=== PATIENT | male | born 1955 | race Caucasian/White ===

== ENCOUNTER 2016-08-23 03:50 | Inpatient (IN) | payer OTHER ==
[~2016-08-23] VITALS: Ht 185.4 cm; Wt 102.2 kg
[2016-08-23] VITALS (23 sets, daily range): BP systolic 112–143; BP diastolic 51–90; PULSE 54–140; RESP 12–24; TEMP 95–101; O2SAT 99–100
[2016-08-23] MEDS ORDERED: MIDAZOLAM HCL 5 MG/ML VIAL (1 ML) ONE ×2 (03:56→17:01)
[2016-08-23] MEDS ORDERED: PROPOFOL 500 MG/50 ML INJ 50 ML ONE (03:59)
--- NOTE | 2016-08-23 04:17 | PD ---
HPI Chief Complaint: intracranial hemorrhage Time Seen by Provider: 03:59 Travel History International Travel<30 days: No Contact w/Intl Traveler<30days: No History of Present Illness HPI The patient is a 60 year old male who presents to the [facility] emergency department with a history of being accepted in transfer from [facility] after being diagnosed with a subarachnoid hemorrhage worse on the right compared to the left with intraventricular hemorrhage extension. The patient was accepted in transfer by the neurosurgeon on-call, Dr. Robbins. The patient was intubated at that facility when he became unresponsive. The patient was noted to be tachycardic with a heart rate in the 130s, blood pressure initially 220/120. According to the record, the patient had a history of recently standing up after tying his shoes and having a headache associated with neck pain. He had been being seen by a local chiropractor and been treating the pain with tramadol, ibuprofen, and Flexeril. This evening he developed a decreased level of consciousness and was difficult to awaken according to his . She was concerned that he may have taken some extra pain medication, therefore Narcan was given in 3 separate doses at that facility, however the patient had no response. The patient was noted after intubation to have the subarachnoid hemorrhage and was transferred to this facility for definitive care by the neurosurgeon. The patient was placed on propofol for sedation on the ventilator. The patient was started on a Cardene drip. The patient was noted en route to this facility to have decorticate posturing. The patient on arrival is noted to have tachycardia with a pulse in the 150s to 160s. The patient is unable to provide any further history as he is intubated. [facility] Past Medical History Narrative Medical The patient's past medical history is obtained from reviewing the other records and reveals a history of hypertension, hyperlipidemia, recent headache, recent neck pain. Past Surgical History Narrative Surgical The patient's past surgical history is unable to be obtained. Social History Alcohol Use: No Tobacco Use: No Substance Use: No Allergies-Medications Comments No known drug allergies. Narrative Medication The patient has been taking Flexeril, tramadol, ibuprofen, enalapril, lovastatin. Review of Systems ROS Limitations: Intubated Physical Exam Narrative General: The patient is a well-developed well-nourished male, intubated on arrival, diaphoretic. Head and Neck exam: Head is normocephalic atraumatic. Eyes: Extraocular motion testing is unable to be accomplished in this patient who is sedated on a ventilator. Pupils are equal round and reactive to light at 3 mm. Nose: Midline septum with pink mucous membranes Mouth: Dentition unremarkable. Moist mucus membranes. Posterior oropharynx is not erythematous. No tonsillar hypertrophy. Uvula midline. Airway patent. Neck: No palpable lymphadenopathy. No nuchal rigidity. No thyromegaly. Cardiovascular: Sinus tachycardia in the 150s to low 160s without murmurs, gallops, or rubs. No pulse deficit to the extremities and simultaneous auscultation and palpation of his radial arteries. Lungs: Clear to auscultation bilaterally. No wheezes, rhonchi, or rales. The patient is intubated and on a ventilator. Abdomen: Soft, without tenderness to palpation in all 4 quadrants of the abdomen. No guarding, rebound, or rigidity. Extremities: No clubbing, cyanosis, or edema. 2+ pulses in all 4 extremities. The patient has fasciculations noted of his musculature of his extremities. Neurologic Exam: Formal neurologic testing is unable to be accomplished as the patient is sedated on a ventilator, however the patient is noted to have decorticate posturing. Skin Exam: No rash noted. Intact skin that is warm and diaphoretic. Data Data Orders Midazolam Inj (Versed Inj) (08/23/16 03:56) Propofol 500 Mg/50 Ml Inj (Diprivan 500 (08/23/16 03:59) Admit Order (Ed Use Only) (08/23/16 03:59) Nicardipine Inj (Cardene Inj) (08/23/16 04:05) [facility] Medical Decision Making Medical Screen Exam Complete: Yes Emergency Medical Condition: Yes Medical Record Reviewed: Yes Differential Diagnosis Subarachnoid hemorrhage related to aneurysm, versus trauma Narrative Course During the course of the patients emergency department visit,the patient had IV access assess and IV drips assessed. A call was placed out to the neurosurgeon on-call that except that the patient in transfer, Dr. Robbins. He reported back that he planned on placing a ventriculostomy emergently. He requested that the patient be transferred Immediately to the [facility]. The patient was initially provided Versed 2.5 mg IV in 2 separate doses for sedation while the patient was placed on infusion pumps from this facility for the Cardene that he was previously placed on, as well as a propofol. The patients laboratory studies were reviewed from the other facility and remarkable for a sodium of 142 potassium 4.1, chloride 102, CO2 22, glucose 139 , anion gap 18, BUN 30, creatinine 0.7, calcium 9.4, albumin 3.7, magnesium 1.9 , serum osmolality 283, BNP is 17, troponin I 0.019, lipase 1:15, AST 148, ALT 228, alkaline phosphatase 90, ammonia 13, total bilirubin 1.0, lactic acid 1.8. White count is 11.1, hemoglobin is 17.5, platelets 406 with neutrophils 67.3, lymphocytes 19.1. PT 10.4, INR 0.99, PTT 28.8. Urinalysis shows small blood, protein 100, urobilinogen 2 Radiology studies were reviewed and remarkable for a subarachnoid hemorrhage noted on CT that is worse on the right side of the brain compared to the left with intraventricular extension. The patients results were discussed with the patient, including the plan of care. I explained that further testing and/ or monitoring is indicated based on the patients history, examination, and/ or laboratory findings. Therefore, I recommended admission for additional evaluation. The patient expressed understanding and was agreeable with this plan. The patient was admitted to the hospital in critical condition and sent to a bed under the care of Dr. Robbins. Diagnosis Primary Impression: Subarachnoid hemorrhage Admitting Information Admitting Physician Requests: Admit Mindy Contreras MD Aug 23, 2016 04:17
--- NOTE | 2016-08-23 05:05 | HHI.HP ---
HPI Service Critical Care Medicine Primary Care Physician Unknown Admission Diagnosis Intracranial hemorrhage Diagnosis: Travel History International Travel<30 Days: No Contact w/Intl Traveler <30 Da: No History of Present Illness 60 year old male who presents to the [facility] in transfer from [facility] after being diagnosed with a subarachnoid hemorrhage with intraventricular hemorrhage extension. The patient was intubated at that facility when he became unresponsive. The patient was noted to be tachycardic with a heart rate in the 130s, blood pressure initially 220/120. According to the record, the patient had a history of recently standing up after tying his shoes and having a headache associated with neck pain. He had been being seen by a local chiropractor and been treating the pain with tramadol, ibuprofen, and Flexeril. This evening he developed a decreased level of consciousness and was difficult to awaken according to his . She was concerned that he may have taken some extra pain medication, therefore Narcan was given in 3 separate doses at that facility, however the patient had no response. The patient was noted after intubation to have the subarachnoid hemorrhage and was transferred to this facility for higher level of care. The patient was placed on propofol for sedation on the ventilator. The patient was started on a Cardene drip. EVD was emergently placed by neurosurgeon. Review of Systems ROS Unable to obtain patient is comatose and intubated Past Family Social History Allergies: Coded Allergies: No Known Allergies (Unverified , 08/23/16) Past Medical History Hypertension Hyperlipidemia New onset of recent headaches and neck pain Past Surgical History Unobtainable Family History Unobtainable Social History Unobtainable Physical Exam Vital Signs Vital Signs Date Time Temp Pulse Resp B/P Pulse Ox O2 Delivery O2 Flow Rate FiO2 08/23/16 04:31 99 50 08/23/16 04:20 100 100 08/23/16 04:00 100 50 Physical Exam GENERAL: Well-nourished, well-developed patient. Sedated and intubated SKIN: Warm and dry. HEAD: Normocephalic. EYES: No scleral icterus. No injection or drainage. NECK: Supple, trachea midline. No JVD or lymphadenopathy. CARDIOVASCULAR: Regular rate and rhythm without murmurs, gallops, or rubs. RESPIRATORY: Breath sounds equal bilaterally. No accessory muscle use. GASTROINTESTINAL: Abdomen soft, non-tender, nondistended. MUSCULOSKELETAL: No cyanosis, or edema. BACK: Nontender without obvious deformity. No CVA tenderness. EXTREMITIES: No clubbing cyanosis or edema. Extends on all 4 extremities painful stimuli Assessment and Plan Assessment and Plan Respiratory failure - Intubated for an airway protection - Mechanical ventilation - Vent bundle - No SBT's until neurologically stable and improved Subarachnoid hemorrhage - Marshall and Galeas grade 5 - Modified Andersen grade 4 - Strict blood pressure control - Nimodipine and Pravachol - TCD's daily starting day 2 - Cerebral angiogram - EVD - Management per neurosurgery Obstructive hydrocephalus - Due to above - EVD in place Hypertension - Nicardipine drip - SBP less than 140 until aneurysm secured Dyslipidemia - Pravachol for now for vasospasm prevention as well DVT GI prophylaxis - Teds SCDs - No pharmacological DVT prophylaxis due to subarachnoid bleed - Pepcid Critical Care: The total critical care time was 35 minutes. Time to perform other separately billable procedures was not included in the critical care time. Dannie Greenberg MD Aug 23, 2016 05:05
[2016-08-23] MEDS ORDERED: ONDANSETRON HCL 4 MG/2 ML VIAL IV PRN (05:30)
[2016-08-23] MEDS ORDERED: METOCLOPRAMIDE HCL 10 MG/2 ML VIAL IV PRN (05:30)
[2016-08-23] MEDS ORDERED: MAGNESIUM HYDROXIDE SUSP 30 ML CUP PO PRN (05:30)
[2016-08-23] MEDS ORDERED: SENNOSIDES 8.6 MG TAB PO PRN (05:30)
[2016-08-23] MEDS ORDERED: SODIUM CHLORIDE 0.9% FLUSH 10 ML FLUSH PRN (05:30)
[2016-08-23] MEDS ORDERED: MORPHINE SULFATE 4 MG/ML INJ IV PRN (05:30)
[2016-08-23] MEDS ORDERED: CHLORHEXIDINE GLUCONATE 2 % 1 PACK (2 CLOTHS) TOP PRN (05:30)
[2016-08-23] MEDS ORDERED: LACTULOSE SYRUP 20 GM/30 ML CUP PO PRN (05:30)
[2016-08-23] MEDS ORDERED: BISACODYL 10 MG SUPP RECTAL PRN (05:30)
[2016-08-23] MEDS ORDERED: RESP: ALBUTEROL 2.5 MG/IPRATROPIUM 0.5 MG NEB (PRN) INH (05:30)
[2016-08-23] MEDS ORDERED: MISCELLANEOUS NURSING INFORMATION XX SCH (05:30)
[2016-08-23] MEDS ORDERED: PROCHLORPERAZINE 25 MG SUPP RECTAL PRN (05:30)
--- NOTE | 2016-08-23 06:00 | RADRPT ---
EXAM DATE/TIME: 08/23/2016 05:32 [facility] COMPARISON: No previous studies available for comparison. INDICATIONS : Short of breath. MEDICAL HISTORY : None. SURGICAL HISTORY : None. ENCOUNTER: Initial ACUITY: 1 day PAIN SCORE: 0/10 LOCATION: Bilateral chest FINDINGS: A single view of the chest demonstrates the lungs to be symmetrically aerated without evidence of mas s, infiltrate or effusion. The cardiomediastinal contours are unremarkable. Osseous structures are intact. CONCLUSION: Normal examination. Larry Carroll MD on August 23, 2016 at 5:58 Board Certified Radiologist. This report was verified electronically.
[2016-08-23 06:06] LABS: BLOOD GAS BASE EXCESS 1.9 mmol/L (-2-2); BLOOD GAS CARBOXYHEMOGLOBIN 0.8 % (0-4); BLOOD GAS HCO3 25 mmol/L (22-26); BLOOD GAS METHEMOGLOBIN 0.9 % (0-2); BLOOD GAS O2 HGB SATURATION 98 % (90-100); BLOOD GAS OXYGEN CONTENT 25.2 Vol % (12.0-20.0); BLOOD GAS PCO2 36 mmHg (38-42); BLOOD GAS PO2 237 mmHg (61-120); CRITICAL VALUE NO; OXYGEN DEVICE VENT; TEMP CORR TO 98.6
[2016-08-23 06:07] LABS: DRAW SITE LT RADIAL; FIO2 50 %; NUMBER OF ARTERIAL PUNCTURES 1; STAT NO; ULNAR PULSE PRESENT; VENT SETTINGS 12/500 5 PEEP
--- NOTE | 2016-08-23 06:09 | PD.CONS ---
History of Present Illness Service Neurosurgery Consult Requested By Facilities Clerk Reason for Consult Intracranial-intraventricular hemorrhage Primary Care Physician Jaime Barajas MD Diagnoses: History of Present Illness 60-year-old male who according to his developed acute onset of severe back pain and headache on approximately 08/11/16 while on a fishing trip. The headache has persisted since then along with nausea and occasional emesis. He has not sought any medical treatment since initial onset. He did not go to work since the initial onset due to these persistent symptoms. He has not been eating well. His states that after he went to sleep last night, at approximately 1:30 or 2 AM she noticed snoring respirations and found him initially unresponsive. He was able to be aroused by EMS and ambulated briefly prior to being placed in the ambulance. He was taken to [facility] for initial evaluation and in the emergency room was noted to be unresponsive with extensor posturing. He was intubated and placed on nicardipine drip for hypertension. No seizure activity reported. Review of Systems Review of systems cannot be obtained from the patient. According to the patient's , other than the above-noted symptoms, he has been in good health without any significant medical symptoms or health related complaints. Past Family Social History Allergies: Coded Allergies: No Known Allergies (Unverified , 08/23/16) Past Medical History Hypertension Hypercholesterolemia No cardiac or pulmonary or gastrointestinal disease Past Surgical History No major surgeries reported Reported Medications He takes enalapril for hypertension Family History Negative for cardiac disease, neurologic disorders, aneurysm. His father of cancer in his mother following a stroke. Social History No history of smoking. No significant alcohol use Physical Exam Vital Signs Vital Signs Date Time Temp Pulse Resp B/P Pulse Ox O2 Delivery O2 Flow Rate FiO2 08/23/16 05:00 101.0 140 24 143/90 99 08/23/16 05:00 99 Mechanical Ventilator 50 08/23/16 05:00 140 08/23/16 05:00 50 08/23/16 04:31 99 50 08/23/16 04:20 100 100 08/23/16 04:00 100 50 Physical Exam GENERAL: This is a well-nourished, well-developed patient, intubated and sedated on propofol SKIN: No rashes, ecchymoses or lesions. Cool and dry. HEAD: Atraumatic. Normocephalic. EYES: Sclerae clear and nonicteric ENT: No facial edema or ecchymosis. Intubated. No obvious oropharyngeal lesions. NECK: Trachea midline. No JVD or lymphadenopathy. Supple CARDIOVASCULAR: Regular rate and rhythm without murmurs, gallops, or rubs. RESPIRATORY: Clear to auscultation. Breath sounds equal bilaterally. No wheezes , rales, or rhonchi. GASTROINTESTINAL: Abdomen soft, , nondistended. No hepato-splenomegaly MUSCULOSKELETAL: Extremities without clubbing, cyanosis, or edema. No joint effusion, or edema noted. Posterior tibial pulses are 2+ bilateral. NEUROLOGICAL: No eye opening spontaneous, to voice, or deep pain. Does not follow commands. No response to voice Pupils 3 mm and reactive No spontaneous extraocular movements minimal oculocephalic responses-mildly disconjugate Mild bilateral corneal response Postoperative cough response was endotracheal suctioning Positive spontaneous respirations No facial grimacing to deep pain Extensor posturing in the right there is a left upper extremity and lower extremities to deep pain Does not localize to deep pain. No purposeful movements Imaging 08/23/2016 CT scan head [facility] images are reviewed by the undersigned. Study reveals a moderate focal area of parenchymal hemorrhage starting at the region of the right clinoid extending to the anterior to mid medial temporal lobe with significant intraventricular hemorrhage primarily in the right lateral ventricle extending into the fourth ventricle. Moderate dilation of the left lateral ventricle. There appears to be diminished cortical markings and sanchez-white interface. Assessment and Plan Assessment and Plan Impression: 1. Right temporal intracranial hemorrhage with interventricular extension. 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 2. Hypertension Recommendations: Findings were discussed at length with the patient's in the surgical intensive care unit shortly after the patient's arrival. He has been maintained on nicardipine drip for control of hypertension. Maintain systolic blood pressure 110-140 range Continuing ventilatory support with sedation as needed for control of airway, respirations and agitation I recommended placement of ventriculostomy catheter. The procedure, risks, possible complications, indications have all been fully discussed and consents obtained from the patient's . Nimodipine initiated for vasospasm prophylaxis. CT angiogram of the head and neck requested. Ulcer prophylaxis Non- chemical DVT prophylaxis Discussed with junior systems engineer Speedy Robbins MD Aug 23, 2016 06:09
--- NOTE | 2016-08-23 06:14 | PD.OP ---
Operative Report Date of Surgery: Aug 23, 2016 Preoperative Diagnosis: (1) Intracranial hemorrhage (2) Intraventricular hemorrhage Right temporal intracranial hemorrhage with intraventricular hemorrhage with obstructive hydrocephalus Postoperative Diagnosis: (1) Intracranial hemorrhage (2) Intraventricular hemorrhage Right temporal intracranial hemorrhage with intraventricular hemorrhage with obstructive hydrocephalus Procedure: Left frontal twist drill for ventriculostomy placement Anesthesia: Intravenous sedation 1% Xylocaine local anesthetic Surgeon: Speedy Robbins Stick Puller(s): None Operation and Findings: The procedure was performed in the surgical intensive care unit. The procedure, risks, and possible complications were fully explained prior to the procedure and consent obtained and witnessed. The catheter was placed on the left side due to extensive hemorrhage within the right lateral ventricle with dilation of the left lateral ventricle Appropriate timeout procedure was performed with all personnel present and in agreement The patient was placed in supine position with the head and neck in neutral position and the head of the bed elevated approximately 20. The left frontal region was shaved with clippers and sterilely prepped and draped. One percent Xylocaine without epinephrine was used for local infiltration over the small incision site which was made approximately 9-10 cm above the left supraorbital rim, approximately 3-1/2 to 4 cm lateral to the midline, in the mid pupillary line just anterior to the coronal suture. The hand drill was used to make a single twist drill opening in the cranium and the dura was perforated with the trocar. The Codman Bactiseal ventriculostomy catheter was advanced to a depth of 6-7 cm intracranial in a single pass with good return of spinal fluid. Opening pressure was 42 centimeter water The catheter was tunneled to the posterior frontal region with a trocar and secured to the skin with 3-0 nylon suture which was also used to close the small incision. A sterile bactericidal dressing was applied The catheter was connected to the drainage reservoir, and there was good drainage of fluid. The patient's neurologic exam remained stable following the procedure No specimen was sent There was no significant bleeding Speedy Robbins MD Aug 23, 2016 06:14
[2016-08-23 06:15] LABS: AUTOMATED NEUTROPHIL # 17.1 TH/MM3 (1.8-7.7); BASOPHIL # 0.1 TH/MM3 (0-0.2); BASOPHIL % 0.6 % (0.0-2.0); EOSINOPHIL # 0.1 TH/MM3 (0-0.4); EOSINOPHIL % 0.4 % (0.0-4.0); HEMATOCRIT 52.6 % (39.0-51.0); HEMO FLAGS DIFF FINAL; LYMPH % 3.3 % (9.0-44.0); LYMPHOCYTE # 0.6 TH/MM3 (1.0-4.8); MEAN CELL VOLUME 82.8 FL (80.0-100.0); MEAN CORPUSCULAR HEMOGLOBIN 27.7 PG (27.0-34.0); MEAN CORPUSCULAR HGB CONC 33.4 % (32.0-36.0); MONO % 7.1 % (0.0-8.0); NEUT % 88.6 % (16.0-70.0); PLATELET COUNT 338 TH/MM3 (150-450); RED BLOOD COUNT 6.35 MIL/MM3 (4.50-5.90); RED CELL DISTRIBUTION WIDTH 14.6 % (11.6-17.2); WHITE BLOOD COUNT 19.3 TH/MM3 (4.0-11.0)
[2016-08-23 06:26] LABS: PROTHROMBIN TIME - PATIENT 10.7 SEC (9.8-11.6)
[2016-08-23 06:41] LABS: ALT (GPT) 209 U/L (12-78)
--- NOTE | 2016-08-23 06:41 | PD.PROCEDR ---
Procedure Note Procedure Centerline A time-out was completed verifying correct patient, procedure, site, positioning , and special equipment if applicable. The patient was placed in a dependent position appropriate for central line placement based on the vein to be cannulated. The patients right shoulder was prepped and draped in sterile fashion. 1% Lidocaine was used to anesthetize the surrounding skin area. A triple lumen 9-Arabic Cordis catheter was introduced into the the right subclavian vein using the Seldinger technique. The catheter was threaded smoothly over the guide wire and appropriate blood return was obtained. Each lumen of the catheter was evacuated of air and flushed with sterile saline. The catheter was then sutured in place to the skin and a sterile dressing applied. Perfusion to the extremity distal to the point of catheter insertion was checked and found to be adequate. Estimated Blood Loss: 1ml The patient tolerated the procedure well and there were no complications. Dannie Greenberg MD Aug 23, 2016 06:41
--- NOTE | 2016-08-23 06:42 | PD.PROCEDR ---
Procedure Note Procedure Arterial line A time-out was completed verifying correct patient, procedure, site, positioning , and special equipment if applicable. Allens test was performed to ensure adequate perfusion. The patients right wrist was prepped and draped in sterile fashion. 1% Lidocaine was used to anesthetize the area. A 18G Arrow arterial line was introduced into the radial artery. The catheter was threaded over the guide wire and the needle was removed with appropriate pulsatile blood return. The catheter was then sutured in place to the skin and a sterile dressing applied. Perfusion to the extremity distal to the point of catheter insertion was checked and found to be adequate. Estimated Blood Loss: 1ml The patient tolerated the procedure well and there were no complications. Dannie Greenberg MD Aug 23, 2016 06:42
[2016-08-23 06:54] LABS: ALKALINE PHOSPHATASE 81 U/L (45-117); ANION GAP 10 MEQ/L (5-15); AST (GOT) 121 U/L (15-37); BICARBONATE 25.3 MEQ/L (21.0-32.0); BLOOD UREA NITROGEN 24 MG/DL (7-18); CHLORIDE 102 MEQ/L (98-107); GLOMERULAR FILTRATION RATE 96 ML/MIN (>89); MAGNESIUM 1.9 MG/DL (1.5-2.5); POTASSIUM 4.5 MEQ/L (3.5-5.1); SODIUM (NA) 137 MEQ/L (136-145); TOTAL BILIRUBIN ADULT 0.7 MG/DL (0.2-1.0)
--- NOTE | 2016-08-23 07:06 | RADRPT ---
EXAM DATE/TIME: 08/23/2016 06:25 [facility] COMPARISON: CHEST SINGLE AP, August 23, 2016, 5:32. INDICATIONS : Short of breath. CVL placement. MEDICAL HISTORY : None. SURGICAL HISTORY : None. ENCOUNTER: Subsequent ACUITY: 2 days PAIN SCORE: 0/10 LOCATION: Bilateral chest FINDINGS: The ET tube is well placed. There is a right subclavian line in place with the tip overlying the SVC. A pneumothorax is not seen. The heart size is normal. The lungs are clear. CONCLUSION: Right subclavian line in good position. Chan Lobo MD on August 23, 2016 at 7:03 Board Certified Radiologist. This report was verified electronically.
--- NOTE | 2016-08-23 07:45 | RADRPT ---
EXAM DATE/TIME: 08/23/2016 07:21 [facility] COMPARISON: No previous studies available for comparison. INDICATIONS : Aneurysm RADIATION DOSE: 39.63 CTDIvol (mGy) MEDICAL HISTORY : Non-responsive. SURGICAL HISTORY : Non-responsive. ENCOUNTER: Initial ACUITY: 1 day PAIN SCALE: Non-responsive LOCATION: cranial TECHNIQUE: Multiple contiguous axial images were obtained of the head. Using automated exposure control and adj ustment of the mA and/or kV according to patient size, radiation dose was kept as low as reasonably a chievable to obtain optimal diagnostic quality images. FINDINGS: CEREBRUM: A prior CT examination is not available for comparison. The patient has intraventricular hemorrhage s een in the lateral ventricles being more prominent on the right, third ventricle and fourth ventricle . The ventricles appear dilated. There is subarachnoid hemorrhage seen around the vini, midbrain, and medulla. There is a 1 cm focal area of increased density in the right suprasellar region which could be related to an aneurysm in this region versus focal hemorrhage. There is a ventriculostomy tube in place from the left frontal approach with the tip extending into the left lateral ventricle and towa rds the third ventricle. The basal cisterns are quite narrow. The sulci are completely effaced. POSTERIOR FOSSA: Again noted is the fourth ventricle and subarachnoid hemorrhage. The cerebellum and brainstem are oth erwise intact. The 4th ventricle is midline. EXTRACRANIAL: The visualized portion of the orbits is intact. There is mucosal thickening at the right sphenoid sin us. The frontal sinuses are hypoplastic. SKULL: The calvaria is intact. No evidence of skull fracture. CONCLUSION: 1. Interventricular and subarachnoid hemorrhage. The most concerning region for a source is the right suprasellar region. The patient is scheduled for a CTA. 2. Dilatation of the ventricles and effacement of the sulci and basal cisterns. 3. Left ventriculostomy tube in good position. Chan Lobo MD on August 23, 2016 at 7:38 Board Certified Radiologist. This report was verified electronically.
[2016-08-23] MEDS ORDERED: IOHEXOL 350 MG/ML 10 ML VIAL (for RAD DIAG) IV ONE ×2 (07:51→19:56)
--- NOTE | 2016-08-23 08:18 | RADRPT ---
EXAM DATE/TIME: 08/23/2016 07:21 [facility] COMPARISON: No previous studies available for comparison. INDICATIONS : Aneurysm IV CONTRAST: 100 cc Omnipaque 350 (iohexol) IV RADIATION DOSE: 28.24 CTDIvol (mGy) MEDICAL HISTORY : Non-responsive. SURGICAL HISTORY : Non-responsive. ENCOUNTER: Initial ACUITY: 1 day PAIN SCALE: Non-responsive LOCATION: cranial Elevated flow velocities and ICA/CCA ratios have been found to correlate with increased degrees of vessel stenosis, calculated as percentage of diameter relative to a normal segment of distal ICA/CCA. TECHNIQUE: Volumetric scanning was performed using a multirow detector CT scanner. The data was post processed with a variety of visualization algorithms including full-volume maximum intensity projection, multip lanar sliding thin-slab reformation, curved-planar reformation, and surface-rendering techniques. Us ing automated exposure control and adjustment of the mA and/or kV according to patient size, radiatio n dose was kept as low as reasonably achievable to obtain optimal diagnostic quality images. FINDINGS: AORTIC ARCH: There is a three-vessel origin of the great vessels from the aorta. No evidence of ostial narrowing. RIGHT CAROTID: The common carotid artery is intact. The carotid bulb has a normal configuration without ulceration o r narrowing. The internal carotid artery lumen is smooth without stenosis. The external carotid christiano ry is intact. LEFT CAROTID: The common carotid artery is intact. The carotid bulb has a normal configuration without ulceration or narrowing. The internal carotid artery lumen is smooth without stenosis. The external carotid ar alex is intact. VERTEBRALS: The vertebral arteries have a symmetric diameter. No stenotic lesions are seen. CONCLUSION: 1. Negative CTA of the carotids. CT angiography of the brain is pending. Ozzy Marcelo MD on August 23, 2016 at 8:14 Board Certified Radiologist. This report was verified electronically.
--- NOTE | 2016-08-23 08:30 | RADRPT ---
EXAM DATE/TIME: 08/23/2016 07:21 [facility] COMPARISON: No previous studies available for comparison. INDICATIONS : Aneurysm IV CONTRAST: 100 cc Omnipaque 350 (iohexol) IV ; Cumulative dose for multiple exams. RADIATION DOSE: 28.24 CTDIvol (mGy) ; Combined studies MEDICAL HISTORY : Non-responsive. SURGICAL HISTORY : Non-responsive. ENCOUNTER: Initial ACUITY: 1 day PAIN SCALE: Non-responsive LOCATION: cranial TECHNIQUE: Volumetric scanning was performed using a multi-row detector CT scanner. The data was post processed with a variety of visualization algorithms including full volume maximum intensity projection, multi -planar sliding thin slab reformation, curved planar reformation, and surface rendering techniques. Using automated exposure control and adjustment of the mA and/or kV according to patient size, radiat ion dose was kept as low as reasonably achievable to obtain optimal diagnostic quality images. FINDINGS: The distal internal carotid arteries are widely patent. The examination demonstrates a 4 point #4.5 mm aneurysm arising from the supraclinoid carotid on the right. This appears to arise at the origin of the right P-comm. The examination also demonstrates a small outpouching arising from the proximal right anterior cerebr al just distal to the A-comm. This is possibly a vessel loop. This area should be assessed at the los e of cerebral angiography. The remainder of the intraorbital cerebral circulation appears adequate in caliber. Both vertebral arteries are patent. The left vertebral somewhat smaller than the right. The basilar i s widely patent. The posterior circulation is unremarkable in appearance. CONCLUSION: 1. There is a 4.9 x 4.5 mm aneurysm arising from the right supraclinoid carotid which appears to be a t the base of the right P-comm. There is considerable hemorrhage immediately adjacent to this. 2. There is a small outpouching of the proximal right anterior cerebral this is just distal to the an terior communicating. This measures approximately 1.5 mm in maximum dimension. This may represent a s mall vessel loop however this could also represent a small aneurysm as well. Assessment of this area with dedicated cerebral angiography at the time of the evaluation of the patient's right P-comm would be warranted. Ozzy Marcelo MD on August 23, 2016 at 8:17 Board Certified Radiologist. This report was verified electronically.
[2016-08-23] MEDS: SODIUM CHLOR 0.9% 1000 ML INJ 1,000 ML IV SCH ×2 (08:36→17:15)
[2016-08-23] MEDS: SODIUM CHLORIDE 0.9% FLUSH 10 ML FLUSH SCH ×2 (08:43→21:00)
[2016-08-23] MEDS: FAMOTIDINE 20 MG/2 ML VIAL IV PUSH SCH ×2 (08:44→23:15)
[2016-08-23] MEDS: DOCUSATE SODIUM 50 MG/SENNA 8.6 MG TAB PO SCH ×2 (08:44→23:15)
[2016-08-23] MEDS: niMODipine 30 MG CAP PO SCH ×4 (08:45→23:10)
[2016-08-23] MEDS: PROPOFOL 1000 MG/100 ML INJ 100 ML IV SCH ×4 (09:31→23:10)
[2016-08-23] MEDS: ACETAMINOPHEN 325 MG TAB PO PRN ×2 (10:18→17:30)
--- NOTE | 2016-08-23 10:37 | HHI.NSPN ---
(Boogie Lawler) History Chief Complaint: Unable to obtain due to mental status, sedation & intubation ( Boogie Lawler) Interval History 08/22: 60-year-old male who according to his developed acute onset of severe back pain and headache on approximately 08/11/16 while on a fishing trip. The headache has persisted since then along with nausea and occasional emesis. He has not sought any medical treatment since initial onset. He did not go to work since the initial onset due to these persistent symptoms. He has not been eating well. His states that after he went to sleep last night, at approximately 1:30 or 2 AM she noticed snoring respirations and found him initially unresponsive. He was able to be aroused by EMS and ambulated briefly prior to being placed in the ambulance. He was taken to [facility] for initial evaluation and in the emergency room was noted to be unresponsive with extensor posturing. He was intubated and placed on nicardipine drip for hypertension. No seizure activity reported. 08/23: Patient remains intubated and sedated this morning. 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 He is withdrawing with the RUE to noxious stimuli with questionable extension of both feet, but no response with the LUE per Nursing. He is maintaining his SBP without the nicardipine drip. Nursing also reports that temp has been up to 101.3 degrees. (Boogie Lawler) System Review Comments Unable to obtain ROS due to mental status, sedation & intubation (Boogie Lawler) Exam Results Vital Signs Date Time Temp Pulse Resp B/P Pulse Ox O2 Delivery O2 Flow Rate FiO2 08/23/16 08:00 110 08/23/16 07:50 100 100 08/23/16 07:00 100.9 20 112/69 08/23/16 07:00 Mechanical Ventilator (Boogie Lawler) Physical Examination GENERAL: This is a well-nourished, well-developed patient, intubated and sedated on propofol, normotensive w/o intervention. INTEGUMENTARY: Warm, dry & pink, no evident lesions or rashes. HEENT: Normocephalic, atraumatic. PERRL 3mm brisk bilaterally. MMM & pink, orally intubated, OGT in place. NECK: No JVD, trachea midline. CARDIOVASCULAR: S1S2 w/regular rate but fast w/o M/G/R, cap refill < 2 sec, radial & pedal pulses 2+ bilaterally, no pedal edema. Monitor is sinus tachycardia w/o any ectopy noted. RESPIRATORY: CTAB w/o W/R/R, equal excursion, non-laboured, orally intubated & mechnically ventilated. GASTROINTESTINAL: Abdomen soft, nontender, bowel sounds not appreciated, OGT clamped. MUSCULOSKELETAL: Normal extremities w/o any evident deformity, discolouration or clubbing noted. NEUROLOGICAL: Intubated & sedated, GCS 6T (E1 V1T M4) No eye opening, PERRL 3 mm brisk bilaterally Unable to assess sensation due to mental status RUE with probable withdrawal to peripheral & central noxious stimuli, extension of bilateral feet to peripheral noxious stimuli, no response noted to LUE No facial grimacing to noxious stimuli Ventriculostomy at 5 with bloody drainage, ICP was 4 (Boogie Lawler) Lab, Micro, Other Results Allergies Coded Allergies Type Severity Reaction Last Updated Verified No Known Allergies 08/23/16 No Recent Impressions Head CT 08/23/16 0636 Signed Impressions: Service Date/Time: Tuesday, August 23, 2016 07:21 - CONCLUSION: 1. Interventricular and subarachnoid hemorrhage. The most concerning region for a source is the right suprasellar region. The patient is scheduled for a CTA. 2. Dilatation of the ventricles and effacement of the sulci and basal cisterns. 3. Left ventriculostomy tube in good position. Chan Lobo MD Neck CTA 08/23/16 0000 Signed Impressions: Service Date/Time: Tuesday, August 23, 2016 07:21 - CONCLUSION: 1. Negative CTA of the carotids. CT angiography of the brain is pending. Ozzy Marcelo MD Head CTA 08/23/16 0000 Signed Impressions: Service Date/Time: Tuesday, August 23, 2016 07:21 - CONCLUSION: 1. There is a 4.9 x 4.5 mm aneurysm arising from the right supraclinoid carotid which appears to be at the base of the right P-comm. There is considerable hemorrhage immediately adjacent to this. 2. There is a small outpouching of the proximal right anterior cerebral this is just distal to the anterior communicating. This measures approximately 1.5 mm in maximum dimension. This may represent a small vessel loop however this could also represent a small aneurysm as well. Assessment of this area with dedicated cerebral angiography at the time of the evaluation of the patient's right P-comm would be warranted. Ozzy Marcelo MD Chest X-Ray 08/23/16 0000 Signed Impressions: Service Date/Time: Tuesday, August 23, 2016 06:25 - CONCLUSION: Right subclavian line in good position. Chan Lobo MD Chest X-Ray 08/23/16 0000 Signed Impressions: Service Date/Time: Tuesday, August 23, 2016 05:32 - CONCLUSION: Normal examination. Larry Carroll MD //////// 05:59 17:59 05:59 17:59 05:59 17:59 Output Total 1500 ml Balance -1500 ml Output Urine Total 1500 ml Laboratory Tests Test 08/23/16 08/23/16 05:50 05:59 Blood Gas Puncture Site LT RADIAL Blood Gas Patient Temperature 98.6 Blood Gas HCO3 25 mmol/L Blood Gas Base Excess 1.9 mmol/L Blood Gas Oxygen Saturation 98 % Arterial Blood pH 7.46 Arterial Blood Partial 36 mmHg Pressure CO2 Arterial Blood Partial 237 mmHg Pressure O2 Arterial Blood Oxygen Content 25.2 Vol % Arterial Blood 0.8 % Carboxyhemoglobin Arterial Blood Methemoglobin 0.9 % Blood Gas Hemoglobin 18.0 G/DL Oxygen Delivery Device VENT Blood Gas Ventilator Setting 12/500 5 PEEP Blood Gas Inspired Oxygen 50 % White Blood Count 19.3 TH/MM3 Red Blood Count 6.35 MIL/MM3 Hemoglobin 17.6 GM/DL Hematocrit 52.6 % Mean Corpuscular Volume 82.8 FL Mean Corpuscular Hemoglobin 27.7 PG Mean Corpuscular Hemoglobin 33.4 % Concent Red Cell Distribution Width 14.6 % Platelet Count 338 TH/MM3 Mean Platelet Volume 8.6 FL Neutrophils (%) (Auto) 88.6 % Lymphocytes (%) (Auto) 3.3 % Monocytes (%) (Auto) 7.1 % Eosinophils (%) (Auto) 0.4 % Basophils (%) (Auto) 0.6 % Neutrophils # (Auto) 17.1 TH/MM3 Lymphocytes # (Auto) 0.6 TH/MM3 Monocytes # (Auto) 1.4 TH/MM3 Eosinophils # (Auto) 0.1 TH/MM3 Basophils # (Auto) 0.1 TH/MM3 CBC Comment DIFF FINAL Differential Comment Prothrombin Time 10.7 SEC Prothromb Time International 1.0 RATIO Ratio Sodium Level 137 MEQ/L Potassium Level 4.5 MEQ/L Chloride Level 102 MEQ/L Carbon Dioxide Level 25.3 MEQ/L Anion Gap 10 MEQ/L Blood Urea Nitrogen 24 MG/DL Creatinine 0.82 MG/DL Estimat Glomerular Filtration 96 ML/MIN Rate Random Glucose 146 MG/DL Calcium Level 8.9 MG/DL Phosphorus Level 2.4 MG/DL Magnesium Level 1.9 MG/DL Total Bilirubin 0.7 MG/DL Aspartate Amino Transf 121 U/L (AST/SGOT) Alanine Aminotransferase 209 U/L (ALT/SGPT) Alkaline Phosphatase 81 U/L Troponin I 0.52 NG/ML Total Protein 7.2 GM/DL Albumin 2.9 GM/DL Vital Signs Date Time Temp Pulse Resp B/P Pulse Ox O2 Delivery O2 Flow Rate FiO2 08/23/16 08:00 110 08/23/16 07:50 100 100 08/23/16 07:50 100 50 08/23/16 07:00 100.9 120 20 112/69 99 08/23/16 07:00 99 Mechanical Ventilator 50 08/23/16 06:00 110 08/23/16 05:00 101.0 140 24 143/90 99 08/23/16 05:00 99 Mechanical Ventilator 50 08/23/16 05:00 140 08/23/16 05:00 50 08/23/16 04:31 99 50 08/23/16 04:20 100 100 08/23/16 04:00 100 50 (Boogie Lawler) Medical Decision Making Impression and Plan Impression: 1. Right temporal intracranial hemorrhage with interventricular extension 2. 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 Hypertension 4. Small outpouching proximal right anterior cerebral artery 1.5 mm max, small vessel loop vs small aneurysm Sedated, normotensive w/o intervention Plan: Patient to go to IR for coiling of right supraclinoid carotid aneurysm this afternoon Maintain systolic blood pressure 110-140 range, nicardipine drip PRN for control of hypertension. Continuing ventilatory support with sedation as needed for control of airway, respirations and agitation Monitor ICP & ventriculostomy catheter Nimodipine for vasospasm prophylaxis Ulcer prophylaxis Non- chemical DVT prophylaxis (Boogie Lawler) Attending Statement The patient is examined this evening following endovascular coiling of the proximal internal carotid artery aneurysm. Patient reported to have significant increased ICP to approximately 60 mm water pressure with bright red blood from the ventriculostomy following the endovascular procedure. A follow-up CT scan of the head was performed which did reveal some new blood. However the aneurysm was felt to have good control from the coiling procedure. The patient subsequently is back in the intensive care unit. His ICPs are fluctuating from approximately 10 to 40s range. Discussed with the special delivery worker. He responded well with mannitol. May have early vasospasm. Plan to proceed back to the radiology suite a CT angiogram this evening to assess for stenosis versus further hemorrhage or CVA/ischemic changes which would contribute to his increased ICPs. Continuing systolic blood pressure in the 160s range pending the CT angiogram results. (Speedy Robbins MD) Boogie Lawler Aug 23, 2016 10:37 Speedy Robbins MD Aug 23, 2016 18:35
[2016-08-23] MEDS: niCARdipine INJ 25 MG in SODIUM CHLOR 0.9% 250 ML INJ 250 ML IV SCH ×2 (12:52→20:01)
[2016-08-23] MEDS ORDERED: SUGAMMADEX SODIUM 200 MG/2 ML VIAL IV PUSH ONE ×2 (12:59)
[2016-08-23] MEDS ORDERED: VERAPAMIL HCL 5 MG/2 ML VIAL ONE (14:02)
[2016-08-23] MEDS ORDERED: IODIXANOL 320 MG/ML 50 ML VIAL (for RAD SPEC) ONE (16:00)
[2016-08-23] MEDS ORDERED: ceFAZolin 2 GM PREMIX 50 ML ONE (16:07)
--- NOTE | 2016-08-23 16:38 | PD.RAD ---
Post Procedure Progress Note Pre Procedure Diagnosis: (1) Intracranial hemorrhage (2) Intracranial aneurysm Post Procedure Diagnosis: (1) Intracranial hemorrhage (2) Intracranial aneurysm Procedure Date: Aug 23, 2016 Supervising Radiologist: Chai Yuan JR Proceduralist/Assist: Cristofer Mars RT(R), Madhuri Wahl RT(R) Anesthesia: General Plan of Activity Patient to Unit: PACU Patient Condition: Fair See PACS Report for procedural detail/treatment Vascular-Arterial Procedure Procedure 1 Procedure Site: Cerebral Procedure(s): Angiogram, Embolization Access Access Site(s): Right Femoral Artery Closure Site(s): Right vascular closure device Findings: Approx 4mm supraclinoid ICA aneurysm with successful coil embolization. Angioseal closure device utilized in right groin access. Jr. Kwabena,Chai Chin MD Aug 23, 2016 16:38
[2016-08-23] MEDS ORDERED: PROTAMINE SULFATE 50 MG/5 ML VIAL ONE (16:42)
[2016-08-23] MEDS ORDERED: LABETALOL HCL 100 MG/20 ML VIAL ONE (17:10)
[2016-08-23] MEDS: LABETALOL HCL 100 MG/20 ML VIAL IV PUSH PRN (17:25)
[2016-08-23 17:36] LABS: BLOOD GAS BASE EXCESS 1.7 mmol/L (-2-2); BLOOD GAS CARBOXYHEMOGLOBIN 0.8 % (0-4); BLOOD GAS HCO3 25 mmol/L (22-26); BLOOD GAS METHEMOGLOBIN 0.9 % (0-2); BLOOD GAS O2 HGB SATURATION 98 % (90-100); BLOOD GAS OXYGEN CONTENT 23.6 Vol % (12.0-20.0); BLOOD GAS PCO2 37 mmHg (38-42); BLOOD GAS PO2 216 mmHg (61-120); BLOOD GAS TOTAL HGB 16.9 G/DL (12.0-16.0); CRITICAL VALUE YES; OXYGEN DEVICE VENTILATOR; TEMP CORR TO 98.6
--- NOTE | 2016-08-23 17:36 | RADRPT ---
EXAM DATE/TIME: 08/23/2016 14:18 [facility] COMPARISON: No previous studies available for comparison. INDICATIONS : Patient with intracranial aneurysm and acute intracranial hemorrhage in need of angiogram with interv entions. MEDICAL HISTORY : Hypertension Hyperlipidemia New onset of recent headaches and neck pain SURGICAL HISTORY : Unobtainable ENCOUNTER: Initial ACUITY: 1 day PAIN SCORE: Nonresponsive. FLUORO TIME: 36.9 minutes IMAGE SERIES: 9 ACCESS SITE: Right Femoral artery CONTRAST: 63 cc Visipaque (iodixanol) DEVICE(S): 1.) Posterior communicating artery 4mm X 10cm embolic coil(s) Codman 2.) Posterior communicating artery 3mm X 6cm embolic coil(s) Codman 3.) Posterior communicating artery 2.5mm X 3.5cm embolic coil(s) Codman 4.) Right common femoral artery 6FR Angio-Seal Anesthesia and pain control was provided by the Anesthesia department. PROCEDURE : 1. Ultrasound-guided puncture of the access site. 2. Angiography of the access site prior to closure device. 3. Conscious sedation with continuous EKG and Oximetry monitoring. 4. Percutaneous closure of the access site. 5. Angiography of the right internal carotid artery 6. coil embolization of a right supraclinoid ICA aneurysm The risks, benefits and alternatives to the procedure were explained to the patient's via teleph one and verbal consent was obtained. The site was prepped in sterile fashion. Full sterile techniqu e was used, including cap, mask, sterile gloves and gown and a large sterile sheet. Hand hygiene and 2% chlorhexidine and/or betadine/alcohol prep was utilized per protocol for cutaneous antisepsis. T he skin and subcutaneous tissues were infiltrated with local anesthetic solution. With ultrasound and fluoroscopic guidance the right common femoral artery was punctured and a vascula r sheath was placed. Angiography of the common femoral artery was performed for evaluation prior to percutaneous closure device placement. The right internal carotid artery was selected and a 3-D spin angiogram was performed. No aneurysm se en involving the anterior cerebral circulation on the right. There is a saccular aneurysm supraclinoi d in nature measuring approximately 4.5 mm in diameter. It has a narrow neck. It is mildly lobulated. A 7 Romanian sheath was placed in the groin. Through this a neuron guide catheter was positioned in th e right ICA at the level the skull base. A Prowler plus microcatheter and agility wire were utilized to select the aneurysm. A combination of complex extra soft coils were utilized to fill the aneurysm. A followup angiogram shows no residual flow within the aneurysm. No extravasation to suggest hemorrh age. An angiogram of the right groin access site performed. Angio-Seal closure device utilized. Hemostasis was obtained with the prescribed medicated closure device. Conscious sedation was perform ed with the prescribed dosages and duration as above in the presence of an independent trained radiol ogy nurse to assist in the monitoring of the patient. EKG and oximetry remained stable throughout th e procedure. CONCLUSION: 1. Successful coil embolization of a 4.5 mm saccular aneurysm involving the supraclinoid ICA on the r ight. 2. No aneurysm seen involving the right anterior cerebral artery. Chai Yuan Jr., MD on August 23, 2016 at 17:24 Board Certified Radiologist. This report was verified electronically.
[2016-08-23 17:37] LABS: DRAW SITE ART LINE; FIO2 50 %; STAT YES; VENT SETTINGS AC/12/500/+5
[2016-08-23] MEDS ORDERED: ROCURONIUM INJ 50 MG/5 ML VIAL ONE (17:37)
--- NOTE | 2016-08-23 17:38 | RADRPT ---
EXAM DATE/TIME: 08/23/2016 16:37 [facility] COMPARISON: CT BRAIN W/O CONTRAST, August 23, 2016, 7:21. INDICATIONS : Post Aneurysm coiling,increase pressures RADIATION DOSE: 56.37 CTDIvol (mGy) MEDICAL HISTORY : Aneurysm, intracranial. SURGICAL HISTORY : coiling ENCOUNTER: Initial ACUITY: 1 day PAIN SCALE: Non-responsive LOCATION: cranial TECHNIQUE: Multiple contiguous axial images were obtained of the head. Using automated exposure control and adj ustment of the mA and/or kV according to patient size, radiation dose was kept as low as reasonably a chievable to obtain optimal diagnostic quality images. FINDINGS: There has been interval coil embolization placement involve the middle cranial fossa on the right. Ag ain seen is intraventricular hemorrhage throughout all ventricles as well as a small area of intrapar enchymal hemorrhage within the medial right temporal lobe. The intraparenchymal hemorrhage is slightl y larger from the prior study. A ventriculostomy is in place on the left. No dilatation of the ventri cles observed. CONCLUSION: Interval coil embolization of an intracranial aneurysm. Overall the hemorrhage is relatively stable. There is a minimal increase in size of the intraparenchymal component within the medial right tempora l lobe. Chai Yuan Jr., MD on August 23, 2016 at 17:34 Board Certified Radiologist. This report was verified electronically.
[2016-08-23] MEDS ORDERED: SODIUM CHLORIDE 23.4% INJ 240 MEQ in SYRINGE/BAG 1 EA IV ONE (17:45)
[2016-08-23] MEDS ORDERED: MANNITOL INJ 500 ML IV ONE (17:45)
[2016-08-23] MEDS ORDERED: ROCURONIUM INJ 100 MG/10 ML VIAL IV ONE (17:45)
[2016-08-23] MEDS ORDERED: MIDAZOLAM HCL 2 MG/2 ML VIAL IV PUSH ONE (17:45)
--- NOTE | 2016-08-23 19:31 | RADRPT ---
EXAM DATE/TIME: 08/23/2016 19:04 [facility] COMPARISON: CT BRAIN W/O CONTRAST, August 23, 2016, 16:37. INDICATIONS : Post aneurysm coiling now severely elevated icp. RADIATION DOSE: 56.35 CTDIvol (mGy) MEDICAL HISTORY : Aneurysm, intracranial. SURGICAL HISTORY : Coiling ENCOUNTER: Initial ACUITY: 1 day PAIN SCALE: Non-responsive LOCATION: cranial TECHNIQUE: Multiple contiguous axial images were obtained of the head. Using automated exposure control and adj ustment of the mA and/or kV according to patient size, radiation dose was kept as low as reasonably a chievable to obtain optimal diagnostic quality images. FINDINGS: The overall appearance of the brain has not significantly changed. Intraventricular hemorrhage greate r in the right lateral ventricle which is somewhat dilated but not significantly changed. Right to le ft midline shift of 1.2 cm. Left frontal ventriculostomy catheter is unchanged. Status post coiling i n the right middle cranial fossa. Adjacent hemorrhage is unchanged. Diffuse subarachnoid hemorrhage t hroughout the basilar cisterns. CONCLUSION: Stable CT brain. Intraventricular hemorrhage with dilatation of the right lateral ventricle and right to left midline shift of 1.2 cm, not significantly changed. Fred Elizabeth MD on August 23, 2016 at 19:25 Board Certified Radiologist. This report was verified electronically.
--- NOTE | 2016-08-23 21:14 | RADRPT ---
EXAM DATE/TIME: 08/23/2016 19:04 [facility] COMPARISON: ANGIOGRAM, CEREBRAL WO ARCH, August 23, 2016, 14:18. INDICATIONS : Post coiling now evaluate severely elevated icp. IV CONTRAST: 60 cc Omnipaque 350 (iohexol) IV RADIATION DOSE: 18.03 CTDIvol (mGy) MEDICAL HISTORY : Aneurysm, intracranial. SURGICAL HISTORY : Coiling ENCOUNTER: Initial ACUITY: 1 day PAIN SCALE: Non-responsive LOCATION: CTA head TECHNIQUE: Volumetric scanning was performed using a multi-row detector CT scanner. The data was post processed with a variety of visualization algorithms including full volume maximum intensity projection, multi -planar sliding thin slab reformation, curved planar reformation, and surface rendering techniques. Using automated exposure control and adjustment of the mA and/or kV according to patient size, radiat ion dose was kept as low as reasonably achievable to obtain optimal diagnostic quality images. FINDINGS: Patient is status post coiling of the right supraclinoid ICA. Coils are present with some streak keith fact. There is prominent artifact and questionable tiny residual aneurysm. There is some mild vasospa sm in the middle cerebral artery on the right and to a lesser degree involving the anterior, left mid dle cerebral artery and posterior cerebral arteries. No flow limiting vasospasm seen. CONCLUSION: 1. Mild vasospasm but not flow limiting. 2. Status post coiling of the right supraclinoid internal carotid artery with significant artifact an d questionable but unlikely residual aneurysm. Fred Elizabeth MD on August 23, 2016 at 21:06 Board Certified Radiologist. This report was verified electronically.
[2016-08-23] MEDS: PRAVASTATIN SOD 40 MG TAB PO SCH (23:15)
[2016-08-24] VITALS (23 sets, daily range): BP systolic 125–164; BP diastolic 54–62; PULSE 67–98; RESP 13–33; TEMP 97–98.9; O2SAT 92–100
[2016-08-24] MEDS: niCARdipine INJ 25 MG in SODIUM CHLOR 0.9% 250 ML INJ 250 ML IV SCH ×2 (01:13→21:06)
[2016-08-24] MEDS: PROPOFOL 1000 MG/100 ML INJ 100 ML IV SCH ×6 (02:41→21:06)
[2016-08-24] MEDS: SODIUM CHLOR 0.9% 1000 ML INJ 1,000 ML IV SCH ×3 (03:43→23:14)
[2016-08-24] MEDS: CHLORHEXIDINE GLUCONATE 2 % 1 PACK (2 CLOTHS) TOP SCH (04:00)
[2016-08-24] MEDS: niMODipine 30 MG CAP PO SCH ×6 (04:14→20:14)
--- NOTE | 2016-08-24 05:53 | RADRPT ---
EXAM DATE/TIME: 08/24/2016 04:22 [facility] COMPARISON: No previous studies available for comparison. INDICATIONS : Shortness of breath. MEDICAL HISTORY : None. SURGICAL HISTORY : None. ENCOUNTER: Subsequent ACUITY: 2 days PAIN SCORE: Non-responsive. LOCATION: Bilateral chest FINDINGS: A single view of the chest demonstrates increased density behind the heart with some indistinctness o f left hemidiaphragm raises possibility of left lower lobe infiltrate. The endotracheal tube, nasogas tric tube and right subclavian central line are all stable The cardiomediastinal contours are unrema rkable. Osseous structures are intact. CONCLUSION: Questionable developing infiltrate left lung base. Tubes and catheters in good position Larry Carroll MD on August 24, 2016 at 5:51 Board Certified Radiologist. This report was verified electronically.
[2016-08-24 06:00] LABS: AUTOMATED NEUTROPHIL # 10.6 TH/MM3 (1.8-7.7); BASOPHIL % 0.2 % (0.0-2.0); EOSINOPHIL % 0.4 % (0.0-4.0); HEMATOCRIT 42.8 % (39.0-51.0); HEMO FLAGS DIFF FINAL; LYMPH % 6.1 % (9.0-44.0); LYMPHOCYTE # 0.8 TH/MM3 (1.0-4.8); MEAN CELL VOLUME 84.2 FL (80.0-100.0); MEAN CORPUSCULAR HEMOGLOBIN 28.2 PG (27.0-34.0); MEAN CORPUSCULAR HGB CONC 33.5 % (32.0-36.0); MONO % 7.2 % (0.0-8.0); NEUT % 86.1 % (16.0-70.0); PLATELET COUNT 272 TH/MM3 (150-450); RED BLOOD COUNT 5.09 MIL/MM3 (4.50-5.90); RED CELL DISTRIBUTION WIDTH 14.8 % (11.6-17.2); WHITE BLOOD COUNT 12.3 TH/MM3 (4.0-11.0)
[2016-08-24 06:10] LABS: APTT (PATIENT) 32.1 SEC (24.3-30.1); PROTHROMBIN TIME - PATIENT 10.9 SEC (9.8-11.6)
[2016-08-24 06:30] LABS: ALKALINE PHOSPHATASE 53 U/L (45-117); ALT (GPT) 123 U/L (12-78); ANION GAP 9 MEQ/L (5-15); AST (GOT) 57 U/L (15-37); BICARBONATE 27.2 MEQ/L (21.0-32.0); BLOOD UREA NITROGEN 23 MG/DL (7-18); CHLORIDE 115 MEQ/L (98-107); GLOMERULAR FILTRATION RATE 178 ML/MIN (>89); MAGNESIUM 2.2 MG/DL (1.5-2.5); POTASSIUM 4.1 MEQ/L (3.5-5.1); SODIUM (NA) 151 MEQ/L (136-145); TOTAL BILIRUBIN ADULT 0.4 MG/DL (0.2-1.0)
[2016-08-24] MEDS: MIDAZOLAM 100 MG/NS 100 ML DRIP Premix IV SCH (06:33)
[2016-08-24] MEDS ORDERED: SODIUM CHLORID 0.9% 500 ML INJ 500 ML IV ONE (06:45)
[2016-08-24] MEDS: 3% SALINE INJ 500 ML IV SCH ×2 (07:12→18:51)
[2016-08-24] MEDS: SODIUM CHLORIDE 0.9% FLUSH 10 ML FLUSH SCH ×2 (07:41→20:15)
[2016-08-24] MEDS: DOCUSATE SODIUM 50 MG/SENNA 8.6 MG TAB PO SCH ×2 (08:42→20:15)
[2016-08-24] MEDS: FAMOTIDINE 20 MG/2 ML VIAL IV PUSH SCH ×2 (08:42→20:14)
--- NOTE | 2016-08-24 09:26 | HHI.NSPN ---
(Boogie Lawler) History Chief Complaint: Unable to obtain due to mental status, sedation & intubation (Boogie Lawler) Interval History 08/22: 60-year-old male who according to his developed acute onset of severe back pain and headache on approximately 08/11/16 while on a fishing trip. The headache has persisted since then along with nausea and occasional emesis. He has not sought any medical treatment since initial onset. He did not go to work since the initial onset due to these persistent symptoms. He has not been eating well. His states that after he went to sleep last night, at approximately 1:30 or 2 AM she noticed snoring respirations and found him initially unresponsive. He was able to be aroused by EMS and ambulated briefly prior to being placed in the ambulance. He was taken to [facility] for initial evaluation and in the emergency room was noted to be unresponsive with extensor posturing. He was intubated and placed on nicardipine drip for hypertension. No seizure activity reported. 08/23: Patient remains intubated and sedated this morning. 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 He is withdrawing with the RUE to noxious stimuli with questionable extension of both feet, but no response with the LUE per Nursing. He is maintaining his SBP without the nicardipine drip. Nursing also reports that temp has been up to 101.3 degrees. 08/24: Patient is intubated and sedated. Nursing reports that he is having neurogenic temperatures. Yesterday morning the patient had a CTA which demonstrated an aneurysm. That afternoon the patient went for coiling and had an increase in his ICP into the 60s. He immediately went for a CT scan and was given mannitol and 3% sodium with improvement in his ICP. He went again in the evening for another CTA. Nursing reports that the patient is not responding to any noxious stimuli. His ICP had just been checked and was 11. (Boogie Lawler) System Review Comments Unable to obtain due to mental status, sedation & intubation (Boogie Lawler) Exam Results Vital Signs Date Time Temp Pulse Resp B/P Pulse Ox O2 Delivery O2 Flow Rate FiO2 08/24/16 07:37 100 40 08/24/16 07:00 Mechanical Ventilator 08/24/16 07:00 97.8 68 14 134/54 Intake and Output 08/23/16 08/23/16 08/24/16 08:00 16:00 00:00 Intake Total 1406 ml 1747 ml Output Total 1500 ml 763 ml 2405 ml Balance -1500 ml 643 ml -658 ml (Boogie Lawler) Physical Examination GENERAL: This is a well-nourished, well-developed patient, intubated and sedated on propofol & midazolam. INTEGUMENTARY: Warm, dry & pink, no evident lesions or rashes. HEENT: Normocephalic, atraumatic. PERRL 3mm brisk bilaterally. MMM & pink, orally intubated, OGT in place. NECK: No JVD, trachea midline. CARDIOVASCULAR: S1S2 w/RRR w/o M/G/R, cap refill < 2 sec, radial & pedal pulses 2+ bilaterally, no pedal edema. Monitor is sinus rhythm w/o any ectopy noted. RESPIRATORY: CTAB w/o W/R/R, equal excursion, non-laboured, orally intubated & mechnically ventilated. GASTROINTESTINAL: Abdomen soft, nontender, bowel sounds not appreciated, OGT clamped. MUSCULOSKELETAL: Normal extremities w/o any evident deformity, discolouration or clubbing noted. NEUROLOGICAL: Intubated & sedated, GCS 3T (E1 V1T M1) No eye opening, PERRL 3 mm slightly sluggish bilaterally Unable to assess sensation due to mental status No extremity response to noxious stimuli No facial grimacing to noxious stimuli Ventriculostomy at 5 with reddish drainage, ICP was 11 (Boogie Lawler) Lab, Micro, Other Results Allergies Coded Allergies Type Severity Reaction Last Updated Verified No Known Allergies 08/23/16 No Recent Impressions Chest X-Ray 08/24/16 0000 Signed Impressions: Service Date/Time: Wednesday, August 24, 2016 04:22 - CONCLUSION: Questionable developing infiltrate left lung base. Tubes and catheters in good position Larry Carroll MD Head CT 08/23/16 0636 Signed Impressions: Service Date/Time: Tuesday, August 23, 2016 07:21 - CONCLUSION: 1. Interventricular and subarachnoid hemorrhage. The most concerning region for a source is the right suprasellar region. The patient is scheduled for a CTA. 2. Dilatation of the ventricles and effacement of the sulci and basal cisterns. 3. Left ventriculostomy tube in good position. Chan Lobo MD Neck CTA 08/23/16 0000 Signed Impressions: Service Date/Time: Tuesday, August 23, 2016 07:21 - CONCLUSION: 1. Negative CTA of the carotids. CT angiography of the brain is pending. Ozzy Marcelo MD Head CTA 08/23/16 0000 Signed Impressions: Service Date/Time: Tuesday, August 23, 2016 19:04 - CONCLUSION: 1. Mild vasospasm but not flow limiting. 2. Status post coiling of the right supraclinoid internal carotid artery with significant artifact and questionable but unlikely residual aneurysm. Fred Elizabeth MD Head CTA 08/23/16 0000 Signed Impressions: Service Date/Time: Tuesday, August 23, 2016 07:21 - CONCLUSION: 1. There is a 4.9 x 4.5 mm aneurysm arising from the right supraclinoid carotid which appears to be at the base of the right P-comm. There is considerable hemorrhage immediately adjacent to this. 2. There is a small outpouching of the proximal right anterior cerebral this is just distal to the anterior communicating. This measures approximately 1.5 mm in maximum dimension. This may represent a small vessel loop however this could also represent a small aneurysm as well. Assessment of this area with dedicated cerebral angiography at the time of the evaluation of the patient's right P-comm would be warranted. Ozzy Marcelo MD Head CT 08/23/16 0000 Signed Impressions: Service Date/Time: Tuesday, August 23, 2016 19:04 - CONCLUSION: Stable CT brain. Intraventricular hemorrhage with dilatation of the right lateral ventricle and right to left midline shift of 1.2 cm, not significantly changed. Fred Elizabeth MD Head CT 08/23/16 0000 Signed Impressions: Service Date/Time: Tuesday, August 23, 2016 16:37 - CONCLUSION: Interval coil embolization of an intracranial aneurysm. Overall the hemorrhage is relatively stable. There is a minimal increase in size of the intraparenchymal component within the medial right temporal lobe. Chai Yuan Jr., MD Chest X-Ray 08/23/16 0000 Signed Impressions: Service Date/Time: Tuesday, August 23, 2016 06:25 - CONCLUSION: Right subclavian line in good position. Chan Lobo MD Chest X-Ray 08/23/16 Signed Impressions: Service Date/Time: Tuesday, August 23, 2016 05:32 - CONCLUSION: Normal examination. Larry Carroll MD Cerebral Arteriogram 08/23/16 Signed Impressions: Service Date/Time: Tuesday, August 23, 2016 14:18 - CONCLUSION: 1. Successful coil embolization of a 4.5 mm saccular aneurysm involving the supraclinoid ICA on the right. 2. No aneurysm seen involving the right anterior cerebral artery. Chai Yuan Jr., MD 08/22/176/5/176/6/176/6/176/7/ 06:00 18:00 06:00 18:00 06:00 18:00 Intake Total 1406 ml 3908 ml Output Total 1500 ml 763 ml 3770 ml Balance -1500 ml 643 ml 138 ml Intake IV Total 806 ml 3443 ml Lipid 465 ml Other 600 ml Output Urine Total 1500 ml 675 ml 3100 ml Gastric Drainage Total 600 ml Drainage Total 88 ml 70 ml # Bowel Movements 0 Laboratory Tests Test 08/23/16 08/23/16 08/23/16 08/23/16 05:50 05:59 11:30 16:48 Blood Gas Puncture Site LT RADIAL ART LINE Blood Gas Patient Temperature 98.6 98.6 Blood Gas HCO3 25 mmol/L 25 mmol/L Blood Gas Base Excess 1.9 mmol/L 1.7 mmol/L Blood Gas Oxygen Saturation 98 % 98 % Arterial Blood pH 7.46 7.46 Arterial Blood Partial 36 mmHg 37 mmHg Pressure CO2 Arterial Blood Partial 237 mmHg 216 mmHg Pressure O2 Arterial Blood Oxygen Content 25.2 Vol % 23.6 Vol % Arterial Blood 0.8 % 0.8 % Carboxyhemoglobin Arterial Blood Methemoglobin 0.9 % 0.9 % Blood Gas Hemoglobin 18.0 G/DL 16.9 G/DL Oxygen Delivery Device VENT VENTILATOR Blood Gas Ventilator Setting 12/500 5 PEEP AC/12/500/+5 Blood Gas Inspired Oxygen 50 % 50 % White Blood Count 19.3 TH/MM3 Red Blood Count 6.35 MIL/MM3 Hemoglobin 17.6 GM/DL Hematocrit 52.6 % Mean Corpuscular Volume 82.8 FL Mean Corpuscular Hemoglobin 27.7 PG Mean Corpuscular Hemoglobin 33.4 % Concent Red Cell Distribution Width 14.6 % Platelet Count 338 TH/MM3 Mean Platelet Volume 8.6 FL Neutrophils (%) (Auto) 88.6 % Lymphocytes (%) (Auto) 3.3 % Monocytes (%) (Auto) 7.1 % Eosinophils (%) (Auto) 0.4 % Basophils (%) (Auto) 0.6 % Neutrophils # (Auto) 17.1 TH/MM3 Lymphocytes # (Auto) 0.6 TH/MM3 Monocytes # (Auto) 1.4 TH/MM3 Eosinophils # (Auto) 0.1 TH/MM3 Basophils # (Auto) 0.1 TH/MM3 CBC Comment DIFF FINAL Differential Comment Prothrombin Time 10.7 SEC Prothromb Time International 1.0 RATIO Ratio Sodium Level 137 MEQ/L Potassium Level 4.5 MEQ/L Chloride Level 102 MEQ/L Carbon Dioxide Level 25.3 MEQ/L Anion Gap 10 MEQ/L Blood Urea Nitrogen 24 MG/DL Creatinine 0.82 MG/DL Estimat Glomerular Filtration 96 ML/MIN Rate Random Glucose 146 MG/DL Calcium Level 8.9 MG/DL Phosphorus Level 2.4 MG/DL Magnesium Level 1.9 MG/DL Total Bilirubin 0.7 MG/DL Aspartate Amino Transf 121 U/L (AST/SGOT) Alanine Aminotransferase 209 U/L (ALT/SGPT) Alkaline Phosphatase 81 U/L Troponin I 0.52 NG/ML 0.77 NG/ML Total Protein 7.2 GM/DL Albumin 2.9 GM/DL Test 08/23/16 08/23/16 08/24/16 18:00 23:35 04:45 Sodium Level 138 MEQ/L 148 MEQ/L 151 MEQ/L Troponin I 0.49 NG/ML White Blood Count 12.3 TH/MM3 Red Blood Count 5.09 MIL/MM3 Hemoglobin 14.4 GM/DL Hematocrit 42.8 % Mean Corpuscular Volume 84.2 FL Mean Corpuscular Hemoglobin 28.2 PG Mean Corpuscular Hemoglobin 33.5 % Concent Red Cell Distribution Width 14.8 % Platelet Count 272 TH/MM3 Mean Platelet Volume 8.4 FL Neutrophils (%) (Auto) 86.1 % Lymphocytes (%) (Auto) 6.1 % Monocytes (%) (Auto) 7.2 % Eosinophils (%) (Auto) 0.4 % Basophils (%) (Auto) 0.2 % Neutrophils # (Auto) 10.6 TH/MM3 Lymphocytes # (Auto) 0.8 TH/MM3 Monocytes # (Auto) 0.9 TH/MM3 Eosinophils # (Auto) 0.0 TH/MM3 Basophils # (Auto) 0.0 TH/MM3 CBC Comment DIFF FINAL Differential Comment Prothrombin Time 10.9 SEC Prothromb Time International 1.0 RATIO Ratio Activated Partial 32.1 SEC Thromboplast Time Potassium Level 4.1 MEQ/L Chloride Level 115 MEQ/L Carbon Dioxide Level 27.2 MEQ/L Anion Gap 9 MEQ/L Blood Urea Nitrogen 23 MG/DL Creatinine 0.48 MG/DL Estimat Glomerular Filtration 178 ML/MIN Rate Random Glucose 99 MG/DL Calcium Level 8.0 MG/DL Phosphorus Level 3.0 MG/DL Magnesium Level 2.2 MG/DL Total Bilirubin 0.4 MG/DL Aspartate Amino Transf 57 U/L (AST/SGOT) Alanine Aminotransferase 123 U/L (ALT/SGPT) Alkaline Phosphatase 53 U/L Total Protein 5.8 GM/DL Albumin 2.2 GM/DL Vital Signs Date Time Temp Pulse Resp B/P Pulse Ox O2 Delivery O2 Flow Rate FiO2 08/24/16 07:37 100 40 08/24/16 07:00 100 Mechanical Ventilator 50 08/24/16 07:00 97.8 68 14 134/54 100 08/24/16 06:00 68 08/24/16 04:15 100 50 08/24/16 04:00 50 08/24/16 04:00 73 08/24/16 03:00 97.0 77 13 149/60 100 08/24/16 02:00 71 08/24/16 00:12 100 50 08/24/16 00:00 50 08/24/16 00:00 71 08/23/16 23:00 97.6 70 13 129/53 100 08/23/16 22:00 70 08/23/16 20:00 50 08/23/16 20:00 54 08/23/16 19:59 100 50 08/23/16 19:27 100 50 08/23/16 19:00 100 Mechanical Ventilator 50 08/23/16 19:00 95.0 54 12 123/51 100 08/23/16 18:28 98.5 56 12 143/55 100 Automatic Cuff 08/23/16 18:00 56 08/23/16 18:00 50 08/23/16 17:00 100 100 08/23/16 16:40 100 50 08/23/16 14:00 100 100 08/23/16 12:01 100 50 08/23/16 12:00 85 08/23/16 11:00 100.2 85 16 130/60 100 08/23/16 10:00 94 08/23/16 08:00 110 08/23/16 07:50 100 100 08/23/16 07:50 100 50 08/23/16 07:00 100.9 120 20 112/69 99 08/23/16 07:00 99 Mechanical Ventilator 50 08/23/16 06:00 110 08/23/16 05:00 101.0 140 24 143/90 99 08/23/16 05:00 99 Mechanical Ventilator 50 08/23/16 05:00 140 08/23/16 05:00 50 08/23/16 04:31 99 50 08/23/16 04:20 100 100 08/23/16 04:00 100 50 (Boogie Lawler) Medical Decision Making Impression and Plan Impression: 1. Right temporal intracranial hemorrhage with interventricular extension 2. 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 Hypertension 4. Small outpouching proximal right anterior cerebral artery 1.5 mm max, small vessel loop vs small aneurysm Sedated, normotensive w/o intervention Plan: Patient to go to IR for coiling of right supraclinoid carotid aneurysm this afternoon Maintain systolic blood pressure 110-140 range, nicardipine drip PRN for control of hypertension. Continuing ventilatory support with sedation as needed for control of airway, respirations and agitation Monitor ICP & ventriculostomy catheter Nimodipine for vasospasm prophylaxis Ulcer prophylaxis Non- chemical DVT prophylaxis (Boogie Lawler) Impression and Plan Impression: No overall change in neurologic exam following endovascular coiling of proximal carotid artery aneurysm on 08/23/16. Due to some fluctuation in ICPs and question of new hemorrhage following the coiling procedure on 08/23/16, follow-up CT angiogram obtained today which reveals mostly mild spasm in the MCA and ALONDRA distributions with no definite residual aneurysm. ICPs remain in the low teens. A ventriculostomy remains in place. Plan: Discussed with camp dining room attendant again today. Continue nimodipine, pressors as needed to maintain systolic blood pressure 130- 170 range. Continue ventriculostomy Hypertonic saline as needed for maintenance of serum sodium 145-155 range. Non-chemical DVT prophylaxis Ulcer prophylaxis Continuing ventilatory support (Speedy Robbins MD) Boogie Lawler Aug 24, 2016 09:26 Speedy Robbins MD Aug 24, 2016 18:09
--- NOTE | 2016-08-24 09:47 | RADRPT ---
EXAM DATE/TIME: 08/24/2016 07:16 [facility] COMPARISON: CTA BRAIN W 3D RECON, August 23, 2016, 7:21. CTA BRAIN W 3D RECON, August 23, 2016, 19:04. CT BRAIN W/O CONTRAST, August 23, 2016, 16:37. INDICATIONS : Subarachnoid hemorrhage. MEDICAL HISTORY : Subarachnoid hemorrhage. Tachycardia. SURGICAL HISTORY : None. ENCOUNTER: Initial ACUITY: 1 day PAIN SCORE: Nonresponsive. LOCATION: Bilateral cranial CONCLUSION: There is no acoustical window for transcranial Doppler. Barry Marcelo MD FACR on August 24, 2016 at 9:43 Board Certified Radiologist. This report was verified electronically.
--- NOTE | 2016-08-24 11:09 | HHI.CCPN ---
Subjective Remarks/Hospital Course 60 year old male who presents to the [facility] in transfer from [facility] after being diagnosed with a subarachnoid hemorrhage with intraventricular hemorrhage extension. The patient was intubated at that facility when he became unresponsive. The patient was noted to be tachycardic with a heart rate in the 130s, blood pressure initially 220/120. According to the record, the patient had a history of recently standing up after tying his shoes and having a headache associated with neck pain. He had been being seen by a local chiropractor and been treating the pain with tramadol, ibuprofen, and Flexeril. This evening he developed a decreased level of consciousness and was difficult to awaken according to his . She was concerned that he may have taken some extra pain medication, therefore Narcan was given in 3 separate doses at that facility, however the patient had no response. The patient was noted after intubation to have the subarachnoid hemorrhage and was transferred to this facility for higher level of care. The patient was placed on propofol for sedation on the ventilator. The patient was started on a Cardene drip. EVD was emergently placed by neurosurgeon. 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 He immediately went for a CT scan and was given mannitol and 3% sodium with improvement in his ICP. Repeat CT was essentially unchanged 08/24/16: Today patient is sedated with Versed and propofol. Flaccid on all 4 extremities no withdrawal to pain. Pupils are equal sluggishly reactive positive corneals positive cough. Unable to to TCD. Clinical suspicion of vasospasm high. Will repeat CT angiogram stat. Discussed with Dr. Andrez Marcelo and Dr. Robbins Objective Vital Signs Date Time Temp Pulse Resp B/P Pulse Ox O2 Delivery O2 Flow Rate FiO2 08/24/16 10:34 100 40 08/24/16 10:00 69 08/24/16 07:00 Mechanical Ventilator 08/24/16 07:00 97.8 14 134/54 Intake and Output 08/23/16 08/23/16 08/24/16 08:00 16:00 00:00 Intake Total 1406 ml 1747 ml Output Total 1500 ml 763 ml 2405 ml Balance -1500 ml 643 ml -658 ml Result Diagram: 08/24/16 0445 08/24/16 0445 Other Results Laboratory Tests Test 08/23/16 16:48 Blood Gas Puncture Site ART LINE Blood Gas Patient Temperature 98.6 Blood Gas HCO3 25 mmol/L (22-26) Blood Gas Base Excess 1.7 mmol/L (-2-2) Blood Gas Oxygen Saturation 98 % (90-100) Arterial Blood pH 7.46 (7.380-7.420) Arterial Blood Partial 37 mmHg (38-42) Pressure CO2 Arterial Blood Partial 216 mmHg Pressure O2 (61-120) Arterial Blood Oxygen Content 23.6 Vol % (12.0-20.0) Arterial Blood 0.8 % (0-4) Carboxyhemoglobin Arterial Blood Methemoglobin 0.9 % (0-2) Blood Gas Hemoglobin 16.9 G/DL (12.0-16.0) Oxygen Delivery Device VENTILATOR Blood Gas Ventilator Setting AC/12/500/+5 Blood Gas Inspired Oxygen 50 % Objective Remarks Versed 10 Propofol 50 GENERAL: Well-nourished, well-developed patient. Sedated and intubated SKIN: Warm and dry. HEAD: Normocephalic. EYES: No scleral icterus. No injection or drainage. NECK: Supple, trachea midline. No JVD or lymphadenopathy. CARDIOVASCULAR: Regular rate and rhythm without murmurs, gallops, or rubs. RESPIRATORY: Breath sounds equal bilaterally. No accessory muscle use. GASTROINTESTINAL: Abdomen soft, non-tender, nondistended. MUSCULOSKELETAL: No cyanosis, or edema. BACK: Nontender without obvious deformity. No CVA tenderness. EXTREMITIES: No clubbing cyanosis or edema. Extends on all 4 extremities painful stimuli NEURO: SHEY sluggish reaction, positive corneal reflex positive cough. No withdrawal to deep pain in all 4 EXT A/P Assessment and Plan Neuro: Aneurysmal Subarachnoid hemorrhage Acute encephalopathy Obstructive hydrocephalus - Marshall and Galeas grade 5, Modified Andersen grade 4 - S/P supraclinoid ICA aneurysm coil embolization. Had elevated ICP and increasing bloody CSF drainage post procedure but repeat CT of the head did not show any acute changes - CTA repeat at 2100 yesterday, s/p aneurysm coiling with questionable residual aneurysm - Target SBP<140 until aneurysms are confirmed secured by repeat CT angiogram today - Nimodipine and Pravachol - TCD's-no window. Repeat CT angiogram today, with possible treatment by IR if significant vasospasm - Keep Mag>2 na >145 - EVD, Management per neurosurgery. ICP 8-10 RESP Respiratory failure, acute - Intubated for an airway protection - Mechanical ventilation - Vent bundle - No SBT's until neurologically stable and improved CVS Hypertension Dyslipidemia - Nicardipine drip - SBP less than 140 until aneurysm secured (until repeat CTA confirms this) - Nimotop 60 mg po Q4 - Pravachol for now for vasospasm prevention as well GI: - Nothing by mouth except meds - IV Protonix /Endo: - Electrolyte replacement per protocol - IV hydration - Monitor renal function closely ID: - Monitor for infection closely - Fever now downtrending, yesterday fever most likely neurogenic DVT GI prophylaxis - Teds SCDs - No pharmacological DVT prophylaxis due to subarachnoid bleed - Pepcid Critical Care: The total critical care time was 82 minutes. Time to perform other separately billable procedures was not included in the critical care time. D/W Dr. Robbins and Harish Barnes MD Aug 24, 2016 11:09
[2016-08-24] MEDS ORDERED: POTASSIUM CHLOR 20 MEQ PREMIX 100 ML IV PRN ×2 (11:45)
[2016-08-24] MEDS ORDERED: POTASSIUM CHLOR 40 MEQ PREMIX 100 ML IV PRN (11:45)
[2016-08-24] MEDS ORDERED: MAGNESIUM SULFATE INJ 4 GM in SODIUM CHLORIDE 0.9% INJ 92 ML IV PRN (11:45)
[2016-08-24] MEDS ORDERED: POTASSIUM PHOSPHATE MONOBASIC 500 MG TAB PO PRN (11:45)
[2016-08-24] MEDS ORDERED: MAGNESIUM OXIDE 400 MG TAB PO PRN (11:45)
[2016-08-24] MEDS ORDERED: MAGNESIUM SULFATE INJ 2 GM in SODIUM CHLORIDE 0.9% INJ 96 ML IV PRN (11:45)
[2016-08-24] MEDS ORDERED: POTASSIUM PHOSPHATE MONOBASIC 500 MG TAB PO/TUBE PRN (11:45)
[2016-08-24] MEDS ORDERED: IOHEXOL 350 MG/ML 10 ML VIAL (for RAD DIAG) IV ONE (12:49)
--- NOTE | 2016-08-24 13:24 | RADRPT ---
EXAM DATE/TIME: 08/24/2016 12:06 [facility] COMPARISON: ANGIOGRAM, CEREBRAL WO ARCH, August 23, 2016, 14:18. CT BRAIN W/O CONTRAST, August 23, 2016, 19:04. INDICATIONS : Post aneurysm coiling,evaluate for vasospasm. IV CONTRAST: 50 cc Omnipaque 350 (iohexol) IV RADIATION DOSE: 17.46 CTDIvol (mGy) MEDICAL HISTORY : Aneurysm, intracranial. SURGICAL HISTORY : Coiling ENCOUNTER: Initial ACUITY: 1 day PAIN SCALE: Non-responsive LOCATION: CTA HEAD TECHNIQUE: Volumetric scanning was performed using a multi-row detector CT scanner. The data was post processed with a variety of visualization algorithms including full volume maximum intensity projection, multi -planar sliding thin slab reformation, curved planar reformation, and surface rendering techniques. Using automated exposure control and adjustment of the mA and/or kV according to patient size, radiat ion dose was kept as low as reasonably achievable to obtain optimal diagnostic quality images. FINDINGS: Both distal internal carotid arteries are widely patent. Vertebral arteries are patent. The basilar i s patent. The examination demonstrates streak artifact from the patient's coils in a right P-comm aneurysm. The re is a small amount of contrast seen above the coil mass however, the patient's distal supraclinoid carotid above the aneurysm has fusiform dilation within it. This is the abnormality which was concern ing for residual aneurysm on the patient's previous examination. No definite residual aneurysm is not ed. There is some mild vasospasm in the M1 segment of the right middle cerebral. This is secondary to the right M1 being stretched across the anterior aspect of the patient's 3 cm intraparenchymal hemat lisseth. There is some mild vasospasm evident in the A1 segment on the right as well. The distal left carotid, the left middle cerebral and anterior cerebral circulation is widely patent. The basilar is small but widely patent. The posterior cerebrals are widely patent. This is similar in appearance to the patient's immediate postoperative CTA. The left middle cerebral CONCLUSION: 1. No definite residual aneurysm is seen. The abnormality on the previous CTA is fusiform dilation of the patient's distal internal carotid above the aneurysm. This is most apparent on the patient's int raoperative angiography during the coiling. 2. There is a mild vasospasm in the right M1 segment as it is stretched across the patient's intrapar enchymal hematoma. This is similar in appearance to the patient's postoperative CT angiogram. There i s a mild vasospasm in the A1 segment on the right as well. The remainder of the intracranial circulat ion appears widely patent. Ozzy Marcelo MD on August 24, 2016 at 13:06 Board Certified Radiologist. This report was verified electronically.
[2016-08-24 14:44] LABS: MAGNESIUM 2.1 MG/DL (1.5-2.5)
[2016-08-24] MEDS ORDERED: levETIRAcetam 1000 MG INJ 100 ML IV ONE (15:15)
[2016-08-24] MEDS ORDERED: LORazepam 2 MG/ML VIAL IV PUSH ONE ×2 (15:15→19:30)
--- NOTE | 2016-08-24 16:44 | MG ---
cc: INDIRA BURROWS Lab No: [id number] Date: 08/24/16 Age: 60 Sex: M Race: TECHNIQUE 17 channel EEG. REFERRING PHYSICIAN Dr. Giles DESCRIPTION The background rhythm reveals generalized slowing and theta and delta frequencies 3-5 Hz amplitude is about 20-30 microvolts. Occasional muscle artifact is seen. There are no epileptiform discharges present. No lateralizing features identified. Photic stimulation was done with no significant driving response. INTERPRETATION Abnormal study consistent with a diffuse encephalopathy but no epileptiform discharges are seen. MD MICHAEL Becerril/RUDI /4:24 PM /4:34 PM
[2016-08-24] MEDS: SODIUM PHOSPHATE INJ 30 MMOL in SODIUM CHLOR 0.9% 250 ML INJ 240 ML IV PRN (17:17)
[2016-08-24] MEDS: levETIRAcetam 1000 MG INJ 100 ML IV SCH (20:15)
[2016-08-24] MEDS: PRAVASTATIN SOD 40 MG TAB PO SCH (20:15)
[2016-08-24] MEDS: hydrALAZINE HCL 20 MG/ML VIAL IV PUSH PRN (20:44)
[2016-08-24] MEDS: ACETAMINOPHEN 325 MG TAB PO PRN (21:11)
[2016-08-24] MEDS: LABETALOL HCL 100 MG/20 ML VIAL IV PUSH PRN ×2 (21:29→22:30)
[2016-08-24] MEDS: MIDAZOLAM HCL 2 MG/2 ML VIAL IV PRN (22:52)
[2016-08-25] VITALS (19 sets, daily range): BP systolic 122–148; BP diastolic 56–67; PULSE 72–96; RESP 21–37; TEMP 97.4–99.7; O2SAT 92–97
[2016-08-25] MEDS: niCARdipine INJ 25 MG in SODIUM CHLOR 0.9% 250 ML INJ 250 ML IV SCH (00:59)
[2016-08-25] MEDS: niMODipine 30 MG CAP PO SCH ×7 (00:59→23:24)
[2016-08-25] MEDS: PROPOFOL 1000 MG/100 ML INJ 100 ML IV SCH ×3 (02:12→23:24)
[2016-08-25] MEDS: SODIUM PHOSPHATE INJ 30 MMOL in SODIUM CHLOR 0.9% 250 ML INJ 240 ML IV PRN (03:27)
[2016-08-25] MEDS: CHLORHEXIDINE GLUCONATE 2 % 1 PACK (2 CLOTHS) TOP SCH (04:00)
[2016-08-25] MEDS: 3% SALINE INJ 500 ML IV SCH (06:02)
[2016-08-25 06:14] LABS: HEMATOCRIT 43.7 % (39.0-51.0); MEAN CELL VOLUME 85.1 FL (80.0-100.0); MEAN CORPUSCULAR HEMOGLOBIN 27.7 PG (27.0-34.0); MEAN CORPUSCULAR HGB CONC 32.5 % (32.0-36.0); PLATELET COUNT 265 TH/MM3 (150-450); RED BLOOD COUNT 5.14 MIL/MM3 (4.50-5.90); RED CELL DISTRIBUTION WIDTH 15.4 % (11.6-17.2); REVIEW FLAG FINAL; WHITE BLOOD COUNT 20.2 TH/MM3 (4.0-11.0)
[2016-08-25 06:54] LABS: BICARBONATE 23.8 MEQ/L (21.0-32.0); POTASSIUM 3.2 MEQ/L (3.5-5.1)
[2016-08-25 07:29] LABS: BACTERIA, URINE RARE /hpf; BLOOD, URINE NEG (NEG); COMMENT (UR) CATH-CULTURE IND; CULTURE IF INDICATED CATH CULTURE IND; GLUCOSE,URINE NEG (NEG); KETONE, URINE NEG (NEG); MUCUS URINE MANY /lpf (OCC); NITRITE,URINE NEG (NEG); PH, URINE 5.5 (5.0-8.5); SQUAMOUS EPITHELIAL CELL URINE 1 /hpf (0-5); URINE COLOR YELLOW (YELLW/STRAW)
--- NOTE | 2016-08-25 08:12 | HHI.CCPN ---
Subjective Remarks/Hospital Course 60 year old male who presents to the [facility] in transfer from [facility] after being diagnosed with a subarachnoid hemorrhage with intraventricular hemorrhage extension. The patient was intubated at that facility when he became unresponsive. The patient was noted to be tachycardic with a heart rate in the 130s, blood pressure initially 220/120. According to the record, the patient had a history of recently standing up after tying his shoes and having a headache associated with neck pain. He had been being seen by a local chiropractor and been treating the pain with tramadol, ibuprofen, and Flexeril. This evening he developed a decreased level of consciousness and was difficult to awaken according to his . She was concerned that he may have taken some extra pain medication, therefore Narcan was given in 3 separate doses at that facility, however the patient had no response. The patient was noted after intubation to have the subarachnoid hemorrhage and was transferred to this facility for higher level of care. The patient was placed on propofol for sedation on the ventilator. The patient was started on a Cardene drip. EVD was emergently placed by neurosurgeon. 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 He immediately went for a CT scan and was given mannitol and 3% sodium with improvement in his ICP. Repeat CT was essentially unchanged 08/24/16: Today patient is sedated with Versed and propofol. Flaccid on all 4 extremities no withdrawal to pain. Pupils are equal sluggishly reactive positive corneal positive cough. Unable to to TCD. Clinical suspicion of vasospasm high. Will repeat CT angiogram stat. Discussed with Dr. Andrez Marcelo and Dr. Robbins 08/25/16: Repeat CT angiogram of the head did not show any significant vasospasm yesterday. Spiking fever overnight white count increased to 20.2 from 12.3. CXR developing left infiltrate. Very slight withdrawal of all 4 extremities to deep pain Objective Vital Signs Date Time Temp Pulse Resp B/P Pulse Ox O2 Delivery O2 Flow Rate FiO2 08/25/16 07:40 96 60 08/25/16 07:00 Mechanical Ventilator 08/25/16 06:00 82 08/25/16 04:00 97.4 33 144/67 Intake and Output 08/24/16 08/24/16 08/25/16 08:00 16:00 00:00 Intake Total 2161 ml 1380 ml 1923 ml Output Total 1365 ml 880 ml 878 ml Balance 796 ml 500 ml 1045 ml Result Diagram: 08/25/16 0415 08/25/16 0415 Objective Remarks Propofol 50 3% saline on hold GENERAL: Well-nourished, well-developed patient. Sedated and intubated SKIN: Warm and dry. HEAD: Normocephalic. EYES: No scleral icterus. No injection or drainage. NECK: Supple, trachea midline. No JVD or lymphadenopathy. CARDIOVASCULAR: Regular rate and rhythm without murmurs, gallops, or rubs. RESPIRATORY: Breath sounds equal bilaterally. Coarse breath sounds and rhonchi at bilateral bases GASTROINTESTINAL: Abdomen soft, non-tender, nondistended. MUSCULOSKELETAL: No cyanosis, or edema. BACK: Nontender without obvious deformity. No CVA tenderness. EXTREMITIES: No clubbing cyanosis or edema. Extends on all 4 extremities painful stimuli NEURO: SHEY 2mm ? sluggish reaction, positive corneal reflex positive cough. Very slight withdrawal to deep pain in all 4 EXT A/P Assessment and Plan Neuro: Aneurysmal Subarachnoid hemorrhage Acute encephalopathy Obstructive hydrocephalus - Marshall and Galeas grade 5, Modified Andersen grade 4 - S/P supraclinoid ICA aneurysm coil embolization. - Post procedure had elevated ICP and increasing bloody CSF drainage, but repeat CT of the head did not show any acute changes - CTA repeat yesterday, no significant vasospasm. Cannot do TCD, unable to get good window (cannot penetrate skull) - Target SBP<[address] Robbins - Nimodipine and Pravachol - Keep Mag>2 na >145 - EEG to rule out subclinical seizures 08/24-prelim neg negative - Loade with keppra, continue maintenance - EVD, Management per neurosurgery. ICP 8-10 - Hold 3% as Na is 156 RESP Respiratory failure, acute Aspiration pneuma - Intubated for an airway protection - Mechanical ventilation - Vent bundle - No SBT's until neurologically stable and improved - Zosyn started today 08/25 CVS Hypertension Dyslipidemia - Nicardipine drip as needed - SBP less than 140, will increase to <160 to prevent vasospasm - Nimotop 60 mg po Q4 - Pravachol for now for vasospasm prevention as well GI: - Nothing by mouth except meds - IV Protonix - Start tube feeds with Jevity - Bowel regimen /Endo: - Electrolyte replacement per protocol - IV hydration - Monitor renal function closely ID: Aspiration pneumonia Sepsis - Repeat chest x-ray send sputum blood and urine culture - Zosyn 4.5 g IV every 6 hours, vancomycin 1.25 g IV 1 DVT GI prophylaxis - Teds SCDs - No pharmacological DVT prophylaxis due to subarachnoid bleed - Pepcid Critical Care: The total critical care time was 52 minutes. Time to perform other separately billable procedures was not included in the critical care time. D/W Harish Zambrano MD Aug 25, 2016 08:12
[2016-08-25] MEDS: SODIUM CHLORIDE 0.9% FLUSH 10 ML FLUSH SCH ×2 (09:00→20:03)
[2016-08-25] MEDS ORDERED: VANCOMYCIN INJ 1,250 MG in SODIUM CHLOR 0.9% 250 ML INJ 250 ML IV ONE (09:00)
--- NOTE | 2016-08-25 09:22 | RADRPT ---
EXAM DATE/TIME: 08/25/2016 08:10 [place] COMPARISON: CHEST SINGLE AP, August 24, 2016, 4:22. INDICATIONS : Respiratory disease. MEDICAL HISTORY : Aneurysm, intracranial. SURGICAL HISTORY : Coiling. ENCOUNTER: Subsequent ACUITY: 2 days PAIN SCORE: Non-responsive. LOCATION: Bilateral chest FINDINGS: A single portable semierect view of the chest shows worsening consolidation involving the left upper lobe and lower lobe. The right lung is clear. Heart is at the upper limits of normal in terms of size . Tip of the endotracheal tube 5 cm cephalad to the arian. Nasogastric tube is coiled in the stomach . CONCLUSION: Worsening infiltrate within the left lung. Chai Yuan Jr., MD on August 25, 2016 at 9:18 Board Certified Radiologist. This report was verified electronically.
[2016-08-25] MEDS: FAMOTIDINE 20 MG/2 ML VIAL IV PUSH SCH ×2 (09:34→20:04)
[2016-08-25] MEDS: DOCUSATE SODIUM 50 MG/SENNA 8.6 MG TAB PO SCH ×2 (09:34→20:04)
[2016-08-25] MEDS: levETIRAcetam 1000 MG INJ 100 ML IV SCH ×2 (09:34→20:03)
[2016-08-25] MEDS: PIPERACIL-TAZO 4.5 GM PREMIX 100 ML IV SCH ×3 (09:34→20:03)
[2016-08-25] MEDS: SODIUM CHLOR 0.9% 1000 ML INJ 1,000 ML IV SCH ×2 (09:35→17:33)
[2016-08-25] MEDS: LABETALOL HCL 100 MG/20 ML VIAL IV PUSH PRN (09:39)
[2016-08-25] MEDS: POTASSIUM CHLOR 40 MEQ PREMIX 100 ML IV PRN ×2 (09:54→09:55)
--- NOTE | 2016-08-25 10:40 | HHI.NSPN ---
(Boogie LawlerRod MACHUCAP) History Chief Complaint: Unable to obtain due to mental status, sedation & intubation (Boogie Lawler) Interval History 08/22: 60-year-old male who according to his developed acute onset of severe back pain and headache on approximately 08/11/16 while on a fishing trip. The headache has persisted since then along with nausea and occasional emesis. He has not sought any medical treatment since initial onset. He did not go to work since the initial onset due to these persistent symptoms. He has not been eating well. His states that after he went to sleep last night, at approximately 1:30 or 2 AM she noticed snoring respirations and found him initially unresponsive. He was able to be aroused by EMS and ambulated briefly prior to being placed in the ambulance. He was taken to [facility] for initial evaluation and in the emergency room was noted to be unresponsive with extensor posturing. He was intubated and placed on nicardipine drip for hypertension. No seizure activity reported. 08/23: Patient remains intubated and sedated this morning. 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 He is withdrawing with the RUE to noxious stimuli with questionable extension of both feet, but no response with the LUE per Nursing. He is maintaining his SBP without the nicardipine drip. Nursing also reports that temp has been up to 101.3 degrees. 08/24: Patient is intubated and sedated. Nursing reports that he is having neurogenic temperatures. Yesterday morning the patient had a CTA which demonstrated an aneurysm. That afternoon the patient went for coiling and had an increase in his ICP into the 60s. He immediately went for a CT scan and was given mannitol and 3% sodium with improvement in his ICP. He went again in the evening for another CTA. Nursing reports that the patient is not responding to any noxious stimuli. His ICP had just been checked and was 11. 08/25: Patient is intubated and on max sedation. Nursing reports that when his sedation was weaned down earlier he became extremely agitated, his BP went up and his ICP reached 20. His propofol was maxed and his ICP started coming down. He was also given labetalol for his BP. He did withdraw the BLE to noxious stimuli but did nothing with the BUE for Nursing and had a cough reflex. Nursing stated that in report she was told the patient withdrew all extremities to noxious stimuli yesterday. During the night his temperature dropped to 94 and later spiked to 103. He went for a repeat CTA yesterday afternoon w/o any residual aneurysm seen. He did have mild vasospasms in the right M1 segment and right A1 segment. His CXR today demonstrated left-sided infiltrates. (Boogie Lawler) System Review Comments Unable to obtain due to mental status, sedation & intubation (Boogie Lawler) Exam Results Vital Signs Date Time Temp Pulse Resp B/P Pulse Ox O2 Delivery O2 Flow Rate FiO2 08/25/16 08:00 93 08/25/16 08:00 99.7 24 147/64 97 08/25/16 08:00 60 08/25/16 07:00 Mechanical Ventilator Intake and Output 08/24/16 08/24/16 08/25/16 08:00 16:00 00:00 Intake Total 2161 ml 1380 ml 1923 ml Output Total 1365 ml 880 ml 878 ml Balance 796 ml 500 ml 1045 ml (Boogie Lawler) Physical Examination GENERAL: Patient remains intubated and sedated. INTEGUMENTARY: Warm, dry & pink, no evident lesions or rashes. HEENT: Normocephalic, atraumatic. PERRL 3mm brisk bilaterally. MMM & pink, orally intubated, OGT in place. NECK: No JVD, trachea midline. CARDIOVASCULAR: S1S2 w/RRR w/o M/G/R, cap refill < 2 sec, radial & pedal pulses 2+ bilaterally, no pedal edema. Monitor is sinus rhythm w/o any ectopy noted. RESPIRATORY: Breath sounds clear on right but decreased & slightly coarse on left, equal excursion, non-laboured, orally intubated & mechnically ventilated. GASTROINTESTINAL: Abdomen soft, nontender, bowel sounds not appreciated, OGT clamped. MUSCULOSKELETAL: Normal extremities w/o any evident deformity, discolouration or clubbing noted. NEUROLOGICAL: Intubated & sedated, GCS 3T (E1 V1T M1) No eye opening, PERRL 3 mm slightly sluggish bilaterally Unable to assess sensation due to mental status No extremity response to noxious stimuli No facial grimacing to noxious stimuli Cough reflex intact Ventriculostomy at 5 with reddish drainage, ICP was 5 earlier but had been up to 20 (Boogie Lawler) Lab, Micro, Other Results Allergies Coded Allergies Type Severity Reaction Last Updated Verified No Known Allergies 08/23/16 No Recent Impressions Chest X-Ray 08/25/16 0000 Signed Impressions: Service Date/Time: August 08:10 - CONCLUSION: Worsening infiltrate within the left lung. Chai Yuan Jr., MD Transcranial Doppler Study Complete 08/24/16 0600 Signed Impressions: Service Date/Time: Wednesday, August 24, 2016 07:16 - CONCLUSION: There is no acoustical window for transcranial Doppler. Barry Marcelo MD FACR Head CTA 08/24/16 0000 Signed Impressions: Service Date/Time: Wednesday, August 24, 2016 12:06 - CONCLUSION: 1. No definite residual aneurysm is seen. The abnormality on the previous CTA is fusiform dilation of the patient's distal internal carotid above the aneurysm. This is most apparent on the patient's intraoperative angiography during the coiling. 2. There is a mild vasospasm in the right M1 segment as it is stretched across the patient's intraparenchymal hematoma. This is similar in appearance to the patient's postoperative CT angiogram. There is a mild vasospasm in the A1 segment on the right as well. The remainder of the intracranial circulation appears widely patent. Ozzy Marcelo MD Chest X-Ray 08/24/16 0000 Signed Impressions: Service Date/Time: Wednesday, August 24, 2016 04:22 - CONCLUSION: Questionable developing infiltrate left lung base. Tubes and catheters in good position Larry Carroll MD Head CT 08/23/16 0636 Signed Impressions: Service Date/Time: Tuesday, August 23, 2016 07:21 - CONCLUSION: 1. Interventricular and subarachnoid hemorrhage. The most concerning region for a source is the right suprasellar region. The patient is scheduled for a CTA. 2. Dilatation of the ventricles and effacement of the sulci and basal cisterns. 3. Left ventriculostomy tube in good position. Chan Lobo MD Neck CTA 08/23/16 Signed Impressions: Service Date/Time: Tuesday, August 23, 2016 07:21 - CONCLUSION: 1. Negative CTA of the carotids. CT angiography of the brain is pending. Ozzy Marcelo MD Head CTA 08/23/16 Signed Impressions: Service Date/Time: Tuesday, August 23, 2016 19:04 - CONCLUSION: 1. Mild vasospasm but not flow limiting. 2. Status post coiling of the right supraclinoid internal carotid artery with significant artifact and questionable but unlikely residual aneurysm. Fred Elizabeth MD Head CTA 08/23/16 Signed Impressions: Service Date/Time: Tuesday, August 23, 2016 07:21 - CONCLUSION: 1. There is a 4.9 x 4.5 mm aneurysm arising from the right supraclinoid carotid which appears to be at the base of the right P-comm. There is considerable hemorrhage immediately adjacent to this. 2. There is a small outpouching of the proximal right anterior cerebral this is just distal to the anterior communicating. This measures approximately 1.5 mm in maximum dimension. This may represent a small vessel loop however this could also represent a small aneurysm as well. Assessment of this area with dedicated cerebral angiography at the time of the evaluation of the patient's right P-comm would be warranted. Ozzy Marcelo MD Head CT 08/23/16 Signed Impressions: Service Date/Time: Tuesday, August 23, 2016 19:04 - CONCLUSION: Stable CT brain. Intraventricular hemorrhage with dilatation of the right lateral ventricle and right to left midline shift of 1.2 cm, not significantly changed. Fred Elizabeth MD Head CT 08/23/16 Signed Impressions: Service Date/Time: Tuesday, August 23, 2016 16:37 - CONCLUSION: Interval coil embolization of an intracranial aneurysm. Overall the hemorrhage is relatively stable. There is a minimal increase in size of the intraparenchymal component within the medial right temporal lobe. Chai Yuan Jr., MD Chest X-Ray 08/23/16 Signed Impressions: Service Date/Time: Tuesday, August 23, 2016 06:25 - CONCLUSION: Right subclavian line in good position. Chan Lobo MD Chest X-Ray 08/23/16 0000 Signed Impressions: Service Date/Time: Tuesday, August 23, 2016 05:32 - CONCLUSION: Normal examination. Larry Carroll MD Cerebral Arteriogram 08/23/16 0000 Signed Impressions: Service Date/Time: Tuesday, August 23, 2016 14:18 - CONCLUSION: 1. Successful coil embolization of a 4.5 mm saccular aneurysm involving the supraclinoid ICA on the right. 2. No aneurysm seen involving the right anterior cerebral artery. Chai Yuan Jr., MD ///// 06:00 18:00 06:00 18:00 06:00 18:00 Intake Total 1406 ml 3908 ml 1380 ml 3377 ml Output Total 1500 ml 763 ml 3770 ml 880 ml 1381 ml Balance -1500 ml 643 ml 138 ml 500 ml 1996 ml Intake IV Total 806 ml 3443 ml 1290 ml 3137 ml Lipid 465 ml Other 600 ml 90 ml 240 ml Output Urine Total 1500 ml 675 ml 3100 ml 725 ml 1250 ml Gastric Drainage Total 600 ml 100 ml 10 ml Drainage Total 88 ml 70 ml 55 ml 121 ml # Bowel Movements 0 0 Laboratory Tests Test 08/23/16 08/23/16 08/23/16 08/23/16 05:50 05:59 11:30 16:48 Blood Gas Puncture Site LT RADIAL ART LINE Blood Gas Patient Temperature 98.6 98.6 Blood Gas HCO3 25 mmol/L 25 mmol/L Blood Gas Base Excess 1.9 mmol/L 1.7 mmol/L Blood Gas Oxygen Saturation 98 % 98 % Arterial Blood pH 7.46 7.46 Arterial Blood Partial 36 mmHg 37 mmHg Pressure CO2 Arterial Blood Partial 237 mmHg 216 mmHg Pressure O2 Arterial Blood Oxygen Content 25.2 Vol % 23.6 Vol % Arterial Blood 0.8 % 0.8 % Carboxyhemoglobin Arterial Blood Methemoglobin 0.9 % 0.9 % Blood Gas Hemoglobin 18.0 G/DL 16.9 G/DL Oxygen Delivery Device VENT VENTILATOR Blood Gas Ventilator Setting 12/500 5 PEEP AC/12/500/+5 Blood Gas Inspired Oxygen 50 % 50 % White Blood Count 19.3 TH/MM3 Red Blood Count 6.35 MIL/MM3 Hemoglobin 17.6 GM/DL Hematocrit 52.6 % Mean Corpuscular Volume 82.8 FL Mean Corpuscular Hemoglobin 27.7 PG Mean Corpuscular Hemoglobin 33.4 % Concent Red Cell Distribution Width 14.6 % Platelet Count 338 TH/MM3 Mean Platelet Volume 8.6 FL Neutrophils (%) (Auto) 88.6 % Lymphocytes (%) (Auto) 3.3 % Monocytes (%) (Auto) 7.1 % Eosinophils (%) (Auto) 0.4 % Basophils (%) (Auto) 0.6 % Neutrophils # (Auto) 17.1 TH/MM3 Lymphocytes # (Auto) 0.6 TH/MM3 Monocytes # (Auto) 1.4 TH/MM3 Eosinophils # (Auto) 0.1 TH/MM3 Basophils # (Auto) 0.1 TH/MM3 CBC Comment DIFF FINAL Differential Comment Prothrombin Time 10.7 SEC Prothromb Time International 1.0 RATIO Ratio Sodium Level 137 MEQ/L Potassium Level 4.5 MEQ/L Chloride Level 102 MEQ/L Carbon Dioxide Level 25.3 MEQ/L Anion Gap 10 MEQ/L Blood Urea Nitrogen 24 MG/DL Creatinine 0.82 MG/DL Estimat Glomerular Filtration 96 ML/MIN Rate Random Glucose 146 MG/DL Calcium Level 8.9 MG/DL Phosphorus Level 2.4 MG/DL Magnesium Level 1.9 MG/DL Total Bilirubin 0.7 MG/DL Aspartate Amino Transf 121 U/L (AST/SGOT) Alanine Aminotransferase 209 U/L (ALT/SGPT) Alkaline Phosphatase 81 U/L Troponin I 0.52 NG/ML 0.77 NG/ML Total Protein 7.2 GM/DL Albumin 2.9 GM/DL Test 08/23/16 08/23/16 08/24/16 08/24/16 18:00 23:35 04:45 13:54 Sodium Level 138 MEQ/L 148 MEQ/L 151 MEQ/L 151 MEQ/L Troponin I 0.49 NG/ML White Blood Count 12.3 TH/MM3 Red Blood Count 5.09 MIL/MM3 Hemoglobin 14.4 GM/DL Hematocrit 42.8 % Mean Corpuscular Volume 84.2 FL Mean Corpuscular Hemoglobin 28.2 PG Mean Corpuscular Hemoglobin 33.5 % Concent Red Cell Distribution Width 14.8 % Platelet Count 272 TH/MM3 Mean Platelet Volume 8.4 FL Neutrophils (%) (Auto) 86.1 % Lymphocytes (%) (Auto) 6.1 % Monocytes (%) (Auto) 7.2 % Eosinophils (%) (Auto) 0.4 % Basophils (%) (Auto) 0.2 % Neutrophils # (Auto) 10.6 TH/MM3 Lymphocytes # (Auto) 0.8 TH/MM3 Monocytes # (Auto) 0.9 TH/MM3 Eosinophils # (Auto) 0.0 TH/MM3 Basophils # (Auto) 0.0 TH/MM3 CBC Comment DIFF FINAL Differential Comment Prothrombin Time 10.9 SEC Prothromb Time International 1.0 RATIO Ratio Activated Partial 32.1 SEC Thromboplast Time Potassium Level 4.1 MEQ/L Chloride Level 115 MEQ/L Carbon Dioxide Level 27.2 MEQ/L Anion Gap 9 MEQ/L Blood Urea Nitrogen 23 MG/DL Creatinine 0.48 MG/DL Estimat Glomerular Filtration 178 ML/MIN Rate Random Glucose 99 MG/DL Calcium Level 8.0 MG/DL Phosphorus Level 3.0 MG/DL 2.3 MG/DL Magnesium Level 2.2 MG/DL 2.1 MG/DL Total Bilirubin 0.4 MG/DL Aspartate Amino Transf 57 U/L (AST/SGOT) Alanine Aminotransferase 123 U/L (ALT/SGPT) Alkaline Phosphatase 53 U/L Total Protein 5.8 GM/DL Albumin 2.2 GM/DL Test 08/24/16 08/25/16 08/25/16 08/25/16 23:00 01:00 04:15 07:00 Nasal Screen MRSA (PCR) MRSA NOT DETECTED Sodium Level 155 MEQ/L 156 MEQ/L Phosphorus Level 2.0 MG/DL White Blood Count 20.2 TH/MM3 Red Blood Count 5.14 MIL/MM3 Hemoglobin 14.2 GM/DL Hematocrit 43.7 % Mean Corpuscular Volume 85.1 FL Mean Corpuscular Hemoglobin 27.7 PG Mean Corpuscular Hemoglobin 32.5 % Concent Red Cell Distribution Width 15.4 % Platelet Count 265 TH/MM3 Mean Platelet Volume 8.6 FL Potassium Level 3.2 MEQ/L Chloride Level 121 MEQ/L Carbon Dioxide Level 23.8 MEQ/L Anion Gap 11 MEQ/L Blood Urea Nitrogen 28 MG/DL Creatinine 0.51 MG/DL Estimat Glomerular Filtration 166 ML/MIN Rate Random Glucose 78 MG/DL Calcium Level 7.6 MG/DL Urine Color YELLOW Urine Turbidity HAZY Urine pH 5.5 Urine Specific [place] 1.030 Urine Protein TRACE mg/dL Urine Glucose (UA) NEG mg/dL Urine Ketones NEG mg/dL Urine Occult Blood NEG Urine Nitrite NEG Urine Bilirubin NEG Urine Urobilinogen LESS THAN 2.0 MG/DL Urine Leukocyte Esterase NEG Urine RBC 3 /hpf Urine WBC 5 /hpf Urine Squamous Epithelial 1 /hpf Cells Urine Bacteria RARE /hpf Urine Mucus MANY /lpf Microscopic Urinalysis Comment CATH-CULTURE IND Vital Signs Date Time Temp Pulse Resp B/P Pulse Ox O2 Delivery O2 Flow Rate FiO2 08/25/16 08:00 93 08/25/16 08:00 99.7 93 24 147/64 97 08/25/16 08:00 60 08/25/16 07:40 96 60 08/25/16 07:00 95 Mechanical Ventilator 60 08/25/16 06:00 82 08/25/16 04:01 94 60 08/25/16 04:00 97.4 75 33 144/67 95 08/25/16 04:00 60 08/25/16 04:00 75 08/25/16 02:00 72 08/25/16 00:25 96 60 08/25/16 00:00 88 08/25/16 00:00 98.2 88 37 144/60 96 08/25/16 00:00 60 08/24/16 22:00 96 08/24/16 20:30 96 Mechanical Ventilator 60 08/24/16 20:06 92 60 08/24/16 20:00 98.9 98 33 164/62 96 08/24/16 20:00 98 08/24/16 20:00 60 08/24/16 19:00 96 Mechanical Ventilator 40 08/24/16 18:00 84 08/24/16 17:04 96 40 08/24/16 16:00 85 08/24/16 16:00 50 08/24/16 15:00 98.4 74 20 140/55 97 08/24/16 14:00 72 08/24/16 12:00 50 08/24/16 12:00 70 08/24/16 12:00 100 100 08/24/16 11:00 98.2 73 13 125/54 100 08/24/16 10:34 100 40 08/24/16 10:00 69 08/24/16 08:00 50 08/24/16 08:00 67 08/24/16 07:37 100 40 08/24/16 07:00 100 Mechanical Ventilator 50 08/24/16 07:00 97.8 68 14 134/54 100 08/24/16 06:00 68 08/24/16 04:15 100 50 08/24/16 04:00 50 08/24/16 04:00 73 08/24/16 03:00 97.0 77 13 149/60 100 08/24/16 02:00 71 08/24/16 00:12 100 50 08/24/16 00:00 50 08/24/16 00:00 71 08/23/16 23:00 97.6 70 13 129/53 100 08/23/16 22:00 70 08/23/16 20:00 50 08/23/16 20:00 54 08/23/16 19:59 100 50 08/23/16 19:27 100 50 08/23/16 19:00 100 Mechanical Ventilator 50 08/23/16 19:00 95.0 54 12 123/51 100 08/23/16 18:28 98.5 56 12 143/55 100 Automatic Cuff 08/23/16 18:00 56 08/23/16 18:00 50 08/23/16 17:00 100 100 08/23/16 16:40 100 50 08/23/16 14:00 100 100 08/23/16 12:01 100 50 08/23/16 12:00 85 08/23/16 11:00 100.2 85 16 130/60 100 08/23/16 10:00 94 08/23/16 08:00 110 08/23/16 07:50 100 100 08/23/16 07:50 100 50 08/23/16 07:00 100.9 120 20 112/69 99 08/23/16 07:00 99 Mechanical Ventilator 50 08/23/16 06:00 110 08/23/16 05:00 101.0 140 24 143/90 99 08/23/16 05:00 99 Mechanical Ventilator 50 08/23/16 05:00 140 08/23/16 05:00 50 08/23/16 04:31 99 50 08/23/16 04:20 100 100 08/23/16 04:00 100 50 (Boogie Lawler) Medical Decision Making Impression and Plan Impression: 1. Right temporal intracranial hemorrhage with interventricular extension 2. 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 Hypertension 4. Small outpouching proximal right anterior cerebral artery 1.5 mm max, small vessel loop vs small aneurysm Sedated, no response to noxious stimuli, cough reflex intact, becomes agitated w /increase in BP & ICP when sedation weaned CTA w/o any residual aneurysm seen, mild vasospasms in the right M1 segment and right A1 segment CXR demonstrated left-sided infiltrates Plan: Maintain systolic blood pressure 110-140 range, nicardipine drip PRN for control of hypertension. Continuing ventilatory support with sedation as needed for control of airway, respirations and agitation Monitor ICP & ventriculostomy catheter Nimodipine for vasospasm prophylaxis Ulcer prophylaxis Non- chemical DVT prophylaxis (Boogie Lawler) Attending Statement I have personally seen and examined the patient on the date of this note. Pertinent documentation and study results have been reviewed by the undersigned. I have personally developed the treatment plan and performed medical decision making. Discussed with nursing staff Maintain blood pressure 120-160 range. ICP satisfactory Plan follow-up CT scan had early next week Continue nimodipine (Speedy Robbins MD) Boogie Lawler Aug 25, 2016 10:40 Speedy Robbins MD Aug 25, 2016 17:51
[2016-08-25 18:34] LABS: POTASSIUM 3.7 MEQ/L (3.5-5.1)
[2016-08-25] MEDS: POTASSIUM PHOSPHATE INJ 30 MMOL in SODIUM CHLOR 0.9% 250 ML INJ 250 ML IV PRN (20:03)
[2016-08-25] MEDS: PRAVASTATIN SOD 40 MG TAB PO SCH (20:04)
[2016-08-25] MEDS: MIDAZOLAM HCL 2 MG/2 ML VIAL IV PRN (22:00)
[2016-08-25 22:41] LABS: BLOOD GAS BASE EXCESS -2.5 mmol/L (-2-2); BLOOD GAS CARBOXYHEMOGLOBIN 0.8 % (0-4); BLOOD GAS HCO3 22 mmol/L (22-26); BLOOD GAS METHEMOGLOBIN 0.9 % (0-2); BLOOD GAS O2 HGB SATURATION 88 % (90-100); BLOOD GAS OXYGEN CONTENT 18.3 Vol % (12.0-20.0); BLOOD GAS PCO2 37 mmHg (38-42); BLOOD GAS PO2 59 mmHg (61-120); BLOOD GAS TOTAL HGB 14.8 G/DL (12.0-16.0); TEMP CORR TO 98.6
[2016-08-25 22:45] LABS: CRITICAL VALUE YES; OXYGEN DEVICE VENTILATOR
[2016-08-25 22:46] LABS: DRAW SITE ART LINE; FIO2 75 %; STAT NO; VENT SETTINGS AC16/600/8PEEP
[2016-08-25] MEDS ORDERED: guaiFENesin SOLUTION 200 MG/10 ML CUP PO PRN (23:00)
--- NOTE | 2016-08-25 23:33 | RADRPT ---
EXAM DATE/TIME: 08/25/2016 22:59 [facility] COMPARISON: No previous studies available for comparison. INDICATIONS : Evaluate for respiratory failure. MEDICAL HISTORY : Aneurysm, intracranial. SURGICAL HISTORY : Coiling. ENCOUNTER: Subsequent ACUITY: 3 days PAIN SCORE: Non-responsive. LOCATION: chest FINDINGS: Persistent extensive consolidation again noted in the left mid and lower lung, not significantly fu ged. There is mild perihilar consolidation on the right, also similar to before. No large effusion se en. No pneumothorax. Heart size stable, upper limits of normal. Endotracheal tube tip is approximately 5 cm above the arian. Nasogastric tube courses into the stoma ch. There is a right subclavian central venous catheter again noted with tip in the superior vena cav a. CONCLUSION: No significant change. Left greater than right consolidation persists. Chan Benítez MD on August 25, 2016 at 23:30 Board Certified Radiologist. This report was verified electronically.
[2016-08-26] VITALS (19 sets, daily range): BP systolic 114–165; BP diastolic 50–81; PULSE 72–95; RESP 18–26; TEMP 97.6–100; O2SAT 95–99
[2016-08-26] MEDS: PIPERACIL-TAZO 4.5 GM PREMIX 100 ML IV SCH ×4 (02:25→20:37)
[2016-08-26] MEDS: PROPOFOL 1000 MG/100 ML INJ 100 ML IV SCH ×7 (02:25→22:53)
[2016-08-26] MEDS: CHLORHEXIDINE GLUCONATE 2 % 1 PACK (2 CLOTHS) TOP SCH (04:00)
[2016-08-26 04:05] LABS: AUTOMATED NEUTROPHIL # 19.1 TH/MM3 (1.8-7.7); BASOPHIL % 0.2 % (0.0-2.0); EOSINOPHIL # 0.2 TH/MM3 (0-0.4); EOSINOPHIL % 0.9 % (0.0-4.0); HEMATOCRIT 41.6 % (39.0-51.0); HEMO FLAGS DIFF FINAL; LYMPH % 4.8 % (9.0-44.0); MEAN CELL VOLUME 84.9 FL (80.0-100.0); MEAN CORPUSCULAR HEMOGLOBIN 27.5 PG (27.0-34.0); MEAN CORPUSCULAR HGB CONC 32.4 % (32.0-36.0); MONO % 2.9 % (0.0-8.0); NEUT % 91.2 % (16.0-70.0); PLATELET COUNT 258 TH/MM3 (150-450); RED BLOOD COUNT 4.91 MIL/MM3 (4.50-5.90); RED CELL DISTRIBUTION WIDTH 15.1 % (11.6-17.2)
[2016-08-26] MEDS: MIDAZOLAM HCL 2 MG/2 ML VIAL IV PRN (04:26)
[2016-08-26] MEDS: niMODipine 30 MG CAP PO SCH ×6 (04:32→23:44)
[2016-08-26 04:37] LABS: ALKALINE PHOSPHATASE 68 U/L (45-117); ALT (GPT) 71 U/L (12-78); ANION GAP 8 MEQ/L (5-15); AST (GOT) 29 U/L (15-37); BICARBONATE 27.1 MEQ/L (21.0-32.0); BLOOD UREA NITROGEN 32 MG/DL (7-18); CHLORIDE 121 MEQ/L (98-107); GLOMERULAR FILTRATION RATE 149 ML/MIN (>89); MAGNESIUM 2.1 MG/DL (1.5-2.5); POTASSIUM 3.5 MEQ/L (3.5-5.1); TOTAL BILIRUBIN ADULT 0.4 MG/DL (0.2-1.0)
[2016-08-26 04:46] LABS: SODIUM (NA) 156 MEQ/L (136-145)
--- NOTE | 2016-08-26 04:50 | RADRPT ---
EXAM DATE/TIME: 08/26/2016 03:54 [facility] COMPARISON: No previous studies available for comparison. INDICATIONS : Evaluate after respiratory failure. MEDICAL HISTORY : Aneurysm, intracranial. SURGICAL HISTORY : coiling ENCOUNTER: Subsequent ACUITY: 3 days PAIN SCORE: Non-responsive. LOCATION: Bilateral chest FINDINGS: Mid lung and basilar consolidation on the left and perihilar consolidation on the right not significa ntly changed. Heart size stable, upper limits of normal. Endotracheal tube tip unchanged, about 5 cm above the arian. There is a nasogastric tube coiled in t he stomach and a right subclavian central venous catheter with tip in the superior vena cava. CONCLUSION: No change. Chan Benítez MD on August 26, 2016 at 4:48 Board Certified Radiologist. This report was verified electronically.
[2016-08-26] MEDS: SODIUM CHLOR 0.9% 1000 ML INJ 1,000 ML IV SCH ×3 (05:43→21:16)
[2016-08-26] MEDS: LABETALOL HCL 100 MG/20 ML VIAL IV PUSH PRN (07:33)
[2016-08-26] MEDS: SODIUM CHLORIDE 0.9% FLUSH 10 ML FLUSH SCH ×2 (09:00→21:15)
--- NOTE | 2016-08-26 09:00 | HHI.CCPN ---
Subjective Remarks/Hospital Course 60 year old male who presents to the [facility] in transfer from [facility] after being diagnosed with a subarachnoid hemorrhage with intraventricular hemorrhage extension. The patient was intubated at that facility when he became unresponsive. The patient was noted to be tachycardic with a heart rate in the 130s, blood pressure initially 220/120. According to the record, the patient had a history of recently standing up after tying his shoes and having a headache associated with neck pain. He had been being seen by a local chiropractor and been treating the pain with tramadol, ibuprofen, and Flexeril. This evening he developed a decreased level of consciousness and was difficult to awaken according to his . She was concerned that he may have taken some extra pain medication, therefore Narcan was given in 3 separate doses at that facility, however the patient had no response. The patient was noted after intubation to have the subarachnoid hemorrhage and was transferred to this facility for higher level of care. The patient was placed on propofol for sedation on the ventilator. The patient was started on a Cardene drip. EVD was emergently placed by neurosurgeon. 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 He immediately went for a CT scan and was given mannitol and 3% sodium with improvement in his ICP. Repeat CT was essentially unchanged 08/24/16: Today patient is sedated with Versed and propofol. Flaccid on all 4 extremities no withdrawal to pain. Pupils are equal sluggishly reactive positive corneal positive cough. Unable to to TCD. Clinical suspicion of vasospasm high. Will repeat CT angiogram stat. Discussed with Dr. Andrez Marcelo and Dr. Robbins 08/25/16: Repeat CT angiogram of the head did not show any significant vasospasm yesterday. Spiking fever overnight white count increased to 20.2 from 12.3. CXR developing left infiltrate. Very slight withdrawal of all 4 extremities to deep pain 08/26/16: Continues to have high FiO2 requirement Now Fio2 95% and PEEP 10. WBC 21 ,000. Neuro exam unchanged. Unable to get TCD window, will cancel. CXR bilateral infiltrates, L >R Objective Vital Signs Date Time Temp Pulse Resp B/P Pulse Ox O2 Delivery O2 Flow Rate FiO2 08/26/16 06:00 74 08/26/16 04:45 99 95 08/26/16 04:00 97.6 23 150/62 08/25/16 19:00 Mechanical Ventilator Intake and Output 08/25/16 08/25/16 08/26/16 08:00 16:00 00:00 Intake Total 1454 ml 1565 ml 1571 ml Output Total 503 ml 645 ml 817 ml Balance 951 ml 920 ml 754 ml Result Diagram: 08/26/16 0345 08/26/16 0345 Other Results Laboratory Tests Test 08/25/16 22:28 Blood Gas Puncture Site ART LINE Blood Gas Patient Temperature 98.6 Blood Gas HCO3 22 mmol/L (22-26) Blood Gas Base Excess -2.5 mmol/L (-2-2) Blood Gas Oxygen Saturation 88 % (90-100) Arterial Blood pH 7.38 (7.380-7.420) Arterial Blood Partial 37 mmHg (38-42) Pressure CO2 Arterial Blood Partial 59 mmHg Pressure O2 (61-120) Arterial Blood Oxygen Content 18.3 Vol % (12.0-20.0) Arterial Blood 0.8 % (0-4) Carboxyhemoglobin Arterial Blood Methemoglobin 0.9 % (0-2) Blood Gas Hemoglobin 14.8 G/DL (12.0-16.0) Oxygen Delivery Device VENTILATOR Blood Gas Ventilator Setting AC16/600/8PEEP Blood Gas Inspired Oxygen 75 % Objective Remarks Propofol 50 3% saline on hold, Na 156 GENERAL: Well-nourished, well-developed patient. Sedated and intubated SKIN: Warm and dry. HEAD: Normocephalic. EYES: No scleral icterus. No injection or drainage. NECK: Supple, trachea midline. No JVD or lymphadenopathy. CARDIOVASCULAR: Regular rate and rhythm without murmurs, gallops, or rubs. RESPIRATORY: Breath sounds equal bilaterally. Coarse breath sounds and rhonchi at bilateral bases, predominantly L base GASTROINTESTINAL: Abdomen soft, non-tender, nondistended. MUSCULOSKELETAL: No cyanosis, or edema. BACK: Nontender without obvious deformity. No CVA tenderness. EXTREMITIES: No clubbing cyanosis or edema. Extends on all 4 extremities painful stimuli NEURO: SHEY 3mm ? sluggish reaction, positive corneal reflex positive cough. Very slight withdrawal to deep pain in all 4 EXT A/P Assessment and Plan Neuro: Aneurysmal Subarachnoid hemorrhage Acute encephalopathy Obstructive hydrocephalus - Marshall and Galeas grade 5, Modified Andersen grade 4 - S/P supraclinoid ICA aneurysm coil embolization. - Post procedure had elevated ICP and increasing bloody CSF drainage, but repeat CT of the head did not show any acute changes - CTA repeat 08/24, no significant vasospasm. Cannot do TCD, unable to get good window (cannot penetrate skull) - Target SBP 160-180 to prevent vasospasm (aneurysm is well secured). Okd by Dr. Robbins - Nimodipine and Pravachol - Keep Mag>2 na >145 - EEG to rule out subclinical seizures 08/24-diffuse encephalopathyis - Continue Keppra - EVD, Management per neurosurgery. - Hold 3% as Na is 156 - Propofol for sedation and ventilator synchrony, ICP control RESP Acute hypoxemic respiratory failure ARDS Aspiration pneuma - Intubated for an airway protection, now with severe hypoxemia ARDS - Low tidal volume ventilation with PEEP 12 - Vent bundle. DuoNeb q6 and PRN - No SBT's until neurologically stable and hypoxia improved - Zosyn started 08/25, along with Vanc. Add Azithromycin for atypical coverage CVS Hypertension Dyslipidemia - Nicardipine drip as needed - SBP [id number] to prevent vasospasm - Nimotop 60 mg po Q4 - Pravachol for vasospasm prevention as well GI: - Tube feeds with Jevity - IV Protonix - Bowel regimen /Endo: - Electrolyte replacement per protocol - IV hydration - Monitor renal function closely ID: Aspiration pneumonia Severe sepsis - F/U sputum blood and urine culture - Zosyn 4.5 g IV every 6 hours, vancomycin PTD. Add azithromycin DVT GI prophylaxis - Teds SCDs - No pharmacological DVT prophylaxis due to subarachnoid bleed - Pepcid Critical Care: The total critical care time was 45 minutes. Time to perform other separately billable procedures was not included in the critical care time. D/W Harish Zambrano MD Aug 26, 2016 09:00
[2016-08-26] MEDS: FAMOTIDINE 20 MG/2 ML VIAL IV PUSH SCH ×2 (09:04→20:37)
[2016-08-26] MEDS: levETIRAcetam 1000 MG INJ 100 ML IV SCH ×2 (09:04→20:37)
[2016-08-26] MEDS: DOCUSATE SODIUM 50 MG/SENNA 8.6 MG TAB PO SCH ×2 (09:05→20:37)
[2016-08-26] MEDS ORDERED: niCARdipine INJ 25 MG in SODIUM CHLOR 0.9% 250 ML INJ 250 ML IV SCH (09:30)
[2016-08-26] MEDS ORDERED: Vancomycin Consult Pharmacy 1 EA OTHER SCH (09:30)
[2016-08-26] MEDS ORDERED: ROCURONIUM INJ 50 MG/5 ML VIAL ONE (09:51)
[2016-08-26] MEDS: AZITHROMYCIN INJ 500 MG in SODIUM CHLOR 0.9% 250 ML INJ 250 ML IV SCH (10:02)
[2016-08-26] MEDS ORDERED: NOREPINEPHRINE-DEXTROSE DRIP 250 ML IV ONE (10:47)
[2016-08-26] MEDS: MIDAZOLAM 100 MG/NS 100 ML DRIP Premix IV SCH (10:57)
[2016-08-26] MEDS: fentaNYL 2,500 MCG/NS 250 ML IV SCH (10:57)
[2016-08-26] MEDS ORDERED: ROCURONIUM INJ 50 MG/5 ML VIAL IV PUSH ONE (11:00)
[2016-08-26] MEDS: VANCOMYCIN INJ 1,500 MG in SODIUM CHLORID 0.9% 500 ML INJ 500 ML IV SCH (12:51)
[2016-08-26] MEDS: RESP: ALBUTEROL 2.5 MG/IPRATROPIUM 0.5 MG NEB (SCH) NEB ×3 (12:57→21:01)
[2016-08-26] MEDS: NOREPINEPHRINE INJ 4 MG in SODIUM CHLOR 0.9% 250 ML INJ 250 ML IV SCH ×3 (13:44→22:24)
[2016-08-26] MEDS: POTASSIUM CHLORIDE 25 MEQ EFFERVESCENT TAB PO PRN (14:47)
[2016-08-26] MEDS: ACETAMINOPHEN 325 MG TAB PO PRN (18:34)
[2016-08-26 18:36] LABS: POTASSIUM 3.7 MEQ/L (3.5-5.1)
[2016-08-26] MEDS ORDERED: METOPROLOL TARTRATE 5 MG/5 ML VIAL IV ONE (19:00)
[2016-08-26] MEDS: PRAVASTATIN SOD 40 MG TAB PO SCH (20:37)
[2016-08-27] VITALS (19 sets, daily range): BP systolic 161–186; BP diastolic 73–83; PULSE 70–95; RESP 18–21; TEMP 99–100.1; O2SAT 93–100
[2016-08-27] MEDS: VANCOMYCIN INJ 1,500 MG in SODIUM CHLORID 0.9% 500 ML INJ 500 ML IV SCH ×2 (00:09→11:20)
[2016-08-27] MEDS: PIPERACIL-TAZO 4.5 GM PREMIX 100 ML IV SCH ×4 (02:08→20:21)
[2016-08-27] MEDS: NOREPINEPHRINE INJ 4 MG in SODIUM CHLOR 0.9% 250 ML INJ 250 ML IV SCH ×2 (02:09→05:34)
[2016-08-27] MEDS: 3% SALINE INJ 500 ML IV SCH ×2 (02:09→20:53)
[2016-08-27] MEDS: PROPOFOL 1000 MG/100 ML INJ 100 ML IV SCH ×7 (02:47→21:48)
[2016-08-27] MEDS: niMODipine 30 MG CAP PO SCH ×5 (03:03→19:33)
[2016-08-27] MEDS: CHLORHEXIDINE GLUCONATE 2 % 1 PACK (2 CLOTHS) TOP SCH (03:46)
[2016-08-27] MEDS: RESP: ALBUTEROL 2.5 MG/IPRATROPIUM 0.5 MG NEB (SCH) NEB ×4 (03:58→20:33)
--- NOTE | 2016-08-27 05:45 | RADRPT ---
EXAM DATE/TIME: 08/27/2016 04:22 [facility] COMPARISON: CHEST SINGLE AP, August 26, 2016, 3:54. INDICATIONS : Respiratory failure. Followup pulmonary infiltrates.. MEDICAL HISTORY : Aneurysm, intracranial. SURGICAL HISTORY : Coiling ENCOUNTER: Subsequent ACUITY: 1 week PAIN SCORE: Non-responsive. LOCATION: Bilateral FINDINGS: 2 AP semierect views of the chest were obtained and again demonstrate the endotracheal tube in place with the tip approximately 4 cm above the arian. A nasogastric tube is again seen coursing through t he esophagus into the stomach. The right subclavian central venous line remains in place. The perihil ar and bibasilar infiltrates are less distinct and more diffuse in appearance. The heart size remains enlarged. There is no evidence of effusion. The patient is mildly rotated to the left. There are mul tiple overlying electrocardiogram leads. CONCLUSION: 1. Apparent mild improvement in pulmonary infiltrates which remain greater on the left than the right . 2. Mild cardiomegaly. Jesus Vee MD on August 27, 2016 at 5:42 Board Certified Radiologist. This report was verified electronically.
[2016-08-27] MEDS: ACETAMINOPHEN 325 MG TAB PO PRN ×2 (05:59→15:57)
[2016-08-27 06:16] LABS: AUTOMATED NEUTROPHIL # 9.3 TH/MM3 (1.8-7.7); BASOPHIL # 0.1 TH/MM3 (0-0.2); BASOPHIL % 0.5 % (0.0-2.0); EOSINOPHIL # 0.4 TH/MM3 (0-0.4); EOSINOPHIL % 3.2 % (0.0-4.0); HEMATOCRIT 41.7 % (39.0-51.0); LYMPH % 8.9 % (9.0-44.0); MEAN CELL VOLUME 85.3 FL (80.0-100.0); MEAN CORPUSCULAR HEMOGLOBIN 27.2 PG (27.0-34.0); MEAN CORPUSCULAR HGB CONC 31.9 % (32.0-36.0); MONO % 4.3 % (0.0-8.0); NEUT % 83.1 % (16.0-70.0); PLATELET COUNT 261 TH/MM3 (150-450); RED BLOOD COUNT 4.89 MIL/MM3 (4.50-5.90); RED CELL DISTRIBUTION WIDTH 15.4 % (11.6-17.2); WHITE BLOOD COUNT 11.2 TH/MM3 (4.0-11.0)
[2016-08-27 06:27] LABS: HEMO FLAGS AUTO DIFF
[2016-08-27 06:47] LABS: BICARBONATE 24.8 MEQ/L (21.0-32.0); POTASSIUM 3.3 MEQ/L (3.5-5.1)
--- NOTE | 2016-08-27 07:54 | HHI.NSPN ---
(Fred Ponce) History Chief Complaint: ruptured aneurysm with intraventricular hemorrhage status post coiling (Fred Ponce) Interval History 08/22: 60-year-old male who according to his developed acute onset of severe back pain and headache on approximately 08/11/16 while on a fishing trip. The headache has persisted since then along with nausea and occasional emesis. He has not sought any medical treatment since initial onset. He did not go to work since the initial onset due to these persistent symptoms. He has not been eating well. His states that after he went to sleep last night, at approximately 1:30 or 2 AM she noticed snoring respirations and found him initially unresponsive. He was able to be aroused by EMS and ambulated briefly prior to being placed in the ambulance. He was taken to [facility] for initial evaluation and in the emergency room was noted to be unresponsive with extensor posturing. He was intubated and placed on nicardipine drip for hypertension. No seizure activity reported. 08/23: Patient remains intubated and sedated this morning. 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 He is withdrawing with the RUE to noxious stimuli with questionable extension of both feet, but no response with the LUE per Nursing. He is maintaining his SBP without the nicardipine drip. Nursing also reports that temp has been up to 101.3 degrees. 08/24: Patient is intubated and sedated. Nursing reports that he is having neurogenic temperatures. Yesterday morning the patient had a CTA which demonstrated an aneurysm. That afternoon the patient went for coiling and had an increase in his ICP into the 60s. He immediately went for a CT scan and was given mannitol and 3% sodium with improvement in his ICP. He went again in the evening for another CTA. Nursing reports that the patient is not responding to any noxious stimuli. His ICP had just been checked and was 11. 08/25: Patient is intubated and on max sedation. Nursing reports that when his sedation was weaned down earlier he became extremely agitated, his BP went up and his ICP reached 20. His propofol was maxed and his ICP started coming down. He was also given labetalol for his BP. He did withdraw the BLE to noxious stimuli but did nothing with the BUE for Nursing and had a cough reflex. Nursing stated that in report she was told the patient withdrew all extremities to noxious stimuli yesterday. During the night his temperature dropped to 94 and later spiked to 103. He went for a repeat CTA yesterday afternoon w/o any residual aneurysm seen. He did have mild vasospasms in the right M1 segment and right A1 segment. His CXR today demonstrated left-sided infiltrates. 08/27: Patient sedated on Diprivan and fentanyl drips. Versed on hold. Patient opening eyes or following commands. Ventriculostomy at 5 cm a water ICP R8. Pupils are 2 mm bilaterally. Patient is intubated on a vent setting. (Fred Ponce) System Review Comments Not able to obtain given clinical condition. (Fred Ponce) Exam Results Vital Signs Date Time Temp Pulse Resp B/P Pulse Ox O2 Delivery O2 Flow Rate FiO2 08/27/16 06:00 78 08/27/16 04:23 94 45 08/27/16 04:00 99.2 21 174/79 08/26/16 19:00 Mechanical Ventilator Intake and Output 08/26/16 08/26/16 08/27/16 08:00 16:00 00:00 Intake Total 1356 ml 2289 ml 2102 ml Output Total 556 ml 687 ml 1164 ml Balance 800 ml 1602 ml 938 ml (Fred Ponce) Physical Examination General: Patient remains in critical care sedated and intubated in no acute distress Eyes: Pupils are 2 mm bilaterally and minimally reactive. Non-icteric sclera. Resp: CTA bilaterally. Intubated. Volume control rate 18. FiO2 45%. PEEP 10 Heart: Normal sinus rhythm. No murmurs. Patient on the left side drip to keep systolic blood pressure between 160-180. Abd: Soft diminished bs. Skin: No cyanosis or erythema. Muscle: Sedated. not following for muscle testing. Neuro: Patient sedated on Diprivan and fentanyl drips. Percocet on hold. Sodium chloride 3%. Ventriculostomy drain at 5 cm of water ICPs 8. Pupils are 2 mm bilaterally with minimal reaction bilaterally. (Fred Ponce) Lab, Micro, Other Results Last Impressions Chest X-Ray 08/27/16599 Signed Impressions: Service Date/Time: Saturday, August 27, 2016 04:22 - CONCLUSION: 1. Apparent mild improvement in pulmonary infiltrates which remain greater on the left than the right. 2. Mild cardiomegaly. Jesus Vee MD Transcranial Doppler Study Complete 08/24/16599 Signed Impressions: Service Date/Time: Wednesday, August 24, 2016 07:16 - CONCLUSION: There is no acoustical window for transcranial Doppler. Barry Marcelo MD FACR Head CTA 08/24/16 Signed Impressions: Service Date/Time: Wednesday, August 24, 2016 12:06 - CONCLUSION: 1. No definite residual aneurysm is seen. The abnormality on the previous CTA is fusiform dilation of the patient's distal internal carotid above the aneurysm. This is most apparent on the patient's intraoperative angiography during the coiling. 2. There is a mild vasospasm in the right M1 segment as it is stretched across the patient's intraparenchymal hematoma. This is similar in appearance to the patient's postoperative CT angiogram. There is a mild vasospasm in the A1 segment on the right as well. The remainder of the intracranial circulation appears widely patent. Ozzy Marcelo MD Head CT 08/23/1636 Signed Impressions: Service Date/Time: Tuesday, August 23, 2016 07:21 - CONCLUSION: 1. Interventricular and subarachnoid hemorrhage. The most concerning region for a source is the right suprasellar region. The patient is scheduled for a CTA. 2. Dilatation of the ventricles and effacement of the sulci and basal cisterns. 3. Left ventriculostomy tube in good position. Chan Lobo MD Neck CTA 08/23/16 Signed Impressions: Service Date/Time: Tuesday, August 23, 2016 07:21 - CONCLUSION: 1. Negative CTA of the carotids. CT angiography of the brain is pending. Ozzy Marcelo MD Cerebral Arteriogram 08/23/16 Signed Impressions: Service Date/Time: Tuesday, August 23, 2016 14:18 - CONCLUSION: 1. Successful coil embolization of a 4.5 mm saccular aneurysm involving the supraclinoid ICA on the right. 2. No aneurysm seen involving the right anterior cerebral artery. Chai Yuan Jr., MD Laboratory Tests Test 08/26/16 08/26/16 08/27/16 17:45 23:30 05:51 Sodium Level 153 MEQ/L 158 MEQ/L Potassium Level 3.7 MEQ/L Magnesium Level 2.0 MG/DL White Blood Count 11.2 TH/MM3 Red Blood Count 4.89 MIL/MM3 Hemoglobin 13.3 GM/DL Hematocrit 41.7 % Mean Corpuscular Volume 85.3 FL Mean Corpuscular Hemoglobin 27.2 PG Mean Corpuscular Hemoglobin 31.9 % Concent Red Cell Distribution Width 15.4 % Platelet Count 261 TH/MM3 Mean Platelet Volume 8.0 FL Neutrophils (%) (Auto) 83.1 % Lymphocytes (%) (Auto) 8.9 % Monocytes (%) (Auto) 4.3 % Eosinophils (%) (Auto) 3.2 % Basophils (%) (Auto) 0.5 % Neutrophils # (Auto) 9.3 TH/MM3 Lymphocytes # (Auto) 1.0 TH/MM3 Monocytes # (Auto) 0.5 TH/MM3 Eosinophils # (Auto) 0.4 TH/MM3 Basophils # (Auto) 0.1 TH/MM3 CBC Comment AUTO DIFF 08/26/16 08/26/16 08/27/16 15:00 23:00 07:00 Intake Total 2289 ml 2102 ml 2503 ml Output Total 687 ml 1164 ml 1697 ml Balance 1602 ml 938 ml 806 ml Intake IV Total 1817 ml 1841 ml 2077 ml Tube Feeding 372 ml 201 ml 206 ml Other 100 ml 60 ml 220 ml Output Urine Total 625 ml 1100 ml 1625 ml Drainage Total 62 ml 64 ml 72 ml # Bowel Movements 0 0 0 (Fred Ponce) Medical Decision Making Impression and Plan A: 1. Right temporal intracranial hemorrhage with interventricular extension 2. 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 Hypertension 4. Small outpouching proximal right anterior cerebral artery 1.5 mm max, small vessel loop vs small aneurysm Sedated, no response to noxious stimuli, cough reflex intact, becomes agitated w /increase in BP & ICP when sedation weaned CTA w/o any residual aneurysm seen, mild vasospasms in the right M1 segment and right A1 segment CXR demonstrated left-sided infiltrates Plan: Continue to monitor neuro exam. Continue with critical care. Continue with ICP control and management. Patient on vasospasm prophylaxis. (Fred Ponce) Attending Statement The exam, history, and the medical decision-making described in the above note were completed with the assistance of the mid-level provider. I reviewed and agree with the findings presented. I attest that I had a [id number] encounter with the patient on the same day, and personally performed and documented my assessment and findings in the medical record. ICPs normal with ventriculostomy draining well. Maintaining systolic blood pressure greater than 160 for vasospasm prophylaxis. Does not tolerate sedation weaning due to increasing blood pressure and ICPs. We'll continue with current management with ICP control measures and vasospasm prophylaxis. Updated at bedside. ( Emil Gamez MD) Fred Ponce Aug 27, 2016 07:54 Emil Gamez MD Aug 27, 2016 11:05
[2016-08-27] MEDS: FAMOTIDINE 20 MG/2 ML VIAL IV PUSH SCH ×2 (09:00→20:21)
--- NOTE | 2016-08-27 09:01 | HHI.CCPN ---
Subjective Remarks/Hospital Course 60 year old male who presents to the [facility] in transfer from [facility] after being diagnosed with a subarachnoid hemorrhage with intraventricular hemorrhage extension. The patient was intubated at that facility when he became unresponsive. The patient was noted to be tachycardic with a heart rate in the 130s, blood pressure initially 220/120. According to the record, the patient had a history of recently standing up after tying his shoes and having a headache associated with neck pain. He had been being seen by a local chiropractor and been treating the pain with tramadol, ibuprofen, and Flexeril. This evening he developed a decreased level of consciousness and was difficult to awaken according to his . She was concerned that he may have taken some extra pain medication, therefore Narcan was given in 3 separate doses at that facility, however the patient had no response. The patient was noted after intubation to have the subarachnoid hemorrhage and was transferred to this facility for higher level of care. The patient was placed on propofol for sedation on the ventilator. The patient was started on a Cardene drip. EVD was emergently placed by neurosurgeon. 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 He immediately went for a CT scan and was given mannitol and 3% sodium with improvement in his ICP. Repeat CT was essentially unchanged 08/24/16: Today patient is sedated with Versed and propofol. Flaccid on all 4 extremities no withdrawal to pain. Pupils are equal sluggishly reactive positive corneal positive cough. Unable to to TCD. Clinical suspicion of vasospasm high. Will repeat CT angiogram stat. Discussed with Dr. Andrez Marcelo and Dr. Robbins 08/25/16: Repeat CT angiogram of the head did not show any significant vasospasm yesterday. Spiking fever overnight white count increased to 20.2 from 12.3. CXR developing left infiltrate. Very slight withdrawal of all 4 extremities to deep pain 08/26/16: Continues to have high FiO2 requirement Now Fio2 95% and PEEP 10. WBC 21 ,000. Neuro exam unchanged. Unable to get TCD window, will cancel. CXR bilateral infiltrates, L >R 08/27 remains unresponsive, stat EEG ordered to rule out subclinical seizure Objective Vital Signs Date Time Temp Pulse Resp B/P Pulse Ox O2 Delivery O2 Flow Rate FiO2 08/27/16 07:51 96 Mechanical Ventilator 45 08/27/16 06:00 78 08/27/16 04:00 99.2 21 174/79 Intake and Output 08/26/16 08/26/16 08/27/16 08:00 16:00 00:00 Intake Total 1356 ml 2289 ml 2102 ml Output Total 556 ml 687 ml 1164 ml Balance 800 ml 1602 ml 938 ml Result Diagram: 08/27/1651 08/27/16 0551 Objective Remarks Propofol 50 3% saline on hold, Na 156 GENERAL: Well-nourished, well-developed patient. Sedated and intubated SKIN: Warm and dry. HEAD: Normocephalic. EYES: No scleral icterus. No injection or drainage. NECK: Supple, trachea midline. No JVD or lymphadenopathy. CARDIOVASCULAR: Regular rate and rhythm without murmurs, gallops, or rubs. RESPIRATORY: Breath sounds equal bilaterally. Coarse breath sounds and rhonchi at bilateral bases, predominantly L base GASTROINTESTINAL: Abdomen soft, non-tender, nondistended. MUSCULOSKELETAL: No cyanosis, or edema. BACK: Nontender without obvious deformity. No CVA tenderness. EXTREMITIES: No clubbing cyanosis or edema. Extends on all 4 extremities painful stimuli NEURO: SHEY 3mm ? sluggish reaction, positive corneal reflex positive cough. Very slight withdrawal to deep pain in all 4 EXT A/P Assessment and Plan Neuro: Aneurysmal Subarachnoid hemorrhage Acute encephalopathy Obstructive hydrocephalus - Marshall and Galeas grade 5, Modified Andersen grade 4 - S/P supraclinoid ICA aneurysm coil embolization. - CTA repeat 08/24, no significant vasospasm. No temporal window for TCD's - Target SBP 160-180 to prevent vasospasm (aneurysm is well secured). Okd by Dr. Robbins - Nimodipine and Pravachol - Keep Mag>2 na >145 - EEG to rule out subclinical seizures 08/24-diffuse encephalopathy - Continue Keppra - EVD, Management per neurosurgery. - Continue to Hold 3% as Na is 158 - Propofol for sedation and ventilator synchrony, ICP control RESP Acute hypoxemic respiratory failure ARDS Aspiration pneumonia - Intubated for an airway protection, now with severe hypoxemia ARDS - Low tidal volume ventilation with PEEP 12 - Vent bundle. DuoNeb q6 and PRN - No SBT's until neurologically stable and hypoxia improved - Zosyn started 08/25, along with Vanc. Add Azithromycin for atypical coverage CVS Hypertension Dyslipidemia - Nicardipine drip as needed - SBP [id number] to prevent vasospasm - Nimotop 60 mg po Q4 - Pravachol for vasospasm prevention as well GI: - Tube feeds with Jevity - IV Protonix - Bowel regimen /Endo: - Electrolyte replacement per protocol - IV hydration - Monitor renal function closely - Strict I's and O's ID: Aspiration pneumonia Severe sepsis - F/U sputum blood and urine culture - Zosyn 4.5 g IV every 6 hours, vancomycin PTD. Add azithromycin DVT GI prophylaxis - Teds SCDs - No pharmacological DVT prophylaxis due to subarachnoid bleed - Pepcid Critical Care: The total critical care time was 35 minutes. Time to perform other separately billable procedures was not included in the critical care time. D/W Dannie Walter MD Aug 27, 2016 09:01
[2016-08-27] MEDS: levETIRAcetam 1000 MG INJ 100 ML IV SCH ×2 (10:04→20:21)
[2016-08-27] MEDS: SODIUM CHLORIDE 0.9% FLUSH 10 ML FLUSH SCH ×2 (10:04→20:21)
[2016-08-27] MEDS: DOCUSATE SODIUM 50 MG/SENNA 8.6 MG TAB PO SCH ×2 (10:04→20:21)
[2016-08-27] MEDS: AZITHROMYCIN INJ 500 MG in SODIUM CHLOR 0.9% 250 ML INJ 250 ML IV SCH (10:05)
[2016-08-27 10:45] LABS: BANDS 12 % (0-6); EOSINOPHILS 1 % (0-4); NEUTROPHIL # MANUAL DIFF 9.4 TH/MM3 (1.8-7.7); POLYS (SEG NEUTROPHILS) 72 % (16-70); WBC DIFF SAMPLE 100
[2016-08-27 10:46] LABS: PLATELET ESTIMATE SMEAR NORMAL (NORMAL); PLATELET MORPHOLOGY NORMAL (NORMAL); SCAN/DIFF FINAL DIFF MANUAL
[2016-08-27] MEDS ORDERED: PHENYLEPHRINE HCL 10 MG/ML VIAL ONE (10:50)
[2016-08-27] MEDS ORDERED: TERBUTALINE INJ 1 MG/ML AMP SQ PRN (11:00)
[2016-08-27] MEDS: SODIUM CHLOR 0.9% 1000 ML INJ 1,000 ML IV SCH (11:21)
[2016-08-27] MEDS ORDERED: PHENYLEPHRINE INJ 40 MG in DEXTROSE 5% IN WATE 500 ML INJ 496 ML IV SCH ×2 (12:00)
[2016-08-27 12:19] LABS: SODIUM (NA) 157 MEQ/L (136-145)
[2016-08-27 12:52] LABS: BLOOD UREA NITROGEN 23 MG/DL (7-18); GLOMERULAR FILTRATION RATE 178 ML/MIN (>89)
[2016-08-27 12:53] LABS: ALKALINE PHOSPHATASE 91 U/L (45-117); ALT (GPT) 99 U/L (12-78); ANION GAP 12 MEQ/L (5-15); AST (GOT) 70 U/L (15-37); BICARBONATE 22.4 MEQ/L (21.0-32.0); CHLORIDE 123 MEQ/L (98-107); POTASSIUM 3.1 MEQ/L (3.5-5.1); TOTAL BILIRUBIN ADULT 0.5 MG/DL (0.2-1.0)
[2016-08-27] MEDS: fentaNYL 2,500 MCG/NS 250 ML IV SCH (16:05)
--- NOTE | 2016-08-27 17:42 | MG ---
cc: INDIRA BURROWS Lab No: [id number] Date: 08/27/16 Age: 60 Sex: M Race: REFERRING PHYSICIAN Dr. Greenberg TECHNIQUE 17 channel EEG. DESCRIPTION The background rhythm reveals generalized slowing predominantly in the delta frequency at 3-4 Hz. At times there is a slightly more rapid rhythm in the theta range at about 5 Hz. The amplitude is generally low. There are bursts of slightly higher amplitude activity but it still remains slow. The maximal amplitude is 20 microvolts, minimal amplitude 2 microvolts in a burst suppression type pattern. There are no lateralizing features. There are no epileptiform features. Photic stimulation results in no significant driving response. INTERPRETATION Markedly abnormal EEG with generalized slowing in the delta range predominantly but also a mild burst suppression type pattern suggestive of a very severe encephalopathy. No epileptiform features are seen. MD MICHAEL Becerril/RUDI /4:10 PM /5:37 PM
[2016-08-27 18:59] LABS: POTASSIUM 3.6 MEQ/L (3.5-5.1)
[2016-08-27] MEDS: PRAVASTATIN SOD 40 MG TAB PO SCH (20:21)
[2016-08-27] MEDS: hydrALAZINE HCL 20 MG/ML VIAL IV PUSH PRN (23:29)
[2016-08-28] VITALS (20 sets, daily range): BP systolic 149–182; BP diastolic 66–82; PULSE 66–90; RESP 19–21; TEMP 98.2–99.5; O2SAT 94–100
[2016-08-28] MEDS ORDERED: MIDAZOLAM HCL 2 MG/2 ML VIAL IV PUSH ONE
[2016-08-28] MEDS: VANCOMYCIN INJ 1,500 MG in SODIUM CHLORID 0.9% 500 ML INJ 500 ML IV SCH ×3 (00:07→20:10)
[2016-08-28] MEDS: niMODipine 30 MG CAP PO SCH ×7 (00:07→23:25)
[2016-08-28] MEDS: PROPOFOL 1000 MG/100 ML INJ 100 ML IV SCH ×4 (00:07→20:10)
[2016-08-28 00:34] LABS: BLOOD GAS BASE EXCESS 1.1 mmol/L (-2-2); BLOOD GAS CARBOXYHEMOGLOBIN 0.9 % (0-4); BLOOD GAS HCO3 25 mmol/L (22-26); BLOOD GAS METHEMOGLOBIN 0.9 % (0-2); BLOOD GAS O2 HGB SATURATION 96 % (90-100); BLOOD GAS OXYGEN CONTENT 19.1 Vol % (12.0-20.0); BLOOD GAS PCO2 41 mmHg (38-42); BLOOD GAS PO2 103 mmHg (61-120); CRITICAL VALUE NO; OXYGEN DEVICE VENTILATOR; TEMP CORR TO 98.6
[2016-08-28 00:35] LABS: DRAW SITE ART LINE; FIO2 45 %; STAT YES; VENT SETTINGS AC/18/600/PEEP10
[2016-08-28] MEDS ORDERED: PHARMACY ORDERED LAB ONE (00:45)
[2016-08-28 01:15] LABS: VANCOMYCIN TROUGH 5.8 MCG/ML (5.0-10.0)
[2016-08-28] MEDS: SODIUM CHLOR 0.9% 1000 ML INJ 1,000 ML IV SCH ×4 (02:07→23:38)
[2016-08-28] MEDS: PIPERACIL-TAZO 4.5 GM PREMIX 100 ML IV SCH ×4 (02:28→20:10)
[2016-08-28] MEDS: fentaNYL 2,500 MCG/NS 250 ML IV SCH ×2 (02:33→23:25)
[2016-08-28] MEDS: ACETAMINOPHEN 325 MG TAB PO PRN ×2 (02:33→09:57)
[2016-08-28] MEDS: RESP: ALBUTEROL 2.5 MG/IPRATROPIUM 0.5 MG NEB (SCH) NEB ×4 (03:24→21:46)
[2016-08-28] MEDS: CHLORHEXIDINE GLUCONATE 2 % 1 PACK (2 CLOTHS) TOP SCH (04:00)
--- NOTE | 2016-08-28 04:09 | RADRPT ---
EXAM DATE/TIME: 08/28/2016 03:00 [facility] COMPARISON: CHEST SINGLE AP, August 27, 2016, 4:22. INDICATIONS : Evaluate after respiratory failure. The patient remains intubated and is being followed for pulmonary infiltrates. MEDICAL HISTORY : Aneurysm, intracranial. SURGICAL HISTORY : None. Coiling ENCOUNTER: Subsequent ACUITY: 1 week PAIN SCORE: Non-responsive. LOCATION: Bilateral chest FINDINGS: A single AP semierect view of the chest was obtained. The patient remains mildly rotated to the left. The endotracheal tube remains in place with the tip approximately 5 cm above the arian. A nasogastr ic tube is again seen coursing through the esophagus with the tip in the stomach. Hazy perihilar and bibasilar infiltrates remain left greater than right. There is no definite effusion. CONCLUSION: 1. No significant change in the bilateral pulmonary opacities left greater than right. 2. Mild cardiomegaly. Jesus Vee MD on August 28, 2016 at 4:06 Board Certified Radiologist. This report was verified electronically.
[2016-08-28 04:35] LABS: AUTOMATED NEUTROPHIL # 5.6 TH/MM3 (1.8-7.7); BASOPHIL % 0.6 % (0.0-2.0); EOSINOPHIL # 0.4 TH/MM3 (0-0.4); EOSINOPHIL % 5.5 % (0.0-4.0); HEMATOCRIT 37.8 % (39.0-51.0); LYMPH % 16.4 % (9.0-44.0); LYMPHOCYTE # 1.3 TH/MM3 (1.0-4.8); MEAN CELL VOLUME 83.7 FL (80.0-100.0); MEAN CORPUSCULAR HGB CONC 33.4 % (32.0-36.0); MONO % 3.9 % (0.0-8.0); NEUT % 73.6 % (16.0-70.0); PLATELET COUNT 257 TH/MM3 (150-450); RED BLOOD COUNT 4.51 MIL/MM3 (4.50-5.90); RED CELL DISTRIBUTION WIDTH 14.8 % (11.6-17.2); WHITE BLOOD COUNT 7.6 TH/MM3 (4.0-11.0)
[2016-08-28 04:36] LABS: HEMO FLAGS AUTO DIFF
[2016-08-28 05:09] LABS: ALKALINE PHOSPHATASE 89 U/L (45-117); ALT (GPT) 106 U/L (12-78); ANION GAP 7 MEQ/L (5-15); AST (GOT) 87 U/L (15-37); BLOOD UREA NITROGEN 22 MG/DL (7-18); CHLORIDE 125 MEQ/L (98-107); GLOMERULAR FILTRATION RATE 197 ML/MIN (>89); MAGNESIUM 2.1 MG/DL (1.5-2.5); POTASSIUM 3.4 MEQ/L (3.5-5.1); TOTAL BILIRUBIN ADULT 0.4 MG/DL (0.2-1.0)
[2016-08-28 05:14] LABS: BLOOD GAS BASE EXCESS 0.5 mmol/L (-2-2); BLOOD GAS CARBOXYHEMOGLOBIN 1.1 % (0-4); BLOOD GAS HCO3 24 mmol/L (22-26); BLOOD GAS METHEMOGLOBIN 0.8 % (0-2); BLOOD GAS O2 HGB SATURATION 96 % (90-100); BLOOD GAS PCO2 35 mmHg (38-42); BLOOD GAS PO2 86 mmHg (61-120); BLOOD GAS TOTAL HGB 13.4 G/DL (12.0-16.0); TEMP CORR TO 98.6
[2016-08-28 05:15] LABS: CRITICAL VALUE NO; DRAW SITE ART LINE; FIO2 45 %; OXYGEN DEVICE VENTILATOR; STAT NO; VENT SETTINGS AC/19/600/PEEP 8
[2016-08-28 05:18] LABS: SODIUM (NA) 158 MEQ/L (136-145)
[2016-08-28] MEDS: DOCUSATE SODIUM 50 MG/SENNA 8.6 MG TAB PO SCH ×2 (08:20→20:10)
[2016-08-28] MEDS: levETIRAcetam 1000 MG INJ 100 ML IV SCH ×2 (08:20→20:10)
[2016-08-28] MEDS: SODIUM CHLORIDE 0.9% FLUSH 10 ML FLUSH SCH ×2 (08:20→20:11)
[2016-08-28] MEDS: FAMOTIDINE 20 MG/2 ML VIAL IV PUSH SCH ×2 (08:20→20:10)
--- NOTE | 2016-08-28 08:22 | HHI.NSPN ---
(Fred Ponce) History Chief Complaint: ruptured aneurysm with intraventricular hemorrhage status post coiling (Fred Ponce) Interval History 08/22: 60-year-old male who according to his developed acute onset of severe back pain and headache on approximately 08/11/16 while on a fishing trip. The headache has persisted since then along with nausea and occasional emesis. He has not sought any medical treatment since initial onset. He did not go to work since the initial onset due to these persistent symptoms. He has not been eating well. His states that after he went to sleep last night, at approximately 1:30 or 2 AM she noticed snoring respirations and found him initially unresponsive. He was able to be aroused by EMS and ambulated briefly prior to being placed in the ambulance. He was taken to [facility] for initial evaluation and in the emergency room was noted to be unresponsive with extensor posturing. He was intubated and placed on nicardipine drip for hypertension. No seizure activity reported. 08/23: Patient remains intubated and sedated this morning. 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 He is withdrawing with the RUE to noxious stimuli with questionable extension of both feet, but no response with the LUE per Nursing. He is maintaining his SBP without the nicardipine drip. Nursing also reports that temp has been up to 101.3 degrees. 08/24: Patient is intubated and sedated. Nursing reports that he is having neurogenic temperatures. Yesterday morning the patient had a CTA which demonstrated an aneurysm. That afternoon the patient went for coiling and had an increase in his ICP into the 60s. He immediately went for a CT scan and was given mannitol and 3% sodium with improvement in his ICP. He went again in the evening for another CTA. Nursing reports that the patient is not responding to any noxious stimuli. His ICP had just been checked and was 11. 08/25: Patient is intubated and on max sedation. Nursing reports that when his sedation was weaned down earlier he became extremely agitated, his BP went up and his ICP reached 20. His propofol was maxed and his ICP started coming down. He was also given labetalol for his BP. He did withdraw the BLE to noxious stimuli but did nothing with the BUE for Nursing and had a cough reflex. Nursing stated that in report she was told the patient withdrew all extremities to noxious stimuli yesterday. During the night his temperature dropped to 94 and later spiked to 103. He went for a repeat CTA yesterday afternoon w/o any residual aneurysm seen. He did have mild vasospasms in the right M1 segment and right A1 segment. His CXR today demonstrated left-sided infiltrates. 08/27: Patient sedated on Diprivan and fentanyl drips. Versed on hold. Patient opening eyes or following commands. Ventriculostomy at 5 cm a water ICP R8. Pupils are 2 mm bilaterally. Patient is intubated on a vent setting. 08/28: Patient sedated on Diprivan and fentanyl drips. Not opening eyes or following commands. Ventriculostomy at 5 cm water bloody CSF drainage. ICP 4. (Fred Ponce) System Review Comments Not able to obtain given clinical condition. (Fred Ponce) Exam Results Vital Signs Date Time Temp Pulse Resp B/P Pulse Ox O2 Delivery O2 Flow Rate FiO2 08/28/16 06:00 66 08/28/16 04:23 99 45 08/28/16 04:00 99.1 19 182/82 08/27/16 19:00 Mechanical Ventilator Intake and Output 08/27/16 08/27/16 08/28/16 08:00 16:00 00:00 Intake Total 2503 ml 2668 ml 2762 ml Output Total 1697 ml 1206 ml 2175 ml Balance 806 ml 1462 ml 587 ml (Fred Ponce) Physical Examination General: Patient remains in critical care sedated and intubated in no acute distress Eyes: Pupils are 2 mm bilaterally and minimally reactive. Non-icteric sclera. Resp: CTA bilaterally. Intubated. Volume control rate 19. FiO2 45%. PEEP 8 Heart: Normal sinus rhythm. No murmurs. Abd: Soft diminished bs. Skin: No cyanosis or erythema. SCD bilaterally. Muscle: Sedated. not following for muscle testing. Neuro: Patient sedated on Diprivan and fentanyl drips. 3% Sodium chloride. Ventriculostomy drain at 5 cm of water ICPs 4. Pupils are 2 mm bilaterally with minimal reaction bilaterally. (Fred Ponce) Lab, Micro, Other Results Last Impressions Chest X-Ray 08/28/16 0600 Signed Impressions: Service Date/Time: Sunday, August 28, 2016 03:00 - CONCLUSION: 1. No significant change in the bilateral pulmonary opacities left greater than right. 2. Mild cardiomegaly. Jesus Vee MD Transcranial Doppler Study Complete 08/24/16 06 Signed Impressions: Service Date/Time: Wednesday, August 24, 2016 07:16 - CONCLUSION: There is no acoustical window for transcranial Doppler. Barry Marcelo MD FACR Head CTA 08/24/16 0000 Signed Impressions: Service Date/Time: Wednesday, August 24, 2016 12:06 - CONCLUSION: 1. No definite residual aneurysm is seen. The abnormality on the previous CTA is fusiform dilation of the patient's distal internal carotid above the aneurysm. This is most apparent on the patient's intraoperative angiography during the coiling. 2. There is a mild vasospasm in the right M1 segment as it is stretched across the patient's intraparenchymal hematoma. This is similar in appearance to the patient's postoperative CT angiogram. There is a mild vasospasm in the A1 segment on the right as well. The remainder of the intracranial circulation appears widely patent. Ozzy Marcelo MD Head CT 08/23/16 0636 Signed Impressions: Service Date/Time: Tuesday, August 23, 2016 07:21 - CONCLUSION: 1. Interventricular and subarachnoid hemorrhage. The most concerning region for a source is the right suprasellar region. The patient is scheduled for a CTA. 2. Dilatation of the ventricles and effacement of the sulci and basal cisterns. 3. Left ventriculostomy tube in good position. Chan Lobo MD Neck CTA 08/23/16 0000 Signed Impressions: Service Date/Time: Tuesday, August 23, 2016 07:21 - CONCLUSION: 1. Negative CTA of the carotids. CT angiography of the brain is pending. Ozzy Marcelo MD Cerebral Arteriogram 08/23/16 0000 Signed Impressions: Service Date/Time: Tuesday, August 23, 2016 14:18 - CONCLUSION: 1. Successful coil embolization of a 4.5 mm saccular aneurysm involving the supraclinoid ICA on the right. 2. No aneurysm seen involving the right anterior cerebral artery. Chai Yuan Jr., MD Laboratory Tests Test 08/27/16 08/27/16 08/28/16 08/28/16 11:27 18:16 00:21 00:30 Sodium Level 157 MEQ/L 158 MEQ/L 158 MEQ/L Potassium Level 3.1 MEQ/L 3.6 MEQ/L Chloride Level 123 MEQ/L Carbon Dioxide Level 22.4 MEQ/L Anion Gap 12 MEQ/L Blood Urea Nitrogen 23 MG/DL Creatinine 0.48 MG/DL Estimat Glomerular Filtration 178 ML/MIN Rate Random Glucose 175 MG/DL Calcium Level 7.8 MG/DL Magnesium Level 2.0 MG/DL Total Bilirubin 0.5 MG/DL Aspartate Amino Transf 70 U/L (AST/SGOT) Alanine Aminotransferase 99 U/L (ALT/SGPT) Alkaline Phosphatase 91 U/L Total Protein 6.1 GM/DL Albumin 1.6 GM/DL Blood Gas Puncture Site ART LINE Blood Gas Patient Temperature 98.6 Blood Gas HCO3 25 mmol/L Blood Gas Base Excess 1.1 mmol/L Blood Gas Oxygen Saturation 96 % Arterial Blood pH 7.41 Arterial Blood Partial 41 mmHg Pressure CO2 Arterial Blood Partial 103 mmHg Pressure O2 Arterial Blood Oxygen Content 19.1 Vol % Arterial Blood 0.9 % Carboxyhemoglobin Arterial Blood Methemoglobin 0.9 % Blood Gas Hemoglobin 14.0 G/DL Oxygen Delivery Device VENTILATOR Blood Gas Ventilator Setting AC/18/600/PEEP10 Blood Gas Inspired Oxygen 45 % Vancomycin Level Trough 5.8 MCG/ML Test 08/28/16 08/28/16 04:24 04:52 White Blood Count 7.6 TH/MM3 Red Blood Count 4.51 MIL/MM3 Hemoglobin 12.6 GM/DL Hematocrit 37.8 % Mean Corpuscular Volume 83.7 FL Mean Corpuscular Hemoglobin 28.0 PG Mean Corpuscular Hemoglobin 33.4 % Concent Red Cell Distribution Width 14.8 % Platelet Count 257 TH/MM3 Mean Platelet Volume 7.8 FL Neutrophils (%) (Auto) 73.6 % Lymphocytes (%) (Auto) 16.4 % Monocytes (%) (Auto) 3.9 % Eosinophils (%) (Auto) 5.5 % Basophils (%) (Auto) 0.6 % Neutrophils # (Auto) 5.6 TH/MM3 Lymphocytes # (Auto) 1.3 TH/MM3 Monocytes # (Auto) 0.3 TH/MM3 Eosinophils # (Auto) 0.4 TH/MM3 Basophils # (Auto) 0.0 TH/MM3 CBC Comment AUTO DIFF Sodium Level 158 MEQ/L Potassium Level 3.4 MEQ/L Chloride Level 125 MEQ/L Carbon Dioxide Level 26.0 MEQ/L Anion Gap 7 MEQ/L Blood Urea Nitrogen 22 MG/DL Creatinine 0.44 MG/DL Estimat Glomerular Filtration 197 ML/MIN Rate Random Glucose 113 MG/DL Calcium Level 7.9 MG/DL Phosphorus Level 2.0 MG/DL Magnesium Level 2.1 MG/DL Total Bilirubin 0.4 MG/DL Aspartate Amino Transf 87 U/L (AST/SGOT) Alanine Aminotransferase 106 U/L (ALT/SGPT) Alkaline Phosphatase 89 U/L Total Protein 5.3 GM/DL Albumin 1.4 GM/DL Blood Gas Puncture Site ART LINE Blood Gas Patient Temperature 98.6 Blood Gas HCO3 24 mmol/L Blood Gas Base Excess 0.5 mmol/L Blood Gas Oxygen Saturation 96 % Arterial Blood pH 7.45 Arterial Blood Partial 35 mmHg Pressure CO2 Arterial Blood Partial 86 mmHg Pressure O2 Arterial Blood Oxygen Content 18.0 Vol % Arterial Blood 1.1 % Carboxyhemoglobin Arterial Blood Methemoglobin 0.8 % Blood Gas Hemoglobin 13.4 G/DL Oxygen Delivery Device VENTILATOR Blood Gas Ventilator Setting AC/19/600/PEEP 8 Blood Gas Inspired Oxygen 45 % 08/27/16 08/27/16 08/28/16 15:00 23:00 07:00 Intake Total 2668 ml 2762 ml 2418 ml Output Total 1206 ml 2175 ml 1493 ml Balance 1462 ml 587 ml 925 ml Intake IV Total 2147 ml 2104 ml 1840 ml Tube Feeding 421 ml 538 ml 358 ml Other 100 ml 120 ml 220 ml Output Urine Total 1150 ml 2100 ml 1425 ml Drainage Total 56 ml 75 ml 68 ml # Bowel Movements 0 0 0 (Fred Ponce) Medical Decision Making Impression and Plan A: 1. Right temporal intracranial hemorrhage with interventricular extension 2. 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 Hypertension 4. Small outpouching proximal right anterior cerebral artery 1.5 mm max, small vessel loop vs small aneurysm Sedated, no response to noxious stimuli, cough reflex intact, becomes agitated w /increase in BP & ICP when sedation weaned CTA w/o any residual aneurysm seen, mild vasospasms in the right M1 segment and right A1 segment CXR demonstrated left-sided infiltrates Plan: Continue to monitor neuro exam. Continue with critical care. Continue with ICP control and management. Patient on vasospasm prophylaxis. (Fred Ponce) Attending Statement The exam, history, and the medical decision-making described in the above note were completed with the assistance of the mid-level provider. I reviewed and agree with the findings presented. I attest that I had a [id number] encounter with the patient on the same day, and personally performed and documented my assessment and findings in the medical record. ICPs controlled and ventriculostomy draining with current measures. Maintain high systolic blood pressure for vasospasm prophylaxis treatment. Follow-up CT angiogram of the brain to rule out vasospasm. Discussed with cigarette vendor Dr. Greenberg. (Emil Gamez MD) Fred Ponce Aug 28, 2016 08:22 Emil Gamez MD Aug 28, 2016 11:56
[2016-08-28] MEDS: POTASSIUM PHOSPHATE INJ 30 MMOL in SODIUM CHLOR 0.9% 250 ML INJ 250 ML IV PRN (08:46)
[2016-08-28 09:56] LABS: BANDS 13 % (0-6); EOSINOPHILS 9 % (0-4); NEUTROPHIL # MANUAL DIFF 5.3 TH/MM3 (1.8-7.7); POLYS (SEG NEUTROPHILS) 57 % (16-70); WBC DIFF SAMPLE 100
[2016-08-28 09:57] LABS: PLATELET ESTIMATE SMEAR NORMAL (NORMAL); PLATELET MORPHOLOGY NORMAL (NORMAL); SCAN/DIFF FINAL DIFF MANUAL
[2016-08-28] MEDS: AZITHROMYCIN INJ 500 MG in SODIUM CHLOR 0.9% 250 ML INJ 250 ML IV SCH (10:00)
--- NOTE | 2016-08-28 10:02 | HHI.CCPN ---
Subjective Remarks/Hospital Course 60 year old male who presents to the [facility] in transfer from [facility] after being diagnosed with a subarachnoid hemorrhage with intraventricular hemorrhage extension. The patient was intubated at that facility when he became unresponsive. The patient was noted to be tachycardic with a heart rate in the 130s, blood pressure initially 220/120. According to the record, the patient had a history of recently standing up after tying his shoes and having a headache associated with neck pain. He had been being seen by a local chiropractor and been treating the pain with tramadol, ibuprofen, and Flexeril. This evening he developed a decreased level of consciousness and was difficult to awaken according to his . She was concerned that he may have taken some extra pain medication, therefore Narcan was given in 3 separate doses at that facility, however the patient had no response. The patient was noted after intubation to have the subarachnoid hemorrhage and was transferred to this facility for higher level of care. The patient was placed on propofol for sedation on the ventilator. The patient was started on a Cardene drip. EVD was emergently placed by neurosurgeon. 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 He immediately went for a CT scan and was given mannitol and 3% sodium with improvement in his ICP. Repeat CT was essentially unchanged 08/24/16: Today patient is sedated with Versed and propofol. Flaccid on all 4 extremities no withdrawal to pain. Pupils are equal sluggishly reactive positive corneal positive cough. Unable to to TCD. Clinical suspicion of vasospasm high. Will repeat CT angiogram stat. Discussed with Dr. Andrez Marcelo and Dr. Robbins 08/25/16: Repeat CT angiogram of the head did not show any significant vasospasm yesterday. Spiking fever overnight white count increased to 20.2 from 12.3. CXR developing left infiltrate. Very slight withdrawal of all 4 extremities to deep pain 08/26/16: Continues to have high FiO2 requirement Now Fio2 95% and PEEP 10. WBC 21 ,000. Neuro exam unchanged. Unable to get TCD window, will cancel. CXR bilateral infiltrates, L >R 08/27 remains unresponsive, stat EEG ordered to rule out subclinical seizure 08/28 episode of high ICPs last night with vent setting change and retention of CO2 Objective Vital Signs Date Time Temp Pulse Resp B/P Pulse Ox O2 Delivery O2 Flow Rate FiO2 08/28/16 09:41 95 45 08/28/16 08:00 67 08/28/16 08:00 99.5 19 167/66 08/28/16 07:00 Mechanical Ventilator Intake and Output 08/27/16 08/27/16 08/28/16 08:00 16:00 00:00 Intake Total 2503 ml 2668 ml 2762 ml Output Total 1697 ml 1206 ml 2175 ml Balance 806 ml 1462 ml 587 ml Result Diagram: 08/28/16 0424 08/28/16 0424 Other Results Laboratory Tests Test 08/28/16 08/28/16 00:21 04:52 Blood Gas Puncture Site ART LINE ART LINE Blood Gas Patient Temperature 98.6 98.6 Blood Gas HCO3 25 mmol/L 24 mmol/L (22-26) (22-26) Blood Gas Base Excess 1.1 mmol/L 0.5 mmol/L (-2-2) (-2-2) Blood Gas Oxygen Saturation 96 % (90-100) 96 % (90-100) Arterial Blood pH 7.41 7.45 (7.380-7.420) (7.380-7.420) Arterial Blood Partial 41 mmHg (38-42) 35 mmHg (38-42) Pressure CO2 Arterial Blood Partial 103 mmHg 86 mmHg Pressure O2 (61-120) (61-120) Arterial Blood Oxygen Content 19.1 Vol % 18.0 Vol % (12.0-20.0) (12.0-20.0) Arterial Blood 0.9 % (0-4) 1.1 % (0-4) Carboxyhemoglobin Arterial Blood Methemoglobin 0.9 % (0-2) 0.8 % (0-2) Blood Gas Hemoglobin 14.0 G/DL 13.4 G/DL (12.0-16.0) (12.0-16.0) Oxygen Delivery Device VENTILATOR VENTILATOR Blood Gas Ventilator Setting AC/18/600/PEEP10 AC/19/600/PEEP 8 Blood Gas Inspired Oxygen 45 % 45 % Objective Remarks Propofol 50 3% saline on hold, Na 156 GENERAL: Well-nourished, well-developed patient. Sedated and intubated SKIN: Warm and dry. HEAD: Normocephalic. EYES: No scleral icterus. No injection or drainage. NECK: Supple, trachea midline. No JVD or lymphadenopathy. CARDIOVASCULAR: Regular rate and rhythm without murmurs, gallops, or rubs. RESPIRATORY: Breath sounds equal bilaterally. Coarse breath sounds and rhonchi at bilateral bases, predominantly L base GASTROINTESTINAL: Abdomen soft, non-tender, nondistended. MUSCULOSKELETAL: No cyanosis, or edema. BACK: Nontender without obvious deformity. No CVA tenderness. EXTREMITIES: No clubbing cyanosis or edema. Extends on all 4 extremities painful stimuli NEURO: SHEY 3mm ? sluggish reaction, positive corneal reflex positive cough. Very slight withdrawal to deep pain in all 4 EXT A/P Assessment and Plan Neuro: Aneurysmal Subarachnoid hemorrhage Acute encephalopathy Obstructive hydrocephalus - Marshall and Galeas grade 5, Modified Andersen grade 4 - S/P supraclinoid ICA aneurysm coil embolization. - CTA repeat 08/24, no significant vasospasm. No temporal window for TCD's - Target SBP 160-180 to prevent vasospasm (aneurysm is well secured). Okd by Dr. Robbins - Nimodipine and Pravachol - Keep Mag>2 na >145 - EEG to rule out subclinical seizures 08/24-diffuse encephalopathy - Continue Keppra - EVD, Management per neurosurgery. - Continue to Hold 3% as Na is 158 - Propofol for sedation and ventilator synchrony, ICP control - High ICPs last night with a bent change in CO2 retention, will check CT head for possible vasospasm RESP Acute hypoxemic respiratory failure ARDS Aspiration pneumonia - Intubated for an airway protection, now with severe hypoxemia ARDS - Low tidal volume ventilation with PEEP 12 - Vent bundle. DuoNeb q6 and PRN - No SBT's until neurologically stable and hypoxia improved - Zosyn started 08/25, along with Vanc. Add Azithromycin for atypical coverage CVS Hypertension Dyslipidemia - Nicardipine drip as needed - SBP [id number] to prevent vasospasm - Nimotop decreased to 30 due to significant hypotension mg po Q4 - Pravachol for vasospasm prevention as well GI: - Tube feeds with Jevity - IV Protonix - Bowel regimen /Endo: - Electrolyte replacement per protocol - IV hydration - Monitor renal function closely - Strict I's and O's ID: Aspiration pneumonia Severe sepsis - F/U sputum blood and urine culture - Zosyn 4.5 g IV every 6 hours, vancomycin PTD. Add azithromycin DVT GI prophylaxis - Teds SCDs - Start subcutaneous heparin, more than 72 hours after ICH, aneurysm secured now - Pepcid Critical Care: Critical Care: The total critical care time was 35 minutes. Time to perform other separately billable procedures was not included in the critical care time. Dannie Greenberg MD Aug 28, 2016 10:01
[2016-08-28] MEDS ORDERED: MAGNESIUM HYDROXIDE SUSP 30 ML CUP PO ONE (12:15)
[2016-08-28] MEDS ORDERED: MAGNESIUM CITRATE SOLN 300 ML BTL PO ONE (12:15)
[2016-08-28] MEDS: HEPARIN SODIUM - SQ 10,000 UNITS/ML VIAL SQ SCH ×2 (14:00→21:29)
[2016-08-28] MEDS: PRAVASTATIN SOD 40 MG TAB PO SCH (20:10)
[2016-08-28] MEDS: 3% SALINE INJ 500 ML IV SCH (23:26)
[2016-08-29] VITALS (19 sets, daily range): BP systolic 163–194; BP diastolic 76–101; PULSE 67–92; RESP 19–22; TEMP 98.5–100.3; O2SAT 97–100
[2016-08-29] MEDS: PROPOFOL 1000 MG/100 ML INJ 100 ML IV SCH ×5 (02:25→23:40)
[2016-08-29] MEDS: PIPERACIL-TAZO 4.5 GM PREMIX 100 ML IV SCH ×4 (02:25→19:49)
[2016-08-29] MEDS: MIDAZOLAM HCL 2 MG/2 ML VIAL IV PRN ×2 (02:32→04:22)
[2016-08-29] MEDS: VANCOMYCIN INJ 1,500 MG in SODIUM CHLORID 0.9% 500 ML INJ 500 ML IV SCH (03:14)
[2016-08-29] MEDS: niMODipine 30 MG CAP PO SCH ×6 (03:14→23:40)
[2016-08-29] MEDS: CHLORHEXIDINE GLUCONATE 2 % 1 PACK (2 CLOTHS) TOP SCH (03:14)
[2016-08-29] MEDS: ACETAMINOPHEN 325 MG TAB PO PRN ×2 (03:15→14:56)
[2016-08-29] MEDS: RESP: ALBUTEROL 2.5 MG/IPRATROPIUM 0.5 MG NEB (SCH) NEB ×4 (03:28→20:57)
[2016-08-29] MEDS: hydrALAZINE HCL 20 MG/ML VIAL IV PUSH PRN (03:36)
[2016-08-29 03:47] LABS: AUTOMATED NEUTROPHIL # 5.1 TH/MM3 (1.8-7.7); BASOPHIL % 0.4 % (0.0-2.0); EOSINOPHIL # 0.4 TH/MM3 (0-0.4); EOSINOPHIL % 6.2 % (0.0-4.0); HEMATOCRIT 38.1 % (39.0-51.0); LYMPH % 13.7 % (9.0-44.0); LYMPHOCYTE # 0.9 TH/MM3 (1.0-4.8); MEAN CELL VOLUME 84.2 FL (80.0-100.0); MEAN CORPUSCULAR HEMOGLOBIN 27.7 PG (27.0-34.0); MEAN CORPUSCULAR HGB CONC 32.9 % (32.0-36.0); NEUT % 72.7 % (16.0-70.0); PLATELET COUNT 259 TH/MM3 (150-450); RED BLOOD COUNT 4.53 MIL/MM3 (4.50-5.90); RED CELL DISTRIBUTION WIDTH 15.3 % (11.6-17.2); WHITE BLOOD COUNT 6.9 TH/MM3 (4.0-11.0)
[2016-08-29 03:51] LABS: HEMO FLAGS AUTO DIFF
--- NOTE | 2016-08-29 04:12 | RADRPT ---
EXAM DATE/TIME: 08/29/2016 03:19 [facility] COMPARISON: CHEST SINGLE AP, August 28, 2016, 3:00. INDICATIONS : Short of breath. MEDICAL HISTORY : Aneurysm, intracranial. SURGICAL HISTORY : None. ENCOUNTER: Subsequent ACUITY: 1 week PAIN SCORE: 0/10 LOCATION: Bilateral chest FINDINGS: Lines and tubes are present not significantly changed. There is worsening mixed interstitial and alve olar process in the left lung with no change in perivascular haziness on the right. Underlying pulmon bertram edema and/or pneumonia should be entertained. The rest of the examination has not significantly c hanged. CONCLUSION: Worsening parenchymal process on the left. Jhonny Briceño MD on August 29, 2016 at 4:09 Board Certified Radiologist. This report was verified electronically.
[2016-08-29 04:20] LABS: ALKALINE PHOSPHATASE 84 U/L (45-117); ALT (GPT) 104 U/L (12-78); ANION GAP 8 MEQ/L (5-15); AST (GOT) 73 U/L (15-37); BICARBONATE 25.6 MEQ/L (21.0-32.0); BLOOD UREA NITROGEN 21 MG/DL (7-18); CHLORIDE 122 MEQ/L (98-107); GLOMERULAR FILTRATION RATE 178 ML/MIN (>89); MAGNESIUM 2.1 MG/DL (1.5-2.5); POTASSIUM 4.1 MEQ/L (3.5-5.1); TOTAL BILIRUBIN ADULT 0.4 MG/DL (0.2-1.0)
[2016-08-29 04:24] LABS: SODIUM (NA) 156 MEQ/L (136-145)
[2016-08-29 04:35] LABS: BLOOD GAS CARBOXYHEMOGLOBIN 0.9 % (0-4); BLOOD GAS HCO3 23 mmol/L (22-26); BLOOD GAS METHEMOGLOBIN 0.9 % (0-2); BLOOD GAS O2 HGB SATURATION 95 % (90-100); BLOOD GAS OXYGEN CONTENT 17.8 Vol % (12.0-20.0); BLOOD GAS PCO2 37 mmHg (38-42); BLOOD GAS PO2 89 mmHg (61-120); BLOOD GAS TOTAL HGB 13.2 G/DL (12.0-16.0); CRITICAL VALUE NO; OXYGEN DEVICE VENTILATOR; TEMP CORR TO 98.6
[2016-08-29 04:36] LABS: FIO2 45 %; VENT SETTINGS AC19/600/+8
[2016-08-29 04:37] LABS: DRAW SITE ALINE; STAT NO; ULNAR PULSE PRESENT
[2016-08-29 04:56] LABS: BANDS 5 % (0-6); EOSINOPHILS 7 % (0-4); MYELOCYTES 1 % (0-0); NEUTROPHIL # MANUAL DIFF 5.1 TH/MM3 (1.8-7.7); POLYS (SEG NEUTROPHILS) 68 % (16-70); WBC DIFF SAMPLE 100
[2016-08-29 04:57] LABS: PLATELET ESTIMATE SMEAR NORMAL (NORMAL); PLATELET MORPHOLOGY NORMAL (NORMAL); SCAN/DIFF FINAL DIFF MANUAL
[2016-08-29] MEDS ORDERED: LIDOCAINE HCL 2% 100 MG/5 ML SYRINGE ONE ×2 (04:59→06:48)
[2016-08-29] MEDS ORDERED: ATROPINE SULFATE 1 MG/10 ML SYRINGE ONE ×2 (04:59→06:48)
[2016-08-29] MEDS ORDERED: EPINEPHrine HCL (1:10,000) 1 MG/10 ML SYRINGE ONE ×2 (04:59→06:48)
[2016-08-29] MEDS ORDERED: MIDAZOLAM HCL 5 MG/ML VIAL (1 ML) ONE (05:00)
[2016-08-29] MEDS ORDERED: MIDAZOLAM HCL 2 MG/2 ML VIAL IV PUSH ONE (05:00)
[2016-08-29] MEDS: MIDAZOLAM 100 MG/NS 100 ML DRIP Premix IV SCH ×3 (05:21→23:40)
[2016-08-29] MEDS: HEPARIN SODIUM - SQ 10,000 UNITS/ML VIAL SQ SCH ×3 (06:00→23:06)
[2016-08-29] MEDS ORDERED: ROCURONIUM INJ 50 MG/5 ML VIAL IV ONE (06:45)
--- NOTE | 2016-08-29 06:59 | HHI.CCPN ---
Subjective Remarks/Hospital Course 60 year old male who presents to the [facility] in transfer from [facility] after being diagnosed with a subarachnoid hemorrhage with intraventricular hemorrhage extension. The patient was intubated at that facility when he became unresponsive. The patient was noted to be tachycardic with a heart rate in the 130s, blood pressure initially 220/120. According to the record, the patient had a history of recently standing up after tying his shoes and having a headache associated with neck pain. He had been being seen by a local chiropractor and been treating the pain with tramadol, ibuprofen, and Flexeril. This evening he developed a decreased level of consciousness and was difficult to awaken according to his . She was concerned that he may have taken some extra pain medication, therefore Narcan was given in 3 separate doses at that facility, however the patient had no response. The patient was noted after intubation to have the subarachnoid hemorrhage and was transferred to this facility for higher level of care. The patient was placed on propofol for sedation on the ventilator. The patient was started on a Cardene drip. EVD was emergently placed by neurosurgeon. 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 He immediately went for a CT scan and was given mannitol and 3% sodium with improvement in his ICP. Repeat CT was essentially unchanged 08/24/16: Today patient is sedated with Versed and propofol. Flaccid on all 4 extremities no withdrawal to pain. Pupils are equal sluggishly reactive positive corneal positive cough. Unable to to TCD. Clinical suspicion of vasospasm high. Will repeat CT angiogram stat. Discussed with Dr. Andrez Marcelo and Dr. Robbins 08/25/16: Repeat CT angiogram of the head did not show any significant vasospasm yesterday. Spiking fever overnight white count increased to 20.2 from 12.3. CXR developing left infiltrate. Very slight withdrawal of all 4 extremities to deep pain 08/26: Continues to have high FiO2 requirement Now Fio2 95% and PEEP 10. WBC 21, 000. Neuro exam unchanged. Unable to get TCD window, will cancel. CXR bilateral infiltrates, L >R 08/27: Remains unresponsive, stat EEG ordered to rule out subclinical seizure 08/28: Episode of high ICPs last night with vent setting change and retention of CO2 08/29: High ICP up to 27 today, responded to Versed bolus and infusion started. CTA ordered STAT-mild stable vasospasm. Optimized on hyperosmolar therapy. Objective Vital Signs Date Time Temp Pulse Resp B/P Pulse Ox O2 Delivery O2 Flow Rate FiO2 08/29/16 04:33 99 45 08/29/16 02:00 68 08/29/16 00:00 99.4 19 180/83 08/28/16 19:00 Mechanical Ventilator Intake and Output 08/28/16 08/28/16 08/29/16 08:00 16:00 00:00 Intake Total 2418 ml 2777 ml 2373 ml Output Total 1493 ml 1920 ml 1469 ml Balance 925 ml 857 ml 904 ml Result Diagram: 08/29/16 0322 08/29/16 0322 Other Results Laboratory Tests Test 08/29/16 04:28 Blood Gas Puncture Site DEEPA Blood Gas Patient Temperature 98.6 Blood Gas HCO3 23 mmol/L (22-26) Blood Gas Base Excess -1.0 mmol/L (-2-2) Blood Gas Oxygen Saturation 95 % (90-100) Arterial Blood pH 7.41 (7.380-7.420) Arterial Blood Partial 37 mmHg (38-42) Pressure CO2 Arterial Blood Partial 89 mmHg Pressure O2 (61-120) Arterial Blood Oxygen Content 17.8 Vol % (12.0-20.0) Arterial Blood 0.9 % (0-4) Carboxyhemoglobin Arterial Blood Methemoglobin 0.9 % (0-2) Blood Gas Hemoglobin 13.2 G/DL (12.0-16.0) Oxygen Delivery Device VENTILATOR Blood Gas Ventilator Setting AC19/600/+8 Blood Gas Inspired Oxygen 45 % Objective Remarks Propofol 50 Versed gtt Fentanyl 3% saline on hold, Na 156 GENERAL: Well-nourished, well-developed patient. Sedated and intubated SKIN: Warm and dry. HEAD: Normocephalic. EVD in place ICP now 11-12, 139 ml drained in 24 hours EYES: No scleral icterus. No injection or drainage. NECK: Supple, trachea midline. No JVD or lymphadenopathy. CARDIOVASCULAR: Regular rate and rhythm without murmurs, gallops, or rubs. RESPIRATORY: Breath sounds equal bilaterally. Coarse breath sounds and rhonchi at bilateral bases, predominantly L base GASTROINTESTINAL: Abdomen soft, non-tender, nondistended. MUSCULOSKELETAL: No cyanosis, or edema. BACK: Nontender without obvious deformity. No CVA tenderness. EXTREMITIES: No clubbing cyanosis or edema. Extends on all 4 extremities painful stimuli NEURO: SHEY 3mm ? sluggish reaction, otherwise neuro exam limited by administration of neuromuscular paralysis A/P Assessment and Plan Neuro: Aneurysmal Subarachnoid hemorrhage Intracranial hypertension Acute encephalopathy Obstructive hydrocephalus - Stat CTA to rule out Vasospasm, ICP went upt to 27 overnight-stable mild vasospasm - Ct head today 08/29: Improving intra-axial subarachnoid and intraventricular hemorrhage, improving ventricular size - Marshall and Galeas grade 5, Modified Andersen grade 4 - S/P supraclinoid ICA aneurysm coil embolization. - Target SBP 160-180 to prevent vasospasm (aneurysm is well secured). Okd by Dr. Robbins - Nimodipine and Pravachol - Keep Mag>2 na >145 - EEG to rule out subclinical seizures 08/24-diffuse encephalopathy, EEG 08/27 severe encephalopathy, burst suppression pattern - Continue Keppra - EVD, Management per neurosurgery. - Continue to Hold 3% as Na is 156 - Propofol for sedation and ventilator synchrony, ICP control, Versed bolus and infusion added - Neuromuscular paralysis as needed RESP Acute hypoxemic respiratory failure ARDS Aspiration pneumonia - Intubated for an airway protection, now with severe hypoxemia ARDS - Low tidal volume ventilation with PEEP 8 - Vent bundle. DuoNeb q6 and PRN - No SBT's until neurologically stable and hypoxia improved - Zosyn started 08/25, along with Vanc. Azithromycin for atypical coverage. DC vanc today 08/29 CVS Hypertension Dyslipidemia - Levophed to keep SBP 160-180 - SBP [id number] to prevent vasospasm - Nimotop decreased to 30 due to significant hypotension mg po Q4 - Pravachol for vasospasm prevention as well GI: - Tube feeds with Jevity - IV Protonix - Bowel regimen - Additional Mag citrate 300 ml x1, and increase lactulose to 30 ml q6 /Endo: - Electrolyte replacement per protocol - IV hydration - Monitor renal function closely - Strict I's and O's ID: Aspiration pneumonia Severe sepsis - F/U sputum blood and urine culture - Zosyn 4.5 g IV every 6 hours, vancomycin PTD-DC 08/29. azithromycin DVT GI prophylaxis - Teds SCDs - Started on subcutaneous heparin, more than 72 hours after ICH, aneurysm secured now - Pepcid Critical Care: Critical Care: The total critical care time was 35 minutes. Time to perform other separately billable procedures was not included in the critical care time. Harish Giles MD Aug 29, 2016 06:58
[2016-08-29] MEDS ORDERED: IOHEXOL 350 MG/ML 10 ML VIAL (for RAD DIAG) IV ONE (07:46)
--- NOTE | 2016-08-29 07:58 | RADRPT ---
EXAM DATE/TIME: 08/29/2016 07:18 [facility] COMPARISON: CTA BRAIN W 3D RECON, August 24, 2016, 12:06. CT BRAIN W/O CONTRAST, August 23, 2016, 19:04. INDICATIONS : Vasospasm,subarachnoid bleed RADIATION DOSE: 45.37 CTDIvol (mGy) MEDICAL HISTORY : Hypertension. SURGICAL HISTORY : None. ENCOUNTER: Initial ACUITY: 1 week PAIN SCALE: Non-responsive LOCATION: cranial TECHNIQUE: Multiple contiguous axial images were obtained of the head. Using automated exposure control and adjustment of the mA and/or kV according to patient size, radiation dose was kept as low as reasonably achievable to obtain optimal diagnostic quality images. FINDINGS: Patient is status post coiling of right P-comm aneurysm. There is a left frontal ventriculostomy cath eter in stable position. Overall, there is minimally improved adjacent intra-axial hemorrhage in the right temporal lobe and minimally improved intraventricular hemorrhage. The ventricles are smaller in size on the current exam. There is minimally improved subfalcine right to left shift. There is impro sarah subarachnoid blood products in the basilar cisterns. Martins-white matter differentiation appears ma intained. No evidence for intercurrent hemorrhage. Remainder of the exam is stable. CONCLUSION: 1. Status post left frontal ventriculostomy and right P-comm aneurysm coiling with improving intra-ax ial, subarachnoid, and intraventricular blood products. Decreasing ventricular size with slightly imp roved subfalcine herniation. No intercurrent hemorrhage. Vipin Gibbs MD on August 29, 2016 at 7:43 Board Certified Radiologist. This report was verified electronically.
--- NOTE | 2016-08-29 08:20 | RADRPT ---
EXAM DATE/TIME: 08/29/2016 07:18 [facility] COMPARISON: CTA BRAIN W 3D RECON, August 23, 2016, 7:21. CTA BRAIN W 3D RECON, August 23, 2016, 19:04. CTA BRAIN W 3D RECON, August 24, 2016, 12:06. INDICATIONS : Vasospasm, subarachnoid hemorrhage IV CONTRAST: 75 cc Omnipaque 350 (iohexol) IV RADIATION DOSE: 27.19 CTDIvol (mGy) MEDICAL HISTORY : Hypertension. SURGICAL HISTORY : None. ENCOUNTER: Initial ACUITY: 1 week PAIN SCALE: Non-responsive LOCATION: cranial TECHNIQUE: Volumetric scanning was performed using a multi-row detector CT scanner. The data was post processed with a variety of visualization algorithms including full volume maximum intensity projection, multi -planar sliding thin slab reformation, curved planar reformation, and surface rendering techniques. Using automated exposure control and adjustment of the mA and/or kV according to patient size, radiat ion dose was kept as low as reasonably achievable to obtain optimal diagnostic quality images. FINDINGS: Patient is status post right P-comm aneurysm coiling with associated streak artifact which limits dar luation. Again, the small region of contrast enhancement seen in the axial view adjacent to the coil mass corresponds to an ectatic distal supraclinoid carotid artery. A definitive residual aneurysm lum en is not noted. There is redemonstration of mild vasospasm in the M1 and A1 segments. No evidence fo r interval change involving the left distal carotid, ALONDRA or MCA branches. 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 Basilar artery is small in caliber similar to immediate post intervention CTA exam. There is slight change in caliber in comparison to the baseline CTA exam. The distal vertebral arteries are patent. CONCLUSION: 1. Stable CTA examination status post right P-comm aneurysm coiling with no definite residual aneurys m, as above. 2. Stable mild vasospasm of the right M1 and A1 segments. 3. Stable probable mild basilar vasospasm. 4. Otherwise, patent intracranial circulation with no interval change. Vipin Gibbs MD on August 29, 2016 at 7:57 Board Certified Radiologist. This report was verified electronically.
[2016-08-29] MEDS: SODIUM CHLORIDE 0.9% FLUSH 10 ML FLUSH SCH ×2 (08:38→19:50)
[2016-08-29] MEDS: DOCUSATE SODIUM 50 MG/SENNA 8.6 MG TAB PO SCH ×2 (08:39→19:49)
[2016-08-29] MEDS: FAMOTIDINE 20 MG/2 ML VIAL IV PUSH SCH ×2 (08:39→19:49)
[2016-08-29] MEDS: levETIRAcetam 1000 MG INJ 100 ML IV SCH ×2 (08:39→19:48)
--- NOTE | 2016-08-29 09:25 | HHI.NSPN ---
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 The headache has persisted since then along with nausea and occasional emesis. He has not sought any medical treatment since initial onset. He did not go to work since the initial onset due to these persistent symptoms. He has not been eating well. His states that after he went to sleep last night, at approximately 1:30 or 2 AM she noticed snoring respirations and found him initially unresponsive. He was able to be aroused by EMS and ambulated briefly prior to being placed in the ambulance. He was taken to [facility] for initial evaluation and in the emergency room was noted to be unresponsive with extensor posturing. He was intubated and placed on nicardipine drip for hypertension. No seizure activity reported. 08/23: Patient remains intubated and sedated this morning. 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 He is withdrawing with the RUE to noxious stimuli with questionable extension of both feet, but no response with the LUE per Nursing. He is maintaining his SBP without the nicardipine drip. Nursing also reports that temp has been up to 101.3 degrees. 08/24: Patient is intubated and sedated. Nursing reports that he is having neurogenic temperatures. Yesterday morning the patient had a CTA which demonstrated an aneurysm. That afternoon the patient went for coiling and had an increase in his ICP into the 60s. He immediately went for a CT scan and was given mannitol and 3% sodium with improvement in his ICP. He went again in the evening for another CTA. Nursing reports that the patient is not responding to any noxious stimuli. His ICP had just been checked and was 11. 08/25: Patient is intubated and on max sedation. Nursing reports that when his sedation was weaned down earlier he became extremely agitated, his BP went up and his ICP reached 20. His propofol was maxed and his ICP started coming down. He was also given labetalol for his BP. He did withdraw the BLE to noxious stimuli but did nothing with the BUE for Nursing and had a cough reflex. Nursing stated that in report she was told the patient withdrew all extremities to noxious stimuli yesterday. During the night his temperature dropped to 94 and later spiked to 103. He went for a repeat CTA yesterday afternoon w/o any residual aneurysm seen. He did have mild vasospasms in the right M1 segment and right A1 segment. His CXR today demonstrated left-sided infiltrates. 08/27: Patient sedated on Diprivan and fentanyl drips. Versed on hold. Patient opening eyes or following commands. Ventriculostomy at 5 cm a water ICP R8. Pupils are 2 mm bilaterally. Patient is intubated on a vent setting. 08/28: Patient sedated on Diprivan and fentanyl drips. Not opening eyes or following commands. Ventriculostomy at 5 cm water bloody CSF drainage. ICP 4. 08/29: Patient remains sedated. Nursing reports that he is having sustained elevated ICPs up to 25 and this morning was given rocuronium due to his ICP. The ICP did come down to 17 when seen. The patient did have repeat imaging this morning which demonstrated mild vasospasm but was improving otherwise. He is on Nimotop for ICP control and a Levophed drip for blood pressure control. Due to a sodium of 156 this morning the 3% saline is being held. (Boogie Lawler ) System Review Comments Unable to obtain due to patient's mental status, intubation & sedation (Boogie Lawler) Exam Results Vital Signs Date Time Temp Pulse Resp B/P Pulse Ox O2 Delivery O2 Flow Rate FiO2 08/29/16 07:44 100 100 08/29/16 04:00 92 08/29/16 04:00 100.3 19 163/81 08/28/16 19:00 Mechanical Ventilator Intake and Output 08/28/16 08/28/16 08/29/16 08:00 16:00 00:00 Intake Total 2418 ml 2777 ml 2373 ml Output Total 1493 ml 1920 ml 1469 ml Balance 925 ml 857 ml 904 ml (Boogie Lawler) Physical Examination General: Patient intubated, sedated & paralysed at present. HEENT: Normocephalic, atraumatic. PERRL 2 mm bilaterally but minimally reactive. Orally intubated, OGT. Ventriculostomy insertion site w/o any evident drainage, erythema or streaking. Respiratory: CTAB w/o W/R/R, equal excursion, non-laboured, orally intubated and mechanically intubated. Cardiovascular: S1S2 w/questionable S3S4, no murmur or rub, regular, radial & pedal pulses 2+ bilaterally, cap refill < 2 sec. Monitor is SR w/o any ectopy noted. On Levophed for blood pressure support. Gastrointestinal: Abdomen soft, bowel sounds not appreciated. Integumentary: No cyanosis or erythema. SCD bilaterally. Musculoskeletal: Extremities normal, no evident deformity or clubbing. Neuro: Patient remains intubated & sedated, currently paralysed. GCS 3T. Unable to assess motor strength/response or sensation. Ventriculostomy drain at 5 cm of water w/ICP 17 when seen, bloody drainage in system. PERRL 2 mm with minimal reaction bilaterally. On Nimotop for ICP control. (Boogie Lawler ) Lab, Micro, Other Results Allergies Coded Allergies Type Severity Reaction Last Updated Verified No Known Allergies 08/23/16 No Recent Impressions Chest X-Ray 08/29/16 0600 Signed Impressions: Service Date/Time: Monday, August 29, 2016 03:19 - CONCLUSION: Worsening parenchymal process on the left. Jhonny Briceño MD Head CTA 08/29/16 0000 Signed Impressions: Service Date/Time: Monday, August 29, 2016 07:18 - CONCLUSION: 1. Stable CTA examination status post right P-comm aneurysm coiling with no definite residual aneurysm, as above. 2. Stable mild vasospasm of the right M1 and A1 segments. 3. Stable probable mild basilar vasospasm. 4. Otherwise, patent intracranial circulation with no interval change. Vipin Gibbs MD Head CT 08/29/16 0000 Signed Impressions: Service Date/Time: Monday, August 29, 2016 07:18 - CONCLUSION: 1. Status post left frontal ventriculostomy and right P-comm aneurysm coiling with improving intra-axial, subarachnoid, and intraventricular blood products. Decreasing ventricular size with slightly improved subfalcine herniation. No intercurrent hemorrhage. Vipin Gibbs MD Chest X-Ray 08/28/16599 Signed Impressions: Service Date/Time: Sunday, August 28, 2016 03:00 - CONCLUSION: 1. No significant change in the bilateral pulmonary opacities left greater than right. 2. Mild cardiomegaly. Jesus Vee MD Chest X-Ray 08/27/16599 Signed Impressions: Service Date/Time: Saturday, August 27, 2016 04:22 - CONCLUSION: 1. Apparent mild improvement in pulmonary infiltrates which remain greater on the left than the right. 2. Mild cardiomegaly. Jesus Vee MD // 06:00 18:00 06:00 18:00 06:00 18:00 Intake Total 4605 ml 2668 ml 5180 ml 2777 ml 5204 ml Output Total 2861 ml 1206 ml 3668 ml 1920 ml 3334 ml Balance 1744 ml 1462 ml 1512 ml 857 ml 1870 ml Intake IV Total 3918 ml 2147 ml 3944 ml 2189 ml 3884 ml Tube Feeding 407 ml 421 ml 896 ml 488 ml 700 ml Other 280 ml 100 ml 340 ml 100 ml 620 ml Output Urine Total 2725 ml 1150 ml 3525 ml 1850 ml 3200 ml Drainage Total 136 ml 56 ml 143 ml 70 ml 134 ml # Bowel Movements 0 0 0 0 0 Laboratory Tests Test 08/26/16 08/26/16 08/27/16 08/27/16 17:45 23:30 05:51 11:27 Sodium Level 153 MEQ/L 158 MEQ/L 158 MEQ/L 157 MEQ/L Potassium Level 3.7 MEQ/L 3.3 MEQ/L 3.1 MEQ/L Magnesium Level 2.0 MG/DL 2.0 MG/DL White Blood Count 11.2 TH/MM3 Red Blood Count 4.89 MIL/MM3 Hemoglobin 13.3 GM/DL Hematocrit 41.7 % Mean Corpuscular Volume 85.3 FL Mean Corpuscular Hemoglobin 27.2 PG Mean Corpuscular Hemoglobin 31.9 % Concent Red Cell Distribution Width 15.4 % Platelet Count 261 TH/MM3 Mean Platelet Volume 8.0 FL Neutrophils (%) (Auto) 83.1 % Lymphocytes (%) (Auto) 8.9 % Monocytes (%) (Auto) 4.3 % Eosinophils (%) (Auto) 3.2 % Basophils (%) (Auto) 0.5 % Neutrophils # (Auto) 9.3 TH/MM3 Lymphocytes # (Auto) 1.0 TH/MM3 Monocytes # (Auto) 0.5 TH/MM3 Eosinophils # (Auto) 0.4 TH/MM3 Basophils # (Auto) 0.1 TH/MM3 CBC Comment AUTO DIFF Differential Total Cells 100 Counted Neutrophils % (Manual) 72 % Band Neutrophils % 12 % Lymphocytes % 10 % Monocytes % 5 % Eosinophils % 1 % Neutrophils # (Manual) 9.4 TH/MM3 Differential Comment FINAL DIFF MANUAL Platelet Estimate NORMAL Platelet Morphology Comment NORMAL Chloride Level 124 MEQ/L 123 MEQ/L Carbon Dioxide Level 24.8 MEQ/L 22.4 MEQ/L Anion Gap 9 MEQ/L 12 MEQ/L Blood Urea Nitrogen 25 MG/DL 23 MG/DL Creatinine 0.53 MG/DL 0.48 MG/DL Estimat Glomerular Filtration 159 ML/MIN 178 ML/MIN Rate Random Glucose 124 MG/DL 175 MG/DL Calcium Level 7.5 MG/DL 7.8 MG/DL Total Bilirubin 0.5 MG/DL Aspartate Amino Transf 70 U/L (AST/SGOT) Alanine Aminotransferase 99 U/L (ALT/SGPT) Alkaline Phosphatase 91 U/L Total Protein 6.1 GM/DL Albumin 1.6 GM/DL Test 08/27/16 08/28/16 08/28/16 08/28/16 18:16 00:21 00:30 04:24 Sodium Level 158 MEQ/L 158 MEQ/L 158 MEQ/L Potassium Level 3.6 MEQ/L 3.4 MEQ/L Blood Gas Puncture Site ART LINE Blood Gas Patient Temperature 98.6 Blood Gas HCO3 25 mmol/L Blood Gas Base Excess 1.1 mmol/L Blood Gas Oxygen Saturation 96 % Arterial Blood pH 7.41 Arterial Blood Partial 41 mmHg Pressure CO2 Arterial Blood Partial 103 mmHg Pressure O2 Arterial Blood Oxygen Content 19.1 Vol % Arterial Blood 0.9 % Carboxyhemoglobin Arterial Blood Methemoglobin 0.9 % Blood Gas Hemoglobin 14.0 G/DL Oxygen Delivery Device VENTILATOR Blood Gas Ventilator Setting AC/18/600/PEEP10 Blood Gas Inspired Oxygen 45 % Vancomycin Level Trough 5.8 MCG/ML White Blood Count 7.6 TH/MM3 Red Blood Count 4.51 MIL/MM3 Hemoglobin 12.6 GM/DL Hematocrit 37.8 % Mean Corpuscular Volume 83.7 FL Mean Corpuscular Hemoglobin 28.0 PG Mean Corpuscular Hemoglobin 33.4 % Concent Red Cell Distribution Width 14.8 % Platelet Count 257 TH/MM3 Mean Platelet Volume 7.8 FL Neutrophils (%) (Auto) 73.6 % Lymphocytes (%) (Auto) 16.4 % Monocytes (%) (Auto) 3.9 % Eosinophils (%) (Auto) 5.5 % Basophils (%) (Auto) 0.6 % Neutrophils # (Auto) 5.6 TH/MM3 Lymphocytes # (Auto) 1.3 TH/MM3 Monocytes # (Auto) 0.3 TH/MM3 Eosinophils # (Auto) 0.4 TH/MM3 Basophils # (Auto) 0.0 TH/MM3 CBC Comment AUTO DIFF Differential Total Cells 100 Counted Neutrophils % (Manual) 57 % Band Neutrophils % 13 % Lymphocytes % 17 % Monocytes % 4 % Eosinophils % 9 % Neutrophils # (Manual) 5.3 TH/MM3 Differential Comment FINAL DIFF MANUAL Platelet Estimate NORMAL Platelet Morphology Comment NORMAL Red Cell Morphology Comment NORMAL Chloride Level 125 MEQ/L Carbon Dioxide Level 26.0 MEQ/L Anion Gap 7 MEQ/L Blood Urea Nitrogen 22 MG/DL Creatinine 0.44 MG/DL Estimat Glomerular Filtration 197 ML/MIN Rate Random Glucose 113 MG/DL Calcium Level 7.9 MG/DL Phosphorus Level 2.0 MG/DL Magnesium Level 2.1 MG/DL Total Bilirubin 0.4 MG/DL Aspartate Amino Transf 87 U/L (AST/SGOT) Alanine Aminotransferase 106 U/L (ALT/SGPT) Alkaline Phosphatase 89 U/L Total Protein 5.3 GM/DL Albumin 1.4 GM/DL Test 08/28/16 08/28/16 08/29/16 08/29/16 04:52 12:28 03:22 04:28 Blood Gas Puncture Site ART LINE DEEPA Blood Gas Patient Temperature 98.6 98.6 Blood Gas HCO3 24 mmol/L 23 mmol/L Blood Gas Base Excess 0.5 mmol/L -1.0 mmol/L Blood Gas Oxygen Saturation 96 % 95 % Arterial Blood pH 7.45 7.41 Arterial Blood Partial 35 mmHg 37 mmHg Pressure CO2 Arterial Blood Partial 86 mmHg 89 mmHg Pressure O2 Arterial Blood Oxygen Content 18.0 Vol % 17.8 Vol % Arterial Blood 1.1 % 0.9 % Carboxyhemoglobin Arterial Blood Methemoglobin 0.8 % 0.9 % Blood Gas Hemoglobin 13.4 G/DL 13.2 G/DL Oxygen Delivery Device VENTILATOR VENTILATOR Blood Gas Ventilator Setting AC/19/600/PEEP AC19/600/+8 8 Blood Gas Inspired Oxygen 45 % 45 % Sodium Level 157 MEQ/L 156 MEQ/L White Blood Count 6.9 TH/MM3 Red Blood Count 4.53 MIL/MM3 Hemoglobin 12.6 GM/DL Hematocrit 38.1 % Mean Corpuscular Volume 84.2 FL Mean Corpuscular Hemoglobin 27.7 PG Mean Corpuscular Hemoglobin 32.9 % Concent Red Cell Distribution Width 15.3 % Platelet Count 259 TH/MM3 Mean Platelet Volume 7.8 FL Neutrophils (%) (Auto) 72.7 % Lymphocytes (%) (Auto) 13.7 % Monocytes (%) (Auto) 7.0 % Eosinophils (%) (Auto) 6.2 % Basophils (%) (Auto) 0.4 % Neutrophils # (Auto) 5.1 TH/MM3 Lymphocytes # (Auto) 0.9 TH/MM3 Monocytes # (Auto) 0.5 TH/MM3 Eosinophils # (Auto) 0.4 TH/MM3 Basophils # (Auto) 0.0 TH/MM3 CBC Comment AUTO DIFF Differential Total Cells 100 Counted Neutrophils % (Manual) 68 % Band Neutrophils % 5 % Lymphocytes % 13 % Monocytes % 6 % Eosinophils % 7 % Neutrophils # (Manual) 5.1 TH/MM3 Myelocytes 1 % Differential Comment FINAL DIFF MANUAL Atypical Lymphocytes % Platelet Estimate NORMAL Platelet Morphology Comment NORMAL Red Cell Morphology Comment NORMAL Potassium Level 4.1 MEQ/L Chloride Level 122 MEQ/L Carbon Dioxide Level 25.6 MEQ/L Anion Gap 8 MEQ/L Blood Urea Nitrogen 21 MG/DL Creatinine 0.48 MG/DL Estimat Glomerular Filtration 178 ML/MIN Rate Random Glucose 118 MG/DL Calcium Level 7.7 MG/DL Phosphorus Level 2.6 MG/DL Magnesium Level 2.1 MG/DL Total Bilirubin 0.4 MG/DL Aspartate Amino Transf 73 U/L (AST/SGOT) Alanine Aminotransferase 104 U/L (ALT/SGPT) Alkaline Phosphatase 84 U/L Total Protein 5.4 GM/DL Albumin 1.4 GM/DL Vital Signs Date Time Temp Pulse Resp B/P Pulse Ox O2 Delivery O2 Flow Rate FiO2 08/29/16 07:44 100 100 08/29/16 04:33 99 45 08/29/16 04:00 92 08/29/16 04:00 100.3 92 19 163/81 100 08/29/16 04:00 45 08/29/16 02:00 68 08/29/16 00:17 100 45 08/29/16 00:00 73 08/29/16 00:00 45 08/29/16 00:00 99.4 73 19 180/83 100 08/28/16 22:00 70 08/28/16 21:47 99 45 08/28/16 20:33 97 45 08/28/16 20:00 45 08/28/16 20:00 79 08/28/16 20:00 99.5 79 19 149/69 97 08/28/16 19:00 97 Mechanical Ventilator 45 08/28/16 18:00 90 08/28/16 17:00 94 45 08/28/16 16:00 45 08/28/16 16:00 98.9 72 19 172/77 100 08/28/16 16:00 78 08/28/16 14:00 90 08/28/16 13:55 100 45 08/28/16 13:55 100 45 08/28/16 12:00 45 08/28/16 12:00 98.4 68 19 162/77 100 08/28/16 12:00 68 08/28/16 10:00 77 08/28/16 09:41 95 45 08/28/16 08:00 45 08/28/16 08:00 67 08/28/16 08:00 99.5 83 19 167/66 96 08/28/16 07:00 100 Mechanical Ventilator 45 08/28/16 06:00 66 08/28/16 04:23 99 45 08/28/16 04:00 99.1 74 19 182/82 96 08/28/16 04:00 74 08/28/16 04:00 45 08/28/16 02:00 81 08/28/16 00:43 100 45 08/28/16 00:30 100 45 08/28/16 00:00 45 08/28/16 00:00 98.2 86 21 171/79 100 08/28/16 00:00 86 08/27/16 23:55 100 45 08/27/16 22:00 81 08/27/16 20:26 100 45 08/27/16 20:00 95 08/27/16 20:00 100.1 95 18 186/76 100 08/27/16 20:00 45 08/27/16 19:00 100 Mechanical Ventilator 45 08/27/16 18:00 71 08/27/16 16:25 98 45 08/27/16 16:00 99.7 72 18 161/80 97 08/27/16 16:00 45 08/27/16 16:00 72 08/27/16 14:00 71 08/27/16 12:45 94 45 08/27/16 12:00 77 08/27/16 12:00 99.3 77 18 179/73 94 08/27/16 12:00 45 08/27/16 10:00 70 08/27/16 08:57 99 40 08/27/16 08:00 71 08/27/16 08:00 45 08/27/16 08:00 99.0 71 18 174/83 96 08/27/16 07:51 96 Mechanical Ventilator 45 08/27/16 06:00 78 08/27/16 04:23 94 45 08/27/16 04:00 99.2 83 21 174/79 93 08/27/16 04:00 45 08/27/16 04:00 83 08/27/16 02:00 79 08/27/16 01:35 95 45 08/27/16 00:00 77 08/27/16 00:00 99.0 77 18 166/83 99 08/27/16 00:00 50 08/26/16 22:59 95 50 08/26/16 22:00 76 08/26/16 21:01 96 55 08/26/16 20:00 55 08/26/16 20:00 77 08/26/16 20:00 99.0 77 20 165/81 96 08/26/16 19:00 95 Mechanical Ventilator 55 08/26/16 18:07 99 55 08/26/16 18:00 72 08/26/16 16:00 99.6 72 21 157/68 97 08/26/16 16:00 72 08/26/16 16:00 55 08/26/16 14:00 78 08/26/16 12:44 99 65 08/26/16 12:00 99.3 77 18 151/75 98 08/26/16 12:00 65 08/26/16 12:00 77 08/26/16 10:00 72 (Boogie Lawler) Medical Decision Making Impression and Plan Impression: 1. Right temporal intracranial hemorrhage with interventricular extension 2. 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 Hypertension 4. Small outpouching proximal right anterior cerebral artery 1.5 mm max, small vessel loop vs small aneurysm Sedated & paralysed, no response CT & CTA demonstrates improving intra-axial, subarachnoid & intraventricular blood products, decreasing ventricular size w/improvement in subfalcine herniation with mild right M1 and A1 segment vasospasms and probable mild basilar vasospasm ICPs elevated, 17 when seen, up to 25 during night Sodium 156 this morning Plan: Maintain systolic blood pressure 110-140 range, nicardipine drip PRN for control of hypertension. Maintain sodium between 145 and 155 Continuing ventilatory support with sedation as needed for control of airway, respirations and agitation Monitor ICP & ventriculostomy catheter Nimodipine for vasospasm prophylaxis, consider increasing dose Ulcer prophylaxis Non- chemical DVT prophylaxis (Boogie Lawler) Attending Statement I have personally seen and examined the patient on the date of this note. Pertinent documentation and study results have been reviewed by the undersigned. I have personally developed the treatment plan and performed medical decision making. Agree with findings, exam, and treatment plan as noted above. CT and CTA images for today reviewed: Agree with radiology interpretation: Continuing ventriculostomy. Continue ICP monitoring. Controlled hypertension to systolic 180s. Discussed with medical policy specialist today (Speedy Robbins MD) Boogie Lawler Aug 29, 2016 09:25 Speedy Robbins MD Aug 29, 2016 18:47
[2016-08-29] MEDS: AZITHROMYCIN INJ 500 MG in SODIUM CHLOR 0.9% 250 ML INJ 250 ML IV SCH (10:00)
[2016-08-29] MEDS ORDERED: MAGNESIUM CITRATE SOLN 300 ML BTL PO ONE (10:00)
[2016-08-29 10:32] LABS: BLOOD GAS BASE EXCESS -0.8 mmol/L (-2-2); BLOOD GAS HCO3 23 mmol/L (22-26); BLOOD GAS METHEMOGLOBIN 0.8 % (0-2); BLOOD GAS O2 HGB SATURATION 95 % (90-100); BLOOD GAS PCO2 33 mmHg (38-42); BLOOD GAS PO2 85 mmHg (61-120); BLOOD GAS TOTAL HGB 13.4 G/DL (12.0-16.0); TEMP CORR TO 98.6
[2016-08-29 10:33] LABS: CRITICAL VALUE YES; DRAW SITE ALINE; OXYGEN DEVICE VENT; STAT NO
[2016-08-29] MEDS ORDERED: PHARMACY ORDERED LAB ONE (11:45)
[2016-08-29] MEDS: LACTULOSE SYRUP 20 GM/30 ML CUP PO SCH ×3 (12:44→19:49)
[2016-08-29 13:43] LABS: VANCOMYCIN TROUGH 13.9 MCG/ML (5.0-10.0)
[2016-08-29] MEDS: SODIUM CHLOR 0.9% 1000 ML INJ 1,000 ML IV SCH (13:43)
[2016-08-29] MEDS: fentaNYL 2,500 MCG/NS 250 ML IV SCH ×2 (14:55→16:27)
[2016-08-29] MEDS: PRAVASTATIN SOD 40 MG TAB PO SCH (19:49)
[2016-08-29] MEDS: LABETALOL HCL 100 MG/20 ML VIAL IV PUSH PRN (20:02)
[2016-08-29 20:29] LABS: BLOOD GAS BASE EXCESS -2.1 mmol/L (-2-2); BLOOD GAS HCO3 22 mmol/L (22-26); BLOOD GAS METHEMOGLOBIN 0.8 % (0-2); BLOOD GAS O2 HGB SATURATION 95 % (90-100); BLOOD GAS OXYGEN CONTENT 18.7 Vol % (12.0-20.0); BLOOD GAS PCO2 36 mmHg (38-42); BLOOD GAS PO2 88 mmHg (61-120); CRITICAL VALUE NO; OXYGEN DEVICE VENTILATOR; TEMP CORR TO 98.6
[2016-08-29 20:30] LABS: DRAW SITE ART LINE; FIO2 40 %; STAT NO; VENT SETTINGS AC/20/650/PEEP 5
[2016-08-29] MEDS ORDERED: SODIUM CHLORIDE 23.4% INJ 120 MEQ in SYRINGE/BAG 1 EA IV ONE (21:00)
[2016-08-30] VITALS (19 sets, daily range): BP systolic 160–181; BP diastolic 86–109; PULSE 68–90; RESP 22; TEMP 97.8–100.7; O2SAT 96–100
[2016-08-30] MEDS: 3% SALINE INJ 500 ML IV SCH ×2 (00:14→13:42)
[2016-08-30] MEDS: RESP: ALBUTEROL 2.5 MG/IPRATROPIUM 0.5 MG NEB (SCH) NEB ×4 (03:33→20:43)
[2016-08-30] MEDS: LABETALOL HCL 100 MG/20 ML VIAL IV PUSH PRN ×3 (03:44→09:17)
[2016-08-30] MEDS: niMODipine 30 MG CAP PO SCH ×5 (03:56→21:05)
[2016-08-30] MEDS: PROPOFOL 1000 MG/100 ML INJ 100 ML IV SCH ×4 (03:56→21:07)
[2016-08-30] MEDS: fentaNYL 2,500 MCG/NS 250 ML IV SCH ×3 (03:56→21:07)
[2016-08-30] MEDS: CHLORHEXIDINE GLUCONATE 2 % 1 PACK (2 CLOTHS) TOP SCH (04:00)
[2016-08-30] MEDS: PIPERACIL-TAZO 4.5 GM PREMIX 100 ML IV SCH ×4 (04:01→21:06)
[2016-08-30] MEDS: SODIUM CHLOR 0.9% 1000 ML INJ 1,000 ML IV SCH ×2 (04:01→10:56)
[2016-08-30 05:24] LABS: AUTOMATED NEUTROPHIL # 8.5 TH/MM3 (1.8-7.7); BASOPHIL % 0.4 % (0.0-2.0); EOSINOPHIL # 0.4 TH/MM3 (0-0.4); EOSINOPHIL % 3.5 % (0.0-4.0); HEMATOCRIT 41.9 % (39.0-51.0); LYMPH % 7.4 % (9.0-44.0); LYMPHOCYTE # 0.8 TH/MM3 (1.0-4.8); MEAN CELL VOLUME 84.4 FL (80.0-100.0); MEAN CORPUSCULAR HEMOGLOBIN 27.5 PG (27.0-34.0); MEAN CORPUSCULAR HGB CONC 32.5 % (32.0-36.0); MONO % 7.3 % (0.0-8.0); NEUT % 81.4 % (16.0-70.0); PLATELET COUNT 261 TH/MM3 (150-450); RED BLOOD COUNT 4.96 MIL/MM3 (4.50-5.90); RED CELL DISTRIBUTION WIDTH 15.4 % (11.6-17.2); WHITE BLOOD COUNT 10.5 TH/MM3 (4.0-11.0)
[2016-08-30 05:29] LABS: HEMO FLAGS AUTO DIFF
[2016-08-30 05:42] LABS: ALKALINE PHOSPHATASE 96 U/L (45-117); ALT (GPT) 118 U/L (12-78); ANION GAP 11 MEQ/L (5-15); AST (GOT) 74 U/L (15-37); BICARBONATE 20.2 MEQ/L (21.0-32.0); BLOOD UREA NITROGEN 18 MG/DL (7-18); CHLORIDE 117 MEQ/L (98-107); GLOMERULAR FILTRATION RATE 257 ML/MIN (>89); MAGNESIUM 3.1 MG/DL (1.5-2.5); POTASSIUM 3.9 MEQ/L (3.5-5.1); SODIUM (NA) 148 MEQ/L (136-145); TOTAL BILIRUBIN ADULT 0.4 MG/DL (0.2-1.0)
[2016-08-30] MEDS ORDERED: SODIUM CHLORIDE 23.4% INJ 120 MEQ in SYRINGE/BAG 1 EA IV ONE (06:00)
[2016-08-30] MEDS: HEPARIN SODIUM - SQ 10,000 UNITS/ML VIAL SQ SCH ×2 (06:41→15:53)
[2016-08-30 07:18] LABS: BANDS 22 % (0-6); EOSINOPHILS 3 % (0-4); METAMYELOCYTES 1 % (0-1); NEUTROPHIL # MANUAL DIFF 8.3 TH/MM3 (1.8-7.7); PLATELET ESTIMATE SMEAR NORMAL (NORMAL); PLATELET MORPHOLOGY NORMAL (NORMAL); POLYS (SEG NEUTROPHILS) 56 % (16-70); SCAN/DIFF FINAL DIFF MANUAL; WBC DIFF SAMPLE 100
[2016-08-30] MEDS: LACTULOSE SYRUP 20 GM/30 ML CUP PO SCH ×4 (09:00→21:00)
[2016-08-30] MEDS: DOCUSATE SODIUM 50 MG/SENNA 8.6 MG TAB PO SCH ×2 (09:00→21:00)
--- NOTE | 2016-08-30 09:20 | RADRPT ---
EXAM DATE/TIME: 08/30/2016 08:36 [facility] COMPARISON: CHEST SINGLE AP, August 29, 2016, 3:19. INDICATIONS : Evaluate for respiratory disease on vent. MEDICAL HISTORY : Hypertension. SURGICAL HISTORY : None. ENCOUNTER: Subsequent ACUITY: 1 month PAIN SCORE: Non-responsive. LOCATION: Bilateral chest FINDINGS: Significant bilateral airspace disease is still evident and has not significantly improved. Support devices are in stable position. Heart is mildly enlarged. CONCLUSION: Persistent bilateral airspace disease without significant improvement. Stable position of support devices. Axel Catalan MD on August 30, 2016 at 9:11 Board Certified Radiologist. This report was verified electronically.
[2016-08-30] MEDS: MIDAZOLAM 100 MG/NS 100 ML DRIP Premix IV SCH ×2 (10:49→21:07)
[2016-08-30] MEDS: levETIRAcetam 1000 MG INJ 100 ML IV SCH ×2 (10:49→21:06)
[2016-08-30] MEDS: AZITHROMYCIN INJ 500 MG in SODIUM CHLOR 0.9% 250 ML INJ 250 ML IV SCH (10:50)
[2016-08-30] MEDS: SODIUM CHLORIDE 0.9% FLUSH 10 ML FLUSH SCH ×2 (10:50→21:05)
[2016-08-30] MEDS: FAMOTIDINE 20 MG/2 ML VIAL IV PUSH SCH ×2 (10:50→21:06)
--- NOTE | 2016-08-30 12:22 | HHI.CCPN ---
Subjective Remarks/Hospital Course 60 year old male who presents to the [facility] in transfer from [facility] after being diagnosed with a subarachnoid hemorrhage with intraventricular hemorrhage extension. The patient was intubated at that facility when he became unresponsive. The patient was noted to be tachycardic with a heart rate in the 130s, blood pressure initially 220/120. According to the record, the patient had a history of recently standing up after tying his shoes and having a headache associated with neck pain. He had been being seen by a local chiropractor and been treating the pain with tramadol, ibuprofen, and Flexeril. This evening he developed a decreased level of consciousness and was difficult to awaken according to his . She was concerned that he may have taken some extra pain medication, therefore Narcan was given in 3 separate doses at that facility, however the patient had no response. The patient was noted after intubation to have the subarachnoid hemorrhage and was transferred to this facility for higher level of care. The patient was placed on propofol for sedation on the ventilator. The patient was started on a Cardene drip. EVD was emergently placed by neurosurgeon. 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 He immediately went for a CT scan and was given mannitol and 3% sodium with improvement in his ICP. Repeat CT was essentially unchanged 08/24/16: Today patient is sedated with Versed and propofol. Flaccid on all 4 extremities no withdrawal to pain. Pupils are equal sluggishly reactive positive corneal positive cough. Unable to to TCD. Clinical suspicion of vasospasm high. Will repeat CT angiogram stat. Discussed with Dr. Andrez Marcelo and Dr. Robbins 08/25/16: Repeat CT angiogram of the head did not show any significant vasospasm yesterday. Spiking fever overnight white count increased to 20.2 from 12.3. CXR developing left infiltrate. Very slight withdrawal of all 4 extremities to deep pain 08/26: Continues to have high FiO2 requirement Now Fio2 95% and PEEP 10. WBC 21, 000. Neuro exam unchanged. Unable to get TCD window, will cancel. CXR bilateral infiltrates, L >R 08/27: Remains unresponsive, stat EEG ordered to rule out subclinical seizure 08/28: Episode of high ICPs last night with vent setting change and retention of CO2 08/29: High ICP up to 27 today, responded to Versed bolus and infusion started. CTA ordered STAT-mild stable vasospasm. Optimized on hyperosmolar therapy. 08/30: Intermittent ICP spike, received 23% saline bolus 1. Otherwise neurologically unchanged. Continues to be heavily sedated for ICP control. Sodium 151. We'll restart 3% saline Objective Vital Signs Date Time Temp Pulse Resp B/P Pulse Ox O2 Delivery O2 Flow Rate FiO2 08/30/16 08:04 100 40 08/30/16 06:00 78 08/30/16 04:00 100.0 22 181/94 08/29/16 19:00 Mechanical Ventilator Intake and Output 08/29/16 08/29/16 08/30/16 08:00 16:00 00:00 Intake Total 2831 ml 1875 ml 2396 ml Output Total 1865 ml 2275 ml 3085 ml Balance 966 ml -400 ml -689 ml Result Diagram: 08/30/16 0445 08/30/16 1108 Other Results Laboratory Tests Test 08/29/16 20:01 Blood Gas Puncture Site ART LINE Blood Gas Patient Temperature 98.6 Blood Gas HCO3 22 mmol/L (22-26) Blood Gas Base Excess -2.1 mmol/L (-2-2) Blood Gas Oxygen Saturation 95 % (90-100) Arterial Blood pH 7.40 (7.380-7.420) Arterial Blood Partial 36 mmHg (38-42) Pressure CO2 Arterial Blood Partial 88 mmHg Pressure O2 (61-120) Arterial Blood Oxygen Content 18.7 Vol % (12.0-20.0) Arterial Blood 1.0 % (0-4) Carboxyhemoglobin Arterial Blood Methemoglobin 0.8 % (0-2) Blood Gas Hemoglobin 14.0 G/DL (12.0-16.0) Oxygen Delivery Device VENTILATOR Blood Gas Liter Flow L/M Blood Gas Ventilator Setting AC/20/650/PEEP 5 Blood Gas Inspired Oxygen 40 % Objective Remarks Propofol 50 Versed gtt Fentanyl 3% saline resume GENERAL: Well-nourished, well-developed patient. Sedated and intubated SKIN: Warm and dry. HEAD: Normocephalic. EVD in place ICP now 10-14, intermittently >20 EYES: No scleral icterus. No injection or drainage. NECK: Supple, trachea midline. No JVD or lymphadenopathy. CARDIOVASCULAR: Regular rate and rhythm without murmurs, gallops, or rubs. RESPIRATORY: Breath sounds equal bilaterally. Coarse breath sounds and rhonchi at bilateral bases, predominantly L base GASTROINTESTINAL: Abdomen soft, non-tender, nondistended. MUSCULOSKELETAL: No cyanosis, or edema. BACK: Nontender without obvious deformity. No CVA tenderness. EXTREMITIES: No clubbing cyanosis or edema. Extends on all 4 extremities painful stimuli NEURO: SHEY 3mm ? sluggish reaction, very slight withdraws to pain A/P Assessment and Plan Neuro: Aneurysmal Subarachnoid hemorrhage Intracranial hypertension Acute encephalopathy Obstructive hydrocephalus - Stat CTA to rule out Vasospasm 08/29 showed stable mild vasospasm - Ct head 08/29: Improving intra-axial subarachnoid and intraventricular hemorrhage, improving ventricular size - Marshall and Galeas grade 5, Modified Andersen grade 4 - S/P supraclinoid ICA aneurysm coil embolization. - Target SBP 160-180 to prevent vasospasm (aneurysm is well secured). Okd by Dr. Robbins - Nimodipine and Pravachol - Keep Mag>2 na >145 - EEG to rule out subclinical seizures 08/24-diffuse encephalopathy, EEG 08/27 severe encephalopathy, burst suppression pattern - Continue Keppra - EVD, Management per neurosurgery. - Continue 3%. Use 23% saline and NM paralysis PRN for ICP control - Propofol Versed and Fentanyl for sedation and ventilator synchrony RESP Acute hypoxemic respiratory failure ARDS Aspiration pneumonia - Intubated for an airway protection, now with severe hypoxemia ARDS - Low tidal volume ventilation with PEEP 8 - Vent bundle. DuoNeb q6 and PRN - No SBT's until neurologically stable and hypoxia improved - Zosyn started 08/25, along with Vanc. Azithromycin for atypical coverage. DCd vanc 08/29 - Most likely need trach and PEG CVS Hypertension Dyslipidemia - Levophed to keep SBP 160-180 - SBP [id number] to prevent vasospasm - Nimotop decreased to 30 due to significant hypotension mg po Q4 - Pravachol for vasospasm prevention as well GI: - Tube feeds with Jevity - IV Protonix - Bowel regimen - Additional Mag citrate 300 ml x1 08/29 lactulose to 30 ml q6 /Endo: - Electrolyte replacement per protocol - IV hydration - Monitor renal function closely - Strict I's and O's ID: Aspiration pneumonia Severe sepsis - Beta strepin sputum 08/25, repeat panculture - Zosyn 4.5 g IV every 6 hours, vancomycin DCd 08/29. azithromycin DVT GI prophylaxis - Teds SCDs - Subcutaneous heparin - Pepcid Critical Care: Critical Care: The total critical care time was 35 minutes. Time to perform other separately billable procedures was not included in the critical care time. Harish Giles MD Aug 30, 2016 12:22
--- NOTE | 2016-08-30 12:25 | HHI.NSPN ---
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 The headache has persisted since then along with nausea and occasional emesis. He has not sought any medical treatment since initial onset. He did not go to work since the initial onset due to these persistent symptoms. He has not been eating well. His states that after he went to sleep last night, at approximately 1:30 or 2 AM she noticed snoring respirations and found him initially unresponsive. He was able to be aroused by EMS and ambulated briefly prior to being placed in the ambulance. He was taken to [facility] for initial evaluation and in the emergency room was noted to be unresponsive with extensor posturing. He was intubated and placed on nicardipine drip for hypertension. No seizure activity reported. 08/23: Patient remains intubated and sedated this morning. 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 He is withdrawing with the RUE to noxious stimuli with questionable extension of both feet, but no response with the LUE per Nursing. He is maintaining his SBP without the nicardipine drip. Nursing also reports that temp has been up to 101.3 degrees. 08/24: Patient is intubated and sedated. Nursing reports that he is having neurogenic temperatures. Yesterday morning the patient had a CTA which demonstrated an aneurysm. That afternoon the patient went for coiling and had an increase in his ICP into the 60s. He immediately went for a CT scan and was given mannitol and 3% sodium with improvement in his ICP. He went again in the evening for another CTA. Nursing reports that the patient is not responding to any noxious stimuli. His ICP had just been checked and was 11. 08/25: Patient is intubated and on max sedation. Nursing reports that when his sedation was weaned down earlier he became extremely agitated, his BP went up and his ICP reached 20. His propofol was maxed and his ICP started coming down. He was also given labetalol for his BP. He did withdraw the BLE to noxious stimuli but did nothing with the BUE for Nursing and had a cough reflex. Nursing stated that in report she was told the patient withdrew all extremities to noxious stimuli yesterday. During the night his temperature dropped to 94 and later spiked to 103. He went for a repeat CTA yesterday afternoon w/o any residual aneurysm seen. He did have mild vasospasms in the right M1 segment and right A1 segment. His CXR today demonstrated left-sided infiltrates. 08/27: Patient sedated on Diprivan and fentanyl drips. Versed on hold. Patient opening eyes or following commands. Ventriculostomy at 5 cm a water ICP R8. Pupils are 2 mm bilaterally. Patient is intubated on a vent setting. 08/28: Patient sedated on Diprivan and fentanyl drips. Not opening eyes or following commands. Ventriculostomy at 5 cm water bloody CSF drainage. ICP 4. 08/29: Patient remains sedated. Nursing reports that he is having sustained elevated ICPs up to 25 and this morning was given rocuronium due to his ICP. The ICP did come down to 17 when seen. The patient did have repeat imaging this morning which demonstrated mild vasospasm but was improving otherwise. He is on Nimotop for ICP control and a Levophed drip for blood pressure control. Due to a sodium of 156 this morning the 3% saline is being held. 08/30: Patient remains sedated due to agitation if weaned down. Nursing reports that his ICP was 4 this morning prior to being seen. (Boogie Lawler) System Review Comments Unable to obtain ROS due to patient's mental status, intubation & sedation. ( Boogie Lawler) Exam Results Vital Signs Date Time Temp Pulse Resp B/P Pulse Ox O2 Delivery O2 Flow Rate FiO2 08/30/16 08:04 100 40 08/30/16 06:00 78 08/30/16 04:00 100.0 22 181/94 08/29/16 19:00 Mechanical Ventilator Intake and Output 6/12/17 6/12/17 6/13/17 08:00 16:00 00:00 Intake Total 2831 ml 1875 ml 2396 ml Output Total 1865 ml 2275 ml 3085 ml Balance 966 ml -400 ml -689 ml (Boogie Lawler) Physical Examination General: Patient intubated & sedated. HEENT: Normocephalic, atraumatic. PERRL 2 mm bilaterally but minimally reactive. Orally intubated, OGT. Ventriculostomy insertion site w/o any evident drainage, erythema or streaking. Respiratory: CTAB w/o W/R/R, equal excursion, non-laboured, orally intubated and mechanically intubated. Cardiovascular: S1S2 w/RRR w/o M/G/R, radial & pedal pulses 2+ bilaterally, cap refill < 2 sec. Monitor is SR w/o any ectopy noted. Gastrointestinal: Abdomen soft, bowel sounds not appreciated, OGT w/enteral feeds. Integumentary: No cyanosis or erythema. SCD bilaterally. Musculoskeletal: Extremities normal, no evident deformity or clubbing. Neuro: Patient remains intubated & sedated, GCS 3T. Unable to assess motor strength/response or sensation. Ventriculostomy drain at 5 cm of water w/ICP 4 when seen, bloody drainage in system. PERRL 2 mm with minimal reaction bilaterally. On Nimotop for ICP control. (Boogie Lawler) Lab, Micro, Other Results Allergies Coded Allergies Type Severity Reaction Last Updated Verified No Known Allergies 08/23/16 No Recent Impressions Chest X-Ray 08/30/16 0600 Signed Impressions: Service Date/Time: Tuesday, August 30, 2016 08:36 - CONCLUSION: Persistent bilateral airspace disease without significant improvement. Stable position of support devices. Axel Catalan MD Chest X-Ray 08/29/16 0600 Signed Impressions: Service Date/Time: Monday, August 29, 2016 03:19 - CONCLUSION: Worsening parenchymal process on the left. Jhonny Briceño MD Head CTA 08/29/16 0000 Signed Impressions: Service Date/Time: Monday, August 29, 2016 07:18 - CONCLUSION: 1. Stable CTA examination status post right P-comm aneurysm coiling with no definite residual aneurysm, as above. 2. Stable mild vasospasm of the right M1 and A1 segments. 3. Stable probable mild basilar vasospasm. 4. Otherwise, patent intracranial circulation with no interval change. Vipin Gibbs MD Head CT 08/29/16 0000 Signed Impressions: Service Date/Time: Monday, August 29, 2016 07:18 - CONCLUSION: 1. Status post left frontal ventriculostomy and right P-comm aneurysm coiling with improving intra-axial, subarachnoid, and intraventricular blood products. Decreasing ventricular size with slightly improved subfalcine herniation. No intercurrent hemorrhage. Vipin Gibbs MD Chest X-Ray 08/28/16 0600 Signed Impressions: Service Date/Time: Sunday, August 28, 2016 03:00 - CONCLUSION: 1. No significant change in the bilateral pulmonary opacities left greater than right. 2. Mild cardiomegaly. Jesus Vee MD ///// 06:00 18:00 06:00 18:00 06:00 18:00 Intake Total 5180 ml 2777 ml 5204 ml 1875 ml 2396 ml Output Total 3668 ml 1920 ml 3334 ml 2275 ml 3085 ml Balance 1512 ml 857 ml 1870 ml -400 ml -689 ml Intake IV Total 3944 ml 2189 ml 3884 ml 1617 ml 1751 ml Tube Feeding 896 ml 488 ml 700 ml 158 ml 545 ml Other 340 ml 100 ml 620 ml 100 ml 100 ml Output Urine Total 3525 ml 1850 ml 3200 ml 2275 ml 3000 ml Drainage Total 143 ml 70 ml 134 ml 85 ml # Bowel Movements 0 0 0 0 0 Laboratory Tests Test 08/27/16 08/28/16 08/28/16 08/28/16 18:16 00:21 00:30 04:24 Sodium Level 158 MEQ/L 158 MEQ/L 158 MEQ/L Potassium Level 3.6 MEQ/L 3.4 MEQ/L Blood Gas Puncture Site ART LINE Blood Gas Patient Temperature 98.6 Blood Gas HCO3 25 mmol/L Blood Gas Base Excess 1.1 mmol/L Blood Gas Oxygen Saturation 96 % Arterial Blood pH 7.41 Arterial Blood Partial 41 mmHg Pressure CO2 Arterial Blood Partial 103 mmHg Pressure O2 Arterial Blood Oxygen Content 19.1 Vol % Arterial Blood 0.9 % Carboxyhemoglobin Arterial Blood Methemoglobin 0.9 % Blood Gas Hemoglobin 14.0 G/DL Oxygen Delivery Device VENTILATOR Blood Gas Ventilator Setting AC/18/600/PEEP10 Blood Gas Inspired Oxygen 45 % Vancomycin Level Trough 5.8 MCG/ML White Blood Count 7.6 TH/MM3 Red Blood Count 4.51 MIL/MM3 Hemoglobin 12.6 GM/DL Hematocrit 37.8 % Mean Corpuscular Volume 83.7 FL Mean Corpuscular Hemoglobin 28.0 PG Mean Corpuscular Hemoglobin 33.4 % Concent Red Cell Distribution Width 14.8 % Platelet Count 257 TH/MM3 Mean Platelet Volume 7.8 FL Neutrophils (%) (Auto) 73.6 % Lymphocytes (%) (Auto) 16.4 % Monocytes (%) (Auto) 3.9 % Eosinophils (%) (Auto) 5.5 % Basophils (%) (Auto) 0.6 % Neutrophils # (Auto) 5.6 TH/MM3 Lymphocytes # (Auto) 1.3 TH/MM3 Monocytes # (Auto) 0.3 TH/MM3 Eosinophils # (Auto) 0.4 TH/MM3 Basophils # (Auto) 0.0 TH/MM3 CBC Comment AUTO DIFF Differential Total Cells 100 Counted Neutrophils % (Manual) 57 % Band Neutrophils % 13 % Lymphocytes % 17 % Monocytes % 4 % Eosinophils % 9 % Neutrophils # (Manual) 5.3 TH/MM3 Differential Comment FINAL DIFF MANUAL Platelet Estimate NORMAL Platelet Morphology Comment NORMAL Red Cell Morphology Comment NORMAL Chloride Level 125 MEQ/L Carbon Dioxide Level 26.0 MEQ/L Anion Gap 7 MEQ/L Blood Urea Nitrogen 22 MG/DL Creatinine 0.44 MG/DL Estimat Glomerular Filtration 197 ML/MIN Rate Random Glucose 113 MG/DL Calcium Level 7.9 MG/DL Phosphorus Level 2.0 MG/DL Magnesium Level 2.1 MG/DL Total Bilirubin 0.4 MG/DL Aspartate Amino Transf 87 U/L (AST/SGOT) Alanine Aminotransferase 106 U/L (ALT/SGPT) Alkaline Phosphatase 89 U/L Total Protein 5.3 GM/DL Albumin 1.4 GM/DL Test 08/28/16 08/28/16 08/29/16 08/29/16 04:52 12:28 03:22 04:28 Blood Gas Puncture Site ART LINE DEEPA Blood Gas Patient Temperature 98.6 98.6 Blood Gas HCO3 24 mmol/L 23 mmol/L Blood Gas Base Excess 0.5 mmol/L -1.0 mmol/L Blood Gas Oxygen Saturation 96 % 95 % Arterial Blood pH 7.45 7.41 Arterial Blood Partial 35 mmHg 37 mmHg Pressure CO2 Arterial Blood Partial 86 mmHg 89 mmHg Pressure O2 Arterial Blood Oxygen Content 18.0 Vol % 17.8 Vol % Arterial Blood 1.1 % 0.9 % Carboxyhemoglobin Arterial Blood Methemoglobin 0.8 % 0.9 % Blood Gas Hemoglobin 13.4 G/DL 13.2 G/DL Oxygen Delivery Device VENTILATOR VENTILATOR Blood Gas Ventilator Setting AC/19/600/PEEP AC19/600/+8 8 Blood Gas Inspired Oxygen 45 % 45 % Sodium Level 157 MEQ/L 156 MEQ/L White Blood Count 6.9 TH/MM3 Red Blood Count 4.53 MIL/MM3 Hemoglobin 12.6 GM/DL Hematocrit 38.1 % Mean Corpuscular Volume 84.2 FL Mean Corpuscular Hemoglobin 27.7 PG Mean Corpuscular Hemoglobin 32.9 % Concent Red Cell Distribution Width 15.3 % Platelet Count 259 TH/MM3 Mean Platelet Volume 7.8 FL Neutrophils (%) (Auto) 72.7 % Lymphocytes (%) (Auto) 13.7 % Monocytes (%) (Auto) 7.0 % Eosinophils (%) (Auto) 6.2 % Basophils (%) (Auto) 0.4 % Neutrophils # (Auto) 5.1 TH/MM3 Lymphocytes # (Auto) 0.9 TH/MM3 Monocytes # (Auto) 0.5 TH/MM3 Eosinophils # (Auto) 0.4 TH/MM3 Basophils # (Auto) 0.0 TH/MM3 CBC Comment AUTO DIFF Differential Total Cells 100 Counted Neutrophils % (Manual) 68 % Band Neutrophils % 5 % Lymphocytes % 13 % Monocytes % 6 % Eosinophils % 7 % Neutrophils # (Manual) 5.1 TH/MM3 Myelocytes 1 % Differential Comment FINAL DIFF MANUAL Atypical Lymphocytes % Platelet Estimate NORMAL Platelet Morphology Comment NORMAL Red Cell Morphology Comment NORMAL Potassium Level 4.1 MEQ/L Chloride Level 122 MEQ/L Carbon Dioxide Level 25.6 MEQ/L Anion Gap 8 MEQ/L Blood Urea Nitrogen 21 MG/DL Creatinine 0.48 MG/DL Estimat Glomerular Filtration 178 ML/MIN Rate Random Glucose 118 MG/DL Calcium Level 7.7 MG/DL Phosphorus Level 2.6 MG/DL Magnesium Level 2.1 MG/DL Total Bilirubin 0.4 MG/DL Aspartate Amino Transf 73 U/L (AST/SGOT) Alanine Aminotransferase 104 U/L (ALT/SGPT) Alkaline Phosphatase 84 U/L Total Protein 5.4 GM/DL Albumin 1.4 GM/DL Test 08/29/16 08/29/16 08/29/16 08/29/16 10:25 12:27 19:40 20:01 Blood Gas Puncture Site DEEPA ART LINE Blood Gas Patient Temperature 98.6 98.6 Blood Gas HCO3 23 mmol/L 22 mmol/L Blood Gas Base Excess -0.8 mmol/L -2.1 mmol/L Blood Gas Oxygen Saturation 95 % 95 % Arterial Blood pH 7.45 7.40 Arterial Blood Partial 33 mmHg 36 mmHg Pressure CO2 Arterial Blood Partial 85 mmHg 88 mmHg Pressure O2 Arterial Blood Oxygen Content 18.0 Vol % 18.7 Vol % Arterial Blood 1.0 % 1.0 % Carboxyhemoglobin Arterial Blood Methemoglobin 0.8 % 0.8 % Blood Gas Hemoglobin 13.4 G/DL 14.0 G/DL Oxygen Delivery Device VENT VENTILATOR Blood Gas Ventilator Setting AC/20/650/PEEP 5 Sodium Level 152 MEQ/L 150 MEQ/L Vancomycin Level Trough 13.9 MCG/ML Blood Gas Liter Flow L/M Blood Gas Inspired Oxygen 40 % Test 08/30/16 08/30/16 08/30/16 02:35 04:45 11:08 Sodium Level 150 MEQ/L 148 MEQ/L 151 MEQ/L White Blood Count 10.5 TH/MM3 Red Blood Count 4.96 MIL/MM3 Hemoglobin 13.6 GM/DL Hematocrit 41.9 % Mean Corpuscular Volume 84.4 FL Mean Corpuscular Hemoglobin 27.5 PG Mean Corpuscular Hemoglobin 32.5 % Concent Red Cell Distribution Width 15.4 % Platelet Count 261 TH/MM3 Mean Platelet Volume 8.2 FL Neutrophils (%) (Auto) 81.4 % Lymphocytes (%) (Auto) 7.4 % Monocytes (%) (Auto) 7.3 % Eosinophils (%) (Auto) 3.5 % Basophils (%) (Auto) 0.4 % Neutrophils # (Auto) 8.5 TH/MM3 Lymphocytes # (Auto) 0.8 TH/MM3 Monocytes # (Auto) 0.8 TH/MM3 Eosinophils # (Auto) 0.4 TH/MM3 Basophils # (Auto) 0.0 TH/MM3 CBC Comment AUTO DIFF Differential Total Cells 100 Counted Neutrophils % (Manual) 56 % Band Neutrophils % 22 % Lymphocytes % 9 % Monocytes % 9 % Eosinophils % 3 % Neutrophils # (Manual) 8.3 TH/MM3 Metamyelocytes 1 % Differential Comment FINAL DIFF MANUAL Platelet Estimate NORMAL Platelet Morphology Comment NORMAL Red Cell Morphology Comment NORMAL Potassium Level 3.9 MEQ/L Chloride Level 117 MEQ/L Carbon Dioxide Level 20.2 MEQ/L Anion Gap 11 MEQ/L Blood Urea Nitrogen 18 MG/DL Creatinine 0.35 MG/DL Estimat Glomerular Filtration 257 ML/MIN Rate Random Glucose 112 MG/DL Calcium Level 8.1 MG/DL Magnesium Level 3.1 MG/DL Total Bilirubin 0.4 MG/DL Aspartate Amino Transf 74 U/L (AST/SGOT) Alanine Aminotransferase 118 U/L (ALT/SGPT) Alkaline Phosphatase 96 U/L Total Protein 6.1 GM/DL Albumin 1.5 GM/DL Vital Signs Date Time Temp Pulse Resp B/P Pulse Ox O2 Delivery O2 Flow Rate FiO2 08/30/16 08:04 100 40 08/30/16 07:58 99 40 08/30/16 06:00 78 08/30/16 04:36 98 40 08/30/16 04:00 78 08/30/16 04:00 45 08/30/16 04:00 100.0 79 22 181/94 98 08/30/16 02:00 83 08/30/16 00:17 96 40 08/30/16 00:00 97.8 78 22 172/86 96 175/105 08/30/16 00:00 45 08/30/16 00:00 78 08/29/16 22:00 79 08/29/16 21:00 45 08/29/16 20:06 98 40 08/29/16 20:00 98.5 82 20 194/101 98 08/29/16 20:00 78 08/29/16 20:00 45 08/29/16 19:00 98 Mechanical Ventilator 45 08/29/16 18:00 67 08/29/16 16:00 75 08/29/16 16:00 45 08/29/16 16:00 98.6 75 20 172/82 99 08/29/16 15:25 99 40 08/29/16 14:00 79 08/29/16 12:11 100 40 08/29/16 12:00 45 08/29/16 12:00 100.2 78 22 167/76 100 08/29/16 12:00 78 08/29/16 10:42 98 40 08/29/16 10:00 80 08/29/16 10:00 98 40 08/29/16 09:22 97 40 08/29/16 08:00 45 08/29/16 08:00 80 08/29/16 08:00 99.3 74 19 164/76 100 08/29/16 07:44 100 100 08/29/16 07:00 98 Mechanical Ventilator 45 08/29/16 04:33 99 45 08/29/16 04:00 92 08/29/16 04:00 100.3 92 19 163/81 100 08/29/16 04:00 45 08/29/16 02:00 68 08/29/16 00:17 100 45 08/29/16 00:00 73 08/29/16 00:00 45 08/29/16 00:00 99.4 73 19 180/83 100 08/28/16 22:00 70 08/28/16 21:47 99 45 08/28/16 20:33 97 45 08/28/16 20:00 45 08/28/16 20:00 79 08/28/16 20:00 99.5 79 19 149/69 97 08/28/16 19:00 97 Mechanical Ventilator 45 08/28/16 18:00 90 08/28/16 17:00 94 45 08/28/16 16:00 45 08/28/16 16:00 98.9 72 19 172/77 100 08/28/16 16:00 78 08/28/16 14:00 90 08/28/16 13:55 100 45 08/28/16 13:55 100 45 08/28/16 12:00 45 08/28/16 12:00 98.4 68 19 162/77 100 08/28/16 12:00 68 08/28/16 10:00 77 08/28/16 09:41 95 45 08/28/16 08:00 45 08/28/16 08:00 67 08/28/16 08:00 99.5 83 19 167/66 96 08/28/16 07:00 100 Mechanical Ventilator 45 08/28/16 06:00 66 08/28/16 04:23 99 45 08/28/16 04:00 99.1 74 19 182/82 96 08/28/16 04:00 74 08/28/16 04:00 45 08/28/16 02:00 81 08/28/16 00:43 100 45 08/28/16 00:30 100 45 08/28/16 00:00 45 08/28/16 00:00 98.2 86 21 171/79 100 08/28/16 00:00 86 08/27/16 23:55 100 45 08/27/16 22:00 81 08/27/16 20:26 100 45 08/27/16 20:00 95 08/27/16 20:00 100.1 95 18 186/76 100 08/27/16 20:00 45 08/27/16 19:00 100 Mechanical Ventilator 45 08/27/16 18:00 71 08/27/16 16:25 98 45 08/27/16 16:00 99.7 72 18 161/80 97 08/27/16 16:00 45 08/27/16 16:00 72 08/27/16 14:00 71 08/27/16 12:45 94 45 (Boogie Lawler) Medical Decision Making Impression and Plan Impression: 1. Right temporal intracranial hemorrhage with interventricular extension 2. 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 Hypertension 4. Small outpouching proximal right anterior cerebral artery 1.5 mm max, small vessel loop vs small aneurysm Patient remains sedated due to agitation, no response to noxious stimuli CT & CTA demonstrates improving intra-axial, subarachnoid & intraventricular blood products, decreasing ventricular size w/improvement in subfalcine herniation with mild right M1 and A1 segment vasospasms and probable mild basilar vasospasm ICPs improved, last ICP was 4 per Nursing Sodium 148 this morning Hypermagnesemia Plan: Maintain systolic blood pressure 110-140 range, nicardipine drip PRN for control of hypertension. Maintain sodium between 145 and 155 Continuing ventilatory support with sedation as needed for control of airway, respirations and agitation Monitor ICP & ventriculostomy catheter Nimodipine for vasospasm prophylaxis, consider increasing dose Ulcer prophylaxis Non- chemical DVT prophylaxis (Boogie Lawler) Attending Statement I have personally seen and examined the patient on 08/30/16. Pertinent documentation and study results have been reviewed by the undersigned. I have personally developed the treatment plan and performed medical decision making. Agree with findings, exam, and treatment plan as noted above. Plan to begin challenging ventriculostomy catheter (Speedy Robbins MD) Boogie Lawler Aug 30, 2016 12:25 Speedy Robbins MD Aug 31, 2016 23:00
[2016-08-30] MEDS: PRAVASTATIN SOD 40 MG TAB PO SCH (21:06)
[2016-08-31] VITALS (22 sets, daily range): BP systolic 149–180; BP diastolic 83–97; PULSE 70–87; RESP 18–22; TEMP 98.7–99.9; O2SAT 98–100
[2016-08-31] MEDS: niMODipine 30 MG CAP PO SCH ×6 (01:54→22:12)
[2016-08-31] MEDS: ACETAMINOPHEN 325 MG TAB PO PRN ×2 (02:05→14:59)
[2016-08-31] MEDS: SODIUM CHLOR 0.9% 1000 ML INJ 1,000 ML IV SCH ×3 (02:45→15:36)
[2016-08-31] MEDS: PROPOFOL 1000 MG/100 ML INJ 100 ML IV SCH ×5 (02:52→23:10)
[2016-08-31] MEDS: PIPERACIL-TAZO 4.5 GM PREMIX 100 ML IV SCH ×4 (02:52→22:12)
[2016-08-31] MEDS ORDERED: SODIUM CHLORIDE 23.4% INJ 120 MEQ in SYRINGE/BAG 1 EA IV ONE ×2 (03:00→15:00)
[2016-08-31] MEDS: RESP: ALBUTEROL 2.5 MG/IPRATROPIUM 0.5 MG NEB (SCH) NEB ×4 (03:48→20:40)
[2016-08-31] MEDS: CHLORHEXIDINE GLUCONATE 2 % 1 PACK (2 CLOTHS) TOP SCH (04:00)
[2016-08-31] MEDS: fentaNYL 2,500 MCG/NS 250 ML IV SCH ×2 (06:39→15:36)
[2016-08-31] MEDS: NOREPINEPHRINE INJ 4 MG in SODIUM CHLOR 0.9% 250 ML INJ 250 ML IV SCH ×2 (06:39→22:12)
[2016-08-31] MEDS: 3% SALINE INJ 500 ML IV SCH ×2 (06:40→15:36)
[2016-08-31] MEDS: MIDAZOLAM 100 MG/NS 100 ML DRIP Premix IV SCH ×2 (06:40→15:36)
[2016-08-31 06:45] LABS: BLOOD GAS BASE EXCESS -1.2 mmol/L (-2-2); BLOOD GAS CARBOXYHEMOGLOBIN 1.3 % (0-4); BLOOD GAS HCO3 22 mmol/L (22-26); BLOOD GAS METHEMOGLOBIN 0.8 % (0-2); BLOOD GAS O2 HGB SATURATION 96 % (90-100); BLOOD GAS OXYGEN CONTENT 18.3 Vol % (12.0-20.0); BLOOD GAS PCO2 28 mmHg (38-42); BLOOD GAS PO2 111 mmHg (61-120); BLOOD GAS TOTAL HGB 13.4 G/DL (12.0-16.0); CRITICAL VALUE NO; DRAW SITE ART LINE; FIO2 40 %; OXYGEN DEVICE VENTILATOR; STAT YES; TEMP CORR TO 98.6; VENT SETTINGS AC/22/650/PEEP5
[2016-08-31] MEDS: SODIUM CHLORIDE 0.9% FLUSH 10 ML FLUSH SCH ×2 (07:57→21:00)
--- NOTE | 2016-08-31 08:05 | PD.PROCEDR ---
Procedure Note Procedure Procedure LEFT AXILLARY ARTERIAL LINE PROCEDURE: REASON FOR PROCEDURE: Invasive hemodynamic monitoring PROCEDURE PERFORMED Left axillary arterial line CONSENT Informed consent for procedure was obtained and time out performed. The risks and benefits of the procedure were discussed to include but limited to bleeding , clot formation, infection, and even . ANESTHESIA Local injection of 1% Lidocaine DESCRIPTION OF THE PROCEDURE The left axillary area was exposed and cleansed with ChloraPrep, times two. Sterile drape was used to cover the patient, with the site exposed, under sterile conditions including cap, face mask, sterile gown, and sterile gloves. On first attempt, the introducer needle was inserted with negative pressure in syringe and arterial flash was obtained. The guide wire was then advanced without any restriction and the needle was removed. Using Seldinger technique the 12 CM single lumen catheter was advanced over the guide wire to a depth of 11 centimeters. The guide wire was removed. Good arterial wave form noted. The arterial line was secured to the skin with two interrupted 2.0 silk sutures. The area was bandaged with sterile see-through dressing. COMPLICATIONS: No apparent complications, blood loss was < 2ml Harish Giles MD Aug 31, 2016 08:05
[2016-08-31 08:43] LABS: BLOOD GAS BASE EXCESS -1.2 mmol/L (-2-2); BLOOD GAS CARBOXYHEMOGLOBIN 1.1 % (0-4); BLOOD GAS HCO3 22 mmol/L (22-26); BLOOD GAS METHEMOGLOBIN 0.7 % (0-2); BLOOD GAS O2 HGB SATURATION 95 % (90-100); BLOOD GAS OXYGEN CONTENT 17.7 Vol % (12.0-20.0); BLOOD GAS PCO2 33 mmHg (38-42); BLOOD GAS PO2 85 mmHg (61-120); BLOOD GAS TOTAL HGB 13.2 G/DL (12.0-16.0); TEMP CORR TO 98.6
[2016-08-31 08:44] LABS: CRITICAL VALUE NO; DRAW SITE ALINE; FIO2 40 %; OXYGEN DEVICE VENT; STAT NO
[2016-08-31] MEDS: FAMOTIDINE 20 MG/2 ML VIAL IV PUSH SCH ×2 (08:56→22:12)
[2016-08-31] MEDS: levETIRAcetam 1000 MG INJ 100 ML IV SCH ×2 (08:57→22:13)
[2016-08-31] MEDS: DOCUSATE SODIUM 50 MG/SENNA 8.6 MG TAB PO SCH ×2 (09:00→22:12)
[2016-08-31] MEDS: LACTULOSE SYRUP 20 GM/30 ML CUP PO SCH ×4 (09:00→22:12)
--- NOTE | 2016-08-31 09:21 | HHI.NSPN ---
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 The headache has persisted since then along with nausea and occasional emesis. He has not sought any medical treatment since initial onset. He did not go to work since the initial onset due to these persistent symptoms. He has not been eating well. His states that after he went to sleep last night, at approximately 1:30 or 2 AM she noticed snoring respirations and found him initially unresponsive. He was able to be aroused by EMS and ambulated briefly prior to being placed in the ambulance. He was taken to [facility] for initial evaluation and in the emergency room was noted to be unresponsive with extensor posturing. He was intubated and placed on nicardipine drip for hypertension. No seizure activity reported. 08/23: Patient remains intubated and sedated this morning. 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 He is withdrawing with the RUE to noxious stimuli with questionable extension of both feet, but no response with the LUE per Nursing. He is maintaining his SBP without the nicardipine drip. Nursing also reports that temp has been up to 101.3 degrees. 08/24: Patient is intubated and sedated. Nursing reports that he is having neurogenic temperatures. Yesterday morning the patient had a CTA which demonstrated an aneurysm. That afternoon the patient went for coiling and had an increase in his ICP into the 60s. He immediately went for a CT scan and was given mannitol and 3% sodium with improvement in his ICP. He went again in the evening for another CTA. Nursing reports that the patient is not responding to any noxious stimuli. His ICP had just been checked and was 11. 08/25: Patient is intubated and on max sedation. Nursing reports that when his sedation was weaned down earlier he became extremely agitated, his BP went up and his ICP reached 20. His propofol was maxed and his ICP started coming down. He was also given labetalol for his BP. He did withdraw the BLE to noxious stimuli but did nothing with the BUE for Nursing and had a cough reflex. Nursing stated that in report she was told the patient withdrew all extremities to noxious stimuli yesterday. During the night his temperature dropped to 94 and later spiked to 103. He went for a repeat CTA yesterday afternoon w/o any residual aneurysm seen. He did have mild vasospasms in the right M1 segment and right A1 segment. His CXR today demonstrated left-sided infiltrates. 08/27: Patient sedated on Diprivan and fentanyl drips. Versed on hold. Patient opening eyes or following commands. Ventriculostomy at 5 cm a water ICP R8. Pupils are 2 mm bilaterally. Patient is intubated on a vent setting. 08/28: Patient sedated on Diprivan and fentanyl drips. Not opening eyes or following commands. Ventriculostomy at 5 cm water bloody CSF drainage. ICP 4. 08/29: Patient remains sedated. Nursing reports that he is having sustained elevated ICPs up to 25 and this morning was given rocuronium due to his ICP. The ICP did come down to 17 when seen. The patient did have repeat imaging this morning which demonstrated mild vasospasm but was improving otherwise. He is on Nimotop for ICP control and a Levophed drip for blood pressure control. Due to a sodium of 156 this morning the 3% saline is being held. 08/30: Patient remains sedated due to agitation if weaned down. Nursing reports that his ICP was 4 this morning prior to being seen. 08/31: Patient remains critical, intubated & sedated. The [employer] reports that the patient's ICP spiked in the 50s earlier after Respiratory Therapy made a vent change. He was given a bolus of 23% saline and his ICP came back down and was running between 4 and 5. (Boogie Lawler) System Review Comments Unable to obtain ROS due to patient's mental status, sedation & intubation. ( Boogie Lawler) Exam Results Vital Signs Date Time Temp Pulse Resp B/P Pulse Ox O2 Delivery O2 Flow Rate FiO2 08/31/16 08:28 100 40 08/31/16 08:00 98.9 81 20 158/91 08/31/16 07:00 Mechanical Ventilator Intake and Output 08/30/16 08/30/16 08/31/16 08:00 16:00 00:00 Intake Total 2936 ml 2030 ml Output Total 1500 ml 2657 ml Balance 1436 ml -627 ml (Boogie Lawler) Physical Examination General: Patient intubated & sedated. HEENT: Normocephalic, atraumatic. PERRL 2 mm bilaterally but minimally reactive. Orally intubated, OGT. Ventriculostomy insertion site w/o any evident drainage, erythema or streaking. Respiratory: CTAB w/o W/R/R, equal excursion, non-laboured, orally intubated and mechanically intubated. Cardiovascular: S1S2 w/RRR w/o M/G/R, radial & pedal pulses 2+ bilaterally, cap refill < 2 sec. Monitor is SR w/o any ectopy noted. Gastrointestinal: Abdomen soft, bowel sounds not appreciated, OGT clamped. Integumentary: No cyanosis or erythema. SCD bilaterally. Musculoskeletal: Extremities normal, no evident deformity or clubbing. Neuro: Patient remains intubated & sedated, GCS 3T. Unable to assess motor strength/response or sensation. Ventriculostomy drain at 5 cm of water w/ICP 4 when seen, bloody drainage in system. PERRL 2 mm with minimal reaction bilaterally. On Nimotop for ICP control. (Boogie Lawler) Lab, Micro, Other Results Allergies Coded Allergies Type Severity Reaction Last Updated Verified No Known Allergies 08/23/16 No Recent Impressions Chest X-Ray 08/30/16 0600 Signed Impressions: Service Date/Time: Tuesday, August 30, 2016 08:36 - CONCLUSION: Persistent bilateral airspace disease without significant improvement. Stable position of support devices. Axel Catalan MD Chest X-Ray 08/29/16 0600 Signed Impressions: Service Date/Time: Monday, August 29, 2016 03:19 - CONCLUSION: Worsening parenchymal process on the left. Jhonny Briceño MD Head CTA 08/29/16 0000 Signed Impressions: Service Date/Time: Monday, August 29, 2016 07:18 - CONCLUSION: 1. Stable CTA examination status post right P-comm aneurysm coiling with no definite residual aneurysm, as above. 2. Stable mild vasospasm of the right M1 and A1 segments. 3. Stable probable mild basilar vasospasm. 4. Otherwise, patent intracranial circulation with no interval change. Vipin Gibbs MD Head CT 08/29/16 0000 Signed Impressions: Service Date/Time: Monday, August 29, 2016 07:18 - CONCLUSION: 1. Status post left frontal ventriculostomy and right P-comm aneurysm coiling with improving intra-axial, subarachnoid, and intraventricular blood products. Decreasing ventricular size with slightly improved subfalcine herniation. No intercurrent hemorrhage. Vipin Gibbs MD //////// 06:00 18:00 06:00 18:00 06:00 18:00 Intake Total 5204 ml 1875 ml 2396 ml 2936 ml 3580 ml Output Total 3334 ml 2275 ml 3085 ml 1500 ml 5078 ml Balance 1870 ml -400 ml -689 ml 1436 ml -1498 ml Intake IV Total 3884 ml 1617 ml 1751 ml 2551 ml 3012 ml Tube Feeding 700 ml 158 ml 545 ml 385 ml 448 ml Tube Irrigant 120 ml Other 620 ml 100 ml 100 ml Output Urine Total 3200 ml 2275 ml 3000 ml 1425 ml 3875 ml Stool Total 1100 ml Drainage Total 134 ml 85 ml 75 ml 103 ml # Bowel Movements 0 0 0 3 Laboratory Tests Test 08/28/16 08/29/16 08/29/16 08/29/16 12:28 03:22 04:28 10:25 Sodium Level 157 MEQ/L 156 MEQ/L White Blood Count 6.9 TH/MM3 Red Blood Count 4.53 MIL/MM3 Hemoglobin 12.6 GM/DL Hematocrit 38.1 % Mean Corpuscular Volume 84.2 FL Mean Corpuscular Hemoglobin 27.7 PG Mean Corpuscular Hemoglobin 32.9 % Concent Red Cell Distribution Width 15.3 % Platelet Count 259 TH/MM3 Mean Platelet Volume 7.8 FL Neutrophils (%) (Auto) 72.7 % Lymphocytes (%) (Auto) 13.7 % Monocytes (%) (Auto) 7.0 % Eosinophils (%) (Auto) 6.2 % Basophils (%) (Auto) 0.4 % Neutrophils # (Auto) 5.1 TH/MM3 Lymphocytes # (Auto) 0.9 TH/MM3 Monocytes # (Auto) 0.5 TH/MM3 Eosinophils # (Auto) 0.4 TH/MM3 Basophils # (Auto) 0.0 TH/MM3 CBC Comment AUTO DIFF Differential Total Cells 100 Counted Neutrophils % (Manual) 68 % Band Neutrophils % 5 % Lymphocytes % 13 % Monocytes % 6 % Eosinophils % 7 % Neutrophils # (Manual) 5.1 TH/MM3 Myelocytes 1 % Differential Comment FINAL DIFF MANUAL Atypical Lymphocytes % Platelet Estimate NORMAL Platelet Morphology Comment NORMAL Red Cell Morphology Comment NORMAL Potassium Level 4.1 MEQ/L Chloride Level 122 MEQ/L Carbon Dioxide Level 25.6 MEQ/L Anion Gap 8 MEQ/L Blood Urea Nitrogen 21 MG/DL Creatinine 0.48 MG/DL Estimat Glomerular Filtration 178 ML/MIN Rate Random Glucose 118 MG/DL Calcium Level 7.7 MG/DL Phosphorus Level 2.6 MG/DL Magnesium Level 2.1 MG/DL Total Bilirubin 0.4 MG/DL Aspartate Amino Transf 73 U/L (AST/SGOT) Alanine Aminotransferase 104 U/L (ALT/SGPT) Alkaline Phosphatase 84 U/L Total Protein 5.4 GM/DL Albumin 1.4 GM/DL Blood Gas Puncture Site [facility] Blood Gas Patient Temperature 98.6 98.6 Blood Gas HCO3 23 mmol/L 23 mmol/L Blood Gas Base Excess -1.0 mmol/L -0.8 mmol/L Blood Gas Oxygen Saturation 95 % 95 % Arterial Blood pH 7.41 7.45 Arterial Blood Partial 37 mmHg 33 mmHg Pressure CO2 Arterial Blood Partial 89 mmHg 85 mmHg Pressure O2 Arterial Blood Oxygen Content 17.8 Vol % 18.0 Vol % Arterial Blood 0.9 % 1.0 % Carboxyhemoglobin Arterial Blood Methemoglobin 0.9 % 0.8 % Blood Gas Hemoglobin 13.2 G/DL 13.4 G/DL Oxygen Delivery Device VENTILATOR VENT Blood Gas Ventilator Setting AC19/600/+8 Blood Gas Inspired Oxygen 45 % Test 08/29/16 08/29/16 08/29/16 08/30/16 12:27 19:40 20:01 02:35 Sodium Level 152 MEQ/L 150 MEQ/L 150 MEQ/L Vancomycin Level Trough 13.9 MCG/ML Blood Gas Puncture Site ART LINE Blood Gas Patient Temperature 98.6 Blood Gas HCO3 22 mmol/L Blood Gas Base Excess -2.1 mmol/L Blood Gas Oxygen Saturation 95 % Arterial Blood pH 7.40 Arterial Blood Partial 36 mmHg Pressure CO2 Arterial Blood Partial 88 mmHg Pressure O2 Arterial Blood Oxygen Content 18.7 Vol % Arterial Blood 1.0 % Carboxyhemoglobin Arterial Blood Methemoglobin 0.8 % Blood Gas Hemoglobin 14.0 G/DL Oxygen Delivery Device VENTILATOR Blood Gas Liter Flow L/M Blood Gas Ventilator Setting AC/20/650/PEEP 5 Blood Gas Inspired Oxygen 40 % Test 08/30/16 08/30/16 08/30/16 08/30/16 04:45 11:08 16:57 23:15 White Blood Count 10.5 TH/MM3 Red Blood Count 4.96 MIL/MM3 Hemoglobin 13.6 GM/DL Hematocrit 41.9 % Mean Corpuscular Volume 84.4 FL Mean Corpuscular Hemoglobin 27.5 PG Mean Corpuscular Hemoglobin 32.5 % Concent Red Cell Distribution Width 15.4 % Platelet Count 261 TH/MM3 Mean Platelet Volume 8.2 FL Neutrophils (%) (Auto) 81.4 % Lymphocytes (%) (Auto) 7.4 % Monocytes (%) (Auto) 7.3 % Eosinophils (%) (Auto) 3.5 % Basophils (%) (Auto) 0.4 % Neutrophils # (Auto) 8.5 TH/MM3 Lymphocytes # (Auto) 0.8 TH/MM3 Monocytes # (Auto) 0.8 TH/MM3 Eosinophils # (Auto) 0.4 TH/MM3 Basophils # (Auto) 0.0 TH/MM3 CBC Comment AUTO DIFF Differential Total Cells 100 Counted Neutrophils % (Manual) 56 % Band Neutrophils % 22 % Lymphocytes % 9 % Monocytes % 9 % Eosinophils % 3 % Neutrophils # (Manual) 8.3 TH/MM3 Metamyelocytes 1 % Differential Comment FINAL DIFF MANUAL Platelet Estimate NORMAL Platelet Morphology Comment NORMAL Red Cell Morphology Comment NORMAL Sodium Level 148 MEQ/L 151 MEQ/L 149 MEQ/L 148 MEQ/L Potassium Level 3.9 MEQ/L Chloride Level 117 MEQ/L Carbon Dioxide Level 20.2 MEQ/L Anion Gap 11 MEQ/L Blood Urea Nitrogen 18 MG/DL Creatinine 0.35 MG/DL Estimat Glomerular Filtration 257 ML/MIN Rate Random Glucose 112 MG/DL Calcium Level 8.1 MG/DL Magnesium Level 3.1 MG/DL Total Bilirubin 0.4 MG/DL Aspartate Amino Transf 74 U/L (AST/SGOT) Alanine Aminotransferase 118 U/L (ALT/SGPT) Alkaline Phosphatase 96 U/L Total Protein 6.1 GM/DL Albumin 1.5 GM/DL Test 08/31/16 08/31/16 08/31/16 04:06 06:33 08:30 Sodium Level 148 MEQ/L Blood Gas Puncture Site ART LINE DEEPA Blood Gas Patient Temperature 98.6 98.6 Blood Gas HCO3 22 mmol/L 22 mmol/L Blood Gas Base Excess -1.2 mmol/L -1.2 mmol/L Blood Gas Oxygen Saturation 96 % 95 % Arterial Blood pH 7.50 7.45 Arterial Blood Partial 28 mmHg 33 mmHg Pressure CO2 Arterial Blood Partial 111 mmHg 85 mmHg Pressure O2 Arterial Blood Oxygen Content 18.3 Vol % 17.7 Vol % Arterial Blood 1.3 % 1.1 % Carboxyhemoglobin Arterial Blood Methemoglobin 0.8 % 0.7 % Blood Gas Hemoglobin 13.4 G/DL 13.2 G/DL Oxygen Delivery Device VENTILATOR VENT Blood Gas Ventilator Setting AC/22/650/PEEP5 AC/20/650/5/40 Blood Gas Inspired Oxygen 40 % 40 % Vital Signs Date Time Temp Pulse Resp B/P Pulse Ox O2 Delivery O2 Flow Rate FiO2 08/31/16 08:28 100 40 08/31/16 08:26 100 40 08/31/16 08:00 98.9 81 20 99 158/91 08/31/16 08:00 40 08/31/16 07:00 100 Mechanical Ventilator 40 08/31/16 06:45 100 40 08/31/16 06:00 77 08/31/16 04:18 98 40 08/31/16 04:00 71 08/31/16 04:00 40 08/31/16 04:00 99.3 71 22 180/88 98 08/31/16 02:00 87 08/31/16 01:49 100 40 08/31/16 01:25 100 40 08/31/16 01:25 100 40 08/31/16 00:00 78 08/31/16 00:00 99.6 78 22 165/88 99 08/31/16 00:00 40 08/30/16 22:00 90 08/30/16 20:43 100 40 08/30/16 20:00 84 08/30/16 20:00 100.0 84 22 176/98 100 Arterial Line 08/30/16 20:00 40 08/30/16 19:00 100 Mechanical Ventilator 40 08/30/16 18:00 76 08/30/16 16:54 99 40 08/30/16 16:00 100.7 76 22 160/88 100 08/30/16 16:00 40 08/30/16 16:00 77 08/30/16 14:00 74 08/30/16 13:00 99 40 08/30/16 12:00 100 Mechanical Ventilator 40 08/30/16 12:00 78 08/30/16 12:00 78 08/30/16 12:00 99.8 78 22 167/94 98 08/30/16 12:00 40 08/30/16 10:00 68 08/30/16 08:04 100 40 08/30/16 08:00 99.9 76 22 178/109 100 08/30/16 08:00 76 08/30/16 08:00 40 08/30/16 07:58 99 40 08/30/16 06:00 78 08/30/16 04:36 98 40 08/30/16 04:00 78 08/30/16 04:00 45 08/30/16 04:00 100.0 79 22 181/94 98 08/30/16 02:00 83 08/30/16 00:17 96 40 08/30/16 00:00 97.8 78 22 172/86 96 175/105 08/30/16 00:00 45 08/30/16 00:00 78 08/29/16 22:00 79 08/29/16 21:00 45 08/29/16 20:06 98 40 08/29/16 20:00 98.5 82 20 194/101 98 08/29/16 20:00 78 08/29/16 20:00 45 08/29/16 19:00 98 Mechanical Ventilator 45 08/29/16 18:00 67 08/29/16 16:00 75 08/29/16 16:00 45 08/29/16 16:00 98.6 75 20 172/82 99 08/29/16 15:25 99 40 08/29/16 14:00 79 08/29/16 12:11 100 40 08/29/16 12:00 45 08/29/16 12:00 100.2 78 22 167/76 100 08/29/16 12:00 78 08/29/16 10:42 98 40 08/29/16 10:00 80 08/29/16 10:00 98 40 08/29/16 09:22 97 40 08/29/16 08:00 45 08/29/16 08:00 80 08/29/16 08:00 99.3 74 19 164/76 100 08/29/16 07:44 100 100 08/29/16 07:00 98 Mechanical Ventilator 45 08/29/16 04:33 99 45 08/29/16 04:00 92 08/29/16 04:00 100.3 92 19 163/81 100 08/29/16 04:00 45 08/29/16 02:00 68 08/29/16 00:17 100 45 08/29/16 00:00 73 08/29/16 00:00 45 08/29/16 00:00 99.4 73 19 180/83 100 08/28/16 22:00 70 08/28/16 21:47 99 45 08/28/16 20:33 97 45 08/28/16 20:00 45 08/28/16 20:00 79 08/28/16 20:00 99.5 79 19 149/69 97 08/28/16 19:00 97 Mechanical Ventilator 45 08/28/16 18:00 90 08/28/16 17:00 94 45 08/28/16 16:00 45 08/28/16 16:00 98.9 72 19 172/77 100 08/28/16 16:00 78 08/28/16 14:00 90 08/28/16 13:55 100 45 08/28/16 13:55 100 45 08/28/16 12:00 45 08/28/16 12:00 98.4 68 19 162/77 100 08/28/16 12:00 68 08/28/16 10:00 77 08/28/16 09:41 95 45 (Boogie Lawler) Medical Decision Making Impression and Plan Impression: 1. Right temporal intracranial hemorrhage with interventricular extension 2. 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 Hypertension 4. Small outpouching proximal right anterior cerebral artery 1.5 mm max, small vessel loop vs small aneurysm Patient remains sedated due to agitation, no response to noxious stimuli CT & CTA demonstrates improving intra-axial, subarachnoid & intraventricular blood products, decreasing ventricular size w/improvement in subfalcine herniation with mild right M1 and A1 segment vasospasms and probable mild basilar vasospasm ICP spiked to 50s w/vent change but responded to 23% saline bolus, last ICP was 4 per Nursing Sodium 148 this morning Hypermagnesemia Plan: Maintain systolic blood pressure 110-140 range, nicardipine drip PRN for control of hypertension. Maintain sodium between 145 and 155 Continuing ventilatory support with sedation as needed for control of airway, respirations and agitation Monitor ICP & ventriculostomy catheter Nimodipine for vasospasm prophylaxis, consider increasing dose Ulcer prophylaxis Non- chemical DVT prophylaxis Critical care management per [employer] Plan is to do trach today (Boogie Lawler) Attending Statement I have personally seen and examined the patient on 08/31/16. Pertinent documentation and study results have been reviewed by the undersigned. I have personally developed the treatment plan and performed medical decision making. The ventriculostomy is not functioning this evening. Prior plans have been to begin catheter wean. Patient's neurologic exam remains stable. Discussed with nursing staff. Plan follow-up CT scan head (Speedy Robbins MD) Boogie Lawler Aug 31, 2016 09:21 Speedy Robbins MD Aug 31, 2016 23:03
[2016-08-31] MEDS: AZITHROMYCIN INJ 500 MG in SODIUM CHLOR 0.9% 250 ML INJ 250 ML IV SCH (10:04)
--- NOTE | 2016-08-31 10:50 | HHI.CCPN ---
Subjective Remarks/Hospital Course 60 year old male who presents to the [facility] in transfer from [facility] after being diagnosed with a subarachnoid hemorrhage with intraventricular hemorrhage extension. The patient was intubated at that facility when he became unresponsive. The patient was noted to be tachycardic with a heart rate in the 130s, blood pressure initially 220/120. According to the record, the patient had a history of recently standing up after tying his shoes and having a headache associated with neck pain. He had been being seen by a local chiropractor and been treating the pain with tramadol, ibuprofen, and Flexeril. This evening he developed a decreased level of consciousness and was difficult to awaken according to his . She was concerned that he may have taken some extra pain medication, therefore Narcan was given in 3 separate doses at that facility, however the patient had no response. The patient was noted after intubation to have the subarachnoid hemorrhage and was transferred to this facility for higher level of care. The patient was placed on propofol for sedation on the ventilator. The patient was started on a Cardene drip. EVD was emergently placed by neurosurgeon. 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 He immediately went for a CT scan and was given mannitol and 3% sodium with improvement in his ICP. Repeat CT was essentially unchanged 08/24/16: Today patient is sedated with Versed and propofol. Flaccid on all 4 extremities no withdrawal to pain. Pupils are equal sluggishly reactive positive corneal positive cough. Unable to to TCD. Clinical suspicion of vasospasm high. Will repeat CT angiogram stat. Discussed with Dr. Andrez Marcelo and Dr. Robbins 08/25/16: Repeat CT angiogram of the head did not show any significant vasospasm yesterday. Spiking fever overnight white count increased to 20.2 from 12.3. CXR developing left infiltrate. Very slight withdrawal of all 4 extremities to deep pain 08/26: Continues to have high FiO2 requirement Now Fio2 95% and PEEP 10. WBC 21, 000. Neuro exam unchanged. Unable to get TCD window, will cancel. CXR bilateral infiltrates, L >R 08/27: Remains unresponsive, stat EEG ordered to rule out subclinical seizure 08/28: Episode of high ICPs last night with vent setting change and retention of CO2 08/29: High ICP up to 27 today, responded to Versed bolus and infusion started. CTA ordered STAT-mild stable vasospasm. Optimized on hyperosmolar therapy. 08/30: Intermittent ICP spike, received 23% saline bolus 1. Otherwise neurologically unchanged. Continues to be heavily sedated for ICP control. Sodium 151. We'll restart 3% saline 08/31: Remains heavily sedated for glycemic control. Last 24 hours ICP had been fairly well controlled except one episode but spike for approximately 15 minutes when the respiratory rate was reduced. Sodium 148 have increased 3% saline to 50 mL per hour, keep sodium 150-155. No sedation vacation per Dr. Robbins. Plan for trach today Objective Vital Signs Date Time Temp Pulse Resp B/P Pulse Ox O2 Delivery O2 Flow Rate FiO2 08/31/16 10:00 81 08/31/16 08:28 100 40 08/31/16 08:00 98.9 20 158/91 08/31/16 07:00 Mechanical Ventilator Intake and Output 08/30/16 08/30/16 08/31/16 08:00 16:00 00:00 Intake Total 2936 ml 2030 ml Output Total 1500 ml 2657 ml Balance 1436 ml -627 ml Result Diagram: 08/30/16 0445 08/31/16 0900 Other Results Laboratory Tests Test 08/31/16 08/31/16 06:33 08:30 Blood Gas Puncture Site ART LINE DEEPA Blood Gas Patient Temperature 98.6 98.6 Blood Gas HCO3 22 mmol/L 22 mmol/L (22-26) (22-26) Blood Gas Base Excess -1.2 mmol/L -1.2 mmol/L (-2-2) (-2-2) Blood Gas Oxygen Saturation 96 % (90-100) 95 % (90-100) Arterial Blood pH 7.50 7.45 (7.380-7.420) (7.380-7.420) Arterial Blood Partial 28 mmHg (38-42) 33 mmHg (38-42) Pressure CO2 Arterial Blood Partial 111 mmHg 85 mmHg Pressure O2 (61-120) (61-120) Arterial Blood Oxygen Content 18.3 Vol % 17.7 Vol % (12.0-20.0) (12.0-20.0) Arterial Blood 1.3 % (0-4) 1.1 % (0-4) Carboxyhemoglobin Arterial Blood Methemoglobin 0.8 % (0-2) 0.7 % (0-2) Blood Gas Hemoglobin 13.4 G/DL 13.2 G/DL (12.0-16.0) (12.0-16.0) Oxygen Delivery Device VENTILATOR VENT Blood Gas Ventilator Setting AC/22/650/PEEP5 AC/20/650/5/40 Blood Gas Inspired Oxygen 40 % 40 % Objective Remarks Propofol 50 Versed gtt Fentanyl 3% saline Levophed GENERAL: Well-nourished, well-developed patient. Sedated and intubated SKIN: Warm and dry. HEAD: Normocephalic. EVD in place ICP now 10-14, intermittently >20 EYES: No scleral icterus. No injection or drainage. NECK: Supple, trachea midline. No JVD or lymphadenopathy. CARDIOVASCULAR: Regular rate and rhythm without murmurs, gallops, or rubs. RESPIRATORY: Breath sounds equal bilaterally. Coarse breath sounds and rhonchi at bilateral bases, predominantly L base GASTROINTESTINAL: Abdomen soft, non-tender, nondistended. MUSCULOSKELETAL: No cyanosis, or edema. BACK: Nontender without obvious deformity. No CVA tenderness. EXTREMITIES: No clubbing cyanosis or edema. Extends on all 4 extremities painful stimuli NEURO: SHEY 3mm ? sluggish reaction, very slight withdraws to pain. heavy sedation limits exam A/P Assessment and Plan Neuro: Aneurysmal Subarachnoid hemorrhage Intracranial hypertension Acute encephalopathy Obstructive hydrocephalus - Stat CTA to rule out Vasospasm 08/29 showed stable mild vasospasm, repeat CTA per Dr. Robbins - Ct head 08/29: Improving intra-axial subarachnoid and intraventricular hemorrhage, improving ventricular size - Marshall and Galeas grade 5, Modified Andersen grade 4 - S/P supraclinoid ICA aneurysm coil embolization. - Target SBP 160-180 to prevent vasospasm (aneurysm is well secured). Okd by Dr. Robbins - Nimodipine and Pravachol - Keep Mag>2 na >145 - EEG 6/7-diffuse encephalopathy, EEG 6/10 severe encephalopathy, burst suppression pattern - Continue Keppra - EVD, Management per neurosurgery. - Continue 3%. Use 23% saline and NM paralysis PRN for ICP control - Propofol Versed and Fentanyl for sedation and ventilator synchrony - No sedation vacation until cleared by Dr. Robbins RESP Acute hypoxemic respiratory failure ARDS Aspiration pneumonia - Intubated for an airway protection, now with severe hypoxemia ARDS - Low tidal volume ventilation with PEEP 8 - Vent bundle. DuoNeb q6 and PRN - No SBT's until neurologically stable and hypoxia improved - Zosyn started 08/25, along with Vanc. Azithromycin for atypical coverage. DCd vanc 08/29 - Need trach, plan for today CVS Hypertension Dyslipidemia - Levophed to keep SBP 160-180 - SBP [id number] to prevent vasospasm - Nimotop decreased to 30 due to significant hypotension mg po Q4 - Pravachol for vasospasm prevention as well GI: - Tube feeds with Jevity - IV Protonix - Bowel regimen - Having BM /Endo: - Electrolyte replacement per protocol - IV hydration - Monitor renal function closely - Strict I's and O's ID: Aspiration pneumonia Severe sepsis - Beta strep in sputum 08/25, repeat panculture-follow up - Zosyn 4.5 g IV every 6 hours, vancomycin DCd 08/29. azithromycin DVT GI prophylaxis - Teds SCDs - Subcutaneous heparin - Pepcid Critical Care: The total critical care time was 45 minutes. Time to perform other separately billable procedures was not included in the critical care time. Harish Giles MD Aug 31, 2016 10:50
[2016-08-31] MEDS ORDERED: ROCURONIUM INJ 50 MG/5 ML VIAL IV ONE (11:30)
--- NOTE | 2016-08-31 11:30 | PD.CONS ---
HPI History of Present Illness This is a 60 year old male who presented to this facility on 08/23/16 as a transfer from [facility], after being diagnosed with a subarachnoid hemorrhage with intraventricular hemorrhage extension. According to the records , he had been having a headache with associated neck pain and had been seeing a local chiropractor and taking tramadol, ibuprofen,and flexeril for this. He was brought to the ER in [facility], when he developed decreased level of consciousness. He was intubated at that facility. 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 He then had successful coil embolization of approx 4mm supraclinoid ICA aneurysm on 08/23/16. On his way back , had increased ICP and he was given mannitol and 3% sodium. Rpt. CT was unchanged. NSx is following. He did have increased ICP wit vent changes, but responded to 3% salline bolus and is now stable. He is receiving vasospasm prophylaxis. He remains sedated on the ventilator in the surgical ICU being treated for the above, as well as acute encephalopathy, obstructive hydrocephalus, acute hypoxemic respiratory failure, ARDS, aspiration pneumonia, hypertension, dyslipidemia, severe sepsis, and electrolyte abnormalities. He has an oral gastric tube in place and is receiving Jevity 1.5 at 65cc/hr, as recommended by the switchboard manager. The plan is for tracheostomy placement today. GI has been consulted for PEG tube placement. His , Vidhya Shannon [phone]) is at the bedside and discussed with her EGD with PEG tube placement- procedure, risks, benefits and she would like to proceed. (Jaimie Santos) [facility] Past Medical History Recent headaches/neck pain denies any known medical problems Past Surgical History denies (Jaimie Santos) Coded Allergies: No Known Allergies (Unverified , 08/23/16) Medications Allergies Coded Allergies Type Severity Reaction Last Updated Verified No Known Allergies 08/23/16 No Had been taking Tramadol, Flexeril, and Ibuprofen prior to hospitalization Family History Per , dad had unknown cancer Mother had CVA at old age Social History denies tobacco, etoh, illicit drug use (Jaimie Santos) Review of Systems ROS Unable to obtain (Jaimie Santos) GI Exam Vitals I&O Vital Signs Date Time Temp Pulse Resp B/P Pulse Ox O2 Delivery O2 Flow Rate FiO2 08/31/16 10:00 81 08/31/16 08:28 100 40 08/31/16 08:26 100 40 08/31/16 08:00 83 08/31/16 08:00 98.9 81 20 99 158/91 08/31/16 08:00 40 08/31/16 07:00 100 Mechanical Ventilator 40 08/31/16 06:45 100 40 08/31/16 06:00 77 08/31/16 04:18 98 40 08/31/16 04:00 71 08/31/16 04:00 40 08/31/16 04:00 99.3 71 22 180/88 98 08/31/16 02:00 87 08/31/16 01:49 100 40 08/31/16 01:25 100 40 08/31/16 01:25 100 40 08/31/16 00:00 78 08/31/16 00:00 99.6 78 22 165/88 99 08/31/16 00:00 40 08/30/16 22:00 90 08/30/16 20:43 100 40 08/30/16 20:00 84 08/30/16 20:00 100.0 84 22 176/98 100 Arterial Line 08/30/16 20:00 40 08/30/16 19:00 100 Mechanical Ventilator 40 08/30/16 18:00 76 08/30/16 16:54 99 40 08/30/16 16:00 100.7 76 22 160/88 100 08/30/16 16:00 40 08/30/16 16:00 77 08/30/16 14:00 74 08/30/16 13:00 99 40 08/30/16 12:00 100 Mechanical Ventilator 40 08/30/16 12:00 78 08/30/16 12:00 78 08/30/16 12:00 99.8 78 22 167/94 98 08/30/16 12:00 40 I/O 08/30/16 08/30/16 08/30/16 08/31/16 08/31/16 08/31/16 07:00 15:00 23:00 07:00 15:00 23:00 Intake Total 2936 ml 2030 ml 1550 ml Output Total 1425 ml 2732 ml 2421 ml Balance 1511 ml -702 ml -871 ml Intake IV Total 2551 ml 1462 ml 1550 ml Tube Feeding 385 ml 448 ml 0 ml Tube Irrigant 120 ml Output Urine Total 1425 ml 1600 ml 2275 ml Stool Total 1000 ml 100 ml Drainage Total 132 ml 46 ml # Bowel Movements 3 Imaging Last Impressions Chest X-Ray 08/30/16599 Signed Impressions: Service Date/Time: Tuesday, August 30, 2016 08:36 - CONCLUSION: Persistent bilateral airspace disease without significant improvement. Stable position of support devices. Axel Catalan MD Head CTA 08/29/16 Signed Impressions: Service Date/Time: Monday, August 29, 2016 07:18 - CONCLUSION: 1. Stable CTA examination status post right P-comm aneurysm coiling with no definite residual aneurysm, as above. 2. Stable mild vasospasm of the right M1 and A1 segments. 3. Stable probable mild basilar vasospasm. 4. Otherwise, patent intracranial circulation with no interval change. Vipin Gibbs MD Head CT 08/29/16 Signed Impressions: Service Date/Time: Monday, August 29, 2016 07:18 - CONCLUSION: 1. Status post left frontal ventriculostomy and right P-comm aneurysm coiling with improving intra-axial, subarachnoid, and intraventricular blood products. Decreasing ventricular size with slightly improved subfalcine herniation. No intercurrent hemorrhage. Vipin Gibbs MD Transcranial Doppler Study Complete 08/24/16599 Signed Impressions: Service Date/Time: Wednesday, August 24, 2016 07:16 - CONCLUSION: There is no acoustical window for transcranial Doppler. Barry Marcelo MD FACR Neck CTA 08/23/16 Signed Impressions: Service Date/Time: Tuesday, August 23, 2016 07:21 - CONCLUSION: 1. Negative CTA of the carotids. CT angiography of the brain is pending. Ozzy Marcelo MD Cerebral Arteriogram 08/23/16 Signed Impressions: Service Date/Time: Tuesday, August 23, 2016 14:18 - CONCLUSION: 1. Successful coil embolization of a 4.5 mm saccular aneurysm involving the supraclinoid ICA on the right. 2. No aneurysm seen involving the right anterior cerebral artery. Chai Yuan Jr., MD Laboratory Test 08/30/16 08/30/16 08/30/16 08/31/16 11:08 16:57 23:15 04:06 Sodium Level 151 MEQ/L 149 MEQ/L 148 MEQ/L 148 MEQ/L Test 08/31/16 08/31/16 08/31/16 06:33 08:30 09:00 Blood Gas Puncture Site ART LINE DEEPA Blood Gas Patient Temperature 98.6 98.6 Blood Gas HCO3 22 mmol/L 22 mmol/L Blood Gas Base Excess -1.2 mmol/L -1.2 mmol/L Blood Gas Oxygen Saturation 96 % 95 % Arterial Blood pH 7.50 7.45 Arterial Blood Partial 28 mmHg 33 mmHg Pressure CO2 Arterial Blood Partial 111 mmHg 85 mmHg Pressure O2 Arterial Blood Oxygen Content 18.3 Vol % 17.7 Vol % Arterial Blood 1.3 % 1.1 % Carboxyhemoglobin Arterial Blood Methemoglobin 0.8 % 0.7 % Blood Gas Hemoglobin 13.4 G/DL 13.2 G/DL Oxygen Delivery Device VENTILATOR VENT Blood Gas Ventilator Setting AC/22/650/PEEP5 AC/20/650/5/40 Blood Gas Inspired Oxygen 40 % 40 % Sodium Level 148 MEQ/L Date/Time Procedure Status Source Growth 08/31/16 04:10 Aerobic Blood Culture Received Blood Peripheral Pending 08/31/16 04:10 Anaerobic Blood Culture Received Blood Peripheral Pending 08/30/16 17:05 Gram Stain - Final Resulted Sputum Endotracheal 08/30/16 17:05 Sputum Culture Resulted Sputum Endotracheal Pending 08/30/16 16:57 Urine Culture Received Urine Catheterized Urine Pending Physical Examination HEENT: ICP to left CHEST: OETT to vent, resp. even/unlabored, clear CARDIAC: RRR, on vasopressors ABDOMEN: Soft, nondistended, nontender; no hepatosplenomegaly; bowel sounds are present in all four quadrants. EXTREMITIES: Generalized edema. SKIN: Normal; no rash; no jaundice. BUSINESS TECHNOLOGY ARCHITECT: Sedated on ventilator (Jaimie Santos) Assessment and Plan Plan ASSESSMENT: - Dysphagia, Fen. Currently hospitalized for aneurysmal SAH, obstructive hydrocephalus, acute encephalopathy, respiratory failure, vent dependent, getting tracheostomy today. GI consulted for PEG. Receiving Jevity 1.5 at 65cc/hr, as recommended by the switchboard manager. His , Vidhya Shannon ([phone]) is at the bedside and discussed with her EGD with PEG tube placement- procedure, risks, benefits and she would like to proceed. - Aneurysmal SAH, Obstructive hydrocephalus, acute encephalopathy. S/P Coil Embolization 08/23/16. ICP in place, has had some issues with increased ICP although this is current stable. Per NSx. - Acute respiratory failure, aspiration pneumonia. ARDS. Plan for trach today. On Zosyn, Azithromycin, nebs. - Sepsis. Sputum beta strep not group a. Zosyn, Azithromycin. - Hypertension, dyslipidemia, and electrolyte abnormalities. Per [facility] PLAN: - Plan for egd with peg tube placement in am - Obtain consents (Spoke to family and she would like to proceed) - NPO after MN - Pt is on Zosyn/Azithromycin - Report Analyst recommends Jevity 1.5 at 65cc/hr - Further recommendations to follow based on results of above - Pt seen and examined by Dr. Lynne and myself and this note is written on his behalf (Jaimie Santos) Physician Comments Seen and examined with ENGINEERING TEST SPECIALIST, EGD/Peg tomorrow. Discussed with spouse at the bedside. Hold TF after midnight. On antibiotics. Will follow, thank you ( Grecia Lynne MD) Jaimie Santos Aug 31, 2016 11:30 Grecia Lynne MD Aug 31, 2016 13:22
[2016-08-31] MEDS ORDERED: SODIUM CHLORIDE 23.4% INJ 240 MEQ in SYRINGE/BAG 1 EA IV STA (16:30)
--- NOTE | 2016-08-31 16:50 | PD.PROCEDR ---
Procedure Note Procedure Procedure: Percutaneous Dilation Tracheostomy Tube Placement Diagnosis/Indication: SAH with severe encephalopathy, expected prolonged ICU and Rehab course with lack of airway protection Anesthesia: Propofol IV, fentanyl IV gtt Neuromuscular Blockade: Rocuronium IV Description of the Procedure: The patient was sedated and paralyzed. The patient was positioned in the supine position with a towel roll, neck was slightly extended. Landmarks were palpated and the anatomy of the anterior neck was deemed normal. A time out procedure was performed. The patient was placed on a volume control mode of ventilation, on 100% FiO2. The patient was prepped and draped sterilely. A bronchoscope was inserted by Dr. Casey into the endotracheal tube for endoscopic guidance (see separate bronchoscopy procedure note). 1% lidocaine with 1:100k epinephrine was injected subcutaneously in the midline neck using a 21g needle for local anesthesia. An approximately 1.5 cm skin incision was made using a #15 blade. Under direct bronchoscopic guidance, the cuff of the endotracheal tube was deflated and the endotracheal tube was retracted to a level above the level of the skin incision. At this point, a 15g introducer needle/catheter was advanced midline under negative aspiration with saline filled syringe until bubbles were seen and the needle and catheter were visualized in the lumen of the trachea. The needle was withdrawn and J-shaped guidewire was advanced through the catheter into the lumen of the trachea, under direct bronchoscopic visualization. Using a modified Seldinger technique , a 14 Fr, 4.5 cm introducer dilator was used, followed by a Blue Rhino Percutaneous Tracheostomy Dilator, and finally a 28 Fr tracheostomy loading catheter with 8.0 Cuffed Shiley tracheostomy tube. The loading catheter and guidewire were removed and the tracheostomy tube was confirmed in the lumen of the trachea with bronchoscopy, end-tidal CO2, and returning volumes on the ventilator. The tracheostomy was sewn to the skin with interrupted 2.0 Prolene sutures, and a tracheostomy tie was applied to the skin. There were no immediate complications. There was minimal EBL. A chest x-ray has been ordered. Harish Giles MD Aug 31, 2016 16:50
--- NOTE | 2016-08-31 16:56 | PD.PROCEDR ---
Procedure Note Procedure Procedure fiberoptic bronchoscopy for bronchoscopy guided percutaneous tracheostomy Operators: Dr. Burke Casey for fiberoptic bronchoscopy/ Dr. Giles/ Fadi for percutaneous tracheostomy Informed consent obtained from family and documented in chart Per Dr. Giles Procedure: Patient was placed on 100% oxygen via ET tube/mechanical ventilator. After ensuring adequate sedation/analgesia/ neuromuscular blockade, fiberoptic bronchoscope was inserted via adapter on ET tube and advanced into the trachea upto the arian. Following this bronchoscope was withdrawn back to the tip of ET tube. After deflating cuff of ET tube it was withdrawn back to the 18 cm denise. Subsequent steps of percutaneous tracheostomy were directly visualized on videomonitor via bronchoscopy including insertion of introducer catheter followed by guidewire and then insertion of tracheal dilator followed by insertion of tracheostomy tube following which bronchoscope was withdrawn out of the ET tube and was inserted down the percutaneous tracheostomy and correct placement was confirmed by visualizing tracheal rings following which bronchoscope was withdrawn. Inner cannula was placed by [] and after inflating cuff, patient was connected to mechanical ventilation via tracheostomy tube. Bronchoscope was reinserted via ET tube and minimal amount of secretions were suctioned out from above cuff of tracheostomy tube following which bronchoscope and ET tube were withdrawn out. Patient tolerated the procedure well with no immediate complications noted. Post procedure CXR ordered and was pending. Will f/u when available. Burke Casey MD Aug 31, 2016 16:56
--- NOTE | 2016-08-31 18:01 | RADRPT ---
EXAM DATE/TIME: 08/31/2016 16:51 [facility] COMPARISON: CHEST SINGLE AP, August 30, 2016, 8:36. INDICATIONS : Post tracheostomy placement MEDICAL HISTORY : Hypertension. SURGICAL HISTORY : None. ENCOUNTER: Initial ACUITY: 1 day PAIN SCORE: Non-responsive. LOCATION: Bilateral chest FINDINGS: A tracheostomy tube has its tip 3 cm above the arian. A nasogastric tube has its tip below the diap hragm. A right subclavian central line has its tip in the superior vena cava. Scattered infiltrates are noted bilaterally and are unchanged compared to the previous examination. The heart is stable. CONCLUSION: 1. Persistent pulmonary infiltrates bilaterally. 2. Multiple tubes and lines are stable. 3. Tracheostomy tube in good position 3 cm above the arian. Ralf Chester MD on August 31, 2016 at 17:56 Board Certified Radiologist. This report was verified electronically.
[2016-08-31 19:48] LABS: ANION GAP 12 MEQ/L (5-15); AST (GOT) 51 U/L (15-37); BICARBONATE 20.3 MEQ/L (21.0-32.0); BLOOD UREA NITROGEN 15 MG/DL (7-18); CHLORIDE 117 MEQ/L (98-107); GLOMERULAR FILTRATION RATE 208 ML/MIN (>89); POTASSIUM 3.8 MEQ/L (3.5-5.1); SODIUM (NA) 149 MEQ/L (136-145)
[2016-08-31 19:49] LABS: ALT (GPT) 91 U/L (12-78)
[2016-08-31 19:51] LABS: ALKALINE PHOSPHATASE 79 U/L (45-117); TOTAL BILIRUBIN ADULT 0.3 MG/DL (0.2-1.0)
[2016-08-31] MEDS: PRAVASTATIN SOD 40 MG TAB PO SCH (22:12)
[2016-09-01] VITALS (19 sets, daily range): BP systolic 164–180; BP diastolic 88–94; PULSE 72–89; RESP 18–20; TEMP 98.3–100.4; O2SAT 97–100
[2016-09-01] MEDS: PROPOFOL 1000 MG/100 ML INJ 100 ML IV SCH ×6 (01:19→22:54)
[2016-09-01] MEDS: fentaNYL 2,500 MCG/NS 250 ML IV SCH ×3 (01:19→17:59)
[2016-09-01] MEDS: niMODipine 30 MG CAP PO SCH ×6 (01:23→19:51)
[2016-09-01] MEDS: SODIUM CHLOR 0.9% 1000 ML INJ 1,000 ML IV SCH ×3 (01:43→19:52)
[2016-09-01] MEDS: 3% SALINE INJ 500 ML IV SCH ×2 (01:46→20:00)
[2016-09-01] MEDS: MIDAZOLAM 100 MG/NS 100 ML DRIP Premix IV SCH ×3 (02:08→17:59)
[2016-09-01] MEDS: PIPERACIL-TAZO 4.5 GM PREMIX 100 ML IV SCH ×4 (03:09→19:51)
[2016-09-01] MEDS: RESP: ALBUTEROL 2.5 MG/IPRATROPIUM 0.5 MG NEB (SCH) NEB ×4 (03:32→19:32)
[2016-09-01] MEDS: CHLORHEXIDINE GLUCONATE 2 % 1 PACK (2 CLOTHS) TOP SCH (04:00)
[2016-09-01 04:55] LABS: AUTOMATED NEUTROPHIL # 9.3 TH/MM3 (1.8-7.7); BASOPHIL % 0.2 % (0.0-2.0); EOSINOPHIL # 0.4 TH/MM3 (0-0.4); EOSINOPHIL % 3.2 % (0.0-4.0); HEMATOCRIT 38.6 % (39.0-51.0); LYMPH % 7.2 % (9.0-44.0); LYMPHOCYTE # 0.8 TH/MM3 (1.0-4.8); MEAN CELL VOLUME 83.2 FL (80.0-100.0); MEAN CORPUSCULAR HEMOGLOBIN 27.3 PG (27.0-34.0); MEAN CORPUSCULAR HGB CONC 32.8 % (32.0-36.0); MONO % 6.7 % (0.0-8.0); NEUT % 82.7 % (16.0-70.0); PLATELET COUNT 303 TH/MM3 (150-450); RED BLOOD COUNT 4.64 MIL/MM3 (4.50-5.90); RED CELL DISTRIBUTION WIDTH 14.7 % (11.6-17.2); WHITE BLOOD COUNT 11.3 TH/MM3 (4.0-11.0)
[2016-09-01 05:01] LABS: HEMO FLAGS AUTO DIFF
[2016-09-01 05:40] LABS: ALKALINE PHOSPHATASE 86 U/L (45-117); ALT (GPT) 87 U/L (12-78); ANION GAP 8 MEQ/L (5-15); AST (GOT) 52 U/L (15-37); BLOOD UREA NITROGEN 16 MG/DL (7-18); CHLORIDE 117 MEQ/L (98-107); GLOMERULAR FILTRATION RATE 214 ML/MIN (>89); POTASSIUM 3.9 MEQ/L (3.5-5.1); SODIUM (NA) 149 MEQ/L (136-145); TOTAL BILIRUBIN ADULT 0.4 MG/DL (0.2-1.0)
--- NOTE | 2016-09-01 06:19 | RADRPT ---
EXAM DATE/TIME: 09/01/2016 05:03 [facility] COMPARISON: CT BRAIN W/O CONTRAST, August 29, 2016, 7:18. INDICATIONS : Follow up hemorrhage. RADIATION DOSE: 62.50 CTDIvol (mGy) MEDICAL HISTORY : Aneurysm, intracranial. Hypertension. SURGICAL HISTORY : Aneursym coiling ENCOUNTER: Subsequent ACUITY: 2 weeks PAIN SCALE: Non-responsive LOCATION: cranial TECHNIQUE: Multiple contiguous axial images were obtained of the head. Using automated exposure control and adj ustment of the mA and/or kV according to patient size, radiation dose was kept as low as reasonably a chievable to obtain optimal diagnostic quality images. FINDINGS: The right temporal lobe hemorrhage has slightly different configuration, however no significant change in size. The intraventricular hemorrhage has improved and maximum thickness in the right later al horn hemorrhage measures 1.2 cm in transverse diameter, and measured 2.3 cm previously and the fou rth ventricle hemorrhage is no longer identified. Slight intraventricular hemorrhage in the left occi pital horn has not changed. Subfalcine herniation from right to left is present not significantly sandi nged by approximately 1.1 cm. There is diffuse cerebral edema bilaterally to a moderate degree. Left ventricular tube is present and not significantly changed with tip in the region of the foramen of Mu nro. The rest of the examination has not significantly changed. CONCLUSION: Intraventricular hemorrhage has improved otherwise no significant change in moderate cerebral edema b ilaterally, subfalcine herniation from right to left and right temporal lobe intraparenchymal hemorrh ageRod Briceño MD on September 01, 2016 at 6:09 Board Certified Radiologist. This report was verified electronically.
--- NOTE | 2016-09-01 06:31 | RADRPT ---
EXAM DATE/TIME: 09/01/2016 04:32 [facility] COMPARISON: CHEST SINGLE AP, August 31, 2016, 16:51. INDICATIONS : Respiratory disease. MEDICAL HISTORY : Hypertension. SURGICAL HISTORY : None. ENCOUNTER: Subsequent ACUITY: 1 week PAIN SCORE: Non-responsive. LOCATION: Bilateral chest FINDINGS: Tracheostomy tube is present in satisfactory position. NG tube is present with tip in the stomach. Ri ght subclavian line is present with tip overlapping the expected region of the SVC. There is worsenin g right perihilar parenchymal process and the left side appears not significantly changed. Left basil ar opacity is present may be due to a combination of consolidation and or pleural effusion. The rest of the examination has not significantly changed. CONCLUSION: Worsening pulmonary edema and left lung base opacity has not changed. Jhonny Briceño MD on September 01, 2016 at 6:28 Board Certified Radiologist. This report was verified electronically.
[2016-09-01] MEDS: SODIUM CHLORIDE 0.9% FLUSH 10 ML FLUSH SCH ×2 (07:26→19:52)
[2016-09-01] MEDS: levETIRAcetam 1000 MG INJ 100 ML IV SCH ×2 (08:49→19:51)
[2016-09-01] MEDS: NOREPINEPHRINE INJ 4 MG in SODIUM CHLOR 0.9% 250 ML INJ 250 ML IV SCH (08:49)
[2016-09-01] MEDS: LACTULOSE SYRUP 20 GM/30 ML CUP PO SCH ×4 (08:50→19:51)
[2016-09-01] MEDS: DOCUSATE SODIUM 50 MG/SENNA 8.6 MG TAB PO SCH ×2 (08:50→19:51)
[2016-09-01] MEDS: FAMOTIDINE 20 MG/2 ML VIAL IV PUSH SCH ×2 (08:50→19:51)
[2016-09-01 09:34] LABS: AUTOMATED NEUTROPHIL # 7.9 TH/MM3 (1.8-7.7); BASOPHIL % 0.4 % (0.0-2.0); EOSINOPHIL # 0.2 TH/MM3 (0-0.4); EOSINOPHIL % 2.5 % (0.0-4.0); HEMATOCRIT 37.2 % (39.0-51.0); LYMPH % 8.8 % (9.0-44.0); LYMPHOCYTE # 0.9 TH/MM3 (1.0-4.8); MEAN CELL VOLUME 82.9 FL (80.0-100.0); MEAN CORPUSCULAR HEMOGLOBIN 27.8 PG (27.0-34.0); MEAN CORPUSCULAR HGB CONC 33.6 % (32.0-36.0); MONO % 7.4 % (0.0-8.0); NEUT % 80.9 % (16.0-70.0); PLATELET COUNT 288 TH/MM3 (150-450); RED BLOOD COUNT 4.49 MIL/MM3 (4.50-5.90); WHITE BLOOD COUNT 9.7 TH/MM3 (4.0-11.0)
[2016-09-01 09:36] LABS: HEMO FLAGS AUTO DIFF
[2016-09-01 09:53] LABS: APTT (PATIENT) 38.9 SEC (24.3-30.1); INTERNATIONAL NORMALIZED RATIO 0.9 RATIO; PROTHROMBIN TIME - PATIENT 10.3 SEC (9.8-11.6)
[2016-09-01 09:59] LABS: FIBRINOGEN GREATER THAN 860 mg/dL (227-377)
[2016-09-01 10:10] LABS: BANDS 2 % (0-6); BASOPHILS 1 % (0-2); EOSINOPHILS 2 % (0-4); MYELOCYTES 1 % (0-0); PLATELET ESTIMATE SMEAR NORMAL (NORMAL); PLATELET MORPHOLOGY NORMAL (NORMAL); POLYS (SEG NEUTROPHILS) 79 % (16-70); SCAN/DIFF FINAL DIFF MANUAL; WBC DIFF SAMPLE 100
[2016-09-01] MEDS: AZITHROMYCIN INJ 500 MG in SODIUM CHLOR 0.9% 250 ML INJ 250 ML IV SCH (10:12)
[2016-09-01 10:14] LABS: METAMYELOCYTES 1 % (0-1); NEUTROPHIL # MANUAL DIFF 9.3 TH/MM3 (1.8-7.7); POLYS (SEG NEUTROPHILS) 81 % (16-70)
[2016-09-01 10:15] LABS: PLATELET ESTIMATE SMEAR NORMAL (NORMAL); PLATELET MORPHOLOGY NORMAL (NORMAL); SCAN/DIFF FINAL DIFF MANUAL
--- NOTE | 2016-09-01 11:04 | HHI.CCPN ---
Subjective Remarks/Hospital Course 60 year old male who presents to the [facility] in transfer from [facility] after being diagnosed with a subarachnoid hemorrhage with intraventricular hemorrhage extension. The patient was intubated at that facility when he became unresponsive. The patient was noted to be tachycardic with a heart rate in the 130s, blood pressure initially 220/120. According to the record, the patient had a history of recently standing up after tying his shoes and having a headache associated with neck pain. He had been being seen by a local chiropractor and been treating the pain with tramadol, ibuprofen, and Flexeril. This evening he developed a decreased level of consciousness and was difficult to awaken according to his . She was concerned that he may have taken some extra pain medication, therefore Narcan was given in 3 separate doses at that facility, however the patient had no response. The patient was noted after intubation to have the subarachnoid hemorrhage and was transferred to this facility for higher level of care. The patient was placed on propofol for sedation on the ventilator. The patient was started on a Cardene drip. EVD was emergently placed by neurosurgeon. 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 He immediately went for a CT scan and was given mannitol and 3% sodium with improvement in his ICP. Repeat CT was essentially unchanged 08/24/16: Today patient is sedated with Versed and propofol. Flaccid on all 4 extremities no withdrawal to pain. Pupils are equal sluggishly reactive positive corneal positive cough. Unable to to TCD. Clinical suspicion of vasospasm high. Will repeat CT angiogram stat. Discussed with Dr. Andrez Marcelo and Dr. Robbins 08/25/16: Repeat CT angiogram of the head did not show any significant vasospasm yesterday. Spiking fever overnight white count increased to 20.2 from 12.3. CXR developing left infiltrate. Very slight withdrawal of all 4 extremities to deep pain 08/26: Continues to have high FiO2 requirement Now Fio2 95% and PEEP 10. WBC 21, 000. Neuro exam unchanged. Unable to get TCD window, will cancel. CXR bilateral infiltrates, L >R 08/27: Remains unresponsive, stat EEG ordered to rule out subclinical seizure 08/28: Episode of high ICPs last night with vent setting change and retention of CO2 08/29: High ICP up to 27 today, responded to Versed bolus and infusion started. CTA ordered STAT-mild stable vasospasm. Optimized on hyperosmolar therapy. 08/30: Intermittent ICP spike, received 23% saline bolus 1. Otherwise neurologically unchanged. Continues to be heavily sedated for ICP control. Sodium 151. We'll restart 3% saline 08/31: Remains heavily sedated for ICP control. Last 24 hours ICP had been fairly well controlled except one episode but spike for approximately 15 minutes when the respiratory rate was reduced. Sodium 148 have increased 3% saline to 50 mL per hour, keep sodium 150-155. No sedation vacation per Dr. Robbins. Plan for trach today 09/01: Remains intubated heavily sedated, s/p trach yesterday. Oozing from the trach site noted, has stopped with Surgiseal placement. ICP 24 received 23% 1 with improvement. PEG planned for today. Objective Vital Signs Date Time Temp Pulse Resp B/P Pulse Ox O2 Delivery O2 Flow Rate FiO2 09/01/16 10:00 86 09/01/16 08:16 100 35 09/01/16 08:00 99.6 18 170/92 09/01/16 07:00 Mechanical Ventilator Intake and Output 08/31/16 08/31/16 09/01/16 08:00 16:00 00:00 Intake Total 1550 ml 2222 ml 1746 ml Output Total 2421 ml 2235 ml 1729 ml Balance -871 ml -13 ml 17 ml Result Diagram: 09/01/16 0920 09/01/16 0920 Other Results Microbiology Date/Time Procedure Status Source Growth 08/30/16 16:57 Urine Culture - Final Complete Urine Catheterized Urine NO GROWTH IN 48 HOURS. 08/30/16 17:05 Gram Stain - Final Complete Sputum Endotracheal 08/30/16 17:05 Sputum Culture - Final Complete Sputum Endotracheal HEAVY GROWTH NORMAL RESPIRATORY DEVORAH Objective Remarks Propofol 50 Versed gtt Fentanyl 3% saline Levophed GENERAL: Well-nourished, well-developed patient. Sedated and intubated SKIN: Warm and dry. HEAD: Normocephalic. EVD in place ICP now 10-15, intermittently >20 EYES: No scleral icterus. No injection or drainage. NECK: Supple, trachea midline. No JVD or lymphadenopathy. CARDIOVASCULAR: Regular rate and rhythm without murmurs, gallops, or rubs. RESPIRATORY: Breath sounds equal bilaterally. Coarse breath sounds and rhonchi at bilateral bases, predominantly L base GASTROINTESTINAL: Abdomen soft, non-tender, nondistended. MUSCULOSKELETAL: No cyanosis, or edema. BACK: Nontender without obvious deformity. No CVA tenderness. EXTREMITIES: No clubbing cyanosis or edema. Extends on all 4 extremities painful stimuli NEURO: SHEY 3mm reactive, positive corneal, very slight withdraws to pain. heavy sedation limits exam A/P Assessment and Plan Neuro: Aneurysmal Subarachnoid hemorrhage Intracranial hypertension Acute encephalopathy Obstructive hydrocephalus - Stat CTA to rule out Vasospasm 08/29 showed stable mild vasospasm, repeat CTA per Dr. Robbins - Ct head 08/29: Improving intra-axial subarachnoid and intraventricular hemorrhage, improving ventricular size - Ct head 08/31 improving intraventricular hemorrhage and stable cerebral edema, stable intraparenchymal hemorrhage - Marshall and Galeas grade 5, Modified Andersen grade 4 - S/P supraclinoid ICA aneurysm coil embolization. - Target SBP 160-180 to prevent vasospasm (aneurysm is well secured). Okd by Dr. Robbins - Nimodipine and Pravachol - Keep Mag>2 na >145 - EEG 08/24-diffuse encephalopathy, EEG 08/27 severe encephalopathy, burst suppression pattern - Continue Keppra - Continue 3%. Use 23% saline and NM paralysis PRN for ICP control - Propofol Versed and Fentanyl for sedation and ventilator synchrony - No sedation vacation until cleared by Dr. Robbins (He has cleared lowering sedation for neuro exam after PEG placement RESP Acute hypoxemic respiratory failure ARDS Aspiration pneumonia - Intubated for an airway protection, now with severe hypoxemia ARDS - Low tidal volume ventilation with PEEP 8 - Vent bundle. DuoNeb q6 and PRN - No SBT's until neurologically stable and hypoxia improved - Zosyn started 08/25, along with Vanc. Azithromycin for atypical coverage. DCd vanc 08/29 - s/p trach 08/31, Dr. Giles/Fadi Trach site oozing improved with surgiseal placement CVS Hypertension Dyslipidemia - Levophed to keep SBP 160-180 - SBP [id number] to prevent vasospasm - Nimotop decreased to 30 due to significant hypotension mg po Q4 - Pravachol for vasospasm prevention as well GI: - Tube feeds with Jevity-held for PEG. PEG today - IV Protonix - Bowel regimen - Having BM /Endo: - Electrolyte replacement per protocol - IV hydration - Monitor renal function closely - Strict I's and O's ID: Aspiration pneumonia Severe sepsis - Beta strep in sputum 08/25, repeat panculture-follow up - Zosyn 4.5 g IV every 6 hours, vancomycin DCd 08/29. azithromycin DVT GI prophylaxis - Teds SCDs - Subcutaneous heparin - Pepcid Critical Care: The total critical care time was 40 minutes. Time to perform other separately billable procedures was not included in the critical care time. Harish Giles MD Sep 01, 2016 11:04
--- NOTE | 2016-09-01 12:50 | GIPROC ---
[facility] [address] [facility]. [facility], [address] EGD WITH PEG PROCEDURE REPORT EXAM DATE: 09/01/2016 PATIENT NAME: Albert Shannon MR#: [id number] BIRTHDATE: 1955 ATTENDING: Grecia Lynne MD ORDER #: [id number] [employer] SUPERVISOR: Lea Ho and Jabier Coleman STATUS: inpatient INDICATIONS: The patient is a 60 yr old male here for an EGD with PEG due to placement of PEG and odynophagia PROCEDURE PERFORMED: EGD with PEG placement MEDICATIONS: None and Per Anesthesia. TOPICAL ANESTHETIC: CONSENT: The patient understands the risks and benefits of the procedure and understands that these risks include, but are not limited to: sedation, allergic reaction, infection, perforation and/or bleeding. Alternative means of evaluation and treatment include, among others: physical exam, x-rays, and/or surgical intervention. The patient elects to proceed with this endoscopic procedure. medical equipment was checked for proper function. Hand hygiene and appropriate measures for infection prevention was taken. After the risks, benefits and alternatives of the procedure were thoroughly explained, Informed consent was verified, confirmed and timeout was successfully executed by the treatment team. The patient was anesthetized with topical anesthesia and the Pentax [id number] endoscope was introduced through the mouth and advanced to the descending duodenum. The instrument was slowly withdrawn as the mucosa was fully examined. Moderate gastritis was found in the body and the antrum of the stomach. The stomach was then inflated with air, and by a combination of transillumination and manual palpation, the site for the gastrostomy tube placement was selected and marked on the anterior abdominal wall. The skin of the anterior abdomen was surgically prepped and draped with sterile towels. Utilizing strict sterile technique, the selected site was then anesthetized with 1% xylocaine by injection into the skin and subcutaneous tissue. A 1 cm incision was made through the skin and subcutaneous tissue, and the needle/cannula assembly was then passed through the abdominal wall and through the anterior wall of the stomach, maintaining visualization with the endoscope. A snare device previously placed through the instrument channel was then opened and placed around the cannula, the needle was removed, and the insertion wire was passed through the cannula and into the stomach lumen. The snare was then loosened from the cannula, and repositioned to snare the insertion wire. The snare was then pulled up to the endoscope distal tip, and the scope was then withdrawn bringing with it the snare and insertion wire. The insertion wire was then released from the snare, and then loop-attached to the Bard 20 Fr gastrostomy tube. Using the "pull technique", the G-tube was then pulled into place by traction on the insertion wire at the abdominal wall end. The G-tube insertion site was then cleansed once again, and the external bolster was placed over the tube to secure it to the abdominal wall. A sterile dressing was then applied, and the procedure terminated. no abnormalities The gastroscope was then slowly withdrawn and removed. ADVERSE EVENT: There were no complications. IMPRESSIONS: 1. Moderate gastritis was found in the body and the antrum of the stomach 2. No abnormalities RECOMMENDATIONS: 1. Anti-reflux regimen 2. PEG recomendations: 1- NPO for 6 hours except for meds 2- Flush PEG tube every 6 hours with water and after each PEG feeding 3- May resume regular diet in the morning 4- May use Ensure or Boost etc. for PEG tube feeding REPEAT EXAM: Return as needed for EGD Grecia Lynne MD eSigned: Grecia Lynne MD 09/01/2016 12:50 PM cc: PATIENT NAME: Albert Shannon MR#: [id number]
--- NOTE | 2016-09-01 13:18 | HHI.NSPN ---
History Chief Complaint: ruptured aneurysm with intraventricular hemorrhage status post coiling Interval History Tracheostomy 08/31/16 09/01/16 received 1 dose of 23.4% hypertonic saline due to ICP in the mid 20s, with improvement of ICPs to the 7-15 range Exam Results Vital Signs Date Time Temp Pulse Resp B/P Pulse Ox O2 Delivery O2 Flow Rate FiO2 09/01/16 12:00 77 09/01/16 12:00 35 09/01/16 08:16 100 09/01/16 08:00 99.6 18 170/92 09/01/16 07:00 Mechanical Ventilator Intake and Output 08/31/16 08/31/16 09/01/16 08:00 16:00 00:00 Intake Total 1550 ml 2222 ml 1746 ml Output Total 2421 ml 2235 ml 1729 ml Balance -871 ml -13 ml 17 ml Physical Examination General: Tracheostomy in place. Positive IV sedation HEENT: Normocephalic, atraumatic. Tracheostomy. Ventriculostomy insertion site w/o any evident drainage, erythema or streaking. Respiratory: CTAB w/o W/R/R, equal excursion, Cardiovascular: S1S2 w/RRR w/o M/G/R, Gastrointestinal: Abdomen soft, bowel sounds not appreciated, OGT clamped. Integumentary: No cyanosis or erythema. SCD bilaterally. Musculoskeletal: Extremities normal, no evident deformity or clubbing. Neuro: Patient remains intubated & sedated, GCS 3T. Unable to assess motor strength/response or sensation. Pupils 3 mm minimally reactive Mildly disconjugate animal oculocephalic responses No response to deep pain all extremities Lab, Micro, Other Results 09/01/16 CT scan head images reviewed by the undersigned. Improving intraventricular and right temporal parenchymal hemorrhage. Somewhat focal midline shift at the area of the intraventricular hemorrhage, but no definite significant midbrain and brainstem compression. Head CT 09/01/16 0600 Signed Impressions: Service Date/Time: August 05:03 - CONCLUSION: Intraventricular hemorrhage has improved otherwise no significant change in moderate cerebral edema bilaterally, subfalcine herniation from right to left and right temporal lobe intraparenchymal hemorrhage. Jhonny Briceño MD Chest X-Ray 09/01/16 0600 Signed Impressions: Service Date/Time: August 04:32 - CONCLUSION: Worsening pulmonary edema and left lung base opacity has not changed. Jhonny Briceño MD Medical Decision Making Impression and Plan Impression: No improvement in neurologic exam. Ventriculostomy appears to be functioning properly today. 09/01/16 CT scan head images reveal resolving parenchymal and interventricular hemorrhage with relatively focal midline shift of the septum, but no significant overall brainstem or midbrain compression. Plan: Discussed with supervisor loading again today. Okay to begin sedation vacation after PEG tube placement. Continue nimodipine, pressors as needed to maintain systolic blood pressure 150- 180 range. Continue ventriculostomy Hypertonic saline as needed for maintenance of serum sodium 145-155 range. Non-chemical DVT prophylaxis Ulcer prophylaxis Continuing ventilatory support Speedy Robbins MD Sep 01, 2016 13:18
[2016-09-01] MEDS ORDERED: SODIUM CHLORIDE 23.4% INJ 240 MEQ in SYRINGE/BAG 1 EA IV ONE ×2 (15:15→22:45)
[2016-09-01] MEDS ORDERED: ROCURONIUM INJ 50 MG/5 ML VIAL IV ONE (15:30)
[2016-09-01] MEDS: ACETAMINOPHEN 325 MG TAB PO PRN ×2 (16:15→22:25)
[2016-09-01] MEDS: PRAVASTATIN SOD 40 MG TAB PO SCH (19:51)
[2016-09-01] MEDS: LABETALOL HCL 100 MG/20 ML VIAL IV PUSH PRN (22:25)
[2016-09-02] VITALS (22 sets, daily range): BP systolic 162–178; BP diastolic 86–94; PULSE 72–82; RESP 20; TEMP 99.6–101.1; O2SAT 96–100
[2016-09-02] MEDS: niMODipine 30 MG CAP PO SCH ×6 (01:05→21:45)
[2016-09-02] MEDS: PROPOFOL 1000 MG/100 ML INJ 100 ML IV SCH ×7 (02:01→23:26)
[2016-09-02] MEDS: MIDAZOLAM 100 MG/NS 100 ML DRIP Premix IV SCH ×2 (02:01→21:45)
[2016-09-02] MEDS: fentaNYL 2,500 MCG/NS 250 ML IV SCH ×2 (02:01→23:39)
[2016-09-02] MEDS: PIPERACIL-TAZO 4.5 GM PREMIX 100 ML IV SCH ×4 (02:02→20:17)
[2016-09-02] MEDS: RESP: ALBUTEROL 2.5 MG/IPRATROPIUM 0.5 MG NEB (SCH) NEB ×2 (03:12→08:06)
[2016-09-02] MEDS ORDERED: SODIUM CHLORIDE 23.4% INJ 240 MEQ in SYRINGE/BAG 1 EA IV ONE ×2 (03:30→21:00)
[2016-09-02] MEDS: CHLORHEXIDINE GLUCONATE 2 % 1 PACK (2 CLOTHS) TOP SCH (04:00)
[2016-09-02] MEDS: ACETAMINOPHEN 325 MG TAB PO PRN ×2 (04:44→23:27)
[2016-09-02 06:43] LABS: BLOOD GAS BASE EXCESS -0.7 mmol/L (-2-2); BLOOD GAS CARBOXYHEMOGLOBIN 1.3 % (0-4); BLOOD GAS HCO3 23 mmol/L (22-26); BLOOD GAS METHEMOGLOBIN 0.9 % (0-2); BLOOD GAS O2 HGB SATURATION 96 % (90-100); BLOOD GAS OXYGEN CONTENT 15.2 Vol % (12.0-20.0); BLOOD GAS PCO2 31 mmHg (38-42); BLOOD GAS PO2 94 mmHg (61-120); BLOOD GAS TOTAL HGB 11.2 G/DL (12.0-16.0); CRITICAL VALUE NO; OXYGEN DEVICE VENTILATOR; TEMP CORR TO 98.6
[2016-09-02 06:44] LABS: DRAW SITE ART LINE; FIO2 35 %; STAT NO; VENT SETTINGS AC/20/550/PEEP5
[2016-09-02] MEDS: NOREPINEPHRINE INJ 4 MG in SODIUM CHLOR 0.9% 250 ML INJ 250 ML IV SCH (07:00)
[2016-09-02] MEDS: SODIUM CHLOR 0.9% 1000 ML INJ 1,000 ML IV SCH ×2 (07:43→16:52)
[2016-09-02] MEDS: levETIRAcetam 1000 MG INJ 100 ML IV SCH ×2 (08:45→20:17)
[2016-09-02] MEDS: LACTULOSE SYRUP 20 GM/30 ML CUP PO SCH ×4 (08:45→20:17)
[2016-09-02] MEDS: SODIUM CHLORIDE 0.9% FLUSH 10 ML FLUSH SCH ×2 (08:45→20:17)
[2016-09-02] MEDS: DOCUSATE SODIUM 50 MG/SENNA 8.6 MG TAB PO SCH ×2 (08:46→20:17)
[2016-09-02] MEDS: FAMOTIDINE 20 MG/2 ML VIAL IV PUSH SCH (08:46)
--- NOTE | 2016-09-02 09:04 | HHI.NSPN ---
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 The headache has persisted since then along with nausea and occasional emesis. He has not sought any medical treatment since initial onset. He did not go to work since the initial onset due to these persistent symptoms. He has not been eating well. His states that after he went to sleep last night, at approximately 1:30 or 2 AM she noticed snoring respirations and found him initially unresponsive. He was able to be aroused by EMS and ambulated briefly prior to being placed in the ambulance. He was taken to [facility] for initial evaluation and in the emergency room was noted to be unresponsive with extensor posturing. He was intubated and placed on nicardipine drip for hypertension. No seizure activity reported. 08/23: Patient remains intubated and sedated this morning. 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 He is withdrawing with the RUE to noxious stimuli with questionable extension of both feet, but no response with the LUE per Nursing. He is maintaining his SBP without the nicardipine drip. Nursing also reports that temp has been up to 101.3 degrees. 08/24: Patient is intubated and sedated. Nursing reports that he is having neurogenic temperatures. Yesterday morning the patient had a CTA which demonstrated an aneurysm. That afternoon the patient went for coiling and had an increase in his ICP into the 60s. He immediately went for a CT scan and was given mannitol and 3% sodium with improvement in his ICP. He went again in the evening for another CTA. Nursing reports that the patient is not responding to any noxious stimuli. His ICP had just been checked and was 11. 08/25: Patient is intubated and on max sedation. Nursing reports that when his sedation was weaned down earlier he became extremely agitated, his BP went up and his ICP reached 20. His propofol was maxed and his ICP started coming down. He was also given labetalol for his BP. He did withdraw the BLE to noxious stimuli but did nothing with the BUE for Nursing and had a cough reflex. Nursing stated that in report she was told the patient withdrew all extremities to noxious stimuli yesterday. During the night his temperature dropped to 94 and later spiked to 103. He went for a repeat CTA yesterday afternoon w/o any residual aneurysm seen. He did have mild vasospasms in the right M1 segment and right A1 segment. His CXR today demonstrated left-sided infiltrates. 08/27: Patient sedated on Diprivan and fentanyl drips. Versed on hold. Patient opening eyes or following commands. Ventriculostomy at 5 cm a water ICP R8. Pupils are 2 mm bilaterally. Patient is intubated on a vent setting. 08/28: Patient sedated on Diprivan and fentanyl drips. Not opening eyes or following commands. Ventriculostomy at 5 cm water bloody CSF drainage. ICP 4. 08/29: Patient remains sedated. Nursing reports that he is having sustained elevated ICPs up to 25 and this morning was given rocuronium due to his ICP. The ICP did come down to 17 when seen. The patient did have repeat imaging this morning which demonstrated mild vasospasm but was improving otherwise. He is on Nimotop for ICP control and a Levophed drip for blood pressure control. Due to a sodium of 156 this morning the 3% saline is being held. 08/30: Patient remains sedated due to agitation if weaned down. Nursing reports that his ICP was 4 this morning prior to being seen. 08/31: Patient remains critical, intubated & sedated. The Portfolio Accountant reports that the patient's ICP spiked in the 50s earlier after Respiratory Therapy made a vent change. He was given a bolus of 23% saline and his ICP came back down and was running between 4 and 5. Tracheostomy 08/31/16 09/01/16 received 1 dose of 23.4% hypertonic saline due to ICP in the mid 20s, with improvement of ICPs to the 7-15 range 09/02: Patient is still intubated & sedated. Nursing reports his ICP went into the 20s during the night and received a 23% saline bolus twice. This morning his ICP has been 15 and 17 for the Nurse. His SBP shot up into the 190s and he received a bolus of labetalol before being seen. His SPB is still between 188 and 192 mm Hg when seen. She states that she is maxed out on his drips. She reports no response to stimulation. The patient had a PEG tube placed yesterday by Gastroenterology. (Boogie Lawler) System Review Comments Unable to obtain ROS due to patient's mental status, intubation & sedation. ( Boogie Lawler) Exam Results Vital Signs Date Time Temp Pulse Resp B/P Pulse Ox O2 Delivery O2 Flow Rate FiO2 09/02/16 08:06 99 35 09/02/16 06:00 72 09/02/16 04:00 100.1 20 176/94 09/01/16 19:00 Mechanical Ventilator Intake and Output 09/01/16 09/01/16 09/02/16 08:00 16:00 00:00 Intake Total 1925 ml 2514 ml 1923 ml Output Total 1803 ml 2922 ml 1899 ml Balance 122 ml -408 ml 24 ml (Boogie Lawler) Physical Examination General: Trached & sedated. HEENT: Normocephalic, atraumatic. Tracheostomy. Ventriculostomy insertion site w/o any evident drainage, erythema or streaking. Respiratory: CTAB w/o W/R/R, equal excursion, nonlaboured, trached & on vent. Cardiovascular: S1S2 w/RRR w/o M/G/R, radial & pedal pulses 2+ bilaterally, cap refill < 2 sec. Monitor is sinus rhythm w/o any ectopy noted. Gastrointestinal: Abdomen soft, bowel sounds not appreciated, PEG tube clamped. Integumentary: No cyanosis or erythema. SCD bilaterally. Musculoskeletal: Extremities normal, no evident deformity or clubbing. Neuro: Patient remains intubated & sedated, GCS 3T. Unable to assess motor strength/response or sensation. Pupils 3 mm minimally reactive No response to deep pain all extremities Ventriculostomy at 5 with bloody drainage noted (Boogie Lawler) Lab, Micro, Other Results Allergies Coded Allergies Type Severity Reaction Last Updated Verified No Known Allergies 08/23/16 No Recent Impressions Head CT 09/01/16 0600 Signed Impressions: Service Date/Time: August 05:03 - CONCLUSION: Intraventricular hemorrhage has improved otherwise no significant change in moderate cerebral edema bilaterally, subfalcine herniation from right to left and right temporal lobe intraparenchymal hemorrhage. Jhonny Briceño MD Chest X-Ray 09/01/16 0600 Signed Impressions: Service Date/Time: August 04:32 - CONCLUSION: Worsening pulmonary edema and left lung base opacity has not changed. Jhonny Briceño MD Chest X-Ray 08/31/16 0000 Signed Impressions: Service Date/Time: Wednesday, August 31, 2016 16:51 - CONCLUSION: 1. Persistent pulmonary infiltrates bilaterally. 2. Multiple tubes and lines are stable. 3. Tracheostomy tube in good position 3 cm above the arian. Ralf Chester MD // 06:00 18:00 06:00 18:00 06:00 18:00 Intake Total 3580 ml 2222 ml 3671 ml 2514 ml 3360 ml Output Total 5078 ml 2235 ml 3532 ml 2922 ml 4359 ml Balance -1498 ml -13 ml 139 ml -408 ml -999 ml Intake IV Total 3012 ml 2222 ml 3621 ml 2115 ml 3180 ml Tube Feeding 448 ml FFP 399 ml Tube Irrigant 120 ml 50 ml 180 ml Output Urine Total 3875 ml 2200 ml 3425 ml 2750 ml 4300 ml Stool Total 1100 ml 50 ml 150 ml 0 ml Drainage Total 103 ml 35 ml 57 ml 22 ml 59 ml # Bowel Movements 1 Laboratory Tests Test 08/30/16 08/30/16 08/30/16 08/31/16 11:08 16:57 23:15 04:06 Sodium Level 151 MEQ/L 149 MEQ/L 148 MEQ/L 148 MEQ/L Test 08/31/16 08/31/16 08/31/16 08/31/16 06:33 08:30 09:00 15:08 Blood Gas Puncture Site ART LINE DEEPA Blood Gas Patient Temperature 98.6 98.6 Blood Gas HCO3 22 mmol/L 22 mmol/L Blood Gas Base Excess -1.2 mmol/L -1.2 mmol/L Blood Gas Oxygen Saturation 96 % 95 % Arterial Blood pH 7.50 7.45 Arterial Blood Partial 28 mmHg 33 mmHg Pressure CO2 Arterial Blood Partial 111 mmHg 85 mmHg Pressure O2 Arterial Blood Oxygen Content 18.3 Vol % 17.7 Vol % Arterial Blood 1.3 % 1.1 % Carboxyhemoglobin Arterial Blood Methemoglobin 0.8 % 0.7 % Blood Gas Hemoglobin 13.4 G/DL 13.2 G/DL Oxygen Delivery Device VENTILATOR VENT Blood Gas Ventilator Setting AC//650/PEEP5 AC//650/5/40 Blood Gas Inspired Oxygen 40 % 40 % Sodium Level 148 MEQ/L 149 MEQ/L Potassium Level 3.8 MEQ/L Chloride Level 117 MEQ/L Carbon Dioxide Level 20.3 MEQ/L Anion Gap 12 MEQ/L Blood Urea Nitrogen 15 MG/DL Creatinine 0.42 MG/DL Estimat Glomerular Filtration 208 ML/MIN Rate Random Glucose 93 MG/DL Calcium Level 7.6 MG/DL Total Bilirubin 0.3 MG/DL Aspartate Amino Transf 51 U/L (AST/SGOT) Alanine Aminotransferase 91 U/L (ALT/SGPT) Alkaline Phosphatase 79 U/L Total Protein 5.6 GM/DL Albumin 1.4 GM/DL Test 08/31/16 09/01/16 09/01/16 09/01/16 23:30 04:30 09:20 11:26 Sodium Level 150 MEQ/L 149 MEQ/L 152 MEQ/L White Blood Count 11.3 TH/MM3 9.7 TH/MM3 Red Blood Count 4.64 MIL/MM3 4.49 MIL/MM3 Hemoglobin 12.7 GM/DL 12.5 GM/DL Hematocrit 38.6 % 37.2 % Mean Corpuscular Volume 83.2 FL 82.9 FL Mean Corpuscular Hemoglobin 27.3 PG 27.8 PG Mean Corpuscular Hemoglobin 32.8 % 33.6 % Concent Red Cell Distribution Width 14.7 % 15.0 % Platelet Count 303 TH/MM3 288 TH/MM3 Mean Platelet Volume 7.9 FL 7.9 FL Neutrophils (%) (Auto) 82.7 % 80.9 % Lymphocytes (%) (Auto) 7.2 % 8.8 % Monocytes (%) (Auto) 6.7 % 7.4 % Eosinophils (%) (Auto) 3.2 % 2.5 % Basophils (%) (Auto) 0.2 % 0.4 % Neutrophils # (Auto) 9.3 TH/MM3 7.9 TH/MM3 Lymphocytes # (Auto) 0.8 TH/MM3 0.9 TH/MM3 Monocytes # (Auto) 0.8 TH/MM3 0.7 TH/MM3 Eosinophils # (Auto) 0.4 TH/MM3 0.2 TH/MM3 Basophils # (Auto) 0.0 TH/MM3 0.0 TH/MM3 CBC Comment AUTO DIFF AUTO DIFF Neutrophils % (Manual) 81 % 79 % Lymphocytes % 8 % 11 % Monocytes % 3 % 4 % Neutrophils # (Manual) 9.3 TH/MM3 8.0 TH/MM3 Metamyelocytes 1 % Differential Comment FINAL DIFF FINAL DIFF MANUAL MANUAL Platelet Estimate NORMAL NORMAL Platelet Morphology Comment NORMAL NORMAL Red Cell Morphology Comment NORMAL NORMAL Potassium Level 3.9 MEQ/L Chloride Level 117 MEQ/L Carbon Dioxide Level 24.0 MEQ/L Anion Gap 8 MEQ/L Blood Urea Nitrogen 16 MG/DL Creatinine 0.41 MG/DL Estimat Glomerular Filtration 214 ML/MIN Rate Random Glucose 116 MG/DL Calcium Level 8.2 MG/DL Magnesium Level 2.0 MG/DL Total Bilirubin 0.4 MG/DL Aspartate Amino Transf 52 U/L (AST/SGOT) Alanine Aminotransferase 87 U/L (ALT/SGPT) Alkaline Phosphatase 86 U/L Total Protein 6.2 GM/DL Albumin 1.5 GM/DL Differential Total Cells 100 Counted Band Neutrophils % 2 % Eosinophils % 2 % Basophils % 1 % Myelocytes 1 % Prothrombin Time 10.3 SEC Prothromb Time International 0.9 RATIO Ratio Activated Partial 38.9 SEC Thromboplast Time Fibrinogen GREATER THAN 860 mg/dL Blood Type O POSITIVE Antibody Screen NEGATIVE Blood Bank Comment Test 09/01/16 09/01/16 09/01/16 09/02/16 11:53 15:28 22:30 04:30 Blood Type O POSITIVE Sodium Level 154 MEQ/L 156 MEQ/L 162 MEQ/L Test 09/02/16 06:31 Blood Gas Puncture Site ART LINE Blood Gas Patient Temperature 98.6 Blood Gas HCO3 23 mmol/L Blood Gas Base Excess -0.7 mmol/L Blood Gas Oxygen Saturation 96 % Arterial Blood pH 7.47 Arterial Blood Partial 31 mmHg Pressure CO2 Arterial Blood Partial 94 mmHg Pressure O2 Arterial Blood Oxygen Content 15.2 Vol % Arterial Blood 1.3 % Carboxyhemoglobin Arterial Blood Methemoglobin 0.9 % Blood Gas Hemoglobin 11.2 G/DL Oxygen Delivery Device VENTILATOR Blood Gas Ventilator Setting AC/20/550/PEEP5 Blood Gas Inspired Oxygen 35 % Vital Signs Date Time Temp Pulse Resp B/P Pulse Ox O2 Delivery O2 Flow Rate FiO2 09/02/16 08:06 99 35 09/02/16 08:06 99 35 09/02/16 06:00 72 09/02/16 04:17 98 35 09/02/16 04:00 35 09/02/16 04:00 82 09/02/16 04:00 100.1 82 20 176/94 96 09/02/16 02:00 76 09/02/16 01:15 97 35 09/02/16 01:15 97 35 09/02/16 00:00 77 09/02/16 00:00 35 09/02/16 00:00 99.7 77 20 169/88 97 09/01/16 22:00 80 09/01/16 20:00 35 09/01/16 20:00 99.6 82 20 180/94 100 09/01/16 20:00 82 09/01/16 19:33 100 35 09/01/16 19:00 100 Mechanical Ventilator 35 09/01/16 18:00 77 09/01/16 17:30 35 09/01/16 16:12 100 35 09/01/16 16:00 35 09/01/16 16:00 89 09/01/16 16:00 100.4 74 20 168/90 99 09/01/16 14:00 80 09/01/16 12:00 77 09/01/16 12:00 99.7 76 20 167/90 99 09/01/16 12:00 35 09/01/16 11:30 99 35 09/01/16 11:15 35 09/01/16 10:00 86 09/01/16 08:16 100 35 09/01/16 08:16 100 35 09/01/16 08:00 99.6 76 18 170/92 100 09/01/16 08:00 35 09/01/16 08:00 77 09/01/16 07:00 100 Mechanical Ventilator 35 09/01/16 06:00 80 09/01/16 04:45 100 100 09/01/16 04:15 97 40 09/01/16 04:00 35 09/01/16 04:00 81 09/01/16 04:00 98.7 80 18 164/88 97 09/01/16 02:00 72 09/01/16 01:18 97 40 09/01/16 01:18 97 40 09/01/16 00:00 98.3 72 18 176/94 100 09/01/16 00:00 35 09/01/16 00:00 72 08/31/16 22:00 76 08/31/16 20:42 100 35 08/31/16 20:00 35 08/31/16 20:00 70 08/31/16 20:00 98.7 70 18 178/90 99 08/31/16 19:19 100 100 08/31/16 19:00 99 Mechanical Ventilator 35 08/31/16 18:00 35 08/31/16 18:00 75 08/31/16 17:38 18 08/31/16 17:22 100 35 08/31/16 16:25 60 08/31/16 16:00 99.9 72 18 149/83 100 08/31/16 16:00 73 08/31/16 14:00 78 08/31/16 13:01 100 40 08/31/16 12:00 99.4 82 18 180/97 100 08/31/16 12:00 40 08/31/16 12:00 82 08/31/16 10:00 81 08/31/16 08:45 40 08/31/16 08:28 100 40 08/31/16 08:26 100 40 08/31/16 08:00 83 08/31/16 08:00 98.9 81 20 99 158/91 08/31/16 08:00 40 08/31/16 07:00 100 Mechanical Ventilator 40 08/31/16 06:45 100 40 08/31/16 06:00 77 08/31/16 04:18 98 40 08/31/16 04:00 71 08/31/16 04:00 40 08/31/16 04:00 99.3 71 22 180/88 98 08/31/16 02:00 87 08/31/16 01:49 100 40 08/31/16 01:25 100 40 08/31/16 01:25 100 40 08/31/16 00:00 78 08/31/16 00:00 99.6 78 22 165/88 99 08/31/16 00:00 40 08/30/16 22:00 90 08/30/16 20:43 100 40 08/30/16 20:00 84 08/30/16 20:00 100.0 84 22 176/98 100 Arterial Line 08/30/16 20:00 40 08/30/16 19:00 100 Mechanical Ventilator 40 08/30/16 18:00 76 08/30/16 16:54 99 40 08/30/16 16:00 100.7 76 22 160/88 100 08/30/16 16:00 40 08/30/16 16:00 77 08/30/16 14:00 74 08/30/16 13:00 99 40 08/30/16 12:00 100 Mechanical Ventilator 40 08/30/16 12:00 78 08/30/16 12:00 78 08/30/16 12:00 99.8 78 22 167/94 98 08/30/16 12:00 40 08/30/16 10:00 68 (Boogie Lawler) Medical Decision Making Impression and Plan Impression: 1. Right temporal intracranial hemorrhage with interventricular extension 2. 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 Hypertension 4. Small outpouching proximal right anterior cerebral artery 1.5 mm max, small vessel loop vs small aneurysm No change in neurological status CT & CTA demonstrates improving intra-axial, subarachnoid & intraventricular blood products, decreasing ventricular size w/improvement in subfalcine herniation with mild right M1 and A1 segment vasospasms and probable mild basilar vasospasm ICP 20s during the night and given boluses of 23% saline twice, this morning ICP has been 15 and 17 per Nursing Sodium 162 this morning Hypermagnesemia, resolved Plan: Maintain systolic blood pressure 150-180 range Maintain sodium between 145 and 155, hypertonic saline as needed Continuing ventilatory support with sedation as needed for control of airway, respirations and agitation Monitor ICP & ventriculostomy catheter Ulcer prophylaxis Non- chemical DVT prophylaxis Critical care management per Portfolio Accountant (Boogie Lawler) Attending Statement I have personally seen and examined the patient on the date of this note. Pertinent documentation and study results have been reviewed by the undersigned. I have personally developed the treatment plan and performed medical decision making. Agree with findings, exam, and treatment plan as noted above. Discussed with adult school counselor CT angiogram reviewed Discussed with interventional radiology Moderate right in line-A1 segment vasospasm. ICPs increased to 30s last evening, up to mid 20s this afternoon. Patient in angiography suite at present for intravascular verapamil injection. Continue controlled hypertension systolic blood pressure 160s-180s (Speedy Robbins MD) Boogie Lawler Sep 02, 2016 09:04 Speedy Robbins MD Sep 02, 2016 17:54
[2016-09-02] MEDS: AZITHROMYCIN INJ 500 MG in SODIUM CHLOR 0.9% 250 ML INJ 250 ML IV SCH (09:41)
--- NOTE | 2016-09-02 12:36 | HHI.CCPN ---
Subjective Remarks/Hospital Course 60 year old male who presents to the [facility] in transfer from [facility] after being diagnosed with a subarachnoid hemorrhage with intraventricular hemorrhage extension. The patient was intubated at that facility when he became unresponsive. The patient was noted to be tachycardic with a heart rate in the 130s, blood pressure initially 220/120. According to the record, the patient had a history of recently standing up after tying his shoes and having a headache associated with neck pain. He had been being seen by a local chiropractor and been treating the pain with tramadol, ibuprofen, and Flexeril. This evening he developed a decreased level of consciousness and was difficult to awaken according to his . She was concerned that he may have taken some extra pain medication, therefore Narcan was given in 3 separate doses at that facility, however the patient had no response. The patient was noted after intubation to have the subarachnoid hemorrhage and was transferred to this facility for higher level of care. The patient was placed on propofol for sedation on the ventilator. The patient was started on a Cardene drip. EVD was emergently placed by neurosurgeon. 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 He immediately went for a CT scan and was given mannitol and 3% sodium with improvement in his ICP. Repeat CT was essentially unchanged 08/24/16: Today patient is sedated with Versed and propofol. Flaccid on all 4 extremities no withdrawal to pain. Pupils are equal sluggishly reactive positive corneal positive cough. Unable to to TCD. Clinical suspicion of vasospasm high. Will repeat CT angiogram stat. Discussed with Dr. Andrez Marcelo and Dr. Robbins 08/25/16: Repeat CT angiogram of the head did not show any significant vasospasm yesterday. Spiking fever overnight white count increased to 20.2 from 12.3. CXR developing left infiltrate. Very slight withdrawal of all 4 extremities to deep pain 08/26: Continues to have high FiO2 requirement Now Fio2 95% and PEEP 10. WBC 21, 000. Neuro exam unchanged. Unable to get TCD window, will cancel. CXR bilateral infiltrates, L >R 08/27: Remains unresponsive, stat EEG ordered to rule out subclinical seizure 08/28: Episode of high ICPs last night with vent setting change and retention of CO2 08/29: High ICP up to 27 today, responded to Versed bolus and infusion started. CTA ordered STAT-mild stable vasospasm. Optimized on hyperosmolar therapy. 08/30: Intermittent ICP spike, received 23% saline bolus 1. Otherwise neurologically unchanged. Continues to be heavily sedated for ICP control. Sodium 151. We'll restart 3% saline 08/31: Remains heavily sedated for ICP control. Last 24 hours ICP had been fairly well controlled except one episode but spike for approximately 15 minutes when the respiratory rate was reduced. Sodium 148 have increased 3% saline to 50 mL per hour, keep sodium 150-155. No sedation vacation per Dr. Robbins. Plan for trach today 09/01: Remains intubated heavily sedated, s/p trach yesterday. Oozing from the trach site noted, has stopped with Surgiseal placement. ICP 24 received 23% 1 with improvement. PEG planned for today. 09/02: Intermittent ICP elevation >30 twice overnight requiring 23% bolus. Hypertonic saline ow on hold as Na is 162. PEG tube was placed yesterday. ( Trach 08/31). Check CTA today stat Objective Vital Signs Date Time Temp Pulse Resp B/P Pulse Ox O2 Delivery O2 Flow Rate FiO2 09/02/16 11:27 98 35 09/02/16 10:00 75 09/02/16 08:00 99.6 20 178/86 09/02/16 07:00 Mechanical Ventilator Intake and Output 09/01/16 09/01/16 09/02/16 08:00 16:00 00:00 Intake Total 1925 ml 2514 ml 1923 ml Output Total 1803 ml 2922 ml 1899 ml Balance 122 ml -408 ml 24 ml Result Diagram: 09/01/16 0920 09/02/16 0430 Other Results Microbiology Date/Time Procedure Status Source Growth 08/30/16 16:57 Urine Culture - Final Complete Urine Catheterized Urine NO GROWTH IN 48 HOURS. 08/30/16 17:05 Gram Stain - Final Complete Sputum Endotracheal 08/30/16 17:05 Sputum Culture - Final Complete Sputum Endotracheal HEAVY GROWTH NORMAL RESPIRATORY DEVORAH Laboratory Tests Test 09/02/16 06:31 Blood Gas Puncture Site ART LINE Blood Gas Patient Temperature 98.6 Blood Gas HCO3 23 mmol/L (22-26) Blood Gas Base Excess -0.7 mmol/L (-2-2) Blood Gas Oxygen Saturation 96 % (90-100) Arterial Blood pH 7.47 (7.380-7.420) Arterial Blood Partial 31 mmHg (38-42) Pressure CO2 Arterial Blood Partial 94 mmHg Pressure O2 (61-120) Arterial Blood Oxygen Content 15.2 Vol % (12.0-20.0) Arterial Blood 1.3 % (0-4) Carboxyhemoglobin Arterial Blood Methemoglobin 0.9 % (0-2) Blood Gas Hemoglobin 11.2 G/DL (12.0-16.0) Oxygen Delivery Device VENTILATOR Blood Gas Ventilator Setting AC/20/550/PEEP5 Blood Gas Inspired Oxygen 35 % Objective Remarks Propofol Versed gtt Fentanyl 3% saline on hold Levophed GENERAL: Well-nourished, well-developed patient. Sedated and intubated SKIN: Warm and dry. HEAD: Normocephalic. EVD in place ICP now 10-15, intermittently >30 overnight EYES: No scleral icterus. No injection or drainage. NECK: Supple, trachea midline. No JVD or lymphadenopathy. CARDIOVASCULAR: Regular rate and rhythm without murmurs, gallops, or rubs. RESPIRATORY: Breath sounds equal bilaterally. Coarse breath sounds and rhonchi at bilateral bases, predominantly L base GASTROINTESTINAL: Abdomen soft, non-tender, nondistended. MUSCULOSKELETAL: No cyanosis, or edema. BACK: Nontender without obvious deformity. No CVA tenderness. EXTREMITIES: No clubbing cyanosis or edema. Extends on all 4 extremities painful stimuli NEURO: SHEY 3mm reactive, positive corneal, very slight withdraws to pain. heavy sedation limits exam A/P Assessment and Plan Neuro: Aneurysmal Subarachnoid hemorrhage Intracranial hypertension Acute encephalopathy Obstructive hydrocephalus - Stat CTA to rule out Vasospasm today 09/02 - 08/29 showed stable mild vasospasm, repeat CTA per Dr. Robbins - Ct head 08/29: Improving intra-axial subarachnoid and intraventricular hemorrhage, improving ventricular size - Ct head 08/31 improving intraventricular hemorrhage and stable cerebral edema, stable intraparenchymal hemorrhage - Marshall and Galeas grade 5, Modified Andersen grade 4 - S/P supraclinoid ICA aneurysm coil embolization. - Target SBP 160-180 to prevent vasospasm (aneurysm is well secured). - Nimodipine and Pravachol - Keep Mag>2 na >145 - EEG 08/24-diffuse encephalopathy, EEG 08/27 severe encephalopathy, burst suppression pattern - Continue Keppra - 3% on hold as Na 162. Use 23% saline and NM paralysis PRN for ICP control - Propofol Versed and Fentanyl for sedation and ventilator synchrony - No sedation vacation until cleared by Dr. Robbins RESP Acute hypoxemic respiratory failure ARDS Aspiration pneumonia - Intubated for an airway protection, now with severe hypoxemia ARDS - Low tidal volume ventilation with PEEP 8 - Vent bundle. DuoNeb q6 and PRN - No SBT's until neurologically stable and hypoxia improved - Zosyn started 08/25. Azithromycin for atypical coverage. - s/p trach 08/31, Dr. Giles/Fadi CVS Hypertension Dyslipidemia - Levophed to keep SBP 160-180 - SBP [id number] to prevent vasospasm - Nimotop 30 due to significant hypotension mg po Q4 - Pravachol for vasospasm prevention as well GI: - Tube feeds with Jevity-s/p PEG 09/01/16 - IV Protonix - Bowel regimen - Having BM /Endo: - Electrolyte replacement per protocol - IV hydration - Monitor renal function closely - Strict I's and O's ID: Aspiration pneumonia Severe sepsis - Beta strep in sputum 08/25, repeat panculture-follow up - Zosyn 4.5 g IV every 6 hours, azithromycin. Vancomycin DCd 08/29. DVT GI prophylaxis - Teds, SCDs - Subcutaneous heparin - Pepcid Critical Care: The total critical care time was 30 minutes. Time to perform other separately billable procedures was not included in the critical care time. Harish Giles MD Sep 02, 2016 12:36 billable procedures was not included in the critical care time. Harish Giles MD Sep 02, 2016 12:36
--- NOTE | 2016-09-02 13:23 | RADRPT ---
EXAM DATE/TIME: 09/02/2016 12:26 [facility] COMPARISON: CHEST SINGLE AP, September 01, 2016, 4:32. INDICATIONS : Short of breath. MEDICAL HISTORY : Hypertension. SURGICAL HISTORY : None. ENCOUNTER: Subsequent ACUITY: 1 week PAIN SCORE: Non-responsive. LOCATION: Bilateral chest FINDINGS: Trache tube is in good position. Minimal bibasilar consolidative changes are evident increasing on t he left. Pulmonary vascularity is normalizing. CONCLUSION: Increasing consolidative changes left base. Barry Marcelo MD FACR on September 02, 2016 at 13:16 Board Certified Radiologist. This report was verified electronically.
[2016-09-02] MEDS ORDERED: IOHEXOL 350 MG/ML 10 ML VIAL (for RAD DIAG) IV ONE (14:09)
--- NOTE | 2016-09-02 14:12 | HHI.GIFU ---
Subjective Remarks Resting in bed in no distress. Having high ICP, going down for CTA soon. No n/ v. PEG tube placed yesterday, clamped. Objective Vitals I&O Vital Signs Date Time Temp Pulse Resp B/P Pulse Ox O2 Delivery O2 Flow Rate FiO2 09/02/16 11:27 98 35 09/02/16 10:00 75 09/02/16 08:06 99 35 09/02/16 08:06 99 35 09/02/16 08:00 35 09/02/16 08:00 99.6 75 20 178/86 100 09/02/16 08:00 76 09/02/16 07:00 100 Mechanical Ventilator 35 09/02/16 06:00 72 09/02/16 04:17 98 35 09/02/16 04:00 35 09/02/16 04:00 82 09/02/16 04:00 100.1 82 20 176/94 96 09/02/16 02:00 76 09/02/16 01:15 97 35 09/02/16 01:15 97 35 09/02/16 00:00 77 09/02/16 00:00 35 09/02/16 00:00 99.7 77 20 169/88 97 09/01/16 22:00 80 09/01/16 20:00 35 09/01/16 20:00 99.6 82 20 180/94 100 09/01/16 20:00 82 09/01/16 19:33 100 35 09/01/16 19:00 100 Mechanical Ventilator 35 09/01/16 18:00 77 09/01/16 17:30 35 09/01/16 16:12 100 35 09/01/16 16:00 35 09/01/16 16:00 89 09/01/16 16:00 100.4 74 20 168/90 99 09/01/16 14:00 80 I/O 09/01/16 09/01/16 09/01/16 09/02/16 09/02/16 09/02/16 07:00 15:00 23:00 07:00 15:00 23:00 Intake Total 1925 ml 2514 ml 1923 ml 1437 ml Output Total 1803 ml 2922 ml 1899 ml 2460 ml Balance 122 ml -408 ml 24 ml -1023 ml Intake IV Total 1925 ml 2115 ml 1803 ml 1377 ml FFP 399 ml Tube Irrigant 120 ml 60 ml Output Urine Total 1775 ml 2750 ml 1875 ml 2425 ml Stool Total 0 ml 150 ml 0 ml 0 ml Drainage Total 28 ml 22 ml 24 ml 35 ml # Bowel Movements 1 Laboratory Laboratory Tests Test 09/01/16 09/01/16 09/02/16 09/02/16 15:28 22:30 04:30 06:31 Sodium Level 154 156 162 Blood Gas Puncture Site ART LINE Blood Gas Patient Temperature 98.6 Blood Gas HCO3 23 Blood Gas Base Excess -0.7 Blood Gas Oxygen Saturation 96 Arterial Blood pH 7.47 Arterial Blood Partial 31 Pressure CO2 Arterial Blood Partial 94 Pressure O2 Arterial Blood Oxygen Content 15.2 Arterial Blood 1.3 Carboxyhemoglobin Arterial Blood Methemoglobin 0.9 Blood Gas Hemoglobin 11.2 Oxygen Delivery Device VENTILATOR Blood Gas Ventilator Setting AC/20/550/PEEP5 Blood Gas Inspired Oxygen 35 Test 09/02/16 13:04 Urine Specific Howard 1.012 Date/Time Procedure Status Source Growth 08/31/16 04:10 Aerobic Blood Culture - Preliminary Resulted Blood Peripheral NO GROWTH IN 2 DAYS 08/31/16 04:10 Anaerobic Blood Culture - Preliminary Resulted Blood Peripheral NO GROWTH IN 2 DAYS 08/30/16 17:05 Gram Stain - Final Complete Sputum Endotracheal 08/30/16 17:05 Sputum Culture - Final Complete Sputum Endotracheal HEAVY GROWTH NORMAL RESPIRATORY DEVORAH 08/30/16 16:57 Urine Culture - Final Complete Urine Catheterized Urine NO GROWTH IN 48 HOURS. Imaging Last Impressions Head CT 09/01/16 0600 Signed Impressions: Service Date/Time: August 05:03 - CONCLUSION: Intraventricular hemorrhage has improved otherwise no significant change in moderate cerebral edema bilaterally, subfalcine herniation from right to left and right temporal lobe intraparenchymal hemorrhage. Jhonny Briceño MD Chest X-Ray 09/01/16 0600 Signed Impressions: Service Date/Time: August 04:32 - CONCLUSION: Worsening pulmonary edema and left lung base opacity has not changed. Jhonny Briceño MD Head CTA 08/29/16 0000 Signed Impressions: Service Date/Time: Monday, August 29, 2016 07:18 - CONCLUSION: 1. Stable CTA examination status post right P-comm aneurysm coiling with no definite residual aneurysm, as above. 2. Stable mild vasospasm of the right M1 and A1 segments. 3. Stable probable mild basilar vasospasm. 4. Otherwise, patent intracranial circulation with no interval change. Vipin Gibbs MD Transcranial Doppler Study Complete 08/24/16 0600 Signed Impressions: Service Date/Time: Wednesday, August 24, 2016 07:16 - CONCLUSION: There is no acoustical window for transcranial Doppler. Barry Marcelo MD FACR Neck CTA 08/23/16 0000 Signed Impressions: Service Date/Time: Tuesday, August 23, 2016 07:21 - CONCLUSION: 1. Negative CTA of the carotids. CT angiography of the brain is pending. Ozzy Marcelo MD Cerebral Arteriogram 08/23/16 0000 Signed Impressions: Service Date/Time: Tuesday, August 23, 2016 14:18 - CONCLUSION: 1. Successful coil embolization of a 4.5 mm saccular aneurysm involving the supraclinoid ICA on the right. 2. No aneurysm seen involving the right anterior cerebral artery. Chai Yuan Jr., MD Physical Exam HEENT: ICP to left CHEST: OETT to vent, resp. even/unlabored, clear CARDIAC: RRR, on vasopressors ABDOMEN: Soft, nondistended, nontender; no hepatosplenomegaly; bowel sounds are present in all four quadrants. EXTREMITIES: Generalized edema. SKIN: Normal; no rash; no jaundice. [employer]ING MACHINE OPERATOR: Sedated on ventilator Assessment and Plan Plan ASSESSMENT: - Dysphagia, Fen. Currently hospitalized for aneurysmal SAH, obstructive hydrocephalus, acute encephalopathy, respiratory failure, vent dependent, getting tracheostomy today. S/P EGD with PEG tube (09/01/16)-----> 1. Moderate gastritis was found in the body and the antrum of the stomach 2. No abnormalities. Receiving Jevity 1.5 at 65cc/hr recommended by the showroom sales consultant. - Aneurysmal SAH, Obstructive hydrocephalus, acute encephalopathy. S/P Coil Embolization 08/23/16. ICP have been elevated and he is going down for CTA. - Acute respiratory failure, aspiration pneumonia. ARDS. Plan for trach today. On Zosyn, Azithromycin, nebs. - Sepsis. Sputum beta strep not group a. Zosyn, Azithromycin. - Hypertension, dyslipidemia, and electrolyte abnormalities. Per [facility] PLAN: - S/P EGD with PEG tube (09/01/16)- site without redness or swelling - Jevity 1.5 at 65cc/hr - Add protonix - GI will sign off, please reconsult as needed - Pt seen and examined by Dr. Lynne and myself and this note is written on his behalf Jaimie Santos Sep 02, 2016 14:11
--- NOTE | 2016-09-02 15:32 | RADRPT ---
EXAM DATE/TIME: 09/02/2016 13:50 [facility] COMPARISON: CTA BRAIN W 3D RECON, September 02, 2016, 13:50. CT BRAIN W/O CONTRAST, September 01, 2016, 5:03. INDICATIONS : Evaluate for vasospasm. RADIATION DOSE: 43.27 CTDIvol (mGy) MEDICAL HISTORY : Cardiovascular disease. Hypertension. SURGICAL HISTORY : None. ENCOUNTER: Initial ACUITY: 1 day PAIN SCALE: Non-responsive LOCATION: Bilateral cranial TECHNIQUE: Multiple contiguous axial images were obtained of the head. Using automated exposure control and adj ustment of the mA and/or kV according to patient size, radiation dose was kept as low as reasonably a chievable to obtain optimal diagnostic quality images. FINDINGS: The examination demonstrates continued intraparenchymal and intraventricular hemorrhage. This is unch anged in appearance compared to previous examination dated 09/01/16. There is 6 mm of [id number] ca lcium shift. This has improved when compared to previous examination. The ventriculostomies in good p osition. No new areas of hemorrhage are seen. There is streak artifact in the middle cranial fossa from the patient's previous aneurysm coiling. Th ere is effacement of the sulci and gyri superiorly. A least a portion of this is likely secondary to isodense blood however this could suggest some degree of increased intercranial pressure as well. Thi s is unchanged compared to previous examination. CONCLUSION: 1. Stable appearance of the patient's intraparenchymal and intraventricular hemorrhage. 2. There is 6 mm of [id number] shift on today's study. This has decreased when compared with previ ous exam. Ozzy Marcelo MD on September 02, 2016 at 15:21 Board Certified Radiologist. This report was verified electronically.
--- NOTE | 2016-09-02 15:36 | RADRPT ---
EXAM DATE/TIME: 09/02/2016 13:50 [facility] COMPARISON: CTA BRAIN W 3D RECON, August 29, 2016, 7:18. INDICATIONS : Evaluate for vasospasm. IV CONTRAST: 76 cc Omnipaque 350 (iohexol) IV RADIATION DOSE: 59.23 CTDIvol (mGy) MEDICAL HISTORY : Cardiovascular disease. Hypertension. SURGICAL HISTORY : None. ENCOUNTER: Initial ACUITY: 1 day PAIN SCALE: Non-responsive LOCATION: Bilateral cranial TECHNIQUE: Volumetric scanning was performed using a multi-row detector CT scanner. The data was post processed with a variety of visualization algorithms including full volume maximum intensity projection, multi -planar sliding thin slab reformation, curved planar reformation, and surface rendering techniques. Using automated exposure control and adjustment of the mA and/or kV according to patient size, radiat ion dose was kept as low as reasonably achievable to obtain optimal diagnostic quality images. FINDINGS: Right P-comm aneurysm coiling with stable region of adjacent contrast enhancement which again corresp onds to ectatic distal supraclinoid carotid artery. Interval progression of vasospasm involving the r ight A1 and proximal M1 segments, now moderate in severity. Remaining MCA and ALONDRA branches are grossl y stable in caliber given differences in technique from prior exam. Posterior circulation is unchanged. The distal vertebral arteries and basilar arteries are stable in caliber. The posterior cerebral e arteries are also stable in caliber. Continued evolution of right temporal lobe intraparenchymal blood products. Continued improving intra ventricular or products with grossly stable approximately 9 mm right to left subfalcine herniation. T here is a stable left frontal ventriculostomy catheter in place. No intercurrent hemorrhage is noted. Remainder of the exam is unchanged. CONCLUSION: 1. Findings concerning for interval progression of vasospasm involving the right A1 and proximal M1 s egments, now moderate in severity. 2. Improving right temporal intraparenchymal and intraventricular blood products. Viipn Gibbs MD on September 02, 2016 at 14:45 Board Certified Radiologist. This report was verified electronically.
[2016-09-02] MEDS ORDERED: VERAPAMIL HCL 5 MG/2 ML VIAL ONE ×2 (15:40→16:56)
[2016-09-02] MEDS: LABETALOL HCL 100 MG/20 ML VIAL IV PUSH PRN ×2 (16:41→23:44)
--- NOTE | 2016-09-02 17:17 | PD.RAD ---
Post Procedure Progress Note Pre Procedure Diagnosis: (1) Intracranial hemorrhage (2) Intracranial aneurysm Post Procedure Diagnosis: (1) Intracranial aneurysm (2) Intracranial hemorrhage Procedure Date: Sep 02, 2016 Supervising Radiologist: Vipin Gibbs Proceduralist/Assist: Rupali Flores, RT(R)(), Yoesf Boyer RT(R)() Anesthesia: Conscious Sedation Plan of Activity Patient to Unit: Critical Care Patient Condition: Good Additional Comments: Mild to Moderate vasospasm of right M1 segment with good response to 15mg Verapamil. Small residual aneurysm enhancement at the base. Tentative plan for additional coiling on Monday. See PACS Report for procedural detail/treatment Vipin Gibbs MD Sep 02, 2016 17:17
[2016-09-02] MEDS ORDERED: IODIXANOL 320 MG/ML 50 ML VIAL (for RAD SPEC) I-ARTERIAL ONE (17:23)
[2016-09-02] MEDS: PANTOPRAZOLE SODIUM 40 MG VIAL IV PUSH SCH (18:28)
[2016-09-02] MEDS: PRAVASTATIN SOD 40 MG TAB PO SCH (20:16)
[2016-09-02] MEDS: 3% SALINE INJ 500 ML IV SCH (23:28)
[2016-09-02] MEDS: MEPERIDINE HCL 25 MG/ML VIAL IM PRN (23:39)
[2016-09-03] VITALS (21 sets, daily range): BP systolic 162–182; BP diastolic 87–96; PULSE 65–81; RESP 20–25; TEMP 97.6–99.9; O2SAT 97–100
[2016-09-03] MEDS: niMODipine 30 MG CAP PO SCH ×6 (00:36→21:17)
[2016-09-03] MEDS: LABETALOL HCL 100 MG/20 ML VIAL IV PUSH PRN (00:45)
[2016-09-03] MEDS ORDERED: SODIUM CHLORIDE 23.4% INJ 240 MEQ in SYRINGE/BAG 1 EA IV ONE (01:30)
[2016-09-03] MEDS: NOREPINEPHRINE INJ 4 MG in SODIUM CHLOR 0.9% 250 ML INJ 250 ML IV SCH ×2 (01:40→16:07)
[2016-09-03 01:54] LABS: BLOOD GAS BASE EXCESS -0.1 mmol/L (-2-2); BLOOD GAS CARBOXYHEMOGLOBIN 1.1 % (0-4); BLOOD GAS HCO3 23 mmol/L (22-26); BLOOD GAS METHEMOGLOBIN 0.8 % (0-2); BLOOD GAS O2 HGB SATURATION 94 % (90-100); BLOOD GAS OXYGEN CONTENT 20.4 Vol % (12.0-20.0); BLOOD GAS PCO2 27 mmHg (38-42); BLOOD GAS PO2 75 mmHg (61-120); BLOOD GAS TOTAL HGB 15.5 G/DL (12.0-16.0); TEMP CORR TO 98.6
[2016-09-03 01:55] LABS: CRITICAL VALUE YES; DRAW SITE ART LINE; FIO2 35 %; OXYGEN DEVICE VENTILATOR; STAT NO; VENT SETTINGS AC/25/600/PEEP 5
[2016-09-03 02:25] LABS: AUTOMATED NEUTROPHIL # 5.7 TH/MM3 (1.8-7.7); BASOPHIL % 0.5 % (0.0-2.0); EOSINOPHIL # 0.2 TH/MM3 (0-0.4); EOSINOPHIL % 2.3 % (0.0-4.0); HEMATOCRIT 33.5 % (39.0-51.0); LYMPH % 14.4 % (9.0-44.0); LYMPHOCYTE # 1.1 TH/MM3 (1.0-4.8); MEAN CELL VOLUME 83.3 FL (80.0-100.0); MEAN CORPUSCULAR HEMOGLOBIN 27.7 PG (27.0-34.0); MEAN CORPUSCULAR HGB CONC 33.2 % (32.0-36.0); MONO % 7.5 % (0.0-8.0); NEUT % 75.3 % (16.0-70.0); PLATELET COUNT 253 TH/MM3 (150-450); RED BLOOD COUNT 4.02 MIL/MM3 (4.50-5.90); RED CELL DISTRIBUTION WIDTH 14.7 % (11.6-17.2); WHITE BLOOD COUNT 7.6 TH/MM3 (4.0-11.0)
[2016-09-03] MEDS: MEPERIDINE HCL 25 MG/ML VIAL IM PRN ×3 (02:28→09:16)
[2016-09-03 02:37] LABS: HEMO FLAGS AUTO DIFF
[2016-09-03 02:55] LABS: ALKALINE PHOSPHATASE 91 U/L (45-117); ALT (GPT) 70 U/L (12-78); ANION GAP 6 MEQ/L (5-15); AST (GOT) 53 U/L (15-37); BLOOD UREA NITROGEN 17 MG/DL (7-18); CHLORIDE 124 MEQ/L (98-107); GLOMERULAR FILTRATION RATE 295 ML/MIN (>89); TOTAL BILIRUBIN ADULT 0.3 MG/DL (0.2-1.0)
[2016-09-03 02:57] LABS: SODIUM (NA) 157 MEQ/L (136-145)
[2016-09-03 02:58] LABS: POTASSIUM 2.9 MEQ/L (3.5-5.1)
[2016-09-03] MEDS: POTASSIUM CHLOR 40 MEQ PREMIX 100 ML IV PRN ×4 (03:01→12:30)
[2016-09-03] MEDS: PROPOFOL 1000 MG/100 ML INJ 100 ML IV SCH ×6 (03:01→21:17)
[2016-09-03 03:14] LABS: BANDS 4 % (0-6); EOSINOPHILS 1 % (0-4); NEUTROPHIL # MANUAL DIFF 6.2 TH/MM3 (1.8-7.7); POLYS (SEG NEUTROPHILS) 77 % (16-70); WBC DIFF SAMPLE 100
[2016-09-03 03:15] LABS: PLATELET ESTIMATE SMEAR NORMAL (NORMAL); PLATELET MORPHOLOGY NORMAL (NORMAL); SCAN/DIFF FINAL DIFF MANUAL
[2016-09-03] MEDS: PIPERACIL-TAZO 4.5 GM PREMIX 100 ML IV SCH ×4 (03:48→21:17)
[2016-09-03] MEDS: SODIUM CHLOR 0.9% 1000 ML INJ 1,000 ML IV SCH ×2 (03:55→15:38)
[2016-09-03] MEDS: CHLORHEXIDINE GLUCONATE 2 % 1 PACK (2 CLOTHS) TOP SCH (04:00)
--- NOTE | 2016-09-03 04:33 | RADRPT ---
EXAM DATE/TIME: 09/03/2016 03:00 [facility] COMPARISON: CHEST SINGLE AP, September 02, 2016, 12:26. INDICATIONS : Evaluate respiratory disease, post tracheostomy MEDICAL HISTORY : None. Intracranial hemorrhage SURGICAL HISTORY : None. ENCOUNTER: Subsequent ACUITY: 2 weeks PAIN SCORE: Non-responsive. LOCATION: Bilateral chest FINDINGS: A single view of the chest demonstrates tracheostomy in satisfactory position. Right central line in superior vena cava. Bilateral mostly basilar airspace consolidation, left greater than right. Small p leural effusions. CONCLUSION: 1. Basilar airspace consolidation, left greater than right. 2. Tracheostomy in satisfactory position. Right central line in superior vena cava. Godwin Mcfarland MD on September 03, 2016 at 4:30 Board Certified Radiologist. This report was verified electronically.
[2016-09-03] MEDS: DOCUSATE SODIUM 50 MG/SENNA 8.6 MG TAB PO SCH ×2 (08:31→21:17)
[2016-09-03] MEDS: levETIRAcetam 1000 MG INJ 100 ML IV SCH ×2 (08:31→21:18)
[2016-09-03] MEDS: LACTULOSE SYRUP 20 GM/30 ML CUP PO SCH ×4 (08:31→21:17)
[2016-09-03] MEDS: SODIUM CHLORIDE 0.9% FLUSH 10 ML FLUSH SCH ×2 (08:32→21:19)
[2016-09-03] MEDS: MIDAZOLAM 100 MG/NS 100 ML DRIP Premix IV SCH ×2 (09:14→17:53)
[2016-09-03] MEDS: fentaNYL 2,500 MCG/NS 250 ML IV SCH ×2 (09:14→17:53)
[2016-09-03] MEDS: 3% SALINE INJ 500 ML IV SCH (09:15)
[2016-09-03 09:23] LABS: AUTOMATED NEUTROPHIL # 5.9 TH/MM3 (1.8-7.7); BASOPHIL # 0.1 TH/MM3 (0-0.2); BASOPHIL % 0.8 % (0.0-2.0); EOSINOPHIL # 0.4 TH/MM3 (0-0.4); EOSINOPHIL % 4.8 % (0.0-4.0); HEMATOCRIT 34.4 % (39.0-51.0); LYMPH % 16.6 % (9.0-44.0); LYMPHOCYTE # 1.4 TH/MM3 (1.0-4.8); MEAN CELL VOLUME 82.7 FL (80.0-100.0); MEAN CORPUSCULAR HEMOGLOBIN 27.6 PG (27.0-34.0); MEAN CORPUSCULAR HGB CONC 33.3 % (32.0-36.0); MONO % 7.5 % (0.0-8.0); NEUT % 70.3 % (16.0-70.0); PLATELET COUNT 306 TH/MM3 (150-450); RED BLOOD COUNT 4.16 MIL/MM3 (4.50-5.90); RED CELL DISTRIBUTION WIDTH 14.5 % (11.6-17.2); WHITE BLOOD COUNT 8.4 TH/MM3 (4.0-11.0)
[2016-09-03 09:24] LABS: HEMO FLAGS AUTO DIFF
--- NOTE | 2016-09-03 09:32 | HHI.NSPN ---
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 The headache has persisted since then along with nausea and occasional emesis. He has not sought any medical treatment since initial onset. He did not go to work since the initial onset due to these persistent symptoms. He has not been eating well. His states that after he went to sleep last night, at approximately 1:30 or 2 AM she noticed snoring respirations and found him initially unresponsive. He was able to be aroused by EMS and ambulated briefly prior to being placed in the ambulance. He was taken to [facility] for initial evaluation and in the emergency room was noted to be unresponsive with extensor posturing. He was intubated and placed on nicardipine drip for hypertension. No seizure activity reported. 08/23: Patient remains intubated and sedated this morning. 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 He is withdrawing with the RUE to noxious stimuli with questionable extension of both feet, but no response with the LUE per Nursing. He is maintaining his SBP without the nicardipine drip. Nursing also reports that temp has been up to 101.3 degrees. 08/24: Patient is intubated and sedated. Nursing reports that he is having neurogenic temperatures. Yesterday morning the patient had a CTA which demonstrated an aneurysm. That afternoon the patient went for coiling and had an increase in his ICP into the 60s. He immediately went for a CT scan and was given mannitol and 3% sodium with improvement in his ICP. He went again in the evening for another CTA. Nursing reports that the patient is not responding to any noxious stimuli. His ICP had just been checked and was 11. 08/25: Patient is intubated and on max sedation. Nursing reports that when his sedation was weaned down earlier he became extremely agitated, his BP went up and his ICP reached 20. His propofol was maxed and his ICP started coming down. He was also given labetalol for his BP. He did withdraw the BLE to noxious stimuli but did nothing with the BUE for Nursing and had a cough reflex. Nursing stated that in report she was told the patient withdrew all extremities to noxious stimuli yesterday. During the night his temperature dropped to 94 and later spiked to 103. He went for a repeat CTA yesterday afternoon w/o any residual aneurysm seen. He did have mild vasospasms in the right M1 segment and right A1 segment. His CXR today demonstrated left-sided infiltrates. 08/27: Patient sedated on Diprivan and fentanyl drips. Versed on hold. Patient opening eyes or following commands. Ventriculostomy at 5 cm a water ICP R8. Pupils are 2 mm bilaterally. Patient is intubated on a vent setting. 08/28: Patient sedated on Diprivan and fentanyl drips. Not opening eyes or following commands. Ventriculostomy at 5 cm water bloody CSF drainage. ICP 4. 08/29: Patient remains sedated. Nursing reports that he is having sustained elevated ICPs up to 25 and this morning was given rocuronium due to his ICP. The ICP did come down to 17 when seen. The patient did have repeat imaging this morning which demonstrated mild vasospasm but was improving otherwise. He is on Nimotop for ICP control and a Levophed drip for blood pressure control. Due to a sodium of 156 this morning the 3% saline is being held. 08/30: Patient remains sedated due to agitation if weaned down. Nursing reports that his ICP was 4 this morning prior to being seen. 08/31: Patient remains critical, intubated & sedated. The Restaurant Supervisor reports that the patient's ICP spiked in the 50s earlier after Respiratory Therapy made a vent change. He was given a bolus of 23% saline and his ICP came back down and was running between 4 and 5. Tracheostomy 08/31/16 09/01/16 received 1 dose of 23.4% hypertonic saline due to ICP in the mid 20s, with improvement of ICPs to the 7-15 range 09/02: Patient is still intubated & sedated. Nursing reports his ICP went into the 20s during the night and received a 23% saline bolus twice. This morning his ICP has been 15 and 17 for the Nurse. His SBP shot up into the 190s and he received a bolus of labetalol before being seen. His SPB is still between 188 and 192 mm Hg when seen. She states that she is maxed out on his drips. She reports no response to stimulation. The patient had a PEG tube placed yesterday by Gastroenterology. 09/03: Patient remains critical and is intubated & sedated on propofol, fentanyl & midazolam. He has 3% saline and norepinephrine drips going. The patient went for a CTA brain yesterday which demonstrated a mild vasospasm. Subsequent to that he went to Interventional Radiology for intravascular verapamil injection. (Boogie Lawler) System Review Comments Unable to obtain ROS due to patient's mental status, intubation & sedation. ( Boogie Lawler) Exam Results Vital Signs Date Time Temp Pulse Resp B/P Pulse Ox O2 Delivery O2 Flow Rate FiO2 09/03/16 08:19 99 35 09/03/16 06:00 70 09/03/16 04:00 97.6 25 162/87 09/02/16 19:00 Mechanical Ventilator Intake and Output 09/02/16 09/02/16 09/03/16 08:00 16:00 00:00 Intake Total 1437 ml 1397 ml 1490 ml Output Total 2460 ml 2303 ml 2718 ml Balance -1023 ml -906 ml -1228 ml (Boogie Lawler) Physical Examination General: Trached & sedated. HEENT: Normocephalic, atraumatic. Tracheostomy. Ventriculostomy insertion site w/o any evident drainage, erythema or streaking. Respiratory: CTAB w/o W/R/R, equal excursion, nonlaboured, trached & on vent. Cardiovascular: S1S2 w/RRR w/o M/G/R, radial & pedal pulses 2+ bilaterally, cap refill < 2 sec. Monitor is sinus rhythm w/o any ectopy noted. Gastrointestinal: Abdomen soft, bowel sounds not appreciated, PEG tube w/ enteral feeds. Integumentary: No cyanosis or erythema. SCD bilaterally. Musculoskeletal: Extremities normal, no evident deformity or clubbing. Neuro: Patient remains intubated & sedated, GCS 3T. Unable to assess motor strength/response or sensation. Pupils 3 mm minimally reactive No response to deep pain all extremities Ventriculostomy at 5 with bloody tea-coloured drainage noted (Boogie Lawler) Lab, Micro, Other Results Allergies Coded Allergies Type Severity Reaction Last Updated Verified No Known Allergies 08/23/16 No Recent Impressions Chest X-Ray 09/03/16 0600 Signed Impressions: Service Date/Time: Saturday, September 03, 2016 03:00 - CONCLUSION: 1. Basilar airspace consolidation, left greater than right. 2. Tracheostomy in satisfactory position. Right central line in superior vena cava. Godwin Mcfarland MD Head CTA 09/02/16 0000 Signed Impressions: Service Date/Time: Friday, September 02, 2016 13:50 - CONCLUSION: 1. Findings concerning for interval progression of vasospasm involving the right A1 and proximal M1 segments, now moderate in severity. 2. Improving right temporal intraparenchymal and intraventricular blood products. Vipin Gibbs MD Head CT 09/02/16 0000 Signed Impressions: Service Date/Time: Friday, September 02, 2016 13:50 - CONCLUSION: 1. Stable appearance of the patient's intraparenchymal and intraventricular hemorrhage. 2. There is 6 mm of [id number] shift on today's study. This has decreased when compared with previous exam. Ozzy Marcelo MD Chest X-Ray 09/02/16 0000 Signed Impressions: Service Date/Time: Friday, September 02, 2016 12:26 - CONCLUSION: Increasing consolidative changes left base. Barry Marcelo MD FACR Head CT 09/01/16 0600 Signed Impressions: Service Date/Time: August 05:03 - CONCLUSION: Intraventricular hemorrhage has improved otherwise no significant change in moderate cerebral edema bilaterally, subfalcine herniation from right to left and right temporal lobe intraparenchymal hemorrhage. Jhonny Briceño MD Chest X-Ray 09/01/16 0600 Signed Impressions: Service Date/Time: August 04:32 - CONCLUSION: Worsening pulmonary edema and left lung base opacity has not changed. Jhonny Briceño MD 6/15/176/15/176/16/176/16/176/17/176//17 06:00 18:00 06:00 18:00 06:00 18:00 Intake Total 3671 ml 2514 ml 3360 ml 1397 ml 1490 ml 2085 ml Output Total 3532 ml 2922 ml 4359 ml 2303 ml 2718 ml 1784 ml Balance 139 ml -408 ml -999 ml -906 ml -1228 ml 301 ml Intake IV Total 3621 ml 2115 ml 3180 ml 1352 ml 1490 ml 1806 ml Tube Feeding 279 ml FFP 399 ml Tube Irrigant 50 ml 180 ml 45 ml Output Urine Total 3425 ml 2750 ml 4300 ml 2200 ml 2700 ml 1750 ml Stool Total 50 ml 150 ml 0 ml 40 ml Drainage Total 57 ml 22 ml 59 ml 63 ml 18 ml 34 ml # Bowel Movements 1 Laboratory Tests Test 08/31/16 08/31/16 09/01/16 09/01/16 15:08 23:30 04:30 09:20 Sodium Level 149 MEQ/L 150 MEQ/L 149 MEQ/L 152 MEQ/L Potassium Level 3.8 MEQ/L 3.9 MEQ/L Chloride Level 117 MEQ/L 117 MEQ/L Carbon Dioxide Level 20.3 MEQ/L 24.0 MEQ/L Anion Gap 12 MEQ/L 8 MEQ/L Blood Urea Nitrogen 15 MG/DL 16 MG/DL Creatinine 0.42 MG/DL 0.41 MG/DL Estimat Glomerular Filtration 208 ML/MIN 214 ML/MIN Rate Random Glucose 93 MG/DL 116 MG/DL Calcium Level 7.6 MG/DL 8.2 MG/DL Total Bilirubin 0.3 MG/DL 0.4 MG/DL Aspartate Amino Transf 51 U/L 52 U/L (AST/SGOT) Alanine Aminotransferase 91 U/L 87 U/L (ALT/SGPT) Alkaline Phosphatase 79 U/L 86 U/L Total Protein 5.6 GM/DL 6.2 GM/DL Albumin 1.4 GM/DL 1.5 GM/DL White Blood Count 11.3 TH/MM3 9.7 TH/MM3 Red Blood Count 4.64 MIL/MM3 4.49 MIL/MM3 Hemoglobin 12.7 GM/DL 12.5 GM/DL Hematocrit 38.6 % 37.2 % Mean Corpuscular Volume 83.2 FL 82.9 FL Mean Corpuscular Hemoglobin 27.3 PG 27.8 PG Mean Corpuscular Hemoglobin 32.8 % 33.6 % Concent Red Cell Distribution Width 14.7 % 15.0 % Platelet Count 303 TH/MM3 288 TH/MM3 Mean Platelet Volume 7.9 FL 7.9 FL Neutrophils (%) (Auto) 82.7 % 80.9 % Lymphocytes (%) (Auto) 7.2 % 8.8 % Monocytes (%) (Auto) 6.7 % 7.4 % Eosinophils (%) (Auto) 3.2 % 2.5 % Basophils (%) (Auto) 0.2 % 0.4 % Neutrophils # (Auto) 9.3 TH/MM3 7.9 TH/MM3 Lymphocytes # (Auto) 0.8 TH/MM3 0.9 TH/MM3 Monocytes # (Auto) 0.8 TH/MM3 0.7 TH/MM3 Eosinophils # (Auto) 0.4 TH/MM3 0.2 TH/MM3 Basophils # (Auto) 0.0 TH/MM3 0.0 TH/MM3 CBC Comment AUTO DIFF AUTO DIFF Neutrophils % (Manual) 81 % 79 % Lymphocytes % 8 % 11 % Monocytes % 3 % 4 % Neutrophils # (Manual) 9.3 TH/MM3 8.0 TH/MM3 Metamyelocytes 1 % Differential Comment FINAL DIFF FINAL DIFF MANUAL MANUAL Platelet Estimate NORMAL NORMAL Platelet Morphology Comment NORMAL NORMAL Red Cell Morphology Comment NORMAL NORMAL Magnesium Level 2.0 MG/DL Differential Total Cells 100 Counted Band Neutrophils % 2 % Eosinophils % 2 % Basophils % 1 % Myelocytes 1 % Prothrombin Time 10.3 SEC Prothromb Time International 0.9 RATIO Ratio Activated Partial 38.9 SEC Thromboplast Time Fibrinogen GREATER THAN 860 mg/dL Test 09/01/16 09/01/16 09/01/16 09/01/16 11:26 11:53 15:28 22:30 Blood Type O POSITIVE O POSITIVE Antibody Screen NEGATIVE Blood Bank Comment Sodium Level 154 MEQ/L 156 MEQ/L Test 09/02/16 09/02/16 09/02/16 09/02/16 04:30 06:31 13:04 20:50 Sodium Level 162 MEQ/L 157 MEQ/L 151 MEQ/L Blood Gas Puncture Site ART LINE Blood Gas Patient Temperature 98.6 Blood Gas HCO3 23 mmol/L Blood Gas Base Excess -0.7 mmol/L Blood Gas Oxygen Saturation 96 % Arterial Blood pH 7.47 Arterial Blood Partial 31 mmHg Pressure CO2 Arterial Blood Partial 94 mmHg Pressure O2 Arterial Blood Oxygen Content 15.2 Vol % Arterial Blood 1.3 % Carboxyhemoglobin Arterial Blood Methemoglobin 0.9 % Blood Gas Hemoglobin 11.2 G/DL Oxygen Delivery Device VENTILATOR Blood Gas Ventilator Setting AC/20/550/PEEP5 Blood Gas Inspired Oxygen 35 % Urine Specific [place] 1.012 Urine Osmolality 523 MOSM/KG Serum Osmolality 317 MOSM/KG Test 09/03/16 09/03/16 00:35 01:52 Blood Gas Puncture Site ART LINE Blood Gas Patient Temperature 98.6 Blood Gas HCO3 23 mmol/L Blood Gas Base Excess -0.1 mmol/L Blood Gas Oxygen Saturation 94 % Arterial Blood pH 7.53 Arterial Blood Partial 27 mmHg Pressure CO2 Arterial Blood Partial 75 mmHg Pressure O2 Arterial Blood Oxygen Content 20.4 Vol % Arterial Blood 1.1 % Carboxyhemoglobin Arterial Blood Methemoglobin 0.8 % Blood Gas Hemoglobin 15.5 G/DL Oxygen Delivery Device VENTILATOR Blood Gas Ventilator Setting AC/25/600/PEEP 5 Blood Gas Inspired Oxygen 35 % White Blood Count 7.6 TH/MM3 Red Blood Count 4.02 MIL/MM3 Hemoglobin 11.1 GM/DL Hematocrit 33.5 % Mean Corpuscular Volume 83.3 FL Mean Corpuscular Hemoglobin 27.7 PG Mean Corpuscular Hemoglobin 33.2 % Concent Red Cell Distribution Width 14.7 % Platelet Count 253 TH/MM3 Mean Platelet Volume 8.3 FL Neutrophils (%) (Auto) 75.3 % Lymphocytes (%) (Auto) 14.4 % Monocytes (%) (Auto) 7.5 % Eosinophils (%) (Auto) 2.3 % Basophils (%) (Auto) 0.5 % Neutrophils # (Auto) 5.7 TH/MM3 Lymphocytes # (Auto) 1.1 TH/MM3 Monocytes # (Auto) 0.6 TH/MM3 Eosinophils # (Auto) 0.2 TH/MM3 Basophils # (Auto) 0.0 TH/MM3 CBC Comment AUTO DIFF Differential Total Cells 100 Counted Neutrophils % (Manual) 77 % Band Neutrophils % 4 % Lymphocytes % 16 % Monocytes % 2 % Eosinophils % 1 % Neutrophils # (Manual) 6.2 TH/MM3 Differential Comment FINAL DIFF MANUAL Platelet Estimate NORMAL Platelet Morphology Comment NORMAL Sodium Level 157 MEQ/L Potassium Level 2.9 MEQ/L Chloride Level 124 MEQ/L Carbon Dioxide Level 27.0 MEQ/L Anion Gap 6 MEQ/L Blood Urea Nitrogen 17 MG/DL Creatinine 0.31 MG/DL Estimat Glomerular Filtration 295 ML/MIN Rate Random Glucose 112 MG/DL Calcium Level 7.9 MG/DL Phosphorus Level 2.1 MG/DL Magnesium Level 2.0 MG/DL Total Bilirubin 0.3 MG/DL Aspartate Amino Transf 53 U/L (AST/SGOT) Alanine Aminotransferase 70 U/L (ALT/SGPT) Alkaline Phosphatase 91 U/L Total Protein 5.7 GM/DL Albumin 1.4 GM/DL Vital Signs Date Time Temp Pulse Resp B/P Pulse Ox O2 Delivery O2 Flow Rate FiO2 09/03/16 08:19 99 35 09/03/16 08:19 99 35 09/03/16 06:00 70 09/03/16 04:53 98 35 09/03/16 04:00 65 09/03/16 04:00 97.6 67 25 162/87 99 09/03/16 04:00 35 09/03/16 02:00 65 09/03/16 01:51 97 35 09/03/16 00:42 97 35 09/03/16 00:00 68 09/03/16 00:00 99.5 68 20 171/89 97 09/03/16 00:00 35 09/02/16 22:00 72 09/02/16 21:19 97 35 09/02/16 21:08 97 35 09/02/16 20:00 76 09/02/16 20:00 101.1 76 20 162/86 98 09/02/16 20:00 35 09/02/16 19:00 100 Mechanical Ventilator 35 09/02/16 18:29 99.7 75 20 164/90 99 09/02/16 18:00 74 09/02/16 18:00 99.6 73 20 163/89 99 09/02/16 16:00 35 09/02/16 16:00 82 09/02/16 15:50 100 100 09/02/16 15:29 97 35 09/02/16 14:25 100 100 09/02/16 14:00 80 09/02/16 12:00 35 09/02/16 12:00 99.7 81 20 170/90 100 09/02/16 12:00 81 09/02/16 11:27 98 35 09/02/16 10:00 75 09/02/16 08:06 99 35 09/02/16 08:06 99 35 09/02/16 08:00 35 09/02/16 08:00 99.6 75 20 178/86 100 09/02/16 08:00 76 09/02/16 07:00 100 Mechanical Ventilator 35 09/02/16 06:00 72 09/02/16 04:17 98 35 09/02/16 04:00 35 09/02/16 04:00 82 09/02/16 04:00 100.1 82 20 176/94 96 09/02/16 02:00 76 09/02/16 01:15 97 35 09/02/16 01:15 97 35 09/02/16 00:00 77 09/02/16 00:00 35 09/02/16 00:00 99.7 77 20 169/88 97 09/01/16 22:00 80 09/01/16 20:00 35 09/01/16 20:00 99.6 82 20 180/94 100 09/01/16 20:00 82 09/01/16 19:33 100 35 09/01/16 19:00 100 Mechanical Ventilator 35 09/01/16 18:00 77 09/01/16 17:30 35 09/01/16 16:12 100 35 09/01/16 16:00 35 09/01/16 16:00 89 09/01/16 16:00 100.4 74 20 168/90 99 09/01/16 14:00 80 09/01/16 12:00 77 09/01/16 12:00 99.7 76 20 167/90 99 09/01/16 12:00 35 09/01/16 11:30 99 35 09/01/16 11:15 35 09/01/16 10:00 86 09/01/16 08:16 100 35 09/01/16 08:16 100 35 09/01/16 08:00 99.6 76 18 170/92 100 09/01/16 08:00 35 09/01/16 08:00 77 09/01/16 07:00 100 Mechanical Ventilator 35 09/01/16 06:00 80 09/01/16 04:45 100 100 09/01/16 04:15 97 40 09/01/16 04:00 35 09/01/16 04:00 81 09/01/16 04:00 98.7 80 18 164/88 97 09/01/16 02:00 72 09/01/16 01:18 97 40 09/01/16 01:18 97 40 09/01/16 00:00 98.3 72 18 176/94 100 09/01/16 00:00 35 09/01/16 00:00 72 08/31/16 22:00 76 08/31/16 20:42 100 35 08/31/16 20:00 35 08/31/16 20:00 70 08/31/16 20:00 98.7 70 18 178/90 99 08/31/16 19:19 100 100 08/31/16 19:00 99 Mechanical Ventilator 35 08/31/16 18:00 35 08/31/16 18:00 75 08/31/16 17:38 18 08/31/16 17:22 100 35 08/31/16 16:25 60 08/31/16 16:00 99.9 72 18 149/83 100 08/31/16 16:00 73 08/31/16 14:00 78 08/31/16 13:01 100 40 08/31/16 12:00 99.4 82 18 180/97 100 08/31/16 12:00 40 08/31/16 12:00 82 08/31/16 10:00 81 (Boogie Lawler) Medical Decision Making Impression and Plan Impression: 1. Right temporal intracranial hemorrhage with interventricular extension 2. 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 Hypertension 4. Small outpouching proximal right anterior cerebral artery 1.5 mm max, small vessel loop vs small aneurysm No change in neurological status Moderate right in line-A1 segment vasospasm on CTA yesterday afternoon ICP up to 30 during the night, now in teens Sodium 157 early this morning Hypophosphatemia early this morning Hypokalemia early this morning Hypermagnesemia, resolved Plan: Maintain systolic blood pressure 160s-180s range Maintain sodium between 145 and 155, hypertonic saline as needed Continuing ventilatory support with sedation as needed for control of airway, respirations and agitation Monitor ICP & ventriculostomy catheter Ulcer prophylaxis Non- chemical DVT prophylaxis Critical care management per Restaurant Supervisor (Boogie Lawler) Attending Statement I have personally seen and examined the patient on the 09/03/16. Pertinent documentation and study results have been reviewed by the undersigned. I have personally developed the treatment plan and performed medical decision making. Agree with findings, exam, and treatment plan as noted above. Stable neurologic exam following endovascular treatment for vasospasm, verapamil injection on 09/02/16 Continuing-controlled hypertension Interventional radiology plans for possible further aneurysm coiling 09/05/16 ( Speedy Robbins MD) Boogie Lawler Sep 03, 2016 09:32 Speeyd Robbins MD Sep 04, 2016 19:48
[2016-09-03 09:35] LABS: BICARBONATE 24.8 MEQ/L (21.0-32.0); CALCIUM-PROTEIN CORRECTED 7.8 MG/DL (8.5-10.1); MAGNESIUM 2.1 MG/DL (1.5-2.5); POTASSIUM 3.1 MEQ/L (3.5-5.1); TOTAL BILIRUBIN ADULT 0.3 MG/DL (0.2-1.0)
[2016-09-03] MEDS: AZITHROMYCIN INJ 500 MG in SODIUM CHLOR 0.9% 250 ML INJ 250 ML IV SCH (10:16)
[2016-09-03 10:19] LABS: BANDS 9 % (0-6); BASOPHILS 1 % (0-2); CORRECTED NUCLEATED RBC 1 /100 WBC (0-0); EOSINOPHILS 5 % (0-4); MYELOCYTES 3 % (0-0); NEUTROPHIL # MANUAL DIFF 6.1 TH/MM3 (1.8-7.7); POLYS (SEG NEUTROPHILS) 61 % (16-70); SCAN/DIFF FINAL DIFF MANUAL; WBC DIFF SAMPLE 100
--- NOTE | 2016-09-03 12:01 | RADRPT ---
EXAM DATE/TIME: 09/02/2016 16:27 [facility] COMPARISON: No previous studies available for comparison. INDICATIONS : Patient is in need of cerebral angiogram with spasmolytic therapy due to cerebral vasospasm. MEDICAL HISTORY : History of aneurysmal subarachnoid hemorrhage, intracranial hypertension, acute encephalopathy, obstr uctive hydrocephalus, acute respiratory failure, aspiration pneumonia, dyslipidemia, HTN. SURGICAL HISTORY : History of cerebral aneurysm coiling, ventriculostomy drain placement, peg tube placement, tracheosto my. ENCOUNTER: Subsequent ACUITY: 2 weeks PAIN SCORE: Nonresponsive. LOCATION: Patient is on mechanical ventilation. FLUORO TIME: 4.7 minutes IMAGE SERIES: 5 ACCESS SITE: Right Femoral artery CONTRAST: 35 cc Visipaque (iodixanol) MEDICATION(S): 1.) 15 mg Verapamil IART 2.) 20 mg Labetalol IV PROCEDURE : 1. Ultrasound-guided puncture of the access site. 2. Conscious sedation with continuous EKG and Oximetry monitoring. 3. Selective catheter placement in the right internal carotid artery with cerebral angiography 4. Intra-arterial administration of verapamil in the distal cervical right internal carotid artery The risks, benefits and alternatives to the procedure were explained and verbal and written consent w as obtained. The site was prepped in sterile fashion. Full sterile technique was used, including ca p, mask, sterile gloves and gown and a large sterile sheet. Hand hygiene and 2% chlorhexidine and/or betadine/alcohol prep was utilized per protocol for cutaneous antisepsis. The skin and subcutaneous tissues were infiltrated with local anesthetic solution. With ultrasound and fluoroscopic guidance the selected artery was punctured and a vascular sheath was placed. A 4 [place] JB2 catheter was then used to select the right common carotid artery incidentally advanced to the distal cervical segment with the assistance of a Glidewire. Supine chart he was then performed. This confirmed moderate vasospasm of the right M1 segment. There is subtle spasm involvin g the A1 segment. Incidentally, there has been interval further impaction of the aneurysm coil mass w ith opacification of the base of the aneurysm. Next, 5 mg of intra-arterial verapamil was administere d through the angiographic catheter x 3. following the third administration, there was moderate impro vement with mild residual spasm in the M1 segment. Therefore, procedure was terminated at this time. Catheter was withdrawn. The puncture site was closed with manual pressure and hemostasis was obtained. The patient tolerated the procedure well and there were no complications. Conscious sedation was performed with the prescribed dosages and duration as above in the presence of an independent trained radiology nurse to assist in the monitoring of the patient. EKG and oximetry remained stable throughout the procedure. CONCLUSION: 1. Moderate vasospasm of the right M1 segment with adequate response to intra-arterial verapamil. Mil d residual spasm at the conclusion of the procedure. 2. Interval compaction of the aneurysm coil mass with new opacification of the base of the aneurysm. Tentative plans for additional aneurysm coiling . Vipin Gibbs MD on September 03, 2016 at 11:53 Board Certified Radiologist. This report was verified electronically.
--- NOTE | 2016-09-03 14:08 | HHI.CCPN ---
Subjective Remarks/Hospital Course 60 year old male who presents to the [facility] in transfer from [facility] after being diagnosed with a subarachnoid hemorrhage with intraventricular hemorrhage extension. The patient was intubated at that facility when he became unresponsive. The patient was noted to be tachycardic with a heart rate in the 130s, blood pressure initially 220/120. According to the record, the patient had a history of recently standing up after tying his shoes and having a headache associated with neck pain. He had been being seen by a local chiropractor and been treating the pain with tramadol, ibuprofen, and Flexeril. This evening he developed a decreased level of consciousness and was difficult to awaken according to his . She was concerned that he may have taken some extra pain medication, therefore Narcan was given in 3 separate doses at that facility, however the patient had no response. The patient was noted after intubation to have the subarachnoid hemorrhage and was transferred to this facility for higher level of care. The patient was placed on propofol for sedation on the ventilator. The patient was started on a Cardene drip. EVD was emergently placed by neurosurgeon. 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 He immediately went for a CT scan and was given mannitol and 3% sodium with improvement in his ICP. Repeat CT was essentially unchanged 08/24/16: Today patient is sedated with Versed and propofol. Flaccid on all 4 extremities no withdrawal to pain. Pupils are equal sluggishly reactive positive corneal positive cough. Unable to to TCD. Clinical suspicion of vasospasm high. Will repeat CT angiogram stat. Discussed with Dr. Andrez Marcelo and Dr. Robbins 08/25/16: Repeat CT angiogram of the head did not show any significant vasospasm yesterday. Spiking fever overnight white count increased to 20.2 from 12.3. CXR developing left infiltrate. Very slight withdrawal of all 4 extremities to deep pain 08/26: Continues to have high FiO2 requirement Now Fio2 95% and PEEP 10. WBC 21, 000. Neuro exam unchanged. Unable to get TCD window, will cancel. CXR bilateral infiltrates, L >R 08/27: Remains unresponsive, stat EEG ordered to rule out subclinical seizure 08/28: Episode of high ICPs last night with vent setting change and retention of CO2 08/29: High ICP up to 27 today, responded to Versed bolus and infusion started. CTA ordered STAT-mild stable vasospasm. Optimized on hyperosmolar therapy. 08/30: Intermittent ICP spike, received 23% saline bolus 1. Otherwise neurologically unchanged. Continues to be heavily sedated for ICP control. Sodium 151. We'll restart 3% saline 08/31: Remains heavily sedated for ICP control. Last 24 hours ICP had been fairly well controlled except one episode but spike for approximately 15 minutes when the respiratory rate was reduced. Sodium 148 have increased 3% saline to 50 mL per hour, keep sodium 150-155. No sedation vacation per Dr. Robbins. Plan for trach today 09/01: Remains intubated heavily sedated, s/p trach yesterday. Oozing from the trach site noted, has stopped with Surgiseal placement. ICP 24 received 23% 1 with improvement. PEG planned for today. 09/02: Intermittent ICP elevation >30 twice overnight requiring 23% bolus. Hypertonic saline ow on hold as Na is 162. PEG tube was placed yesterday. ( Trach 08/31). Check CTA today stat Subjective: 09/03 23% bolus administered last night around 9 pm and 01:30, sodium 156. Today ICP 8-17. CTA yesterday showed moderate vasospasm R M1; received intraarterial verapamil. Tentative plan for repeat angiogram on Tuesday 09/05, possible additional coil of residual aneurysm. Objective Vital Signs Date Time Temp Pulse Resp B/P Pulse Ox O2 Delivery O2 Flow Rate FiO2 09/03/16 13:35 99 35 09/03/16 08:00 72 09/03/16 07:00 Mechanical Ventilator 09/03/16 04:00 97.6 25 162/87 Intake and Output 09/02/16 09/02/16 09/03/16 08:00 16:00 00:00 Intake Total 1437 ml 1397 ml 1490 ml Output Total 2460 ml 2303 ml 2718 ml Balance -1023 ml -906 ml -1228 ml Result Diagram: 09/03/16 0855 09/03/16 0855 Other Results Laboratory Tests Test 09/03/16 00:35 Blood Gas Puncture Site ART LINE Blood Gas Patient Temperature 98.6 Blood Gas HCO3 23 mmol/L (22-26) Blood Gas Base Excess -0.1 mmol/L (-2-2) Blood Gas Oxygen Saturation 94 % (90-100) Arterial Blood pH 7.53 (7.380-7.420) Arterial Blood Partial 27 mmHg (38-42) Pressure CO2 Arterial Blood Partial 75 mmHg Pressure O2 (61-120) Arterial Blood Oxygen Content 20.4 Vol % (12.0-20.0) Arterial Blood 1.1 % (0-4) Carboxyhemoglobin Arterial Blood Methemoglobin 0.8 % (0-2) Blood Gas Hemoglobin 15.5 G/DL (12.0-16.0) Oxygen Delivery Device VENTILATOR Blood Gas Ventilator Setting AC/25/600/PEEP 5 Blood Gas Inspired Oxygen 35 % Objective Remarks Drips: Propofol 50 mcg/kg/min Versed 10 mg /hr Fentanyl 250 mcg/hr 3% saline 50 mL/hr Levophed 3.5 mcg/min GENERAL: Well-nourished, well-developed patient. Sedated and intubated SKIN: Warm and dry. HEAD: Normocephalic. EVD in place, +5 cm H20, ICP now 8-9. EYES: No scleral icterus, mild scleral edema. No injection or drainage. NECK: Supple, trachea midline. No JVD or lymphadenopathy. CARDIOVASCULAR: Regular rate and rhythm without murmurs, gallops, or rubs. RESPIRATORY: Breath sounds equal bilaterally. Coarse breath sounds and rhonchi at bilateral bases, predominantly L base GASTROINTESTINAL: Abdomen soft, non-tender, nondistended. PEG in place. Bowel sounds present. Dignishield in place with soft brown stool. : Castelan in place with light yellow urine output. EXTREMITIES: No clubbing cyanosis, 1+ edema. NEURO: SHEY 3mm reactive, positive corneal. On heavy sedation due to ICP issues which limits exam. No response to deep noxious stimuli A/P Assessment and Plan Neuro: Aneurysmal Subarachnoid hemorrhage Intracranial hypertension Acute encephalopathy Obstructive hydrocephalus - Stat CTA 09/02 showed Moderate vasospasm M1., s/p intraarterial verapamil. Angio showed some residual aneurysm at base of aneurysm. Tentative plan to repeat angio on 09/05 to evalaute for vasospasm and possibly pursue additional coiling. - 6/12 showed stable mild vasospasm. - Ct head 08/29: Improving intra-axial subarachnoid and intraventricular hemorrhage, improving ventricular size - Ct head 08/31 improving intraventricular hemorrhage and stable cerebral edema, stable intraparenchymal hemorrhage - Marshall and Galeas grade 5, Modified Andersen grade 4 - S/P supraclinoid ICA aneurysm coil embolization. - Target SBP 160-180 due to vasospasm - Nimodipine and Pravachol 40 hs. - Keep Mag>2, target sodium 145-155 (tolerating 155-160 currently following 23% bolus for ICP issues) . 3% decreased from 50 ml/hr to 25 ml/hr. - EEG 08/24-diffuse encephalopathy, EEG 08/27 severe encephalopathy, burst suppression pattern - Continue Keppra 1 gram IV q12. - Propofol Versed and Fentanyl for sedation and ventilator synchrony. - Neuromuscular paralysis prn for elevated ICP. - No sedation vacation until more stable and cleared by Dr. Robbins RESP Acute hypoxemic respiratory failure ARDS Aspiration pneumonia - Intubated for an airway protection, developed severe ARDS which is improving. - Now on ACV TV 600 R 22 PEEP 5 FIO2 35%. - s/p trach 08/31, Dr. Giles/Fadi - Vent bundle. DuoNeb q6 and PRN - No SBT's until neurologically stable CVS Hypertension Dyslipidemia - Levophed to keep SBP 160-180 - SBP [id number] due to vasospasm - Nimotop 30 due to significant hypotension Q4 - Pravachol for vasospasm prevention as well GI: - Tube feeds with Jevity-s/p PEG 09/01/16. Jevity 1.5 goal rate 65 mL/hr per nutrition recs. - IV Protonix - Bowel regimen - Having BM, dignishield in place> probably can discontinue soon as stool output appears to be decreased but will wait to ensure ICPs remain stable FEN/RENAL: - Electrolyte replacement per protocol - 0.9 NaCl @ 100 ml/hr. - Monitor renal function closely - Strict I's and O's ID: Aspiration pneumonia Severe sepsis - Beta strep in sputum 08/25, repeat sputum culture 08/30 negative. -All blood cultures -08/25, 08/30, 08/31 -White blood count normalized. - Zosyn 4.5 g IV every 6 hours 08/25 #10, azithromycin 08/26 #9.. Vancomycin DCd . DC azithromycin. DVT GI prophylaxis - Teds, SCDs - Subcutaneous heparin was placed on hold 08/30. - Pantoprazole 40 q24. ACCESS: Left axillary art line placed 08/30 #5 ; right subclavian central venous line placed 08/23 #12. Critical Care: The total critical care time was 30 minutes. Time to perform other separately billable procedures was not included in the critical care time. Adelaida Teran MD Sep 03, 2016 14:08
[2016-09-03] MEDS: RESP: ALBUTEROL 2.5 MG/IPRATROPIUM 0.5 MG NEB (SCH) NEB ×2 (15:26→20:06)
[2016-09-03] MEDS: PANTOPRAZOLE SODIUM 40 MG VIAL IV PUSH SCH (15:56)
[2016-09-03] MEDS: PRAVASTATIN SOD 40 MG TAB PO SCH (21:17)
[2016-09-04] VITALS (19 sets, daily range): BP systolic 158–184; BP diastolic 89–104; PULSE 68–96; RESP 22; TEMP 99.1–100.3; O2SAT 97–100
[2016-09-04] MEDS: SODIUM CHLOR 0.9% 1000 ML INJ 1,000 ML IV SCH ×3 (00:22→19:43)
[2016-09-04] MEDS: niMODipine 30 MG CAP PO SCH ×6 (00:22→20:27)
[2016-09-04] MEDS: 3% SALINE INJ 500 ML IV SCH (00:23)
[2016-09-04] MEDS: POTASSIUM CHLORIDE 25 MEQ EFFERVESCENT TAB PO PRN (00:38)
[2016-09-04] MEDS: PROPOFOL 1000 MG/100 ML INJ 100 ML IV SCH ×8 (00:39→23:32)
[2016-09-04] MEDS: RESP: ALBUTEROL 2.5 MG/IPRATROPIUM 0.5 MG NEB (SCH) NEB ×4 (03:16→20:04)
[2016-09-04] MEDS: MIDAZOLAM 100 MG/NS 100 ML DRIP Premix IV SCH ×3 (03:25→20:26)
[2016-09-04] MEDS: fentaNYL 2,500 MCG/NS 250 ML IV SCH ×3 (03:25→21:28)
[2016-09-04] MEDS: PIPERACIL-TAZO 4.5 GM PREMIX 100 ML IV SCH ×4 (03:25→21:27)
[2016-09-04] MEDS: CHLORHEXIDINE GLUCONATE 2 % 1 PACK (2 CLOTHS) TOP SCH (03:32)
[2016-09-04 05:00] LABS: AUTOMATED NEUTROPHIL # 6.7 TH/MM3 (1.8-7.7); BASOPHIL # 0.1 TH/MM3 (0-0.2); BASOPHIL % 0.9 % (0.0-2.0); EOSINOPHIL # 0.7 TH/MM3 (0-0.4); EOSINOPHIL % 7.5 % (0.0-4.0); HEMATOCRIT 35.4 % (39.0-51.0); LYMPHOCYTE # 1.6 TH/MM3 (1.0-4.8); MEAN CELL VOLUME 83.5 FL (80.0-100.0); MEAN CORPUSCULAR HEMOGLOBIN 27.1 PG (27.0-34.0); MEAN CORPUSCULAR HGB CONC 32.5 % (32.0-36.0); MONO % 4.5 % (0.0-8.0); NEUT % 70.1 % (16.0-70.0); PLATELET COUNT 339 TH/MM3 (150-450); RED BLOOD COUNT 4.24 MIL/MM3 (4.50-5.90); WHITE BLOOD COUNT 9.6 TH/MM3 (4.0-11.0)
[2016-09-04 05:01] LABS: HEMO FLAGS AUTO DIFF
[2016-09-04 05:36] LABS: BICARBONATE 24.7 MEQ/L (21.0-32.0); POTASSIUM 3.7 MEQ/L (3.5-5.1)
[2016-09-04 05:58] LABS: BANDS 3 % (0-6); BASOPHILS 1 % (0-2); EOSINOPHILS 6 % (0-4); METAMYELOCYTES 1 % (0-1); MYELOCYTES 2 % (0-0); NEUTROPHIL # MANUAL DIFF 7.1 TH/MM3 (1.8-7.7); PLATELET ESTIMATE SMEAR NORMAL (NORMAL); PLATELET MORPHOLOGY NORMAL (NORMAL); POLYS (SEG NEUTROPHILS) 68 % (16-70); SCAN/DIFF FINAL DIFF MANUAL; WBC DIFF SAMPLE 100
--- NOTE | 2016-09-04 07:56 | HHI.CCPN ---
Subjective Remarks/Hospital Course 60 year old male who presents to the [facility] in transfer from [facility] after being diagnosed with a subarachnoid hemorrhage with intraventricular hemorrhage extension. The patient was intubated at that facility when he became unresponsive. The patient was noted to be tachycardic with a heart rate in the 130s, blood pressure initially 220/120. According to the record, the patient had a history of recently standing up after tying his shoes and having a headache associated with neck pain. He had been being seen by a local chiropractor and been treating the pain with tramadol, ibuprofen, and Flexeril. This evening he developed a decreased level of consciousness and was difficult to awaken according to his . She was concerned that he may have taken some extra pain medication, therefore Narcan was given in 3 separate doses at that facility, however the patient had no response. The patient was noted after intubation to have the subarachnoid hemorrhage and was transferred to this facility for higher level of care. The patient was placed on propofol for sedation on the ventilator. The patient was started on a Cardene drip. EVD was emergently placed by neurosurgeon. 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 He immediately went for a CT scan and was given mannitol and 3% sodium with improvement in his ICP. Repeat CT was essentially unchanged 08/24/16: Today patient is sedated with Versed and propofol. Flaccid on all 4 extremities no withdrawal to pain. Pupils are equal sluggishly reactive positive corneal positive cough. Unable to to TCD. Clinical suspicion of vasospasm high. Will repeat CT angiogram stat. Discussed with Dr. Andrez Marcelo and Dr. Robbins 08/25/16: Repeat CT angiogram of the head did not show any significant vasospasm yesterday. Spiking fever overnight white count increased to 20.2 from 12.3. CXR developing left infiltrate. Very slight withdrawal of all 4 extremities to deep pain 08/26: Continues to have high FiO2 requirement Now Fio2 95% and PEEP 10. WBC 21, 000. Neuro exam unchanged. Unable to get TCD window, will cancel. CXR bilateral infiltrates, L >R 08/27: Remains unresponsive, stat EEG ordered to rule out subclinical seizure 08/28: Episode of high ICPs last night with vent setting change and retention of CO2 08/29: High ICP up to 27 today, responded to Versed bolus and infusion started. CTA ordered STAT-mild stable vasospasm. Optimized on hyperosmolar therapy. 08/30: Intermittent ICP spike, received 23% saline bolus 1. Otherwise neurologically unchanged. Continues to be heavily sedated for ICP control. Sodium 151. We'll restart 3% saline 08/31: Remains heavily sedated for ICP control. Last 24 hours ICP had been fairly well controlled except one episode but spike for approximately 15 minutes when the respiratory rate was reduced. Sodium 148 have increased 3% saline to 50 mL per hour, keep sodium 150-155. No sedation vacation per Dr. Robbins. Plan for trach today 09/01: Remains intubated heavily sedated, s/p trach yesterday. Oozing from the trach site noted, has stopped with Surgiseal placement. ICP 24 received 23% 1 with improvement. PEG planned for today. 09/02: Intermittent ICP elevation >30 twice overnight requiring 23% bolus. Hypertonic saline ow on hold as Na is 162. PEG tube was placed yesterday. ( Trach 08/31). Check CTA today stat 09/03 23% bolus administered last night around 9 pm and 01:30, sodium 156. Today ICP 8-17. CTA yesterday showed moderate vasospasm R M1; received intraarterial verapamil. Tentative plan for repeat angiogram on Tuesday 09/05, possible additional coil of residual aneurysm. Subjective: 09/04 ICP 4-10. One episode with ICP 17 overnight which improved without change in therapy. Sodium 150 Objective Vital Signs Date Time Temp Pulse Resp B/P Pulse Ox O2 Delivery O2 Flow Rate FiO2 09/04/16 07:45 99 35 09/04/16 07:00 Mechanical Ventilator 09/04/16 06:00 74 162/96 166/97 09/04/16 04:00 99.8 22 Intake and Output 09/03/16 09/03/16 09/04/16 08:00 16:00 00:00 Intake Total 2085 ml 2640 ml 1989 ml Output Total 1784 ml 2257 ml 1665 ml Balance 301 ml 383 ml 324 ml Result Diagram: 09/04/16 0445 09/04/16 0445 Objective Remarks Drips: Propofol 50 mcg/kg/min Versed 10 mg /hr Fentanyl 250 mcg/hr 3% saline 25 mL/hr 0.9 NaCl @ 80/hr. Levophed 3.5 mcg/min GENERAL: Well-nourished, well-developed patient. Sedated and intubated SKIN: Warm and dry. HEAD: Normocephalic. EVD in place, +5 cm H20, ICP now 8-9. EYES: No scleral icterus, mild scleral edema. No injection or drainage. NECK: Supple, trachea midline. No JVD or lymphadenopathy. CARDIOVASCULAR: Regular rate and rhythm without murmurs, gallops, or rubs. RESPIRATORY: Breath sounds equal bilaterally. Coarse breath sounds and rhonchi at bilateral bases, predominantly L base GASTROINTESTINAL: Abdomen soft, non-tender, slightly distended with positive bowel sounds. PEG in place. . Dignishield in place with soft brown stool. : Castelan in place with light yellow urine output. + scrotal edema. EXTREMITIES: No clubbing cyanosis, 1+ edema. NEURO: SHEY 3mm reactive, positive corneal. On heavy sedation due to ICP issues which limits exam. No response to deep noxious stimuli A/P Assessment and Plan Neuro: Aneurysmal Subarachnoid hemorrhage Intracranial hypertension Acute encephalopathy Obstructive hydrocephalus - Stat CTA 09/02 showed Moderate vasospasm M1., s/p intraarterial verapamil. Angio showed some residual aneurysm at base of aneurysm. Tentative plan to repeat angio on 09/05 to evaluate for vasospasm and possibly pursue additional coiling. - 08/29 showed stable mild vasospasm. - Ct head 08/29: Improving intra-axial subarachnoid and intraventricular hemorrhage, improving ventricular size - Ct head 08/31 improving intraventricular hemorrhage and stable cerebral edema, stable intraparenchymal hemorrhage - Marshall and Galeas grade 5, Modified Andersen grade 4 - S/P supraclinoid ICA aneurysm coil embolization. - Target SBP 160-180 due to vasospasm - Nimodipine and Pravachol 40 hs. - Keep Mag>2, target sodium 145-155, 3% change to 40 ml/hr to maintain target. - EEG 6/7-diffuse encephalopathy, EEG 6/10 severe encephalopathy, burst suppression pattern - Continue Keppra 1 gram IV q12. - Propofol Versed and Fentanyl for sedation and ventilator synchrony. - Neuromuscular paralysis prn for elevated ICP. - No sedation vacation until more stable and cleared by Dr. Robbins RESP Acute hypoxemic respiratory failure ARDS Aspiration pneumonia - Intubated for an airway protection, developed severe ARDS which is improving. - Now on ACV TV 600 R 22 PEEP 5 FIO2 35%. - s/p trach 08/31, Dr. Giles/Fadi - Vent bundle. DuoNeb q6 and PRN - No SBT's until neurologically stable CVS Hypertension Dyslipidemia - Levophed to keep SBP 160-180 - SBP [id number] due to vasospasm - Nimotop 30 due to significant hypotension Q4 - Pravachol for vasospasm prevention as well GI: - Tube feeds with Jevity-s/p PEG 09/01/16. Jevity 1.5 goal rate 65 mL/hr per nutrition recs. - IV Protonix - Bowel regimen - No BM x2 days. D/c dignishield. FEN/RENAL: - Electrolyte replacement per protocol - 0.9 NaCl @ 80 ml/hr. - Monitor renal function closely - Strict I's and O's ID: Aspiration pneumonia Severe sepsis - Beta strep in sputum 08/25, repeat sputum culture 08/30 negative. -All blood cultures -08/25, 08/30, 08/31 -White blood count normalized. - Zosyn 4.5 g IV every 6 hours 08/25 #11. WBC normalized, temp curve down, oxygenation and respiratory secretions improved. CXR with persistent basilar consolidations, though CXR may lag behind. Plan to d/c zosyn in next 1-3 days. azithromycin 08/26-09/03. Vancomycin DCd 08/29. DVT GI prophylaxis - Teds, SCDs - Subcutaneous heparin was placed on hold 08/30, consider resuming after angio. - Pantoprazole 40 q24. ACCESS: Left axillary art line placed 08/30 #6 ; right subclavian central venous line placed 08/23 #13. Critical Care: The total critical care time was 30 minutes. Time to perform other separately billable procedures was not included in the critical care time. Adelaida Teran MD Sep 04, 2016 07:56
[2016-09-04] MEDS: DOCUSATE SODIUM 50 MG/SENNA 8.6 MG TAB PO SCH ×2 (08:25→21:27)
[2016-09-04] MEDS: levETIRAcetam 1000 MG INJ 100 ML IV SCH ×2 (08:26→21:27)
[2016-09-04] MEDS: LACTULOSE SYRUP 20 GM/30 ML CUP PO SCH ×4 (08:26→21:27)
[2016-09-04] MEDS: SODIUM CHLORIDE 0.9% FLUSH 10 ML FLUSH SCH ×2 (08:26→21:00)
--- NOTE | 2016-09-04 08:54 | HHI.NSPN ---
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 The headache has persisted since then along with nausea and occasional emesis. He has not sought any medical treatment since initial onset. He did not go to work since the initial onset due to these persistent symptoms. He has not been eating well. His states that after he went to sleep last night, at approximately 1:30 or 2 AM she noticed snoring respirations and found him initially unresponsive. He was able to be aroused by EMS and ambulated briefly prior to being placed in the ambulance. He was taken to [facility] for initial evaluation and in the emergency room was noted to be unresponsive with extensor posturing. He was intubated and placed on nicardipine drip for hypertension. No seizure activity reported. 08/23: Patient remains intubated and sedated this morning. 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 He is withdrawing with the RUE to noxious stimuli with questionable extension of both feet, but no response with the LUE per Nursing. He is maintaining his SBP without the nicardipine drip. Nursing also reports that temp has been up to 101.3 degrees. 08/24: Patient is intubated and sedated. Nursing reports that he is having neurogenic temperatures. Yesterday morning the patient had a CTA which demonstrated an aneurysm. That afternoon the patient went for coiling and had an increase in his ICP into the 60s. He immediately went for a CT scan and was given mannitol and 3% sodium with improvement in his ICP. He went again in the evening for another CTA. Nursing reports that the patient is not responding to any noxious stimuli. His ICP had just been checked and was 11. 08/25: Patient is intubated and on max sedation. Nursing reports that when his sedation was weaned down earlier he became extremely agitated, his BP went up and his ICP reached 20. His propofol was maxed and his ICP started coming down. He was also given labetalol for his BP. He did withdraw the BLE to noxious stimuli but did nothing with the BUE for Nursing and had a cough reflex. Nursing stated that in report she was told the patient withdrew all extremities to noxious stimuli yesterday. During the night his temperature dropped to 94 and later spiked to 103. He went for a repeat CTA yesterday afternoon w/o any residual aneurysm seen. He did have mild vasospasms in the right M1 segment and right A1 segment. His CXR today demonstrated left-sided infiltrates. 08/27: Patient sedated on Diprivan and fentanyl drips. Versed on hold. Patient opening eyes or following commands. Ventriculostomy at 5 cm a water ICP R8. Pupils are 2 mm bilaterally. Patient is intubated on a vent setting. 08/28: Patient sedated on Diprivan and fentanyl drips. Not opening eyes or following commands. Ventriculostomy at 5 cm water bloody CSF drainage. ICP 4. 08/29: Patient remains sedated. Nursing reports that he is having sustained elevated ICPs up to 25 and this morning was given rocuronium due to his ICP. The ICP did come down to 17 when seen. The patient did have repeat imaging this morning which demonstrated mild vasospasm but was improving otherwise. He is on Nimotop for ICP control and a Levophed drip for blood pressure control. Due to a sodium of 156 this morning the 3% saline is being held. 08/30: Patient remains sedated due to agitation if weaned down. Nursing reports that his ICP was 4 this morning prior to being seen. 08/31: Patient remains critical, intubated & sedated. The Adolescent Coordinator reports that the patient's ICP spiked in the 50s earlier after Respiratory Therapy made a vent change. He was given a bolus of 23% saline and his ICP came back down and was running between 4 and 5. Tracheostomy 08/31/16 09/01/16 received 1 dose of 23.4% hypertonic saline due to ICP in the mid 20s, with improvement of ICPs to the 7-15 range 09/02: Patient is still intubated & sedated. Nursing reports his ICP went into the 20s during the night and received a 23% saline bolus twice. This morning his ICP has been 15 and 17 for the Nurse. His SBP shot up into the 190s and he received a bolus of labetalol before being seen. His SPB is still between 188 and 192 mm Hg when seen. She states that she is maxed out on his drips. She reports no response to stimulation. The patient had a PEG tube placed yesterday by Gastroenterology. 09/03: Patient remains critical and is intubated & sedated on propofol, fentanyl & midazolam. He has 3% saline and norepinephrine drips going. The patient went for a CTA brain yesterday which demonstrated a mild vasospasm. Subsequent to that he went to Interventional Radiology for intravascular verapamil injection. 09/04: The patient is still critical and still being maximally sedated due to agitation whenever it is weaned down. He does have 3% saline and norepinephrine drips going. Nursing reports that his maximum ICP was 18 during the night. ( Boogie Lawler) System Review Comments Unable to obtain ROS due to patient's mental status, sedation & being trached. (Boogie Lawler) Exam Results Vital Signs Date Time Temp Pulse Resp B/P Pulse Ox O2 Delivery O2 Flow Rate FiO2 09/04/16 07:45 99 35 09/04/16 07:00 Mechanical Ventilator 09/04/16 06:00 74 162/96 166/97 09/04/16 04:00 99.8 22 Intake and Output 09/03/16 09/03/16 09/04/16 08:00 16:00 00:00 Intake Total 2085 ml 2640 ml 1989 ml Output Total 1784 ml 2257 ml 1665 ml Balance 301 ml 383 ml 324 ml (Boogie Lawler) Physical Examination General: Trached & sedated. HEENT: Normocephalic, atraumatic. Tracheostomy. Ventriculostomy insertion site w/o any evident drainage, erythema or streaking. Respiratory: CTAB w/o W/R/R, equal excursion, nonlaboured, trached & on vent. Cardiovascular: S1S2 w/RRR w/o M/G/R, radial & pedal pulses 2+ bilaterally, cap refill < 2 sec. Monitor is sinus rhythm w/o any ectopy noted. Gastrointestinal: Abdomen soft, bowel sounds not appreciated, PEG tube w/ enteral feeds. Integumentary: No cyanosis or erythema. SCD bilaterally. Musculoskeletal: Extremities normal, no evident deformity or clubbing. Neuro: Patient remains intubated & sedated, GCS 3T. Unable to assess motor strength/response or sensation. Pupils 3 mm minimally reactive No response to deep pain all extremities Ventriculostomy at 5 with bloody tea-coloured drainage noted (Boogie Lawler) Lab, Micro, Other Results Allergies Coded Allergies Type Severity Reaction Last Updated Verified No Known Allergies 08/23/16 No Recent Impressions Chest X-Ray 09/03/16 0600 Signed Impressions: Service Date/Time: Saturday, September 03, 2016 03:00 - CONCLUSION: 1. Basilar airspace consolidation, left greater than right. 2. Tracheostomy in satisfactory position. Right central line in superior vena cava. Godwin Mcfarland MD Head CTA 09/02/16 0000 Signed Impressions: Service Date/Time: Friday, September 02, 2016 13:50 - CONCLUSION: 1. Findings concerning for interval progression of vasospasm involving the right A1 and proximal M1 segments, now moderate in severity. 2. Improving right temporal intraparenchymal and intraventricular blood products. Vipin Gibbs MD Head CT 09/02/16 0000 Signed Impressions: Service Date/Time: Friday, September 02, 2016 13:50 - CONCLUSION: 1. Stable appearance of the patient's intraparenchymal and intraventricular hemorrhage. 2. There is 6 mm of [id number] shift on today's study. This has decreased when compared with previous exam. Ozzy Marcelo MD Chest X-Ray 09/02/16 0000 Signed Impressions: Service Date/Time: Friday, September 02, 2016 12:26 - CONCLUSION: Increasing consolidative changes left base. Barry Marcelo MD FACR Cerebral Arteriogram 09/02/16 0000 Signed Impressions: Service Date/Time: Friday, September 02, 2016 16:27 - CONCLUSION: 1. Moderate vasospasm of the right M1 segment with adequate response to intra-arterial verapamil. Mild residual spasm at the conclusion of the procedure. 2. Interval compaction of the aneurysm coil mass with new opacification of the base of the aneurysm. Tentative plans for additional aneurysm coiling . Vipin Gibbs MD //176/////// 06:00 18:00 06:00 18:00 06:00 18:00 Intake Total 3360 ml 1397 ml 1490 ml 4725 ml 4288 ml Output Total 4359 ml 2303 ml 2718 ml 4041 ml 4627 ml Balance -999 ml -906 ml -1228 ml 684 ml -339 ml Intake IV Total 3180 ml 1352 ml 1490 ml 4200 ml 3371 ml Tube Feeding 465 ml 617 ml Tube Irrigant 180 ml 45 ml 60 ml Other 300 ml Output Urine Total 4300 ml 2200 ml 2700 ml 3950 ml 4500 ml Stool Total 0 ml 40 ml 0 ml Drainage Total 59 ml 63 ml 18 ml 91 ml 127 ml # Bowel Movements 1 0 Laboratory Tests Test 09/01/16 09/01/16 09/01/16 09/01/16 09:20 11:26 11:53 15:28 White Blood Count 9.7 TH/MM3 Red Blood Count 4.49 MIL/MM3 Hemoglobin 12.5 GM/DL Hematocrit 37.2 % Mean Corpuscular Volume 82.9 FL Mean Corpuscular Hemoglobin 27.8 PG Mean Corpuscular Hemoglobin 33.6 % Concent Red Cell Distribution Width 15.0 % Platelet Count 288 TH/MM3 Mean Platelet Volume 7.9 FL Neutrophils (%) (Auto) 80.9 % Lymphocytes (%) (Auto) 8.8 % Monocytes (%) (Auto) 7.4 % Eosinophils (%) (Auto) 2.5 % Basophils (%) (Auto) 0.4 % Neutrophils # (Auto) 7.9 TH/MM3 Lymphocytes # (Auto) 0.9 TH/MM3 Monocytes # (Auto) 0.7 TH/MM3 Eosinophils # (Auto) 0.2 TH/MM3 Basophils # (Auto) 0.0 TH/MM3 CBC Comment AUTO DIFF Differential Total Cells 100 Counted Neutrophils % (Manual) 79 % Band Neutrophils % 2 % Lymphocytes % 11 % Monocytes % 4 % Eosinophils % 2 % Basophils % 1 % Neutrophils # (Manual) 8.0 TH/MM3 Myelocytes 1 % Differential Comment FINAL DIFF MANUAL Platelet Estimate NORMAL Platelet Morphology Comment NORMAL Red Cell Morphology Comment NORMAL Prothrombin Time 10.3 SEC Prothromb Time International 0.9 RATIO Ratio Activated Partial 38.9 SEC Thromboplast Time Fibrinogen GREATER THAN 860 mg/dL Sodium Level 152 MEQ/L 154 MEQ/L Blood Type O POSITIVE O POSITIVE Antibody Screen NEGATIVE Blood Bank Comment Test 09/01/16 09/02/16 09/02/16 09/02/16 22:30 04:30 06:31 13:04 Sodium Level 156 MEQ/L 162 MEQ/L 157 MEQ/L Blood Gas Puncture Site ART LINE Blood Gas Patient Temperature 98.6 Blood Gas HCO3 23 mmol/L Blood Gas Base Excess -0.7 mmol/L Blood Gas Oxygen Saturation 96 % Arterial Blood pH 7.47 Arterial Blood Partial 31 mmHg Pressure CO2 Arterial Blood Partial 94 mmHg Pressure O2 Arterial Blood Oxygen Content 15.2 Vol % Arterial Blood 1.3 % Carboxyhemoglobin Arterial Blood Methemoglobin 0.9 % Blood Gas Hemoglobin 11.2 G/DL Oxygen Delivery Device VENTILATOR Blood Gas Ventilator Setting AC/20/550/PEEP5 Blood Gas Inspired Oxygen 35 % Urine Specific Hyden 1.012 Urine Osmolality 523 MOSM/KG Serum Osmolality 317 MOSM/KG Test 09/02/16 09/03/16 09/03/16 09/03/16 20:50 00:35 01:52 08:55 Sodium Level 151 MEQ/L 157 MEQ/L 156 MEQ/L Blood Gas Puncture Site ART LINE Blood Gas Patient Temperature 98.6 Blood Gas HCO3 23 mmol/L Blood Gas Base Excess -0.1 mmol/L Blood Gas Oxygen Saturation 94 % Arterial Blood pH 7.53 Arterial Blood Partial 27 mmHg Pressure CO2 Arterial Blood Partial 75 mmHg Pressure O2 Arterial Blood Oxygen Content 20.4 Vol % Arterial Blood 1.1 % Carboxyhemoglobin Arterial Blood Methemoglobin 0.8 % Blood Gas Hemoglobin 15.5 G/DL Oxygen Delivery Device VENTILATOR Blood Gas Ventilator Setting AC/25/600/PEEP 5 Blood Gas Inspired Oxygen 35 % White Blood Count 7.6 TH/MM3 8.4 TH/MM3 Red Blood Count 4.02 MIL/MM3 4.16 MIL/MM3 Hemoglobin 11.1 GM/DL 11.5 GM/DL Hematocrit 33.5 % 34.4 % Mean Corpuscular Volume 83.3 FL 82.7 FL Mean Corpuscular Hemoglobin 27.7 PG 27.6 PG Mean Corpuscular Hemoglobin 33.2 % 33.3 % Concent Red Cell Distribution Width 14.7 % 14.5 % Platelet Count 253 TH/MM3 306 TH/MM3 Mean Platelet Volume 8.3 FL 8.4 FL Neutrophils (%) (Auto) 75.3 % 70.3 % Lymphocytes (%) (Auto) 14.4 % 16.6 % Monocytes (%) (Auto) 7.5 % 7.5 % Eosinophils (%) (Auto) 2.3 % 4.8 % Basophils (%) (Auto) 0.5 % 0.8 % Neutrophils # (Auto) 5.7 TH/MM3 5.9 TH/MM3 Lymphocytes # (Auto) 1.1 TH/MM3 1.4 TH/MM3 Monocytes # (Auto) 0.6 TH/MM3 0.6 TH/MM3 Eosinophils # (Auto) 0.2 TH/MM3 0.4 TH/MM3 Basophils # (Auto) 0.0 TH/MM3 0.1 TH/MM3 CBC Comment AUTO DIFF AUTO DIFF Differential Total Cells 100 100 Counted Neutrophils % (Manual) 77 % 61 % Band Neutrophils % 4 % 9 % Lymphocytes % 16 % 17 % Monocytes % 2 % 4 % Eosinophils % 1 % 5 % Neutrophils # (Manual) 6.2 TH/MM3 6.1 TH/MM3 Differential Comment FINAL DIFF FINAL DIFF MANUAL MANUAL Platelet Estimate NORMAL Platelet Morphology Comment NORMAL Potassium Level 2.9 MEQ/L 3.1 MEQ/L Chloride Level 124 MEQ/L 124 MEQ/L Carbon Dioxide Level 27.0 MEQ/L 24.8 MEQ/L Anion Gap 6 MEQ/L 7 MEQ/L Blood Urea Nitrogen 17 MG/DL 20 MG/DL Creatinine 0.31 MG/DL 0.34 MG/DL Estimat Glomerular Filtration 295 ML/MIN 266 ML/MIN Rate Random Glucose 112 MG/DL 121 MG/DL Calcium Level 7.9 MG/DL 7.1 MG/DL Phosphorus Level 2.1 MG/DL Magnesium Level 2.0 MG/DL 2.1 MG/DL Total Bilirubin 0.3 MG/DL 0.3 MG/DL Aspartate Amino Transf 53 U/L 52 U/L (AST/SGOT) Alanine Aminotransferase 70 U/L 74 U/L (ALT/SGPT) Alkaline Phosphatase 91 U/L 100 U/L Total Protein 5.7 GM/DL 5.8 GM/DL Albumin 1.4 GM/DL 1.5 GM/DL Basophils % 1 % Myelocytes 3 % Nucleated Red Blood Cells 1 /100 WBC Atypical Lymphocytes % Protein Corrected Calcium 7.8 MG/DL Test 09/03/16 09/03/16 09/04/16 15:34 21:00 04:45 Sodium Level 156 MEQ/L 155 MEQ/L 152 MEQ/L Potassium Level 3.4 MEQ/L 3.7 MEQ/L White Blood Count 9.6 TH/MM3 Red Blood Count 4.24 MIL/MM3 Hemoglobin 11.5 GM/DL Hematocrit 35.4 % Mean Corpuscular Volume 83.5 FL Mean Corpuscular Hemoglobin 27.1 PG Mean Corpuscular Hemoglobin 32.5 % Concent Red Cell Distribution Width 15.0 % Platelet Count 339 TH/MM3 Mean Platelet Volume 8.0 FL Neutrophils (%) (Auto) 70.1 % Lymphocytes (%) (Auto) 17.0 % Monocytes (%) (Auto) 4.5 % Eosinophils (%) (Auto) 7.5 % Basophils (%) (Auto) 0.9 % Neutrophils # (Auto) 6.7 TH/MM3 Lymphocytes # (Auto) 1.6 TH/MM3 Monocytes # (Auto) 0.4 TH/MM3 Eosinophils # (Auto) 0.7 TH/MM3 Basophils # (Auto) 0.1 TH/MM3 CBC Comment AUTO DIFF Differential Total Cells 100 Counted Neutrophils % (Manual) 68 % Band Neutrophils % 3 % Lymphocytes % 17 % Monocytes % 2 % Eosinophils % 6 % Basophils % 1 % Neutrophils # (Manual) 7.1 TH/MM3 Metamyelocytes 1 % Myelocytes 2 % Differential Comment FINAL DIFF MANUAL Platelet Estimate NORMAL Platelet Morphology Comment NORMAL Red Cell Morphology Comment NORMAL Chloride Level 121 MEQ/L Carbon Dioxide Level 24.7 MEQ/L Anion Gap 6 MEQ/L Blood Urea Nitrogen 16 MG/DL Creatinine 0.39 MG/DL Estimat Glomerular Filtration 227 ML/MIN Rate Random Glucose 126 MG/DL Calcium Level 8.0 MG/DL Vital Signs Date Time Temp Pulse Resp B/P Pulse Ox O2 Delivery O2 Flow Rate FiO2 09/04/16 07:45 99 35 09/04/16 07:45 100 35 09/04/16 07:00 99 Mechanical Ventilator 35 09/04/16 06:00 74 162/96 166/97 09/04/16 06:00 79 09/04/16 04:00 99.8 83 22 158/89 97 09/04/16 04:00 35 09/04/16 04:00 78 09/04/16 03:16 99 35 09/04/16 02:00 74 09/04/16 00:00 74 175/103 181/100 09/04/16 00:00 99.8 74 22 181/100 99 09/04/16 00:00 35 09/04/16 00:00 74 09/03/16 23:52 98 35 09/03/16 22:00 81 09/03/16 20:06 98 35 09/03/16 20:00 99.3 78 22 Arterial Line 98 09/03/16 20:00 35 09/03/16 20:00 78 09/03/16 19:00 98 Mechanical Ventilator 35 09/03/16 18:00 76 09/03/16 16:19 98 35 09/03/16 16:00 99.9 76 22 168/88 100 09/03/16 16:00 76 09/03/16 16:00 35 09/03/16 14:00 75 09/03/16 13:35 99 35 09/03/16 12:00 74 09/03/16 12:00 35 09/03/16 12:00 99.4 74 22 182/96 100 09/03/16 10:32 98 35 09/03/16 10:00 74 09/03/16 08:19 99 35 09/03/16 08:19 99 35 09/03/16 08:00 99.1 72 22 176/92 99 09/03/16 08:00 72 09/03/16 08:00 35 09/03/16 07:00 99 Mechanical Ventilator 35 09/03/16 06:00 70 09/03/16 04:53 98 35 09/03/16 04:00 65 09/03/16 04:00 97.6 67 25 162/87 99 09/03/16 04:00 35 09/03/16 02:00 65 09/03/16 01:51 97 35 09/03/16 00:42 97 35 09/03/16 00:00 68 09/03/16 00:00 99.5 68 20 171/89 97 09/03/16 00:00 35 09/02/16 22:00 72 09/02/16 21:19 97 35 09/02/16 21:08 97 35 09/02/16 20:00 76 09/02/16 20:00 101.1 76 20 162/86 98 09/02/16 20:00 35 09/02/16 19:00 100 Mechanical Ventilator 35 09/02/16 18:29 99.7 75 20 164/90 99 09/02/16 18:00 74 09/02/16 18:00 99.6 73 20 163/89 99 09/02/16 16:00 35 09/02/16 16:00 82 09/02/16 15:50 100 100 09/02/16 15:29 97 35 09/02/16 14:25 100 100 09/02/16 14:00 80 09/02/16 12:00 35 09/02/16 12:00 99.7 81 20 170/90 100 09/02/16 12:00 81 09/02/16 11:27 98 35 09/02/16 10:00 75 09/02/16 08:06 99 35 09/02/16 08:06 99 35 09/02/16 08:00 35 09/02/16 08:00 99.6 75 20 178/86 100 09/02/16 08:00 76 09/02/16 07:00 100 Mechanical Ventilator 35 09/02/16 06:00 72 09/02/16 04:17 98 35 09/02/16 04:00 35 09/02/16 04:00 82 09/02/16 04:00 100.1 82 20 176/94 96 09/02/16 02:00 76 09/02/16 01:15 97 35 09/02/16 01:15 97 35 09/02/16 00:00 77 09/02/16 00:00 35 09/02/16 00:00 99.7 77 20 169/88 97 09/01/16 22:00 80 09/01/16 20:00 35 09/01/16 20:00 99.6 82 20 180/94 100 09/01/16 20:00 82 09/01/16 19:33 100 35 09/01/16 19:00 100 Mechanical Ventilator 35 09/01/16 18:00 77 09/01/16 17:30 35 09/01/16 16:12 100 35 09/01/16 16:00 35 09/01/16 16:00 89 09/01/16 16:00 100.4 74 20 168/90 99 09/01/16 14:00 80 09/01/16 12:00 77 09/01/16 12:00 99.7 76 20 167/90 99 09/01/16 12:00 35 09/01/16 11:30 99 35 09/01/16 11:15 35 09/01/16 10:00 86 (Boogie Lawler) Medical Decision Making Impression and Plan Impression: 1. Right temporal intracranial hemorrhage with interventricular extension 2. 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 Hypertension 4. Small outpouching proximal right anterior cerebral artery 1.5 mm max, small vessel loop vs small aneurysm No change in neurological status, remains critical Moderate right in line-A1 segment vasospasm on CTA , s/p intravenous verapamil injection ICP max 18 during the night, 12 to 15 when seen Sodium 152 early this morning Hypophosphatemia Hypokalemia resolved this morning Hypermagnesemia, resolved Plan: Maintain systolic blood pressure 160s-180s range Maintain sodium between 145 and 155, hypertonic saline as needed Continuing ventilatory support with sedation as needed for control of airway, respirations and agitation Monitor ICP & ventriculostomy catheter Ulcer prophylaxis Non- chemical DVT prophylaxis Critical care management per Adolescent Coordinator (Boogie Lawler) Attending Statement I have personally seen and examined the patient on the 09/04/16. Pertinent documentation and study results have been reviewed by the undersigned. I have personally developed the treatment plan and performed medical decision making. Agree with findings, exam, and treatment plan as noted above. ICPs stable at 4-18 cm water pressure over the past day. Stable neurologic exam following endovascular treatment for vasospasm, verapamil injection on 09/02/16 Continuing-controlled hypertension Interventional radiology plans for possible further aneurysm coiling 09/05/16 ( Speedy Robbins MD) Boogie Lawler Sep 04, 2016 08:53 Speedy Robbins MD Sep 04, 2016 19:49
[2016-09-04] MEDS: ACETAMINOPHEN 325 MG TAB PO PRN (09:47)
[2016-09-04] MEDS: NOREPINEPHRINE INJ 4 MG in SODIUM CHLOR 0.9% 250 ML INJ 250 ML IV SCH (13:13)
[2016-09-04] MEDS: PANTOPRAZOLE SODIUM 40 MG VIAL IV PUSH SCH (14:28)
[2016-09-04] MEDS ORDERED: SODIUM CHLORIDE 23.4% INJ 240 MEQ in SYRINGE/BAG 1 EA IV ONE (20:45)
[2016-09-04] MEDS: PRAVASTATIN SOD 40 MG TAB PO SCH (21:28)
[2016-09-05] VITALS (18 sets, daily range): BP systolic 153–174; BP diastolic 77–100; PULSE 50–84; RESP 18–22; TEMP 97.4–99.7; O2SAT 92–100
[2016-09-05] MEDS: niMODipine 30 MG CAP PO SCH ×6 (00:01→22:06)
[2016-09-05 00:10] LABS: BLOOD GAS BASE EXCESS -0.7 mmol/L (-2-2); BLOOD GAS CARBOXYHEMOGLOBIN 1.1 % (0-4); BLOOD GAS HCO3 23 mmol/L (22-26); BLOOD GAS METHEMOGLOBIN 0.8 % (0-2); BLOOD GAS O2 HGB SATURATION 97 % (90-100); BLOOD GAS OXYGEN CONTENT 16.1 Vol % (12.0-20.0); BLOOD GAS PCO2 36 mmHg (38-42); BLOOD GAS PO2 116 mmHg (61-120); BLOOD GAS TOTAL HGB 11.7 G/DL (12.0-16.0); CRITICAL VALUE NO; DRAW SITE ALINE; FIO2 35 %; OXYGEN DEVICE VENTILATOR; STAT NO; TEMP CORR TO 98.6; VENT SETTINGS AC/22/600/PEEP5
[2016-09-05] MEDS: PIPERACIL-TAZO 4.5 GM PREMIX 100 ML IV SCH ×4 (02:54→21:29)
[2016-09-05] MEDS: PROPOFOL 1000 MG/100 ML INJ 100 ML IV SCH ×4 (03:09→23:35)
[2016-09-05] MEDS: RESP: ALBUTEROL 2.5 MG/IPRATROPIUM 0.5 MG NEB (SCH) NEB ×2 (03:55→08:27)
[2016-09-05] MEDS: CHLORHEXIDINE GLUCONATE 2 % 1 PACK (2 CLOTHS) TOP SCH (04:00)
[2016-09-05] MEDS: SODIUM CHLOR 0.9% 1000 ML INJ 1,000 ML IV SCH ×2 (05:43→15:43)
[2016-09-05] MEDS: NOREPINEPHRINE INJ 4 MG in SODIUM CHLOR 0.9% 250 ML INJ 250 ML IV SCH (07:31)
[2016-09-05] MEDS: levETIRAcetam 1000 MG INJ 100 ML IV SCH ×2 (08:23→21:28)
[2016-09-05] MEDS: fentaNYL 2,500 MCG/NS 250 ML IV SCH ×2 (08:23→17:33)
[2016-09-05] MEDS: SODIUM CHLORIDE 0.9% FLUSH 10 ML FLUSH SCH ×2 (08:24→21:28)
[2016-09-05] MEDS: LACTULOSE SYRUP 20 GM/30 ML CUP PO SCH ×4 (08:24→21:00)
[2016-09-05] MEDS: DOCUSATE SODIUM 50 MG/SENNA 8.6 MG TAB PO SCH ×2 (08:24→21:00)
--- NOTE | 2016-09-05 08:55 | HHI.NSPN ---
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 The headache has persisted since then along with nausea and occasional emesis. He has not sought any medical treatment since initial onset. He did not go to work since the initial onset due to these persistent symptoms. He has not been eating well. His states that after he went to sleep last night, at approximately 1:30 or 2 AM she noticed snoring respirations and found him initially unresponsive. He was able to be aroused by EMS and ambulated briefly prior to being placed in the ambulance. He was taken to [facility] for initial evaluation and in the emergency room was noted to be unresponsive with extensor posturing. He was intubated and placed on nicardipine drip for hypertension. No seizure activity reported. 08/23: Patient remains intubated and sedated this morning. 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 He is withdrawing with the RUE to noxious stimuli with questionable extension of both feet, but no response with the LUE per Nursing. He is maintaining his SBP without the nicardipine drip. Nursing also reports that temp has been up to 101.3 degrees. 08/24: Patient is intubated and sedated. Nursing reports that he is having neurogenic temperatures. Yesterday morning the patient had a CTA which demonstrated an aneurysm. That afternoon the patient went for coiling and had an increase in his ICP into the 60s. He immediately went for a CT scan and was given mannitol and 3% sodium with improvement in his ICP. He went again in the evening for another CTA. Nursing reports that the patient is not responding to any noxious stimuli. His ICP had just been checked and was 11. 08/25: Patient is intubated and on max sedation. Nursing reports that when his sedation was weaned down earlier he became extremely agitated, his BP went up and his ICP reached 20. His propofol was maxed and his ICP started coming down. He was also given labetalol for his BP. He did withdraw the BLE to noxious stimuli but did nothing with the BUE for Nursing and had a cough reflex. Nursing stated that in report she was told the patient withdrew all extremities to noxious stimuli yesterday. During the night his temperature dropped to 94 and later spiked to 103. He went for a repeat CTA yesterday afternoon w/o any residual aneurysm seen. He did have mild vasospasms in the right M1 segment and right A1 segment. His CXR today demonstrated left-sided infiltrates. 08/27: Patient sedated on Diprivan and fentanyl drips. Versed on hold. Patient opening eyes or following commands. Ventriculostomy at 5 cm a water ICP R8. Pupils are 2 mm bilaterally. Patient is intubated on a vent setting. 08/28: Patient sedated on Diprivan and fentanyl drips. Not opening eyes or following commands. Ventriculostomy at 5 cm water bloody CSF drainage. ICP 4. 08/29: Patient remains sedated. Nursing reports that he is having sustained elevated ICPs up to 25 and this morning was given rocuronium due to his ICP. The ICP did come down to 17 when seen. The patient did have repeat imaging this morning which demonstrated mild vasospasm but was improving otherwise. He is on Nimotop for ICP control and a Levophed drip for blood pressure control. Due to a sodium of 156 this morning the 3% saline is being held. 08/30: Patient remains sedated due to agitation if weaned down. Nursing reports that his ICP was 4 this morning prior to being seen. 08/31: Patient remains critical, intubated & sedated. The [employer] reports that the patient's ICP spiked in the 50s earlier after Respiratory Therapy made a vent change. He was given a bolus of 23% saline and his ICP came back down and was running between 4 and 5. Tracheostomy 08/31/16 09/01/16 received 1 dose of 23.4% hypertonic saline due to ICP in the mid 20s, with improvement of ICPs to the 7-15 range 09/02: Patient is still intubated & sedated. Nursing reports his ICP went into the 20s during the night and received a 23% saline bolus twice. This morning his ICP has been 15 and 17 for the Nurse. His SBP shot up into the 190s and he received a bolus of labetalol before being seen. His SPB is still between 188 and 192 mm Hg when seen. She states that she is maxed out on his drips. She reports no response to stimulation. The patient had a PEG tube placed yesterday by Gastroenterology. 09/03: Patient remains critical and is intubated & sedated on propofol, fentanyl & midazolam. He has 3% saline and norepinephrine drips going. The patient went for a CTA brain yesterday which demonstrated a mild vasospasm. Subsequent to that he went to Interventional Radiology for intravascular verapamil injection. 09/04: The patient is still critical and still being maximally sedated due to agitation whenever it is weaned down. He does have 3% saline and norepinephrine drips going. Nursing reports that his maximum ICP was 18 during the night. 09/05: The patient remains critical. He is sedated with propofol, midazolam and fentanyl. A 3% saline and norepinephrine drips are infusing still. His ICP peaked at 24 cm H2O pressure yesterday afternoon, otherwise it was in the single digits or teens. (Boogie Lawler) System Review Comments Unable to obtain ROS due to patient's clinical condition. (Boogie Lawler ) Exam Results Vital Signs Date Time Temp Pulse Resp B/P Pulse Ox O2 Delivery O2 Flow Rate FiO2 09/05/16 08:31 100 35 09/05/16 06:00 81 09/05/16 06:00 173/97 153/82 09/05/16 04:00 99.7 22 09/04/16 19:00 Mechanical Ventilator Intake and Output 09/04/16 09/04/16 09/05/16 08:00 16:00 00:00 Intake Total 2299 ml 2237 ml 2881 ml Output Total 2962 ml 1796 ml 4245 ml Balance -663 ml 441 ml -1364 ml (Boogie Lawler) Physical Examination General: Trached & sedated. HEENT: Normocephalic, atraumatic. Tracheostomy. Ventriculostomy insertion site w/o any evident drainage, erythema or streaking. Respiratory: CTAB w/o W/R/R, equal excursion, nonlaboured, trached & on vent. Cardiovascular: S1S2 w/RRR w/o M/G/R, radial & pedal pulses 2+ bilaterally, cap refill < 2 sec. Monitor is sinus rhythm w/o any ectopy noted. Gastrointestinal: Abdomen soft, bowel sounds not appreciated, PEG tube w/ enteral feeds. Integumentary: No cyanosis or erythema. SCD bilaterally. Musculoskeletal: Extremities normal, no evident deformity or clubbing. Neuro: Patient remains trached & sedated, GCS 3T. Unable to assess motor strength/response or sensation. Pupils 3 mm reactive No response to deep pain all extremities Ventriculostomy at 5 with tea-coloured drainage noted in collection system ( Boogie Lawler) Lab, Micro, Other Results Allergies Coded Allergies Type Severity Reaction Last Updated Verified No Known Allergies 08/23/16 No Recent Impressions Chest X-Ray 09/03/16 0600 Signed Impressions: Service Date/Time: Monday, September 03, 2016 03:00 - CONCLUSION: 1. Basilar airspace consolidation, left greater than right. 2. Tracheostomy in satisfactory position. Right central line in superior vena cava. Godwin Mcfarland MD 09/03//17/176/18/176/18/176/19/176//17 06:00 18:00 06:00 18:00 06:00 18:00 Intake Total 1490 ml 4725 ml 4288 ml 2237 ml 4639 ml Output Total 2718 ml 4041 ml 4627 ml 1796 ml 6342 ml Balance -1228 ml 684 ml -339 ml 441 ml -1703 ml Intake IV Total 1490 ml 4200 ml 3371 ml 1709 ml 3737 ml Tube Feeding 465 ml 617 ml 468 ml 782 ml Tube Irrigant 60 ml 60 ml 120 ml Other 300 ml Output Urine Total 2700 ml 3950 ml 4500 ml 1750 ml 6250 ml Stool Total 0 ml 0 ml 0 ml Drainage Total 18 ml 91 ml 127 ml 46 ml 92 ml # Bowel Movements 0 1 Laboratory Tests Test 09/02/16 09/02/16 09/03/16 09/03/16 13:04 20:50 00:35 01:52 Urine Specific [place] 1.012 Urine Osmolality 523 MOSM/KG Sodium Level 157 MEQ/L 151 MEQ/L 157 MEQ/L Serum Osmolality 317 MOSM/KG Blood Gas Puncture Site ART LINE Blood Gas Patient Temperature 98.6 Blood Gas HCO3 23 mmol/L Blood Gas Base Excess -0.1 mmol/L Blood Gas Oxygen Saturation 94 % Arterial Blood pH 7.53 Arterial Blood Partial 27 mmHg Pressure CO2 Arterial Blood Partial 75 mmHg Pressure O2 Arterial Blood Oxygen Content 20.4 Vol % Arterial Blood 1.1 % Carboxyhemoglobin Arterial Blood Methemoglobin 0.8 % Blood Gas Hemoglobin 15.5 G/DL Oxygen Delivery Device VENTILATOR Blood Gas Ventilator Setting AC/25/600/PEEP 5 Blood Gas Inspired Oxygen 35 % White Blood Count 7.6 TH/MM3 Red Blood Count 4.02 MIL/MM3 Hemoglobin 11.1 GM/DL Hematocrit 33.5 % Mean Corpuscular Volume 83.3 FL Mean Corpuscular Hemoglobin 27.7 PG Mean Corpuscular Hemoglobin 33.2 % Concent Red Cell Distribution Width 14.7 % Platelet Count 253 TH/MM3 Mean Platelet Volume 8.3 FL Neutrophils (%) (Auto) 75.3 % Lymphocytes (%) (Auto) 14.4 % Monocytes (%) (Auto) 7.5 % Eosinophils (%) (Auto) 2.3 % Basophils (%) (Auto) 0.5 % Neutrophils # (Auto) 5.7 TH/MM3 Lymphocytes # (Auto) 1.1 TH/MM3 Monocytes # (Auto) 0.6 TH/MM3 Eosinophils # (Auto) 0.2 TH/MM3 Basophils # (Auto) 0.0 TH/MM3 CBC Comment AUTO DIFF Differential Total Cells 100 Counted Neutrophils % (Manual) 77 % Band Neutrophils % 4 % Lymphocytes % 16 % Monocytes % 2 % Eosinophils % 1 % Neutrophils # (Manual) 6.2 TH/MM3 Differential Comment FINAL DIFF MANUAL Platelet Estimate NORMAL Platelet Morphology Comment NORMAL Potassium Level 2.9 MEQ/L Chloride Level 124 MEQ/L Carbon Dioxide Level 27.0 MEQ/L Anion Gap 6 MEQ/L Blood Urea Nitrogen 17 MG/DL Creatinine 0.31 MG/DL Estimat Glomerular Filtration 295 ML/MIN Rate Random Glucose 112 MG/DL Calcium Level 7.9 MG/DL Phosphorus Level 2.1 MG/DL Magnesium Level 2.0 MG/DL Total Bilirubin 0.3 MG/DL Aspartate Amino Transf 53 U/L (AST/SGOT) Alanine Aminotransferase 70 U/L (ALT/SGPT) Alkaline Phosphatase 91 U/L Total Protein 5.7 GM/DL Albumin 1.4 GM/DL Test 09/03/16 09/03/16 09/03/16 09/04/16 08:55 15:34 21:00 04:45 White Blood Count 8.4 TH/MM3 9.6 TH/MM3 Red Blood Count 4.16 MIL/MM3 4.24 MIL/MM3 Hemoglobin 11.5 GM/DL 11.5 GM/DL Hematocrit 34.4 % 35.4 % Mean Corpuscular Volume 82.7 FL 83.5 FL Mean Corpuscular Hemoglobin 27.6 PG 27.1 PG Mean Corpuscular Hemoglobin 33.3 % 32.5 % Concent Red Cell Distribution Width 14.5 % 15.0 % Platelet Count 306 TH/MM3 339 TH/MM3 Mean Platelet Volume 8.4 FL 8.0 FL Neutrophils (%) (Auto) 70.3 % 70.1 % Lymphocytes (%) (Auto) 16.6 % 17.0 % Monocytes (%) (Auto) 7.5 % 4.5 % Eosinophils (%) (Auto) 4.8 % 7.5 % Basophils (%) (Auto) 0.8 % 0.9 % Neutrophils # (Auto) 5.9 TH/MM3 6.7 TH/MM3 Lymphocytes # (Auto) 1.4 TH/MM3 1.6 TH/MM3 Monocytes # (Auto) 0.6 TH/MM3 0.4 TH/MM3 Eosinophils # (Auto) 0.4 TH/MM3 0.7 TH/MM3 Basophils # (Auto) 0.1 TH/MM3 0.1 TH/MM3 CBC Comment AUTO DIFF AUTO DIFF Differential Total Cells 100 100 Counted Neutrophils % (Manual) 61 % 68 % Band Neutrophils % 9 % 3 % Lymphocytes % 17 % 17 % Monocytes % 4 % 2 % Eosinophils % 5 % 6 % Basophils % 1 % 1 % Neutrophils # (Manual) 6.1 TH/MM3 7.1 TH/MM3 Myelocytes 3 % 2 % Nucleated Red Blood Cells 1 /100 WBC Differential Comment FINAL DIFF FINAL DIFF MANUAL MANUAL Atypical Lymphocytes % Sodium Level 156 MEQ/L 156 MEQ/L 155 MEQ/L 152 MEQ/L Potassium Level 3.1 MEQ/L 3.4 MEQ/L 3.7 MEQ/L Chloride Level 124 MEQ/L 121 MEQ/L Carbon Dioxide Level 24.8 MEQ/L 24.7 MEQ/L Anion Gap 7 MEQ/L 6 MEQ/L Blood Urea Nitrogen 20 MG/DL 16 MG/DL Creatinine 0.34 MG/DL 0.39 MG/DL Estimat Glomerular Filtration 266 ML/MIN 227 ML/MIN Rate Random Glucose 121 MG/DL 126 MG/DL Calcium Level 7.1 MG/DL 8.0 MG/DL Protein Corrected Calcium 7.8 MG/DL Magnesium Level 2.1 MG/DL Total Bilirubin 0.3 MG/DL Aspartate Amino Transf 52 U/L (AST/SGOT) Alanine Aminotransferase 74 U/L (ALT/SGPT) Alkaline Phosphatase 100 U/L Total Protein 5.8 GM/DL Albumin 1.5 GM/DL Metamyelocytes 1 % Platelet Estimate NORMAL Platelet Morphology Comment NORMAL Red Cell Morphology Comment NORMAL Test 09/04/16 09/04/16 09/04/16 09/04/16 08:47 15:55 21:00 23:56 Sodium Level 150 MEQ/L 149 MEQ/L 147 MEQ/L Blood Gas Puncture Site DEEPA Blood Gas Patient Temperature 98.6 Blood Gas HCO3 23 mmol/L Blood Gas Base Excess -0.7 mmol/L Blood Gas Oxygen Saturation 97 % Arterial Blood pH 7.43 Arterial Blood Partial 36 mmHg Pressure CO2 Arterial Blood Partial 116 mmHg Pressure O2 Arterial Blood Oxygen Content 16.1 Vol % Arterial Blood 1.1 % Carboxyhemoglobin Arterial Blood Methemoglobin 0.8 % Blood Gas Hemoglobin 11.7 G/DL Oxygen Delivery Device VENTILATOR Blood Gas Ventilator Setting AC/22/600/PEEP5 Blood Gas Inspired Oxygen 35 % Test 09/05/16 05:30 Sodium Level 149 MEQ/L Vital Signs Date Time Temp Pulse Resp B/P Pulse Ox O2 Delivery O2 Flow Rate FiO2 09/05/16 08:31 100 35 09/05/16 06:00 81 09/05/16 06:00 81 173/97 153/82 09/05/16 04:00 80 09/05/16 04:00 35 09/05/16 04:00 99.7 80 22 174/100 100 09/05/16 03:55 100 35 09/05/16 02:00 76 09/05/16 00:00 98.5 82 22 170/100 100 09/05/16 00:00 35 09/05/16 00:00 82 09/04/16 23:48 100 35 09/04/16 22:00 96 09/04/16 20:04 98 35 09/04/16 20:00 100.3 82 22 168/94 99 09/04/16 20:00 82 09/04/16 20:00 35 09/04/16 19:00 99 Mechanical Ventilator 35 09/04/16 18:00 82 09/04/16 18:00 82 163/96 162/92 09/04/16 16:58 97 35 09/04/16 16:00 99.3 76 22 172/92 99 09/04/16 16:00 35 09/04/16 16:00 76 09/04/16 14:00 68 09/04/16 13:59 98 35 09/04/16 12:00 99.1 68 22 182/96 97 09/04/16 12:00 35 09/04/16 12:00 68 09/04/16 10:36 99 35 09/04/16 10:00 76 09/04/16 08:00 75 09/04/16 08:00 99.9 74 22 184/104 100 09/04/16 08:00 35 09/04/16 07:45 99 35 09/04/16 07:45 100 35 09/04/16 07:00 99 Mechanical Ventilator 35 09/04/16 06:00 74 162/96 166/97 09/04/16 06:00 79 09/04/16 04:00 99.8 83 22 158/89 97 09/04/16 04:00 35 09/04/16 04:00 78 09/04/16 03:16 99 35 09/04/16 02:00 74 09/04/16 00:00 74 175/103 181/100 09/04/16 00:00 99.8 74 22 181/100 99 09/04/16 00:00 35 09/04/16 00:00 74 09/03/16 23:52 98 35 09/03/16 22:00 81 09/03/16 20:06 98 35 09/03/16 20:00 99.3 78 22 Arterial Line 98 09/03/16 20:00 35 09/03/16 20:00 78 09/03/16 19:00 98 Mechanical Ventilator 35 09/03/16 18:00 76 09/03/16 16:19 98 35 09/03/16 16:00 99.9 76 22 168/88 100 09/03/16 16:00 76 09/03/16 16:00 35 09/03/16 14:00 75 09/03/16 13:35 99 35 09/03/16 12:00 74 09/03/16 12:00 35 09/03/16 12:00 99.4 74 22 182/96 100 09/03/16 10:32 98 35 09/03/16 10:00 74 09/03/16 08:19 99 35 09/03/16 08:19 99 35 09/03/16 08:00 99.1 72 22 176/92 99 09/03/16 08:00 72 09/03/16 08:00 35 09/03/16 07:00 99 Mechanical Ventilator 35 09/03/16 06:00 70 09/03/16 04:53 98 35 09/03/16 04:00 65 09/03/16 04:00 97.6 67 25 162/87 99 09/03/16 04:00 35 09/03/16 02:00 65 09/03/16 01:51 97 35 09/03/16 00:42 97 35 09/03/16 00:00 68 09/03/16 00:00 99.5 68 20 171/89 97 09/03/16 00:00 35 09/02/16 22:00 72 09/02/16 21:19 97 35 09/02/16 21:08 97 35 09/02/16 20:00 76 09/02/16 20:00 101.1 76 20 162/86 98 09/02/16 20:00 35 09/02/16 19:00 100 Mechanical Ventilator 35 09/02/16 18:29 99.7 75 20 164/90 99 09/02/16 18:00 74 09/02/16 18:00 99.6 73 20 163/89 99 09/02/16 16:00 35 09/02/16 16:00 82 09/02/16 15:50 100 100 09/02/16 15:29 97 35 09/02/16 14:25 100 100 09/02/16 14:00 80 09/02/16 12:00 35 09/02/16 12:00 99.7 81 20 170/90 100 09/02/16 12:00 81 09/02/16 11:27 98 35 09/02/16 10:00 75 (Boogie Lawler) Medical Decision Making Impression and Plan Impression: 1. Right temporal intracranial hemorrhage with interventricular extension 2. 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 Hypertension 4. Small outpouching proximal right anterior cerebral artery 1.5 mm max, small vessel loop vs small aneurysm No change in neurological status, unable to evaluate due to maximum sedation, remains critical Moderate right in line-A1 segment vasospasm on CTA , s/p intravenous verapamil injection ICP max 24 during the night, o/w in single digits or teens Sodium 149 early this morning Hypophosphatemia Hypokalemia resolved Hypermagnesemia resolved Plan: Interventional radiology plans for possible further aneurysm coiling today Maintain systolic blood pressure 160s-180s range Maintain sodium between 145 and 155, hypertonic saline as needed Continuing ventilatory support with sedation as needed for control of airway, respirations and agitation Monitor ICP & ventriculostomy catheter Ulcer prophylaxis Non- chemical DVT prophylaxis Critical care management per [employer] (Boogie Lawler) Attending Statement Patient was tentatively scheduled for repeat angiogram today, further coiling of aneurysm neck region. Early this afternoon, patient noted to have acute change in his neurologic exam , bilateral fixed dilated pupils. Physical examination earlier this morning revealed pupils 3 mm, minimally reactive, mild conjugate oculocephalic movements , minimal extraocular movements when stimulated. Mild facial grimacing to stimulation, no significant movement upper and lower extremities to deep pain. Change in neurologic exam discussed with space technologist shortly after the occurrence of the change in the patient accompanied by the undersigned for emergency CT angiogram and CT scan of the head. No significant new bleeding noted on the CT scan head. 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 This is not felt to be a survivable event for this unfortunate patient. Family will be updated regarding changes. Continuing ventilatory support and external ventricular drain at this point, however it is not felt that there is any intervention which will reverse the course of this critical life-threatening event. (Speedy Robbins MD) Boogie Lawler Sep 05, 2016 08:55 Speedy Robbins MD Sep 05, 2016 19:14
[2016-09-05] MEDS: 3% SALINE INJ 500 ML IV SCH (11:01)
[2016-09-05] MEDS: PANTOPRAZOLE SODIUM 40 MG VIAL IV PUSH SCH (13:30)
[2016-09-05] MEDS ORDERED: ATROPINE SULFATE 1 MG/10 ML SYRINGE ONE (15:51)
[2016-09-05] MEDS ORDERED: MANNITOL INJ 50 ML ONE (15:51)
[2016-09-05] MEDS ORDERED: SODIUM CHLORIDE 23.4% INJ 240 MEQ in SYRINGE/BAG 1 EA IV ONE (16:00)
[2016-09-05] MEDS ORDERED: IOHEXOL 350 MG/ML 10 ML VIAL (for RAD DIAG) IV ONE (16:43)
--- NOTE | 2016-09-05 17:03 | RADRPT ---
EXAM DATE/TIME: 09/05/2016 16:27 [facility] COMPARISON: CT BRAIN W/O CONTRAST, September 02, 2016, 13:50. CTA BRAIN W 3D RECON, September 02, 2016, 13:50. CT BRAIN W /O CONTRAST, September 01, 2016, 5:03. INDICATIONS : Change in mental status RADIATION DOSE: 47.31 CTDIvol (mGy) MEDICAL HISTORY : Cardiovascular disease. Hypertension. SURGICAL HISTORY : None. ENCOUNTER: Initial ACUITY: 1 day PAIN SCALE: Non-responsive LOCATION: cranial TECHNIQUE: Multiple contiguous axial images were obtained of the head. Using automated exposure control and adj ustment of the mA and/or kV according to patient size, radiation dose was kept as low as reasonably a chievable to obtain optimal diagnostic quality images. FINDINGS: Today's examination is compared back to previous CT scan dated 09/02/16. The overall size of the parenchymal hematoma in the anterior aspect of the right temporal lobe is sim ilar to previous examination dated 09/02/16. There is a new linear density along the anterior aspect o f the hematoma which appears to represent a hyperdense right MCA. There is decreased attenuation diff usely throughout the right MCA distribution suggesting MCA infarct. There is approximately 1 cm of ri ght to left falcine shift this is significantly increased when compared to previous. In addition, the re is complete loss of the sulci and gyri superiorly. The perimesencephalic cisterns are not well vis ualized. The intraventricular hemorrhage is stable in appearance. The osseous structures of the skull are grossly intact. A ventriculostomy is stable in position. CONCLUSION: 1. Decreased attenuation throughout the right MCA distribution suggesting an evolving, large right MC A infarct. The overall size of the patient's intraparenchymal hematoma appears similar though there i s a new linear density along the anterior portion of this which I believe is probably a hyperdense ri ght MCA. Grossly, no new large areas of hemorrhage are seen. There is a significant increase in the m ass effect with 1 cm of right to left falcine shift. The intraventricular hemorrhage is similar. Ther e is effacement of the perimesencephalic cisterns as well as effacement of the sulci and gyri. Ozzy Marcelo MD on September 05, 2016 at 16:55 Board Certified Radiologist. This report was verified electronically.
--- NOTE | 2016-09-05 17:08 | RADRPT ---
EXAM DATE/TIME: 09/05/2016 16:27 [facility] COMPARISON: CTA BRAIN W 3D RECON, September 02, 2016, 13:50. INDICATIONS : Bilateral blown pupils. IV CONTRAST: 100 cc Omnipaque 350 (iohexol) IV RADIATION DOSE: 42.35 CTDIvol (mGy) MEDICAL HISTORY : Stroke. Cardiovascular disease SURGICAL HISTORY : None. ENCOUNTER: Initial ACUITY: 1 day PAIN SCALE: Non-responsive LOCATION: cranial TECHNIQUE: Volumetric scanning was performed using a multi-row detector CT scanner. The data was post processed with a variety of visualization algorithms including full volume maximum intensity projection, multi -planar sliding thin slab reformation, curved planar reformation, and surface rendering techniques. Using automated exposure control and adjustment of the mA and/or kV according to patient size, radiat ion dose was kept as low as reasonably achievable to obtain optimal diagnostic quality images. FINDINGS: The distal internal carotid arteries appear patent. The vertebral is patent. The proximal basilar is patent. No intracerebral flow is identified within the right MCA distribution. The left middle cerebral distr ibution is not identified either. There is limited flow evident in the anterior cerebrals. The basilar is patent proximally. Distally, it is diminutive in size with only a trace of flow identi fied within the left posterior cerebral circulation. The right posterior cerebral circulation is not identified. Examination of the CT source data demonstrates streak artifact from the braces previous aneurysm coil ing with hematoma evident involving the middle cranial fossa and anterior aspect of the right tempora l lobe. CONCLUSION: 1. No flow identified within either middle cerebral. 2. There is very limited flow evident seen in the anterior cerebral circulation. 3. Posteriorly, the distal basilar is diminutive with only a trace amount of flow evident in the left posterior cerebral. The right posterior cerebrals not identified. Ozzy Marcelo MD on September 05, 2016 at 17:01 Board Certified Radiologist. This report was verified electronically.
[2016-09-05] MEDS: MIDAZOLAM 100 MG/NS 100 ML DRIP Premix IV SCH (17:33)
[2016-09-05] MEDS ORDERED: D5W IV SCH ×2 (19:30)
[2016-09-05] MEDS ORDERED: [UNRECOGNIZED DRUG - OTHER] IV SCH ×2 (19:30)
[2016-09-05] MEDS ORDERED: DOPamine INJ PREMIX 500 ML IV SCH (20:15)
[2016-09-05] MEDS ORDERED: TERBUTALINE INJ 1 MG/ML AMP SQ PRN (20:15)
[2016-09-05] MEDS ORDERED: SODIUM CHLOR 0.9% 1000 ML INJ 1,000 ML IV ONE (20:15)
--- NOTE | 2016-09-05 20:55 | HHI.CCPN ---
Subjective Remarks/Hospital Course 60 year old male who presents to the [facility] in transfer from [facility] after being diagnosed with a subarachnoid hemorrhage with intraventricular hemorrhage extension. The patient was intubated at that facility when he became unresponsive. The patient was noted to be tachycardic with a heart rate in the 130s, blood pressure initially 220/120. According to the record, the patient had a history of recently standing up after tying his shoes and having a headache associated with neck pain. He had been being seen by a local chiropractor and been treating the pain with tramadol, ibuprofen, and Flexeril. This evening he developed a decreased level of consciousness and was difficult to awaken according to his . She was concerned that he may have taken some extra pain medication, therefore Narcan was given in 3 separate doses at that facility, however the patient had no response. The patient was noted after intubation to have the subarachnoid hemorrhage and was transferred to this facility for higher level of care. The patient was placed on propofol for sedation on the ventilator. The patient was started on a Cardene drip. EVD was emergently placed by neurosurgeon. 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 He immediately went for a CT scan and was given mannitol and 3% sodium with improvement in his ICP. Repeat CT was essentially unchanged 08/24/16: Today patient is sedated with Versed and propofol. Flaccid on all 4 extremities no withdrawal to pain. Pupils are equal sluggishly reactive positive corneal positive cough. Unable to to TCD. Clinical suspicion of vasospasm high. Will repeat CT angiogram stat. Discussed with Dr. Andrez Marcelo and Dr. Robbins 08/25/16: Repeat CT angiogram of the head did not show any significant vasospasm yesterday. Spiking fever overnight white count increased to 20.2 from 12.3. CXR developing left infiltrate. Very slight withdrawal of all 4 extremities to deep pain 08/26: Continues to have high FiO2 requirement Now Fio2 95% and PEEP 10. WBC 21, 000. Neuro exam unchanged. Unable to get TCD window, will cancel. CXR bilateral infiltrates, L >R 08/27: Remains unresponsive, stat EEG ordered to rule out subclinical seizure 08/28: Episode of high ICPs last night with vent setting change and retention of CO2 08/29: High ICP up to 27 today, responded to Versed bolus and infusion started. CTA ordered STAT-mild stable vasospasm. Optimized on hyperosmolar therapy. 08/30: Intermittent ICP spike, received 23% saline bolus 1. Otherwise neurologically unchanged. Continues to be heavily sedated for ICP control. Sodium 151. We'll restart 3% saline 08/31: Remains heavily sedated for ICP control. Last 24 hours ICP had been fairly well controlled except one episode but spike for approximately 15 minutes when the respiratory rate was reduced. Sodium 148 have increased 3% saline to 50 mL per hour, keep sodium 150-155. No sedation vacation per Dr. Robbins. Plan for trach today 09/01: Remains intubated heavily sedated, s/p trach yesterday. Oozing from the trach site noted, has stopped with Surgiseal placement. ICP 24 received 23% 1 with improvement. PEG planned for today. 09/02: Intermittent ICP elevation >30 twice overnight requiring 23% bolus. Hypertonic saline ow on hold as Na is 162. PEG tube was placed yesterday. ( Trach 08/31). Check CTA today stat 09/03 23% bolus administered last night around 9 pm and 01:30, sodium 156. Today ICP 8-17. CTA yesterday showed moderate vasospasm R M1; received intraarterial verapamil. Tentative plan for repeat angiogram on Tuesday 09/05, possible additional coil of residual aneurysm. 09/04 ICP 4-10. One episode with ICP 17 overnight which improved without change in therapy. Sodium 150 Subjective: 09/05: seen and re-evaluated throughout the day today. At around 15:00, sudden and acute change, patient became severely hypertensive with sbp 220s, ICP went from ~15 to 74, bilateral pupils fixed and dilated. Immediately I came to the bedside and evaluated the patient who is already deeply sedated to manage ICPs. sodiums are already high 140s. Ordered a dose of mannitol to bedside. I notified Dr. Robbins who came to bedside. I also called Dr. Andrez Marcelo, interventional radiology, and we all [address]/CTA brain was the most appropriate emergent intervention. 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 I personally assisted with transport of this unstable patient to CT scanner, which demonstrated severe vasospasm of bilateral MCAs and basilar artery with minimal if any flow, and evidence of yu herniation and complete effacement of sanchez/white matter differentiation. Dr. Robbins and Dr. Marcelo and I all agree that this degree of vasospasm with already evidence of severe infarction and malignant cerebral edema is non-survivable. I called the patient's to let her know of the acute clinical change, and she is unable to drive here to see him tonight, but will be here in the morning. Objective Vital Signs Date Time Temp Pulse Resp B/P Pulse Ox O2 Delivery O2 Flow Rate FiO2 09/05/16 18:00 60 173/97 167/77 09/05/16 17:05 100 100 09/05/16 16:00 98.8 18 09/05/16 07:00 Mechanical Ventilator Intake and Output 09/04/16 09/04/16 09/05/16 08:00 16:00 00:00 Intake Total 2299 ml 2237 ml 2881 ml Output Total 2962 ml 1796 ml 4245 ml Balance -663 ml 441 ml -1364 ml Result Diagram: 09/04/16 0445 09/05/16 0530 Other Results Laboratory Tests Test 09/04/16 23:56 Blood Gas Puncture Site DEEPA Blood Gas Patient Temperature 98.6 Blood Gas HCO3 23 mmol/L (22-26) Blood Gas Base Excess -0.7 mmol/L (-2-2) Blood Gas Oxygen Saturation 97 % (90-100) Arterial Blood pH 7.43 (7.380-7.420) Arterial Blood Partial 36 mmHg (38-42) Pressure CO2 Arterial Blood Partial 116 mmHg Pressure O2 (61-120) Arterial Blood Oxygen Content 16.1 Vol % (12.0-20.0) Arterial Blood 1.1 % (0-4) Carboxyhemoglobin Arterial Blood Methemoglobin 0.8 % (0-2) Blood Gas Hemoglobin 11.7 G/DL (12.0-16.0) Oxygen Delivery Device VENTILATOR Blood Gas Ventilator Setting AC/22/600/PEEP5 Blood Gas Inspired Oxygen 35 % Objective Remarks Drips: Propofol 50 mcg/kg/min Versed 10 mg /hr Fentanyl 250 mcg/hr 3% saline 25 mL/hr 0.9 NaCl @ 80/hr. GENERAL: middle-aged male, lying in bed, deeply sedated. SKIN: Warm and dry. HEAD: Normocephalic. EVD in place, +5 cm H20, ICP now 74 despite mannitol. EYES: No scleral icterus, mild scleral edema. No injection or drainage. pupils now 7mm, bilateral, fixed, dilated. NECK:trachea midline. No JVD . CARDIOVASCULAR: bradycardic rate, regular rhythm. severely hypertensive, sbp 220. RESPIRATORY: Breath sounds equal bilaterally. Coarse breath sounds and rhonchi at bilateral bases, predominantly L base GASTROINTESTINAL: Abdomen soft, non-tender, PEG in place. . Dignishield in place with soft brown stool. : Castelan in place with light yellow urine output. + scrotal edema. EXTREMITIES: No clubbing cyanosis, 1+ edema. NEURO: pupils as above. negative corneals. negative cough. negative gag. On heavy sedation due to ICP issues which limits exam. No response to deep noxious stimuli A/P Assessment and Plan Assessment: 60yM s/p aneurysmal SAH now at least 3 weeks out, with persistent malignant cerebral edema and now evidence of severe vasospasm of all vessel territories with associated global cerebral infarctions and transtentorial herniation. I agree that this is a non-survivable event. Neuro: Aneurysmal Subarachnoid hemorrhage Intracranial hypertension Acute encephalopathy Obstructive hydrocephalus - Stat CTA 09/02 showed Moderate vasospasm M1., s/p intraarterial verapamil. Angio showed some residual aneurysm at base of aneurysm. Tentative plan to repeat angio on 09/05 to evaluate for vasospasm and possibly pursue additional coiling. - 08/29 showed stable mild vasospasm. - Ct head 08/29: Improving intra-axial subarachnoid and intraventricular hemorrhage, improving ventricular size - Ct head 08/31 improving intraventricular hemorrhage and stable cerebral edema, stable intraparenchymal hemorrhage - Marshall and Galeas grade 5, Modified Andersen grade 4 - S/P supraclinoid ICA aneurysm coil embolization. - Target SBP 160-180 due to vasospasm - Nimodipine and Pravachol 40 hs. - Keep Mag>2, target sodium 145-155, 3% change to 40 ml/hr to maintain target. - EEG 08/24-diffuse encephalopathy, EEG 08/27 severe encephalopathy, burst suppression pattern - Continue Keppra 1 gram IV q12. - Propofol Versed and Fentanyl for sedation and ventilator synchrony. - No sedation vacation until more stable and cleared by Dr. Robbins - frequent neuro checks. RESP Acute hypoxemic respiratory failure ARDS Aspiration pneumonia - Intubated for an airway protection, developed severe ARDS which is improving. - Now on ACV TV 600 R 22 PEEP 5 FIO2 35%. - s/p trach 08/31, Dr. Giles/Fadi - Vent bundle. DuoNeb q6 and PRN - No SBT's until neurologically stable CVS Hypertension Dyslipidemia - Levophed to keep SBP 120-180 - Nimotop 30 due to significant hypotension Q4 - Pravachol for vasospasm prevention as well GI: - Tube feeds with Jevity-s/p PEG 09/01/16. Jevity 1.5 goal rate 65 mL/hr per nutrition recs. - IV Protonix - Bowel regimen FEN/RENAL: - Electrolyte replacement per protocol - 0.9 NaCl @ 80 ml/hr. - Monitor renal function closely - Strict I's and O's ID: Aspiration pneumonia Severe sepsis - Beta strep in sputum 08/25, repeat sputum culture 08/30 negative. -All blood cultures -08/25, 08/30, 08/31 -White blood count normalized. - Zosyn 4.5 g IV every 6 hours 08/25 #12. WBC normalized, temp curve down, oxygenation and respiratory secretions improved. CXR with persistent basilar consolidations, though CXR may lag behind. Plan to d/c zosyn in next 1-3 days. azithromycin 08/26-09/03. Vancomycin DCd 08/29. DVT GI prophylaxis - Teds, SCDs - Subcutaneous heparin was placed on hold 08/30, consider resuming after angio. - Pantoprazole 40 q24. ACCESS: Left axillary art line placed 08/30 #7 ; right subclavian central venous line placed 08/23 #14. Critical Care: The total critical care time was 57 minutes. This includes time while the patient remained critically ill with acute mental status change, acute cerebral edema. This includes time that I spent personally and evaluation management of the patient, in accompanied the patient while he was hemodynamically unstable down to the CT scanner, and includes time discussing prognosis with the family. Time to perform other separately billable procedures was not included in the critical care time. Jefry Marie MD Sep 05, 2016 20:55
[2016-09-05] MEDS: hydrALAZINE HCL 20 MG/ML VIAL IV PUSH PRN (21:03)
[2016-09-05] MEDS: PRAVASTATIN SOD 40 MG TAB PO SCH (21:29)
[2016-09-05 22:08] LABS: POTASSIUM 3.1 MEQ/L (3.5-5.1)
[2016-09-05 22:27] LABS: BLOOD GAS BASE EXCESS -0.3 mmol/L (-2-2); BLOOD GAS CARBOXYHEMOGLOBIN 1.1 % (0-4); BLOOD GAS HCO3 23 mmol/L (22-26); BLOOD GAS METHEMOGLOBIN 0.7 % (0-2); BLOOD GAS O2 HGB SATURATION 97 % (90-100); BLOOD GAS OXYGEN CONTENT 15.6 Vol % (12.0-20.0); BLOOD GAS PCO2 33 mmHg (38-42); BLOOD GAS PO2 116 mmHg (61-120); BLOOD GAS TOTAL HGB 11.4 G/DL (12.0-16.0); TEMP CORR TO 98.6
[2016-09-05 22:28] LABS: CRITICAL VALUE NO; OXYGEN DEVICE VENTILATOR
[2016-09-05 22:29] LABS: DRAW SITE ART LINE; FIO2 35 %; STAT NO; VENT SETTINGS VAC/18/600/+5
[2016-09-06] VITALS (16 sets, daily range): BP systolic 144–179; BP diastolic 77–101; PULSE 59–87; RESP 16; TEMP 94.3–98.7; O2SAT 96–100
[2016-09-06] MEDS ORDERED: niMODipine 30 MG CAP PO SCH
[2016-09-06] MEDS: SODIUM CHLOR 0.9% 1000 ML INJ 1,000 ML IV SCH ×2 (00:17→11:43)
[2016-09-06] MEDS: niMODipine 30 MG CAP PO SCH ×3 (01:44→08:57)
[2016-09-06] MEDS: hydrALAZINE HCL 20 MG/ML VIAL IV PUSH PRN (01:57)
[2016-09-06] MEDS: POTASSIUM CHLOR 40 MEQ PREMIX 100 ML IV PRN ×2 (02:03→04:09)
[2016-09-06 02:27] LABS: MAGNESIUM 1.9 MG/DL (1.5-2.5)
[2016-09-06] MEDS: PIPERACIL-TAZO 4.5 GM PREMIX 100 ML IV SCH ×2 (02:28→08:55)
[2016-09-06] MEDS: CHLORHEXIDINE GLUCONATE 2 % 1 PACK (2 CLOTHS) TOP SCH (04:00)
[2016-09-06] MEDS: DEXT 5%-NACL 0.45% 1000 ML INJ 1,000 ML IV SCH ×2 (04:14→06:01)
[2016-09-06 05:36] LABS: HEMATOCRIT 32.1 % (39.0-51.0); MEAN CELL VOLUME 83.3 FL (80.0-100.0); MEAN CORPUSCULAR HEMOGLOBIN 27.7 PG (27.0-34.0); MEAN CORPUSCULAR HGB CONC 33.3 % (32.0-36.0); PLATELET COUNT 311 TH/MM3 (150-450); RED BLOOD COUNT 3.85 MIL/MM3 (4.50-5.90); RED CELL DISTRIBUTION WIDTH 14.6 % (11.6-17.2); REVIEW FLAG FINAL; WHITE BLOOD COUNT 8.2 TH/MM3 (4.0-11.0)
[2016-09-06] MEDS: DESMOPRESSIN ACETATE 4 MCG/ML VIAL IV PUSH SCH ×2 (05:43→08:56)
[2016-09-06 06:19] LABS: ALKALINE PHOSPHATASE 96 U/L (45-117); ALT (GPT) 68 U/L (12-78); ANION GAP 10 MEQ/L (5-15); AST (GOT) 37 U/L (15-37); BICARBONATE 23.4 MEQ/L (21.0-32.0); BLOOD UREA NITROGEN 10 MG/DL (7-18); CHLORIDE 113 MEQ/L (98-107); GAMMA GT 311 U/L (15-85); GLOMERULAR FILTRATION RATE 187 ML/MIN (>89); POTASSIUM 3.7 MEQ/L (3.5-5.1); SODIUM (NA) 146 MEQ/L (136-145); TOTAL BILIRUBIN ADULT 0.3 MG/DL (0.2-1.0)
[2016-09-06] MEDS: PROPOFOL 1000 MG/100 ML INJ 100 ML IV SCH (06:26)
[2016-09-06] MEDS ORDERED: DEXTROSE 10% INJ 1,000 ML IV SCH (07:30)
[2016-09-06] MEDS ORDERED: DEXTROSE 50% IN WATER 50 ML VIAL(D50) IV PUSH PRN (07:30)
[2016-09-06] MEDS ORDERED: MISC INFORMATION OTHER ONE (07:30)
[2016-09-06] MEDS ORDERED: INSULIN REGULAR (IV INFUSION) 100 UNITS in SODIUM CHLORIDE 0.9% INJ 99 ML IV SCH (08:00)
[2016-09-06] MEDS: SODIUM CHLOR 0.45% 1000 ML INJ 1,000 ML IV SCH ×5 (08:02→12:50)
[2016-09-06] MEDS: levETIRAcetam 1000 MG INJ 100 ML IV SCH (08:55)
[2016-09-06] MEDS: SODIUM CHLORIDE 0.9% FLUSH 10 ML FLUSH SCH (08:55)
[2016-09-06] MEDS: LACTULOSE SYRUP 20 GM/30 ML CUP PO SCH ×2 (08:56→13:00)
[2016-09-06] MEDS: DOCUSATE SODIUM 50 MG/SENNA 8.6 MG TAB PO SCH (08:56)
--- NOTE | 2016-09-06 11:12 | RADRPT ---
EXAM DATE/TIME: 09/06/2016 10:03 [place] COMPARISON: No previous studies available for comparison. INDICATIONS : Infarction. Subarachnoid hemmorhage and aneurysm. DOSE: 25 mCi Tc99m DTPA IV The diagnosis of brain is clinical and the results of this test should be taken in the content of clinical and electrocephalographic data. MEDICAL HISTORY : Hypercholesterolemia. Hypertension. SURGICAL HISTORY : Unknown. ENCOUNTER: Subsequent ACUITY: 2 weeks PAIN SCALE: Non-responsive LOCATION: Head. TECHNIQUE: Anterior dynamic imaging as well as delayed static imaging. FINDINGS: No cerebral activity is seen. No blood flow enters the skull. There is some increased activity over t he scalp likely from ventriculostomy tube placement. CONCLUSION: No cerebral blood flow or activity is seen. Chan Lobo MD on September 06, 2016 at 11:03 Board Certified Radiologist. This report was verified electronically.
[2016-09-06 11:45] LABS: BLOOD GAS BASE EXCESS -1.3 mmol/L (-2-2); BLOOD GAS CARBOXYHEMOGLOBIN 1.1 % (0-4); BLOOD GAS HCO3 22 mmol/L (22-26); BLOOD GAS METHEMOGLOBIN 0.9 % (0-2); BLOOD GAS O2 HGB SATURATION 97 % (90-100); BLOOD GAS OXYGEN CONTENT 14.6 Vol % (12.0-20.0); BLOOD GAS PCO2 32 mmHg (38-42); BLOOD GAS PO2 134 mmHg (61-120); BLOOD GAS TOTAL HGB 10.6 G/DL (12.0-16.0); TEMP CORR TO 98.6
[2016-09-06 11:46] LABS: CRITICAL VALUE NO
[2016-09-06 11:47] LABS: DRAW SITE ART LINE; FIO2 35 %; OXYGEN DEVICE VENTILATOR; STAT NO; VENT SETTINGS AC/VT600/R16/P8
[2016-09-06 13:33] LABS: BLOOD GAS BASE EXCESS -0.7 mmol/L (-2-2); BLOOD GAS CARBOXYHEMOGLOBIN 1.1 % (0-4); BLOOD GAS HCO3 23 mmol/L (22-26); BLOOD GAS METHEMOGLOBIN 0.8 % (0-2); BLOOD GAS O2 HGB SATURATION 97 % (90-100); BLOOD GAS OXYGEN CONTENT 13.4 Vol % (12.0-20.0); BLOOD GAS PCO2 38 mmHg (38-42); BLOOD GAS PO2 132 mmHg (61-120); BLOOD GAS TOTAL HGB 9.7 G/DL (12.0-16.0); CRITICAL VALUE NO; TEMP CORR TO 98.6
[2016-09-06 13:34] LABS: DRAW SITE ART LINE; FIO2 35 %; OXYGEN DEVICE VENTILATOR; STAT NO; VENT SETTINGS AC/VT600/R12/P8
[2016-09-06 14:39] LABS: BLOOD GAS BASE EXCESS -1.5 mmol/L (-2-2); BLOOD GAS CARBOXYHEMOGLOBIN 0.6 % (0-4); BLOOD GAS HCO3 26 mmol/L (22-26); BLOOD GAS METHEMOGLOBIN 0.8 % (0-2); BLOOD GAS O2 HGB SATURATION 98 % (90-100); BLOOD GAS PCO2 72 mmHg (38-42); BLOOD GAS PO2 385 mmHg (61-120); BLOOD GAS TOTAL HGB 10.2 G/DL (12.0-16.0); TEMP CORR TO 98.6
[2016-09-06 14:40] LABS: CRITICAL VALUE YES
[2016-09-06 14:41] LABS: DRAW SITE ART LINE; FIO2 100 %; STAT NO
--- NOTE | 2016-09-06 15:32 | HHI.CCPN ---
Subjective Remarks/Hospital Course 60 year old male who presents to the [facility] in transfer from [facility] after being diagnosed with a subarachnoid hemorrhage with intraventricular hemorrhage extension. The patient was intubated at that facility when he became unresponsive. The patient was noted to be tachycardic with a heart rate in the 130s, blood pressure initially 220/120. According to the record, the patient had a history of recently standing up after tying his shoes and having a headache associated with neck pain. He had been being seen by a local chiropractor and been treating the pain with tramadol, ibuprofen, and Flexeril. This evening he developed a decreased level of consciousness and was difficult to awaken according to his . She was concerned that he may have taken some extra pain medication, therefore Narcan was given in 3 separate doses at that facility, however the patient had no response. The patient was noted after intubation to have the subarachnoid hemorrhage and was transferred to this facility for higher level of care. The patient was placed on propofol for sedation on the ventilator. The patient was started on a Cardene drip. EVD was emergently placed by neurosurgeon. 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 He immediately went for a CT scan and was given mannitol and 3% sodium with improvement in his ICP. Repeat CT was essentially unchanged 08/24/16: Today patient is sedated with Versed and propofol. Flaccid on all 4 extremities no withdrawal to pain. Pupils are equal sluggishly reactive positive corneal positive cough. Unable to to TCD. Clinical suspicion of vasospasm high. Will repeat CT angiogram stat. Discussed with Dr. Andrez Marcelo and Dr. Robbins 08/25/16: Repeat CT angiogram of the head did not show any significant vasospasm yesterday. Spiking fever overnight white count increased to 20.2 from 12.3. CXR developing left infiltrate. Very slight withdrawal of all 4 extremities to deep pain 08/26: Continues to have high FiO2 requirement Now Fio2 95% and PEEP 10. WBC 21, 000. Neuro exam unchanged. Unable to get TCD window, will cancel. CXR bilateral infiltrates, L >R 08/27: Remains unresponsive, stat EEG ordered to rule out subclinical seizure 08/28: Episode of high ICPs last night with vent setting change and retention of CO2 08/29: High ICP up to 27 today, responded to Versed bolus and infusion started. CTA ordered STAT-mild stable vasospasm. Optimized on hyperosmolar therapy. 08/30: Intermittent ICP spike, received 23% saline bolus 1. Otherwise neurologically unchanged. Continues to be heavily sedated for ICP control. Sodium 151. We'll restart 3% saline 08/31: Remains heavily sedated for ICP control. Last 24 hours ICP had been fairly well controlled except one episode but spike for approximately 15 minutes when the respiratory rate was reduced. Sodium 148 have increased 3% saline to 50 mL per hour, keep sodium 150-155. No sedation vacation per Dr. Robbins. Plan for trach today 09/01: Remains intubated heavily sedated, s/p trach yesterday. Oozing from the trach site noted, has stopped with Surgiseal placement. ICP 24 received 23% 1 with improvement. PEG planned for today. 09/02: Intermittent ICP elevation >30 twice overnight requiring 23% bolus. Hypertonic saline ow on hold as Na is 162. PEG tube was placed yesterday. ( Trach 08/31). Check CTA today stat 09/03 23% bolus administered last night around 9 pm and 01:30, sodium 156. Today ICP 8-17. CTA yesterday showed moderate vasospasm R M1; received intraarterial verapamil. Tentative plan for repeat angiogram on Tuesday 09/05, possible additional coil of residual aneurysm. 09/04 ICP 4-10. One episode with ICP 17 overnight which improved without change in therapy. Sodium 150 09/05: seen and re-evaluated throughout the day today. At around 15:00, sudden and acute change, patient became severely hypertensive with sbp 220s, ICP went from ~15 to 74, bilateral pupils fixed and dilated. Immediately I came to the bedside and evaluated the patient who is already deeply sedated to manage ICPs. sodiums are already high 140s. Ordered a dose of mannitol to bedside. I notified Dr. Robbins who came to bedside. I also called Dr. Andrez Marcelo, interventional radiology, and we all [address]/CTA brain was the most appropriate emergent intervention. 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 I personally assisted with transport of this unstable patient to CT scanner, which demonstrated severe vasospasm of bilateral MCAs and basilar artery with minimal if any flow, and evidence of yu herniation and complete effacement of sanchez/white matter differentiation. Dr. Robbins and Dr. Marcelo and I all agree that this degree of vasospasm with already evidence of severe infarction and malignant cerebral edema is non-survivable. I called the patient's to let her know of the acute clinical change, and she is unable to drive here to see him tonight, but will be here in the morning. Subjective: 09/06: seen and examined at 0600am. delayed note entry. patient with severe DI overnight with uop as high as 3000mL/hr. started on ddavp and vasopressin, titrated up to 0.12 units/min. required intermittent norepinephrine for hypotension. Also requiring high volume 1/2 NS replacement. sodiums peaked at 154, and then downtrended slowly. ICP remain severely elevated. family driving in today. patient remains unresponsive with pupils fixed and dilated. Objective Vital Signs Date Time Temp Pulse Resp B/P Pulse Ox O2 Delivery O2 Flow Rate FiO2 09/06/16 13:24 100 35 09/06/16 12:00 98.3 87 16 179/101 09/06/16 07:00 Mechanical Ventilator Intake and Output 09/05/16 09/05/16 09/06/16 08:00 16:00 00:00 Intake Total 1758 ml 2109 ml 5342 ml Output Total 2097 ml 3277 ml 19206 ml Balance -339 ml -1168 ml -4755 ml Result Diagram: 09/06/16 0505 09/06/16 1115 Other Results Laboratory Tests Test 09/05/16 09/06/16 09/06/16 09/06/16 22:19 01:42 11:35 13:25 Blood Gas Puncture Site ART LINE ART LINE ART LINE ART LINE Blood Gas Patient Temperature 98.6 98.6 98.6 98.6 Blood Gas HCO3 23 mmol/L 26 mmol/L 22 mmol/L 23 mmol/L (22-26) (22-26) (22-26) (22-26) Blood Gas Base Excess -0.3 mmol/L -1.5 mmol/L -1.3 mmol/L -0.7 mmol/L (-2-2) (-2-2) (-2-2) (-2-2) Blood Gas Oxygen Saturation 97 % (90-100) 98 % (90-100) 97 % (90-100) 97 % (90- 100) Arterial Blood pH 7.46 7.18 7.46 7.40 (7.380-7.420) (7.380-7.420) (7.380-7.420) (7.380-7.420) Arterial Blood Partial 33 mmHg (38-42) 72 mmHg (38-42) 32 mmHg (38-42) 38 mmHg ( 38-42) Pressure CO2 Arterial Blood Partial 116 mmHg 385 mmHg 134 mmHg 132 mmHg Pressure O2 (61-120) (61-120) (61-120) (61-120) Arterial Blood Oxygen Content 15.6 Vol % 15.0 Vol % 14.6 Vol % 13.4 Vol % (12.0-20.0) (12.0-20.0) (12.0-20.0) (12.0-20.0) Arterial Blood 1.1 % (0-4) 0.6 % (0-4) 1.1 % (0-4) 1.1 % (0-4) Carboxyhemoglobin Arterial Blood Methemoglobin 0.7 % (0-2) 0.8 % (0-2) 0.9 % (0-2) 0.8 % (0-2) Blood Gas Hemoglobin 11.4 G/DL 10.2 G/DL 10.6 G/DL 9.7 G/DL (12.0-16.0) (12.0-16.0) (12.0-16.0) (12.0-16.0) Oxygen Delivery Device VENTILATOR VENTILATOR VENTILATOR Blood Gas Ventilator Setting VAC/18/600/+5 AC/VT600/R16/P8 AC/VT600/R12/P8 Blood Gas Inspired Oxygen 35 % 100 % 35 % 35 % Objective Remarks Drips: sedation completely off since yesterday. D5 1/2 NS @ 300cc/hr on my evaluation. vasopressin at 0.12 units/min levophed at 3 mcg/min GENERAL: middle-aged male, lying in bed, unresponsive SKIN: Warm and dry. HEAD: Normocephalic. EVD in place, +5 cm H20, ICP > 60. EYES: No scleral icterus, mild scleral edema. No injection or drainage. pupils 7mm, bilateral, fixed, dilated. NECK:trachea midline. No JVD . CARDIOVASCULAR: normal rate, regular rhythm. sinus by tele. RESPIRATORY: Breath sounds equal bilaterally. clear to auscultation. GASTROINTESTINAL: Abdomen soft, non-tender, PEG in place. . Dignishield in place with soft brown stool. : Castelan in place with clear urine output. + scrotal edema. EXTREMITIES: No clubbing cyanosis, 1+ edema. NEURO: pupils as above. negative corneals. negative cough. negative gag. GCS 3. no movement to noxious stimuli. negative doll's eyes. does not breath over vent. A/P Assessment and Plan Assessment: 60yM s/p aneurysmal SAH now at least 3 weeks out, with persistent malignant cerebral edema and now s/p catastrophic cerebral infarction with malignant cerebral edema and evidence of herniation on CT. 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 We will pursue nuclear medicine cerebral blood flow exam and formal brain testing. Neuro: Aneurysmal Subarachnoid hemorrhage Intracranial hypertension Acute encephalopathy Obstructive hydrocephalus Massive cerebral infarction Malignant Cerebral Edema Transtentorial herniation - Stat CTA 09/02 showed Moderate vasospasm M1., s/p intraarterial verapamil. Angio showed some residual aneurysm at base of aneurysm. Tentative plan to repeat angio on 09/05 to evaluate for vasospasm and possibly pursue additional coiling. - 08/29 showed stable mild vasospasm. - Ct head 08/29: Improving intra-axial subarachnoid and intraventricular hemorrhage, improving ventricular size - Ct head 08/31 improving intraventricular hemorrhage and stable cerebral edema, stable intraparenchymal hemorrhage - Marshall and Galeas grade 5, Modified Andersen grade 4 - S/P supraclinoid ICA aneurysm coil embolization. - EEG 08/24-diffuse encephalopathy, EEG 08/27 severe encephalopathy, burst suppression pattern - frequent neuro checks. - continue to hold all sedation - formal brain examination later today - discussed care with Dr. Robbins who agrees with plan - nuclear medicine cerebral blood flow study RESP Acute hypoxemic respiratory failure ARDS- resolved. Aspiration pneumonia- resolved. - Intubated for an airway protection, developed severe ARDS which is improving. - Now on ACV TV 600 R 22 PEEP 5 FIO2 35%. - s/p trach 08/31, Dr. Giles/Fadi - Vent bundle. DuoNeb q6 and PRN - No SBT today. CVS Hypertension Dyslipidemia - Levophed to keep map > 65 - cardene as needed for sbp < 180 GI: - Tube feeds with Jevity-s/p PEG 09/01/16. Jevity 1.5 goal rate 65 mL/hr per nutrition recs. - IV Protonix - Bowel regimen FEN/RENAL: Central Diabetes Insipidus- severe - Electrolyte replacement per protocol - 03/21 NS @ 300cc/hr. titrate to maintain euvolemia. - Monitor renal function closely - Strict I's and O's - ddavp - vasopressin ID: Aspiration pneumonia Severe sepsis - Beta strep in sputum 08/25, repeat sputum culture 08/30 negative. -All blood cultures -08/25, 08/30, 08/31 -White blood count normalized. - Zosyn 4.5 g IV every 6 hours 08/25 #13. WBC normalized, temp curve down, oxygenation and respiratory secretions improved. CXR with persistent basilar consolidations, though CXR may lag behind. continue zosyn today. azithromycin 08/26-09/03. Vancomycin DCd 08/29. DVT GI prophylaxis - Teds, SCDs - Subcutaneous heparin was placed on hold 08/30, consider resuming after angio. - Pantoprazole 40 q24. ACCESS: Left axillary art line placed 08/30 #8 ; right subclavian central venous line placed 08/23 #15. Critical Care: The total critical care time was 35 minutes. This includes time while the patient remained critically ill with actively failing organ systems including severe DI with hemodynamic instability, respiratory failure, malignant cerebral edema, all of which were active threats to life. Time to perform other separately billable procedures was not included in the critical care time. Jefry Marie MD Sep 06, 2016 15:32
--- NOTE | 2016-09-06 19:12 | HHI.NSPN ---
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 Exam Results Vital Signs Date Time Temp Pulse Resp B/P Pulse Ox O2 Delivery O2 Flow Rate FiO2 09/06/16 15:48 98 35 09/06/16 14:00 80 09/06/16 12:00 98.3 16 179/101 09/06/16 07:00 Mechanical Ventilator Intake and Output 09/05/16 09/05/16 09/06/16 08:00 16:00 00:00 Intake Total 1758 ml 2109 ml 5342 ml Output Total 2097 ml 3277 ml 89269 ml Balance -339 ml -1168 ml -4755 ml Physical Examination Intubated. No IV sedation Pupils 7 mm nonreactive Absent corneal, actual cephalic, and oculovestibular responses. No facial grimacing to deep pain No response with endotracheal suctioning and manipulation. No response to deep pain all extremities Lab, Micro, Other Results Last 48 hours Impressions Brain Flow Nuclear Medicine 09/06/16 0000 Signed Impressions: Service Date/Time: Tuesday, September 06, 2016 10:03 - CONCLUSION: No cerebral blood flow or activity is seen. hCan Lobo MD Head CTA 09/05/16 0000 Signed Impressions: Service Date/Time: Monday, September 05, 2016 16:27 - CONCLUSION: 1. No flow identified within either middle cerebral. 2. There is very limited flow evident seen in the anterior cerebral circulation. 3. Posteriorly, the distal basilar is diminutive with only a trace amount of flow evident in the left posterior cerebral. The right posterior cerebrals not identified. Ozzy Marcelo MD Head CT 09/05/16 0000 Signed Impressions: Service Date/Time: Monday, September 05, 2016 16:27 - CONCLUSION: 1. Decreased attenuation throughout the right MCA distribution suggesting an evolving, large right MCA infarct. The overall size of the patient's intraparenchymal hematoma appears similar though there is a new linear density along the anterior portion of this which I believe is probably a hyperdense right MCA. Grossly, no new large areas of hemorrhage are seen. There is a significant increase in the mass effect with 1 cm of right to left falcine shift. The intraventricular hemorrhage is similar. There is effacement of the perimesencephalic cisterns as well as effacement of the sulci and gyri. Ozzy Marcelo MD Laboratory Tests Test 09/05/16 09/05/16 09/06/16 09/06/16 20:51 22:19 01:42 02:00 Urine Specific [place] 1.009 Sodium Level 155 MEQ/L 152 MEQ/L Potassium Level 3.1 MEQ/L Chloride Level 123 MEQ/L Carbon Dioxide Level 24.0 MEQ/L Anion Gap 8 MEQ/L Blood Urea Nitrogen 12 MG/DL Creatinine 0.39 MG/DL Estimat Glomerular Filtration 227 ML/MIN Rate Random Glucose 137 MG/DL Calcium Level 7.9 MG/DL Blood Gas Puncture Site ART LINE ART LINE Blood Gas Patient Temperature 98.6 98.6 Blood Gas HCO3 23 mmol/L 26 mmol/L Blood Gas Base Excess -0.3 mmol/L -1.5 mmol/L Blood Gas Oxygen Saturation 97 % 98 % Arterial Blood pH 7.46 7.18 Arterial Blood Partial 33 mmHg 72 mmHg Pressure CO2 Arterial Blood Partial 116 mmHg 385 mmHg Pressure O2 Arterial Blood Oxygen Content 15.6 Vol % 15.0 Vol % Arterial Blood 1.1 % 0.6 % Carboxyhemoglobin Arterial Blood Methemoglobin 0.7 % 0.8 % Blood Gas Hemoglobin 11.4 G/DL 10.2 G/DL Oxygen Delivery Device VENTILATOR Blood Gas Ventilator Setting VAC/18/600/+5 Blood Gas Inspired Oxygen 35 % 100 % Phosphorus Level 2.5 MG/DL Magnesium Level 1.9 MG/DL Test 09/06/16 09/06/16 09/06/16 09/06/16 02:10 05:05 11:15 11:35 Urine Osmolality 395 MOSM/KG White Blood Count 8.2 TH/MM3 Red Blood Count 3.85 MIL/MM3 Hemoglobin 10.7 GM/DL Hematocrit 32.1 % Mean Corpuscular Volume 83.3 FL Mean Corpuscular Hemoglobin 27.7 PG Mean Corpuscular Hemoglobin 33.3 % Concent Red Cell Distribution Width 14.6 % Platelet Count 311 TH/MM3 Mean Platelet Volume 8.4 FL Sodium Level 146 MEQ/L 144 MEQ/L Potassium Level 3.7 MEQ/L Chloride Level 113 MEQ/L Carbon Dioxide Level 23.4 MEQ/L Anion Gap 10 MEQ/L Blood Urea Nitrogen 10 MG/DL Creatinine 0.46 MG/DL Estimat Glomerular Filtration 187 ML/MIN Rate Random Glucose 371 MG/DL Calcium Level 7.5 MG/DL Total Bilirubin 0.3 MG/DL Gamma Glutamyl Transpeptidase 311 U/L Aspartate Amino Transf 37 U/L (AST/SGOT) Alanine Aminotransferase 68 U/L (ALT/SGPT) Alkaline Phosphatase 96 U/L Total Protein 5.7 GM/DL Albumin 1.5 GM/DL Blood Gas Puncture Site ART LINE Blood Gas Patient Temperature 98.6 Blood Gas HCO3 22 mmol/L Blood Gas Base Excess -1.3 mmol/L Blood Gas Oxygen Saturation 97 % Arterial Blood pH 7.46 Arterial Blood Partial 32 mmHg Pressure CO2 Arterial Blood Partial 134 mmHg Pressure O2 Arterial Blood Oxygen Content 14.6 Vol % Arterial Blood 1.1 % Carboxyhemoglobin Arterial Blood Methemoglobin 0.9 % Blood Gas Hemoglobin 10.6 G/DL Oxygen Delivery Device VENTILATOR Blood Gas Ventilator Setting AC/VT600/R16/P8 Blood Gas Inspired Oxygen 35 % Test 09/06/16 13:25 Blood Gas Puncture Site ART LINE Blood Gas Patient Temperature 98.6 Blood Gas HCO3 23 mmol/L Blood Gas Base Excess -0.7 mmol/L Blood Gas Oxygen Saturation 97 % Arterial Blood pH 7.40 Arterial Blood Partial 38 mmHg Pressure CO2 Arterial Blood Partial 132 mmHg Pressure O2 Arterial Blood Oxygen Content 13.4 Vol % Arterial Blood 1.1 % Carboxyhemoglobin Arterial Blood Methemoglobin 0.8 % Blood Gas Hemoglobin 9.7 G/DL Oxygen Delivery Device VENTILATOR Blood Gas Ventilator Setting AC/VT600/R12/P8 Blood Gas Inspired Oxygen 35 % Medical Decision Making Impression and Plan Impression: Exam findings and blood flow study are consistent with brain Plan: Discussed with customer relationship specialist as well as with the family in the intensive care unit today. Cause of the sudden loss of cerebral flow uncertain, possible severe vasospasm. Patient meets brain criteria. Speedy Robbins MD Sep 06, 2016 19:12
[2016-09-06] MEDS ORDERED: VASOPRESSIN INJ 40 UNITS in DEXTROSE 5% IN WATER 100ML INJ 98 ML IV SCH ×2 (19:30)
[2016-09-06 22:16] LABS: BLOOD GAS BASE EXCESS -2.2 mmol/L (-2-2); BLOOD GAS CARBOXYHEMOGLOBIN 0.9 % (0-4); BLOOD GAS HCO3 22 mmol/L (22-26); BLOOD GAS METHEMOGLOBIN 0.8 % (0-2); BLOOD GAS O2 HGB SATURATION 98 % (90-100); BLOOD GAS OXYGEN CONTENT 13.9 Vol % (12.0-20.0); BLOOD GAS PCO2 39 mmHg (38-42); BLOOD GAS PO2 164 mmHg (61-120); BLOOD GAS TOTAL HGB 9.9 G/DL (12.0-16.0); CRITICAL VALUE NO; OXYGEN DEVICE VENTILATOR; TEMP CORR TO 98.6
[2016-09-06 22:18] LABS: DRAW SITE ALINE; FIO2 100 %; STAT NO
[2016-09-07 00:48] VITALS: O2SAT 99
--- NOTE | 2016-09-07 06:11 | PD.PROCEDR ---
Procedure Note Procedure Note for 09/06/16: DX: Brain OP: Diagnostic Bronchoscopy Procedure: Bronchoscopy through indwelling trach tube. Main trachea and right lung reveals normal mucosa and branching. Left side reveals friable distal mucosa and bleeding. Normal branching. Clear, mucus left side. Roosevelt Aponte MD Sep 07, 2016 06:11
[2016-09-07] MEDS ORDERED: PHENYLEPHRINE INJ 40 MG in SODIUM CHLORID 0.9% 500 ML INJ 496 ML IV SCH (21:15)
[2016-09-07] MEDS ORDERED: ALBUMIN HUMAN 5% 12.5 GM/250 ML BOTTLE IV ONE (21:19)
--- NOTE | 2016-09-21 10:14 | HHI.DS ---
Discharge Summary Admission Date Aug 23, 2016 at 04:02 Discharge Date: Sep 06, 2016 Admitting Diagnosis ICH (1) Intracranial hemorrhage Diagnosis: Principal ICD Code: I62.9 Hospital Course Patient with worsening neurological status on with elevated ICPs & acute onset of fixed & dilated pupils. Emergent CTA brain revealed severe occlusion to the proximal basilar & carotid arteries. Cerebral blood flow scan without any evident flow on . Physical examination consistent with brain . Patient declared brain by Dr Robbins (Neurosurgery) and Dr Marie (Fruit Loader Machine Operator) the early afternoon of . Pt Condition on Discharge: Deteriorating Discharge Disposition: Trnsfr to Other Facility () Discharge Instructions DIET: Follow Instructions for: Nothing By Mouth () ACTIVITIES You can perform: Regular-No Restrictions () Boogie Lawler Sep 21, 2016 10:14
== END 2016-09-08 05:52 | disposition expired | DRG 3 ==
LOC: NEPC 03:50 → NEDA 04:02 → N03A 04:32 → N03B 09-07 06:31 → N03A 09-07 18:16
PROVIDERS: ADMIT Neurological Surgery; ATTEND Neurological Surgery
PROC: 009630Z Drainage of Cerebral Ventricle with Drainage Device, Percutaneous Approach (ICD-10-PCS; principal; 2016-08-23)
PROC: 5A1955Z Respiratory Ventilation, Greater than 96 Consecutive Hours (ICD-10-PCS; 2016-08-23)
PROC: 03LG3DZ Occlusion of Intracranial Artery with Intraluminal Device, Percutaneous Approach (ICD-10-PCS; 2016-08-23)
PROC: 05H533Z Insertion of Infusion Device into Right Subclavian Vein, Percutaneous Approach (ICD-10-PCS; 2016-08-23)
PROC: 03HY32Z Insertion of Monitoring Device into Upper Artery, Percutaneous Approach (ICD-10-PCS; 2016-08-23)
PROC: 4A133B1 Monitoring of Arterial Pressure, Peripheral, Percutaneous Approach (ICD-10-PCS; 2016-08-23)
PROC: 4A133J1 Monitoring of Arterial Pulse, Peripheral, Percutaneous Approach (ICD-10-PCS; 2016-08-23)
PROC: 0T9B70Z Drainage of Bladder with Drainage Device, Via Natural or Artificial Opening (ICD-10-PCS; 2016-08-24)
PROC: 0B113F4 Bypass Trachea to Cutaneous with Tracheostomy Device, Percutaneous Approach (ICD-10-PCS; 2016-08-31)
PROC: 03H63DZ Insertion of Intraluminal Device into Left Axillary Artery, Percutaneous Approach (ICD-10-PCS; 2016-08-31)
PROC: 0BJ08ZZ Inspection of Tracheobronchial Tree, Via Natural or Artificial Opening Endoscopic (ICD-10-PCS; 2016-08-31)
PROC: 30233K1 Transfusion of Nonautologous Frozen Plasma into Peripheral Vein, Percutaneous Approach (ICD-10-PCS; 2016-09-01)
PROC: 0DJ08ZZ Inspection of Upper Intestinal Tract, Via Natural or Artificial Opening Endoscopic (ICD-10-PCS; 2016-09-01)
PROC: 0DH63UZ Insertion of Feeding Device into Stomach, Percutaneous Approach (ICD-10-PCS; 2016-09-01)
PROC: B3161ZZ Fluoroscopy of Right Internal Carotid Artery using Low Osmolar Contrast (ICD-10-PCS; 2016-09-02)
PROC: 3E063GC Introduction of Other Therapeutic Substance into Central Artery, Percutaneous Approach (ICD-10-PCS; 2016-09-03)
PROC: B3161ZZ Fluoroscopy of Right Internal Carotid Artery using Low Osmolar Contrast (ICD-10-PCS; 2016-09-03)
PROC: 0BJ08ZZ Inspection of Tracheobronchial Tree, Via Natural or Artificial Opening Endoscopic (ICD-10-PCS; 2016-09-06)
DX: I60.9 Nontraumatic subarachnoid hemorrhage, unspecified (principal); G93.6 Cerebral edema; R65.20 Severe sepsis without septic shock; G93.5 Compression of brain; A41.9 Sepsis, unspecified organism; J69.0 Pneumonitis due to inhalation of food and vomit; G93.40 Encephalopathy, unspecified; J96.01 Acute respiratory failure with hypoxia; J96.02 Acute respiratory failure with hypercapnia; G91.1 Obstructive hydrocephalus; Z99.11 Dependence on respirator [ventilator] status; E23.2 Diabetes insipidus; I16.1 Hypertensive emergency; I67.848 Other cerebrovascular vasospasm and vasoconstriction; I10 Essential (primary) hypertension; E78.5 Hyperlipidemia, unspecified; I61.5 Nontraumatic intracerebral hemorrhage, intraventricular; R00.0 Tachycardia, unspecified; E78.00 Pure hypercholesterolemia, unspecified; E83.39 Other disorders of phosphorus metabolism; E83.41 Hypermagnesemia; E87.6 Hypokalemia; G93.2 Benign intracranial hypertension; K29.70 Gastritis, unspecified, without bleeding; N14.1 Nephropathy induced by other drugs, medicaments and biological substances; T50.8X5A Adverse effect of diagnostic agents, initial encounter; Y92.239 Unspecified place in hospital as the place of occurrence of the external cause; H57.04 Mydriasis; Z82.3 Family history of stroke; Z80.9 Family history of malignant neoplasm, unspecified
CPT/HCPCS: 31600; 31624; 36430; 36556; 36600; 61210; 61624; 61650; 70450; 70496; 70498; 71010; 76376; 76937; 78606; 80048; 80053; 80202; 81001; 81003; 82805; 82948; 82977; 83735; 83930; 83935; 84100; 84132; 84295; 84484; 85007; 85025; 85027; 85384; 85610; 85730; 86850; 86900; 86901; 86927; 87040; 87070; 87086; 87205; 87641; 93886; 94002; 94003; 94640; 94664; 94770; 95819; A9539; C1760; C1769; C1887; C1894; C9113; J0171; J0360; J0456; J0461; J0690; J1644; J1817; J1953; J2060; J2150; J2175; J2250; J2370; J2543; J2597; J2720; J3010; J3370; J3480; J7030; J7040; J7050; J7060; P9017; P9045; Q9967